=== PATIENT | male | born 1955 | race Caucasian/White ===

== ENCOUNTER 2017-05-21 14:18 | Inpatient (IN) | payer MEDICARE, MEDICAID ==
[2017-05-21 17:16] LABS: ADD MAN DIFF? NO
[2017-05-21 17:20] LABS: BASOPHILS % 0.2 % (0.0-2.0); HEMOGLOBIN 9.5 g/dl (14.0-18.0); MONOCYTES % 6.6 % (0.0-11.0); NEUTROPHILS % 80.8 % (39.0-77.0)
[2017-05-21 17:27] LABS: EOSINOPHILS # 0.3 10^3/ul (0.0-0.5); EOSINOPHILS % 3.8 % (0.0-7.0); LYMPHOCYTES # 0.7 10^3/ul (0.8-2.9); MEAN CORPUSCULAR HEMOGLOBIN 32.3 pg (29.0-33.0); MEAN CORPUSCULAR HGB CONC 32.8 g/dl (32.0-37.0); MEAN CORPUSCULAR VOLUME 98.6 fl (82.0-101.0); MEAN PLATELET VOLUME 10.3 fl (7.4-10.4); MONOCYTE # 0.6 10^3/ul (0.3-0.9); PLATELET COUNT 164 10^3/UL (140-415); RED BLOOD COUNT 2.94 10^6/ul (4.70-6.10); RED CELL DISTRIBUTION WIDTH 17.2 % (11.5-14.5)
[2017-05-21 17:27] LABS: WHITE BLOOD COUNT 8.6 10^3/ul (4.8-10.8)
[2017-05-21] MEDS: morphine 4 MG/ML VIAL IV (17:30)
[2017-05-21 17:33] LABS: INR 1.12; PROTIME 14.6 Sec (11.9-14.9); PT RATIO 1.1
[2017-05-21 17:34] LABS: PARTIAL THROMBOPLASTIN TIME 46.8 Sec (25.0-35.0)
[2017-05-21 17:48] LABS: ANION GAP 20 (8-16); BLOOD UREA NITROGEN 58 mg/dl (7-20); CALCIUM 10.2 mg/dl (8.4-10.2); CARBON DIOXIDE 26 mmol/L (21-31); CHLORIDE 95 mmol/L (97-110); CREATININE 9.06 mg/dl (0.61-1.24); GLUCOSE 84 mg/dl (70-220); POTASSIUM 5.4 mmol/L (3.5-5.1); SODIUM 136 mmol/L (135-144)
[2017-05-21] MEDS ORDERED: ONDANSETRON 4 MG INJ IV (20:30)
[2017-05-21] MEDS ORDERED: ACETAMINOPHEN 325 MG TAB PO ×2 (20:30→22:30)
[2017-05-21] MEDS: morphine 10 MG INJ IV (20:33)
[2017-05-21] MEDS: CLINDAMYCIN 900 MG/D5W (PMX) 50 ML IVPB (21:27)
[2017-05-21] MEDS: NA POLYST SULFON 15 GM/60 ML BTL PO (21:48)
[2017-05-21] MEDS ORDERED: NITROGLYCERIN (SL) 0.4 MG TAB SL (22:30)
[2017-05-21] MEDS ORDERED: ALBUTEROL/IPRATROPIUM (NEB) 3 ML AMP HHN (22:30)
[2017-05-21] MEDS ORDERED: VANCOMYCIN IV PER PHARMACY XX (22:30)
[2017-05-21] MEDS ORDERED: NA PHOSPHATE/BIPHOS 133 ML ENEMA PR (22:30)
[2017-05-21 23:09] LABS: INR 1.18; PROTIME 15.2 Sec (11.9-14.9); PT RATIO 1.2
[2017-05-21 23:10] LABS: PARTIAL THROMBOPLASTIN TIME 39.7 Sec (25.0-35.0)
[2017-05-21] MEDS: PIPER-TAZO 2.25 GM (PMX) 50 ML IVPB (23:30)
[2017-05-21 23:33] LABS: FREE T4 (FREE THYROXINE) 1.27 ng/dl (0.78-2.44)
[2017-05-22] MEDS: VANCOMYCIN 1.5 GM in DEXTROSE 5% 500 ML IVPB (00:15)
[2017-05-22] MEDS: morphine 2 MG INJ IV ×3 (01:36→10:39)
[2017-05-22] MEDS: HYDROCODONE/APAP (5/325) TAB PO ×2 (01:37→06:10)
[2017-05-22 05:45] LABS: ADD MAN DIFF? NO
[2017-05-22 05:51] LABS: WHITE BLOOD COUNT 8.4 10^3/ul (4.8-10.8)
[2017-05-22 05:51] LABS: ABNORMAL IP MESSAGE 1; BASOPHILS % 0.5 % (0.0-2.0); EOSINOPHILS # 0.4 10^3/ul (0.0-0.5); EOSINOPHILS % 5.2 % (0.0-7.0); HEMATOCRIT 29.4 % (42.0-52.0); HEMOGLOBIN 9.6 g/dl (14.0-18.0); LYMPHOCYTES # 0.6 10^3/ul (0.8-2.9); LYMPHOCYTES % 6.9 % (15.0-51.0); MEAN CORPUSCULAR HEMOGLOBIN 32.1 pg (29.0-33.0); MEAN CORPUSCULAR HGB CONC 32.7 g/dl (32.0-37.0); MEAN CORPUSCULAR VOLUME 98.3 fl (82.0-101.0); MEAN PLATELET VOLUME 11.2 fl (7.4-10.4); MONOCYTE # 0.5 10^3/ul (0.3-0.9); MONOCYTES % 5.8 % (0.0-11.0); NEUTROPHIL # 6.8 10^3/ul (1.6-7.5); NEUTROPHILS % 81.2 % (39.0-77.0); PLATELET COUNT 122 10^3/UL (140-415); POSITIVE DIFF @See below; RED BLOOD COUNT 2.99 10^6/ul (4.70-6.10); RED CELL DISTRIBUTION WIDTH 17.2 % (11.5-14.5)
[2017-05-22] MEDS ORDERED: GLUCAGON 1 MG INJ IM (06:00)
[2017-05-22] MEDS ORDERED: DEXTROSE 50% 50 ML SYRINGE IV (06:00)
[2017-05-22] MEDS ORDERED: GLUCOSE GEL 15 GRAM TUBE PO ×2 (06:00)
[2017-05-22 06:12] LABS: CHOLESTEROL 105 mg/dl (100-200)
[2017-05-22 06:12] LABS: CHOL/HDL RATIO 5.2 RATIO; HDL CHOLESTEROL 20 mg/dl (30-78); LDL CHOLESTEROL,CALCULATED 60 mg/dl; TRIGLYCERIDES 126 mg/dl (0-149)
[2017-05-22 06:14] LABS: ANION GAP 18 (8-16); BLOOD UREA NITROGEN 60 mg/dl (7-20); CALCIUM 10.6 mg/dl (8.4-10.2); CARBON DIOXIDE 24 mmol/L (21-31); CHLORIDE 95 mmol/L (97-110); CREATININE 10.17 mg/dl (0.61-1.24); GLUCOSE 70 mg/dl (70-220); MAGNESIUM 1.9 mg/dl (1.7-2.5); PHOSPHORUS 7.1 mg/dl (2.5-4.9); POTASSIUM 5.2 mmol/L (3.5-5.1); SODIUM 132 mmol/L (135-144)
[2017-05-22] MEDS: PIPER-TAZO 2.25 GM (PMX) 50 ML IVPB ×3 (06:30→22:00)
[2017-05-22] MEDS: PANTOPRAZOLE (EC) 40 MG TAB PO (06:54)
[2017-05-22 07:53] LABS: HEMOGLOBIN A1C 4.4 % (0-5.9)
[2017-05-22] MEDS ORDERED: VANCOMYCIN IV PER PHARMACY XX (08:30)
[2017-05-22] MEDS: ASPIRIN 81 MG TAB PO (09:00)
[2017-05-22] MEDS: ASCORBIC ACID 500 MG TAB PO ×3 (09:00→23:56)
[2017-05-22] MEDS: HEPARIN 5,000 UNIT/0.5 ML VIAL SC ×2 (09:00→21:00)
[2017-05-22] MEDS: BISACODYL 10 MG SUPP PR (09:00)
[2017-05-22] MEDS: LISINOPRIL 10 MG TAB PO (09:00)
[2017-05-22] MEDS: AMIODARONE 200 MG TAB PO (09:00)
[2017-05-22] MEDS ORDERED: PANTOPRAZOLE (EC) 40 MG TAB PO (09:00)
[2017-05-22] MEDS ORDERED: NON-FORMULARY/PATIENT OWN MED (Amino Acids/Protein Hydrolys (Pro-Stat Liquid) 30 ML) PO (09:00)
[2017-05-22] MEDS: FOLIC ACID 1 MG TAB PO (09:00)
[2017-05-22] MEDS: INSULIN ASPART [NOVOLOG] 3 ML PEN SC ×4 (09:00→21:00)
[2017-05-22] MEDS: MULTIVITAMINS/MINERALS TAB PO (09:00)
[2017-05-22] MEDS: THIAMINE 100 MG TAB PO (09:00)
[2017-05-22] MEDS: ZINC SULFATE 220 MG CAP PO (09:00)
[2017-05-22] MEDS: COLLAGENASE 30 GM TUBE TOP ×2 (09:00→21:00)
[2017-05-22] MEDS ORDERED: NON-FORMULARY/PATIENT OWN MED (Cranberry Extract (Cranberry) 425 MG) PO (09:00)
[2017-05-22] MEDS: CALCIUM ACETATE 667 MG CAP PO ×2 (11:45→17:35)
[2017-05-22] MEDS ORDERED: PIPER-TAZO 2.25 GM (PMX) 50 ML IVPB (14:00)
[2017-05-22 14:25] LABS: INR 1.15; PROTIME 14.9 Sec (11.9-14.9); PT RATIO 1.2
[2017-05-22 14:26] LABS: PARTIAL THROMBOPLASTIN TIME 46.2 Sec (25.0-35.0)
[2017-05-22 15:00] LABS: HEPATITIS B SURFACE ANTIGEN NEGATIVE (NEGATIVE)
[2017-05-22 15:18] LABS: HEPATITIS B SURFACE ANTIBODY POSITIVE (NEGATIVE)
[2017-05-22] MEDS: EPOETIN 10000 UNITS/1 ML INJ (ESRD) SC (18:22)
[2017-05-22] MEDS: ATORVASTATIN 10 MG TAB PO ×2 (21:00→23:55)
[2017-05-22] MEDS: DOCUSATE SODIUM 100 MG CAP PO (21:00)
[2017-05-22] MEDS: HEPARIN 1000 UNITS/ML 10 ML INJ CATHETER ×2 (23:46→23:47)
[2017-05-23] MEDS: INSULIN ASPART [NOVOLOG] 3 ML PEN SC ×6 (01:00→21:00)
[2017-05-23] MEDS ORDERED: ACCU-CHEK XX (02:00)
[2017-05-23] MEDS: COLLAGENASE 30 GM TUBE TOP ×3 (04:29→21:00)
[2017-05-23] MEDS: PANTOPRAZOLE (EC) 40 MG TAB PO (05:19)
[2017-05-23 06:09] LABS: ADD MAN DIFF? NO
[2017-05-23 06:22] LABS: ABNORMAL IP MESSAGE 1; BASOPHILS % 0.4 % (0.0-2.0); EOSINOPHILS # 0.3 10^3/ul (0.0-0.5); EOSINOPHILS % 4.1 % (0.0-7.0); HEMATOCRIT 31.5 % (42.0-52.0); HEMOGLOBIN 10.3 g/dl (14.0-18.0); LYMPHOCYTES # 0.6 10^3/ul (0.8-2.9); LYMPHOCYTES % 7.2 % (15.0-51.0); MEAN CORPUSCULAR HEMOGLOBIN 32.3 pg (29.0-33.0); MEAN CORPUSCULAR HGB CONC 32.7 g/dl (32.0-37.0); MEAN CORPUSCULAR VOLUME 98.7 fl (82.0-101.0); MEAN PLATELET VOLUME 10.8 fl (7.4-10.4); MONOCYTE # 0.4 10^3/ul (0.3-0.9); MONOCYTES % 5.8 % (0.0-11.0); NEUTROPHIL # 6.3 10^3/ul (1.6-7.5); NEUTROPHILS % 81.8 % (39.0-77.0); PLATELET COUNT 154 10^3/UL (140-415); POSITIVE DIFF @See below; RED BLOOD COUNT 3.19 10^6/ul (4.70-6.10); RED CELL DISTRIBUTION WIDTH 17.3 % (11.5-14.5)
[2017-05-23 06:22] LABS: WHITE BLOOD COUNT 7.6 10^3/ul (4.8-10.8)
[2017-05-23 06:40] LABS: ANION GAP 17 (8-16); BLOOD UREA NITROGEN 42 mg/dl (7-20); CALCIUM 10.4 mg/dl (8.4-10.2); CARBON DIOXIDE 26 mmol/L (21-31); CHLORIDE 98 mmol/L (97-110); CREATININE 7.52 mg/dl (0.61-1.24); GLUCOSE 64 mg/dl (70-220); POTASSIUM 4.9 mmol/L (3.5-5.1); SODIUM 136 mmol/L (135-144)
[2017-05-23 06:41] LABS: IRON 55 ug/dl (35-150)
[2017-05-23] MEDS: morphine 2 MG INJ IV ×4 (06:48→21:37)
[2017-05-23 06:50] LABS: % IRON SATURATION 39 % SAT (22-52); TOTAL IRON BINDING CAPACITY 140 ug/dl (241-421)
[2017-05-23] MEDS: PIPER-TAZO 2.25 GM (PMX) 50 ML IVPB ×3 (06:50→21:38)
[2017-05-23] MEDS: ASCORBIC ACID 500 MG TAB PO ×2 (08:46→21:37)
[2017-05-23] MEDS: MULTIVITAMINS/MINERALS TAB PO (08:46)
[2017-05-23] MEDS: FOLIC ACID 1 MG TAB PO (08:46)
[2017-05-23] MEDS: BISACODYL 10 MG SUPP PR (08:46)
[2017-05-23] MEDS: CALCIUM ACETATE 667 MG CAP PO ×3 (08:46→17:00)
[2017-05-23] MEDS: ZINC SULFATE 220 MG CAP PO (08:46)
[2017-05-23] MEDS: ASPIRIN 81 MG TAB PO (08:46)
[2017-05-23] MEDS: THIAMINE 100 MG TAB PO (08:46)
[2017-05-23] MEDS: AMIODARONE 200 MG TAB PO (08:47)
[2017-05-23] MEDS: LISINOPRIL 10 MG TAB PO (08:47)
[2017-05-23] MEDS: HEPARIN 5,000 UNIT/0.5 ML VIAL SC ×2 (08:48→21:46)
[2017-05-23] MEDS: INFLUENZA VIRUS VACCINE 0.5 ML SYG IM* (08:49)
[2017-05-23] MEDS: HYDROCODONE/APAP (5/325) TAB PO (15:56)
[2017-05-23] MEDS: DOCUSATE SODIUM 100 MG CAP PO (21:00)
[2017-05-23] MEDS: ATORVASTATIN 10 MG TAB PO (21:37)
[2017-05-24] MEDS: INSULIN ASPART [NOVOLOG] 3 ML PEN SC ×6 (01:00→21:00)
[2017-05-24] MEDS: morphine 2 MG INJ IV ×4 (02:01→19:31)
[2017-05-24] MEDS: HYDROCODONE/APAP (5/325) TAB PO (03:40)
[2017-05-24] MEDS: COLLAGENASE 30 GM TUBE TOP ×3 (04:19→21:12)
[2017-05-24] MEDS: PIPER-TAZO 2.25 GM (PMX) 50 ML IVPB ×3 (05:52→21:11)
[2017-05-24] MEDS: PANTOPRAZOLE (EC) 40 MG TAB PO (05:52)
[2017-05-24 06:19] LABS: ADD MAN DIFF? NO
[2017-05-24 06:49] LABS: ABNORMAL IP MESSAGE 1; BASOPHILS % 0.3 % (0.0-2.0); EOSINOPHILS # 0.3 10^3/ul (0.0-0.5); HEMATOCRIT 25.5 % (42.0-52.0); HEMOGLOBIN 8.2 g/dl (14.0-18.0); LYMPHOCYTES # 0.6 10^3/ul (0.8-2.9); LYMPHOCYTES % 7.4 % (15.0-51.0); MEAN CORPUSCULAR HGB CONC 32.2 g/dl (32.0-37.0); MEAN CORPUSCULAR VOLUME 99.6 fl (82.0-101.0); MONOCYTE # 0.5 10^3/ul (0.3-0.9); MONOCYTES % 6.4 % (0.0-11.0); NEUTROPHIL # 6.5 10^3/ul (1.6-7.5); NEUTROPHILS % 81.5 % (39.0-77.0); PLATELET COUNT 103 10^3/UL (140-415); POSITIVE DIFF @See below; RED BLOOD COUNT 2.56 10^6/ul (4.70-6.10); RED CELL DISTRIBUTION WIDTH 17.2 % (11.5-14.5)
[2017-05-24 06:49] LABS: WHITE BLOOD COUNT 7.9 10^3/ul (4.8-10.8)
[2017-05-24 06:54] LABS: ANION GAP 17 (8-16); BLOOD UREA NITROGEN 48 mg/dl (7-20); CALCIUM 10.2 mg/dl (8.4-10.2); CARBON DIOXIDE 26 mmol/L (21-31); CHLORIDE 97 mmol/L (97-110); GLUCOSE 67 mg/dl (70-220); POTASSIUM 5.2 mmol/L (3.5-5.1); SODIUM 135 mmol/L (135-144)
[2017-05-24 06:56] LABS: VANCOMYCIN,RANDOM 16.3 ug/ml
[2017-05-24] MEDS: ASPIRIN 81 MG TAB PO (07:50)
[2017-05-24] MEDS: ASCORBIC ACID 500 MG TAB PO ×2 (07:50→21:06)
[2017-05-24] MEDS: THIAMINE 100 MG TAB PO (07:50)
[2017-05-24] MEDS: FOLIC ACID 1 MG TAB PO (07:50)
[2017-05-24] MEDS: MULTIVITAMINS/MINERALS TAB PO (07:50)
[2017-05-24] MEDS: LISINOPRIL 10 MG TAB PO (07:51)
[2017-05-24] MEDS: BISACODYL 10 MG SUPP PR (07:51)
[2017-05-24] MEDS: CALCIUM ACETATE 667 MG CAP PO ×3 (07:51→16:54)
[2017-05-24] MEDS: AMIODARONE 200 MG TAB PO (07:51)
[2017-05-24] MEDS: HEPARIN 5,000 UNIT/0.5 ML VIAL SC ×2 (07:51→21:21)
[2017-05-24] MEDS: ZINC SULFATE 220 MG CAP PO (07:51)
[2017-05-24] MEDS ORDERED: MIDAZOLAM 1 MG/ML 2 ML INJ (10:37)
[2017-05-24] MEDS ORDERED: SOD CHLORIDE 0.9% 500 ML (10:37)
[2017-05-24] MEDS ORDERED: FENTAnyl 50 MCG/ML VIAL (10:37)
[2017-05-24] MEDS ORDERED: IODIXANOL LOCM 50 ML BTL (10:37)
[2017-05-24] MEDS ORDERED: LIDOCAINE 1% (MDV) 20 ML INJ (10:37)
[2017-05-24] MEDS ORDERED: CEFAZOLIN 1 GM/50 ML (PMX) 50 ML IVPB (11:32)
[2017-05-24] MEDS ORDERED: IODIXANOL LOCM 100 ML BTL (12:18)
[2017-05-24] MEDS ORDERED: HEPARIN 1000 UNITS/ML 10 ML INJ (12:19)
[2017-05-24] MEDS: VANCOMYCIN 1 GM 250 ML IVPB (12:34)
[2017-05-24] MEDS: DOCUSATE SODIUM 100 MG CAP PO (21:00)
[2017-05-24] MEDS: ATORVASTATIN 10 MG TAB PO (21:06)
[2017-05-25] MEDS: INSULIN ASPART [NOVOLOG] 3 ML PEN SC ×6 (01:00→20:39)
[2017-05-25] MEDS: morphine 2 MG INJ IV ×4 (05:19→20:34)
[2017-05-25] MEDS: PANTOPRAZOLE (EC) 40 MG TAB PO (05:40)
[2017-05-25] MEDS: PIPER-TAZO 2.25 GM (PMX) 50 ML IVPB ×3 (05:41→22:31)
[2017-05-25] MEDS: HYDROCODONE/APAP (5/325) TAB PO (08:50)
[2017-05-25] MEDS: COLLAGENASE 30 GM TUBE TOP ×2 (09:00→20:49)
[2017-05-25] MEDS: LISINOPRIL 10 MG TAB PO (09:00)
[2017-05-25] MEDS: BISACODYL 10 MG SUPP PR (09:00)
[2017-05-25] MEDS: AMIODARONE 200 MG TAB PO (09:00)
[2017-05-25] MEDS: MULTIVITAMINS/MINERALS TAB PO (10:01)
[2017-05-25] MEDS: ASPIRIN 81 MG TAB PO (10:01)
[2017-05-25] MEDS: ZINC SULFATE 220 MG CAP PO (10:02)
[2017-05-25] MEDS: CALCIUM ACETATE 667 MG CAP PO ×3 (10:02→18:35)
[2017-05-25] MEDS: ASCORBIC ACID 500 MG TAB PO ×2 (10:02→20:35)
[2017-05-25] MEDS: FOLIC ACID 1 MG TAB PO (10:02)
[2017-05-25] MEDS: THIAMINE 100 MG TAB PO (10:02)
[2017-05-25] MEDS: HEPARIN 5,000 UNIT/0.5 ML VIAL SC ×2 (10:09→20:47)
[2017-05-25 10:44] LABS: ADD MAN DIFF? NO
[2017-05-25 10:58] LABS: ABNORMAL IP MESSAGE 1; BASOPHILS % 0.4 % (0.0-2.0); EOSINOPHILS # 0.4 10^3/ul (0.0-0.5); EOSINOPHILS % 5.8 % (0.0-7.0); HEMATOCRIT 23.6 % (42.0-52.0); HEMOGLOBIN 7.6 g/dl (14.0-18.0); LYMPHOCYTES # 0.4 10^3/ul (0.8-2.9); MEAN CORPUSCULAR HEMOGLOBIN 32.2 pg (29.0-33.0); MEAN CORPUSCULAR HGB CONC 32.2 g/dl (32.0-37.0); MONOCYTE # 0.3 10^3/ul (0.3-0.9); MONOCYTES % 4.2 % (0.0-11.0); NEUTROPHIL # 6.4 10^3/ul (1.6-7.5); NEUTROPHILS % 84.3 % (39.0-77.0); PLATELET COUNT 113 10^3/UL (140-415); POSITIVE DIFF @See below; RED BLOOD COUNT 2.36 10^6/ul (4.70-6.10); RED CELL DISTRIBUTION WIDTH 17.2 % (11.5-14.5)
[2017-05-25 10:58] LABS: WHITE BLOOD COUNT 7.6 10^3/ul (4.8-10.8)
[2017-05-25 11:06] LABS: ANION GAP 20 (8-16); BLOOD UREA NITROGEN 56 mg/dl (7-20); CALCIUM 10.1 mg/dl (8.4-10.2); CARBON DIOXIDE 23 mmol/L (21-31); CHLORIDE 98 mmol/L (97-110); CREATININE 9.83 mg/dl (0.61-1.24); GLUCOSE 65 mg/dl (70-220); SODIUM 135 mmol/L (135-144)
[2017-05-25 11:07] LABS: MAGNESIUM 1.9 mg/dl (1.7-2.5)
[2017-05-25 11:07] LABS: PHOSPHORUS 6.3 mg/dl (2.5-4.9)
[2017-05-25 11:09] LABS: POTASSIUM 5.6 mmol/L (3.5-5.1)
[2017-05-25] MEDS: EPOETIN 10000 UNITS/1 ML INJ (ESRD) SC (18:34)
[2017-05-25] MEDS: ATORVASTATIN 10 MG TAB PO (20:35)
[2017-05-25] MEDS: DOCUSATE SODIUM 100 MG CAP PO (20:35)
[2017-05-26] MEDS: INSULIN ASPART [NOVOLOG] 3 ML PEN SC ×6 (01:45→21:00)
[2017-05-26] MEDS: morphine 2 MG INJ IV ×5 (03:40→22:37)
[2017-05-26] MEDS: HEPARIN 1000 UNITS/ML 10 ML INJ CATHETER (03:41)
[2017-05-26] MEDS: PANTOPRAZOLE (EC) 40 MG TAB PO (06:00)
[2017-05-26] MEDS: PIPER-TAZO 2.25 GM (PMX) 50 ML IVPB ×2 (06:01→13:19)
[2017-05-26 07:27] LABS: ADD MAN DIFF? NO
[2017-05-26 07:33] LABS: ABNORMAL IP MESSAGE 1; BASOPHILS % 0.6 % (0.0-2.0); EOSINOPHILS # 0.5 10^3/ul (0.0-0.5); EOSINOPHILS % 6.7 % (0.0-7.0); HEMATOCRIT 26.6 % (42.0-52.0); HEMOGLOBIN 8.7 g/dl (14.0-18.0); LYMPHOCYTES # 0.4 10^3/ul (0.8-2.9); LYMPHOCYTES % 5.5 % (15.0-51.0); MEAN CORPUSCULAR HEMOGLOBIN 32.3 pg (29.0-33.0); MEAN CORPUSCULAR HGB CONC 32.7 g/dl (32.0-37.0); MEAN CORPUSCULAR VOLUME 98.9 fl (82.0-101.0); MONOCYTE # 0.4 10^3/ul (0.3-0.9); MONOCYTES % 5.4 % (0.0-11.0); NEUTROPHIL # 5.8 10^3/ul (1.6-7.5); NEUTROPHILS % 81.7 % (39.0-77.0); PLATELET COUNT 105 10^3/UL (140-415); POSITIVE DIFF @See below; RED BLOOD COUNT 2.69 10^6/ul (4.70-6.10); RED CELL DISTRIBUTION WIDTH 17.2 % (11.5-14.5)
[2017-05-26 07:47] LABS: MAGNESIUM 1.8 mg/dl (1.7-2.5)
[2017-05-26 07:47] LABS: PHOSPHORUS 3.7 mg/dl (2.5-4.9)
[2017-05-26 07:52] LABS: ANION GAP 16 (8-16); BLOOD UREA NITROGEN 26 mg/dl (7-20); CALCIUM 9.8 mg/dl (8.4-10.2); CARBON DIOXIDE 26 mmol/L (21-31); CHLORIDE 100 mmol/L (97-110); CREATININE 5.54 mg/dl (0.61-1.24); GLUCOSE 60 mg/dl (70-220); POTASSIUM 4.1 mmol/L (3.5-5.1); SODIUM 138 mmol/L (135-144)
[2017-05-26 08:14] LABS: INR 1.23; PROTIME 15.7 Sec (11.9-14.9); PT RATIO 1.2
[2017-05-26] MEDS: FOLIC ACID 1 MG TAB PO (08:44)
[2017-05-26] MEDS: THIAMINE 100 MG TAB PO (08:44)
[2017-05-26] MEDS: CALCIUM ACETATE 667 MG CAP PO ×3 (08:44→17:19)
[2017-05-26] MEDS: ASCORBIC ACID 500 MG TAB PO ×2 (08:44→22:30)
[2017-05-26] MEDS: ZINC SULFATE 220 MG CAP PO (08:44)
[2017-05-26] MEDS: MULTIVITAMINS/MINERALS TAB PO (08:44)
[2017-05-26] MEDS: LISINOPRIL 10 MG TAB PO (08:45)
[2017-05-26] MEDS: AMIODARONE 200 MG TAB PO (08:45)
[2017-05-26] MEDS: ASPIRIN 81 MG TAB PO (08:46)
[2017-05-26] MEDS: HEPARIN 5,000 UNIT/0.5 ML VIAL SC (08:50)
[2017-05-26] MEDS: COLLAGENASE 30 GM TUBE TOP ×2 (08:52→21:00)
[2017-05-26] MEDS: BISACODYL 10 MG SUPP PR (09:00)
[2017-05-26] MEDS ORDERED: HEPARIN 25000 UNITS/250 ML 250 ML IV (13:30)
[2017-05-26] MEDS ORDERED: HEPARIN 1000 UNITS/ML 10 ML INJ IV ×4 (13:30)
[2017-05-26] MEDS: HEPARIN 1000 UNITS/ML 10 ML INJ IV (14:11)
[2017-05-26] MEDS: HEPARIN 25000 UNITS/250 ML 250 ML IV (14:19)
[2017-05-26] MEDS ORDERED: TOBRAMYCIN IV PER PHARMACY XX (15:00)
[2017-05-26 15:22] LABS: ADD MAN DIFF? NO
[2017-05-26 15:27] LABS: ABNORMAL IP MESSAGE 1; BASOPHILS % 0.4 % (0.0-2.0); EOSINOPHILS # 0.5 10^3/ul (0.0-0.5); HEMATOCRIT 26.1 % (42.0-52.0); HEMOGLOBIN 8.5 g/dl (14.0-18.0); LYMPHOCYTES # 0.5 10^3/ul (0.8-2.9); LYMPHOCYTES % 7.1 % (15.0-51.0); MEAN CORPUSCULAR HEMOGLOBIN 32.4 pg (29.0-33.0); MEAN CORPUSCULAR HGB CONC 32.6 g/dl (32.0-37.0); MEAN CORPUSCULAR VOLUME 99.6 fl (82.0-101.0); MEAN PLATELET VOLUME 10.9 fl (7.4-10.4); MONOCYTE # 0.5 10^3/ul (0.3-0.9); MONOCYTES % 6.3 % (0.0-11.0); NEUTROPHIL # 5.8 10^3/ul (1.6-7.5); NEUTROPHILS % 78.5 % (39.0-77.0); PLATELET COUNT 112 10^3/UL (140-415); POSITIVE DIFF @See below; RED BLOOD COUNT 2.62 10^6/ul (4.70-6.10); RED CELL DISTRIBUTION WIDTH 17.4 % (11.5-14.5)
[2017-05-26 15:27] LABS: WHITE BLOOD COUNT 7.3 10^3/ul (4.8-10.8)
[2017-05-26 15:45] LABS: INR 1.44; PROTIME 17.8 Sec (11.9-14.9); PT RATIO 1.4
[2017-05-26 16:04] LABS: PARTIAL THROMBOPLASTIN TIME > 180.0 Sec (25.0-35.0)
[2017-05-26] MEDS: CEFTAZIDIME 1GM/50 ML (PMX) 50 ML IVPB (16:29)
[2017-05-26] MEDS: TOBRAMYCIN 160 MG in DEXTROSE 5% 100 ML IVPB (17:14)
[2017-05-26] MEDS ORDERED: MINERAL OIL LIGHT 10 ML VIAL (18:36)
[2017-05-26] MEDS ORDERED: LIDOCAINE 1% (MPF) 30 ML INJ (18:36)
[2017-05-26] MEDS: DAPTOMYCIN 325 MG in SOD CHLORIDE 0.9% 100 ML IVPB (18:43)
[2017-05-26 19:19] LABS: TROPONIN-I 0.024 ng/ml (0.00-0.12)
[2017-05-26] MEDS: BUPIVACAINE 0.25% (MPF) 30 ML INJ ×3 (19:50→20:08)
[2017-05-26] MEDS ORDERED: MIDAZOLAM 1 MG/ML 2 ML INJ (19:50)
[2017-05-26] MEDS ORDERED: FENTAnyl 50 MCG/ML VIAL (19:50)
[2017-05-26] MEDS ORDERED: PROPOFOL 20 ML (20:12)
[2017-05-26] MEDS ORDERED: LIDOCAINE 2% (SDV) 5 ML INJ (20:12)
[2017-05-26] MEDS ORDERED: FENTAnyl 50 MCG/ML VIAL IV (20:30)
[2017-05-26] MEDS ORDERED: NEOMYC/POLYMYX/BACIT 30 GM OINT (20:45)
[2017-05-26] MEDS: DOCUSATE SODIUM 100 MG CAP PO (21:00)
[2017-05-26 22:06] LABS: HEPATITIS B SURFACE ANTIGEN NEGATIVE (NEGATIVE)
[2017-05-26] MEDS: ATORVASTATIN 10 MG TAB PO (22:30)
[2017-05-26 23:30] LABS: PARTIAL THROMBOPLASTIN TIME 45.4 Sec (25.0-35.0)
[2017-05-27] MEDS: INSULIN ASPART [NOVOLOG] 3 ML PEN SC ×6 (01:00→20:08)
[2017-05-27] MEDS: HEPARIN 1000 UNITS/ML 10 ML INJ IV (01:20)
[2017-05-27] MEDS: HEPARIN 25000 UNITS/250 ML 250 ML IV ×2 (01:23→23:16)
[2017-05-27 01:50] LABS: TROPONIN-I 0.032 ng/ml (0.00-0.12)
[2017-05-27] MEDS: PANTOPRAZOLE (EC) 40 MG TAB PO (05:29)
[2017-05-27] MEDS: morphine 2 MG INJ IV ×4 (05:47→23:17)
[2017-05-27] MEDS: HYDROCODONE/APAP (5/325) TAB PO ×3 (06:45→20:05)
[2017-05-27 08:22] LABS: ADD MAN DIFF? NO
[2017-05-27 08:32] LABS: WHITE BLOOD COUNT 7.3 10^3/ul (4.8-10.8)
[2017-05-27 08:32] LABS: ABNORMAL IP MESSAGE 1; BASOPHILS % 0.3 % (0.0-2.0); EOSINOPHILS # 0.4 10^3/ul (0.0-0.5); EOSINOPHILS % 5.8 % (0.0-7.0); HEMATOCRIT 25.3 % (42.0-52.0); HEMOGLOBIN 8.2 g/dl (14.0-18.0); LYMPHOCYTES # 0.6 10^3/ul (0.8-2.9); LYMPHOCYTES % 7.6 % (15.0-51.0); MEAN CORPUSCULAR HEMOGLOBIN 32.7 pg (29.0-33.0); MEAN CORPUSCULAR HGB CONC 32.4 g/dl (32.0-37.0); MEAN CORPUSCULAR VOLUME 100.8 fl (82.0-101.0); MEAN PLATELET VOLUME 11.1 fl (7.4-10.4); MONOCYTE # 0.4 10^3/ul (0.3-0.9); MONOCYTES % 5.5 % (0.0-11.0); NEUTROPHIL # 5.8 10^3/ul (1.6-7.5); NEUTROPHILS % 80.4 % (39.0-77.0); PLATELET COUNT 108 10^3/UL (140-415); POSITIVE DIFF @See below; RED BLOOD COUNT 2.51 10^6/ul (4.70-6.10); RED CELL DISTRIBUTION WIDTH 17.4 % (11.5-14.5)
[2017-05-27] MEDS: BISACODYL 10 MG SUPP PR (09:00)
[2017-05-27] MEDS: AMIODARONE 200 MG TAB PO ×2 (09:00→11:37)
[2017-05-27] MEDS: COLLAGENASE 30 GM TUBE TOP ×2 (09:00→20:05)
[2017-05-27] MEDS: LISINOPRIL 10 MG TAB PO ×2 (09:00→11:37)
[2017-05-27 09:08] LABS: INR 1.28; PROTIME 16.2 Sec (11.9-14.9); PT RATIO 1.3
[2017-05-27 09:15] LABS: TROPONIN-I 0.027 ng/ml (0.00-0.12)
[2017-05-27 09:21] LABS: PARTIAL THROMBOPLASTIN TIME 174.8 Sec (25.0-35.0)
[2017-05-27 09:32] LABS: IMMEDIATE SPIN CROSSMATCH 1 2
[2017-05-27] MEDS: ZINC SULFATE 220 MG CAP PO (10:06)
[2017-05-27] MEDS: MULTIVITAMINS/MINERALS TAB PO (10:06)
[2017-05-27] MEDS: ASCORBIC ACID 500 MG TAB PO ×2 (10:06→20:05)
[2017-05-27] MEDS: CALCIUM ACETATE 667 MG CAP PO ×3 (10:06→17:34)
[2017-05-27] MEDS: THIAMINE 100 MG TAB PO (10:07)
[2017-05-27] MEDS: FOLIC ACID 1 MG TAB PO (10:07)
[2017-05-27] MEDS: ASPIRIN 81 MG TAB PO (10:09)
[2017-05-27 10:29] LABS: ANION GAP 17 (8-16); BLOOD UREA NITROGEN 31 mg/dl (7-20); CALCIUM 10.4 mg/dl (8.4-10.2); CARBON DIOXIDE 25 mmol/L (21-31); CHLORIDE 101 mmol/L (97-110); CREATININE 6.63 mg/dl (0.61-1.24); GLUCOSE 73 mg/dl (70-220); POTASSIUM 4.7 mmol/L (3.5-5.1); SODIUM 138 mmol/L (135-144)
[2017-05-27 11:33] LABS: PHOSPHORUS 4.7 mg/dl (2.5-4.9)
[2017-05-27 11:39] LABS: CREATINE KINASE < 20 IU/L (23-200)
[2017-05-27 12:12] LABS: PARTIAL THROMBOPLASTIN TIME 144.3 Sec (25.0-35.0)
[2017-05-27] MEDS: TOBRAMYCIN 120 MG in DEXTROSE 5% 100 ML IVPB (13:09)
[2017-05-27] MEDS: FLUCONAZOLE 200 MG TAB PO (13:09)
[2017-05-27] MEDS: MAGNESIUM HYDROXIDE 30ML CUP PO (14:53)
[2017-05-27] MEDS: CEFTAZIDIME 1GM/50 ML (PMX) 50 ML IVPB (16:32)
[2017-05-27] MEDS: EPOETIN 10000 UNITS/1 ML INJ (ESRD) SC (16:34)
[2017-05-27] MEDS: WARFARIN 5 MG TAB PO (17:34)
[2017-05-27 19:18] LABS: PARTIAL THROMBOPLASTIN TIME 97.5 Sec (25.0-35.0)
[2017-05-27] MEDS: ATORVASTATIN 10 MG TAB PO (20:05)
[2017-05-27] MEDS: DIPHENHYDRAMINE 25 MG CAP PO (20:05)
[2017-05-27] MEDS: DOCUSATE SODIUM 100 MG CAP PO (20:08)
[2017-05-28] MEDS: INSULIN ASPART [NOVOLOG] 3 ML PEN SC ×6 (01:00→20:24)
[2017-05-28 01:30] LABS: PARTIAL THROMBOPLASTIN TIME 121.2 Sec (25.0-35.0)
[2017-05-28] MEDS: PANTOPRAZOLE (EC) 40 MG TAB PO (02:27)
[2017-05-28] MEDS: DEXTROSE 5%-0.45% NACL 1,000 ML IV (05:18)
[2017-05-28] MEDS: DEXTROSE 50% 50 ML SYRINGE IV (05:18)
[2017-05-28 05:58] LABS: ADD MAN DIFF? NO
[2017-05-28] MEDS: morphine 2 MG INJ IV ×2 (06:03→20:21)
[2017-05-28 06:08] LABS: WHITE BLOOD COUNT 7.4 10^3/ul (4.8-10.8)
[2017-05-28 06:08] LABS: BASOPHILS % 0.4 % (0.0-2.0); EOSINOPHILS # 0.2 10^3/ul (0.0-0.5); EOSINOPHILS % 3.2 % (0.0-7.0); HEMOGLOBIN 8.9 g/dl (14.0-18.0); LYMPHOCYTES # 0.7 10^3/ul (0.8-2.9); LYMPHOCYTES % 9.4 % (15.0-51.0); MEAN CORPUSCULAR HEMOGLOBIN 32.6 pg (29.0-33.0); MEAN CORPUSCULAR VOLUME 98.9 fl (82.0-101.0); MEAN PLATELET VOLUME 11.3 fl (7.4-10.4); MONOCYTE # 0.4 10^3/ul (0.3-0.9); MONOCYTES % 5.8 % (0.0-11.0); NEUTROPHILS % 80.9 % (39.0-77.0); PLATELET COUNT 118 10^3/UL (140-415); RED BLOOD COUNT 2.73 10^6/ul (4.70-6.10)
[2017-05-28 06:19] LABS: INR 1.47; PROTIME 18.1 Sec (11.9-14.9); PT RATIO 1.4
[2017-05-28 06:28] LABS: ANION GAP 13 (8-16); BLOOD UREA NITROGEN 20 mg/dl (7-20); CALCIUM 10.4 mg/dl (8.4-10.2); CARBON DIOXIDE 29 mmol/L (21-31); CHLORIDE 101 mmol/L (97-110); GLUCOSE 74 mg/dl (70-220); SODIUM 139 mmol/L (135-144)
[2017-05-28 06:32] LABS: PHOSPHORUS 3.5 mg/dl (2.5-4.9)
[2017-05-28 06:32] LABS: MAGNESIUM 1.9 mg/dl (1.7-2.5)
[2017-05-28] MEDS ORDERED: PROPOFOL 200 MG INJ (07:00)
[2017-05-28] MEDS: CALCIUM ACETATE 667 MG CAP PO ×3 (08:15→17:14)
[2017-05-28] MEDS: FLUCONAZOLE 200 MG TAB PO (08:54)
[2017-05-28] MEDS: ASPIRIN 81 MG TAB PO (08:54)
[2017-05-28] MEDS: THIAMINE 100 MG TAB PO (08:54)
[2017-05-28] MEDS: AMIODARONE 200 MG TAB PO (08:54)
[2017-05-28] MEDS: FOLIC ACID 1 MG TAB PO (08:54)
[2017-05-28] MEDS: MULTIVITAMINS/MINERALS TAB PO (08:54)
[2017-05-28] MEDS: ASCORBIC ACID 500 MG TAB PO ×2 (08:55→20:22)
[2017-05-28] MEDS: LISINOPRIL 10 MG TAB PO (08:55)
[2017-05-28] MEDS: ZINC SULFATE 220 MG CAP PO (08:56)
[2017-05-28] MEDS: BISACODYL 10 MG SUPP PR (08:56)
[2017-05-28] MEDS: COLLAGENASE 30 GM TUBE TOP ×2 (09:00→20:24)
[2017-05-28] MEDS ORDERED: FENTAnyl 50 MCG/ML VIAL (10:37)
[2017-05-28 10:40] LABS: PARTIAL THROMBOPLASTIN TIME 56.6 Sec (25.0-35.0)
[2017-05-28 10:55] LABS: INR 1.57; PROTIME 19.1 Sec (11.9-14.9); PT RATIO 1.5
[2017-05-28] MEDS ORDERED: LIDOCAINE 1% (MDV) 20 ML INJ (11:13)
[2017-05-28] MEDS ORDERED: ACETAMINOPHEN 1000MG/100ML IV 100 ML (11:28)
[2017-05-28] MEDS ORDERED: KETOROLAC 30 MG INJ (11:28)
[2017-05-28] MEDS ORDERED: CEFAZOLIN 1 GM INJ (11:43)
[2017-05-28] MEDS ORDERED: MIDAZOLAM 1 MG/ML 2 ML INJ (12:15)
[2017-05-28] MEDS ORDERED: PHENYLephrine (100 MCG/ML) 5ML SYG (12:53)
[2017-05-28] MEDS ORDERED: SUGAMMADEX SODIUM 200 MG/2 ML VIAL IV (12:59)
[2017-05-28] MEDS: THROMBIN 5000 UNIT VIAL (13:21)
[2017-05-28] MEDS: GELATIN SIZE 100 SPONGE (13:21)
[2017-05-28] MEDS: HEPARIN 1000 UNITS/ML 10 ML INJ (13:21)
[2017-05-28] MEDS: LIDOCAINE 1% (MPF) 30 ML INJ (13:21)
[2017-05-28] MEDS: CEFTAZIDIME 1GM/50 ML (PMX) 50 ML IVPB (15:40)
[2017-05-28] MEDS: DAPTOMYCIN 325 MG in SOD CHLORIDE 0.9% 100 ML IVPB (17:09)
[2017-05-28] MEDS: ATORVASTATIN 10 MG TAB PO (20:22)
[2017-05-28] MEDS: DOCUSATE SODIUM 100 MG CAP PO (20:23)
[2017-05-29] MEDS: HYDROCODONE/APAP (5/325) TAB PO ×3 (01:05→18:40)
[2017-05-29] MEDS: ACCUCHECK AT 2AM (Patients on SS coverage) XX (01:53)
[2017-05-29 05:47] LABS: ADD MAN DIFF? NO
[2017-05-29 05:49] LABS: ABNORMAL IP MESSAGE 1; BASOPHILS % 0.5 % (0.0-2.0); EOSINOPHILS # 0.3 10^3/ul (0.0-0.5); EOSINOPHILS % 4.3 % (0.0-7.0); HEMATOCRIT 28.1 % (42.0-52.0); LYMPHOCYTES # 0.6 10^3/ul (0.8-2.9); LYMPHOCYTES % 6.9 % (15.0-51.0); MEAN CORPUSCULAR HEMOGLOBIN 32.3 pg (29.0-33.0); MEAN CORPUSCULAR VOLUME 100.7 fl (82.0-101.0); MEAN PLATELET VOLUME 11.2 fl (7.4-10.4); MONOCYTE # 0.4 10^3/ul (0.3-0.9); MONOCYTES % 4.8 % (0.0-11.0); NEUTROPHIL # 6.6 10^3/ul (1.6-7.5); NEUTROPHILS % 82.9 % (39.0-77.0); PLATELET COUNT 114 10^3/UL (140-415); POSITIVE DIFF @See below; RED BLOOD COUNT 2.79 10^6/ul (4.70-6.10); RED CELL DISTRIBUTION WIDTH 17.3 % (11.5-14.5)
[2017-05-29 06:13] LABS: ANION GAP 12 (8-16); BLOOD UREA NITROGEN 28 mg/dl (7-20); CALCIUM 10.5 mg/dl (8.4-10.2); CARBON DIOXIDE 29 mmol/L (21-31); CHLORIDE 101 mmol/L (97-110); GLUCOSE 67 mg/dl (70-220); POTASSIUM 4.3 mmol/L (3.5-5.1); SODIUM 138 mmol/L (135-144)
[2017-05-29] MEDS: PANTOPRAZOLE (EC) 40 MG TAB PO (06:14)
[2017-05-29] MEDS: morphine 2 MG INJ IV ×4 (06:18→20:17)
[2017-05-29 06:20] LABS: INR 2.34; PROTIME 26.3 Sec (11.9-14.9); PT RATIO 2.1
[2017-05-29 06:21] LABS: PARTIAL THROMBOPLASTIN TIME 60.2 Sec (25.0-35.0)
[2017-05-29 06:23] LABS: MAGNESIUM 2.2 mg/dl (1.7-2.5)
[2017-05-29 06:23] LABS: PHOSPHORUS 4.9 mg/dl (2.5-4.9)
[2017-05-29] MEDS ORDERED: INSULIN ASPART [NOVOLOG] 3 ML PEN SC (08:00)
[2017-05-29] MEDS: Insulin NOVOLOG SS MILD Algorithm (SS with meals and bedtime) SC ×4 (08:00→20:19)
[2017-05-29] MEDS: HEPARIN 25000 UNITS/250 ML 250 ML IV (08:02)
[2017-05-29] MEDS: AMIODARONE 200 MG TAB PO (08:07)
[2017-05-29] MEDS: LISINOPRIL 10 MG TAB PO (08:08)
[2017-05-29] MEDS: BISACODYL 10 MG SUPP PR (08:08)
[2017-05-29] MEDS: COLLAGENASE 30 GM TUBE TOP ×2 (08:09→20:24)
[2017-05-29] MEDS: CALCIUM ACETATE 667 MG CAP PO ×3 (08:15→17:23)
[2017-05-29] MEDS: MULTIVITAMINS/MINERALS TAB PO (12:05)
[2017-05-29] MEDS: THIAMINE 100 MG TAB PO (12:05)
[2017-05-29] MEDS: FOLIC ACID 1 MG TAB PO (12:06)
[2017-05-29] MEDS: ZINC SULFATE 220 MG CAP PO (12:06)
[2017-05-29] MEDS: ASPIRIN 81 MG TAB PO (12:06)
[2017-05-29] MEDS: ASCORBIC ACID 500 MG TAB PO ×2 (12:06→20:14)
[2017-05-29] MEDS: FLUCONAZOLE 200 MG TAB PO (12:06)
[2017-05-29] MEDS: TOBRAMYCIN 120 MG in DEXTROSE 5% 100 ML IVPB (12:09)
[2017-05-29] MEDS ORDERED: DEXTROSE 5% IVPB (16:00)
[2017-05-29] MEDS ORDERED: CEFTAZIDIME IVPB (16:00)
[2017-05-29] MEDS: CEFTAZIDIME IVPB (17:21)
[2017-05-29] MEDS: DEXTROSE 5% IVPB (17:21)
[2017-05-29] MEDS: WARFARIN 5 MG TAB PO (17:22)
[2017-05-29] MEDS: EPOETIN 10000 UNITS/1 ML INJ (ESRD) SC (17:22)
[2017-05-29] MEDS: DOCUSATE SODIUM 100 MG CAP PO (20:13)
[2017-05-29] MEDS: ATORVASTATIN 10 MG TAB PO (20:14)
[2017-05-30] MEDS: HYDROCODONE/APAP (5/325) TAB PO ×2 (00:06→05:15)
[2017-05-30] MEDS: ACCUCHECK AT 2AM (Patients on SS coverage) XX (02:00)
[2017-05-30] MEDS: morphine 2 MG INJ IV ×4 (02:27→17:46)
[2017-05-30] MEDS: PANTOPRAZOLE (EC) 40 MG TAB PO (05:14)
[2017-05-30 06:17] LABS: HEMOGLOBIN 8.7 g/dl (14.0-18.0); MEAN CORPUSCULAR HEMOGLOBIN 32.8 pg (29.0-33.0); MEAN CORPUSCULAR HGB CONC 32.2 g/dl (32.0-37.0); MEAN CORPUSCULAR VOLUME 101.9 fl (82.0-101.0); MEAN PLATELET VOLUME 11.5 fl (7.4-10.4); PLATELET COUNT 107 10^3/UL (140-415); POSITIVE DIFF @See below; RED BLOOD COUNT 2.65 10^6/ul (4.70-6.10); RED CELL DISTRIBUTION WIDTH 17.7 % (11.5-14.5)
[2017-05-30 06:17] LABS: WHITE BLOOD COUNT 7.2 10^3/ul (4.8-10.8)
[2017-05-30 06:39] LABS: PHOSPHORUS 3.1 mg/dl (2.5-4.9)
[2017-05-30 06:40] LABS: ADD MAN DIFF? YES
[2017-05-30 06:45] LABS: INR 2.75; PROTIME 29.9 Sec (11.9-14.9); PT RATIO 2.3
[2017-05-30 06:50] LABS: ALANINE AMINOTRANSFERASE 27 IU/L (13-69); ALBUMIN 2.6 g/dl (3.3-4.9); ALKALINE PHOSPHATASE 69 IU/L (42-121); ANION GAP 14 (8-16); ASPARTATE AMINO TRANSFERASE 25 IU/L (15-46); BLOOD UREA NITROGEN 19 mg/dl (7-20); CALCIUM 10.2 mg/dl (8.4-10.2); CARBON DIOXIDE 28 mmol/L (21-31); CHLORIDE 100 mmol/L (97-110); GLUCOSE 67 mg/dl (70-220); POTASSIUM 3.9 mmol/L (3.5-5.1); SODIUM 138 mmol/L (135-144); TOTAL PROTEIN 6.3 g/dl (6.1-8.1)
[2017-05-30] MEDS: Insulin NOVOLOG SS MILD Algorithm (SS with meals and bedtime) SC ×4 (07:54→20:53)
[2017-05-30] MEDS: ZINC SULFATE 220 MG CAP PO (08:14)
[2017-05-30] MEDS: DOCUSATE SODIUM 100 MG CAP PO ×2 (08:14→20:56)
[2017-05-30] MEDS: LISINOPRIL 10 MG TAB PO (08:14)
[2017-05-30] MEDS: CALCIUM ACETATE 667 MG CAP PO ×3 (08:15→17:45)
[2017-05-30] MEDS: FOLIC ACID 1 MG TAB PO (08:15)
[2017-05-30] MEDS: ASCORBIC ACID 500 MG TAB PO ×2 (08:15→20:53)
[2017-05-30] MEDS: THIAMINE 100 MG TAB PO (08:15)
[2017-05-30] MEDS: ASPIRIN 81 MG TAB PO (08:16)
[2017-05-30] MEDS: MULTIVITAMINS/MINERALS TAB PO (08:16)
[2017-05-30] MEDS: FLUCONAZOLE 200 MG TAB PO (08:16)
[2017-05-30] MEDS: AMIODARONE 200 MG TAB PO (08:16)
[2017-05-30] MEDS: BISACODYL 10 MG SUPP PR (08:16)
[2017-05-30] MEDS: COLLAGENASE 30 GM TUBE TOP ×2 (08:17→20:57)
[2017-05-30 10:09] LABS: ANISOCYTOSIS 1+ (0-0); EOSINOPHILS % (M) 5 % (0-7); GIANT THROMBO% (M) 1 % (0-0); LYMPHOCYTES #M 0.5 10^3/ul (0.8-2.9); LYMPHOCYTES % (M) 7 % (15-51); MICROCYTOSIS 1+ (0-0); MONOCYTE #M 0.2 10^3/ul (0.3-0.9); MONOCYTES % (M) 4 % (0-11); OVALOCYTES 1+ (0-0); PLATELET ESTIMATE DECREASED; POIKILOCYTOSIS 1+ (0-0); POLYCHROMASIA 1+ (0-0); SEGMENTED NEUTROPHILS (M) % 85 % (39-77); SMUDGE%M 2 % (0-0)
[2017-05-30] MEDS: HYDROCODONE/APAP (10/325) TAB PO ×2 (12:24→19:36)
[2017-05-30] MEDS: DEXTROSE 5% IVPB (15:05)
[2017-05-30] MEDS: CEFTAZIDIME IVPB (15:05)
[2017-05-30] MEDS: DAPTOMYCIN 325 MG in SOD CHLORIDE 0.9% 100 ML IVPB (16:44)
[2017-05-30] MEDS: WARFARIN 2 MG TAB PO (17:45)
[2017-05-30] MEDS: ATORVASTATIN 10 MG TAB PO (20:53)
[2017-05-31] MEDS: ACCUCHECK AT 2AM (Patients on SS coverage) XX (01:41)
[2017-05-31] MEDS: morphine 2 MG INJ IV ×3 (02:06→12:29)
[2017-05-31] MEDS: HYDROCODONE/APAP (10/325) TAB PO ×4 (04:53→20:38)
[2017-05-31 05:53] LABS: ADD MAN DIFF? NO
[2017-05-31 06:07] LABS: BASOPHILS % 0.3 % (0.0-2.0); EOSINOPHILS # 0.4 10^3/ul (0.0-0.5); EOSINOPHILS % 4.8 % (0.0-7.0); HEMOGLOBIN 8.2 g/dl (14.0-18.0); LYMPHOCYTES # 0.7 10^3/ul (0.8-2.9); LYMPHOCYTES % 8.4 % (15.0-51.0); MEAN CORPUSCULAR HEMOGLOBIN 32.8 pg (29.0-33.0); MEAN CORPUSCULAR HGB CONC 31.5 g/dl (32.0-37.0); MEAN PLATELET VOLUME 11.7 fl (7.4-10.4); MONOCYTE # 0.4 10^3/ul (0.3-0.9); MONOCYTES % 5.3 % (0.0-11.0); NEUTROPHIL # 6.3 10^3/ul (1.6-7.5); NEUTROPHILS % 80.6 % (39.0-77.0); PLATELET COUNT 115 10^3/UL (140-415); RED CELL DISTRIBUTION WIDTH 17.6 % (11.5-14.5)
[2017-05-31 06:07] LABS: WHITE BLOOD COUNT 7.8 10^3/ul (4.8-10.8)
[2017-05-31 06:25] LABS: INR 4.55; PROTIME 44.7 Sec (11.9-14.9); PT RATIO 3.5
[2017-05-31 06:34] LABS: MAGNESIUM 2.1 mg/dl (1.7-2.5)
[2017-05-31 06:34] LABS: PHOSPHORUS 3.6 mg/dl (2.5-4.9)
[2017-05-31 06:36] LABS: ALANINE AMINOTRANSFERASE 24 IU/L (13-69); ALBUMIN 2.7 g/dl (3.3-4.9); ALBUMIN/GLOBULIN RATIO 0.72; ALKALINE PHOSPHATASE 66 IU/L (42-121); ANION GAP 12 (8-16); ASPARTATE AMINO TRANSFERASE 25 IU/L (15-46); BLOOD UREA NITROGEN 28 mg/dl (7-20); CALCIUM 10.7 mg/dl (8.4-10.2); CARBON DIOXIDE 29 mmol/L (21-31); CHLORIDE 100 mmol/L (97-110); CREATININE 5.58 mg/dl (0.61-1.24); GLUCOSE 68 mg/dl (70-220); POTASSIUM 4.6 mmol/L (3.5-5.1); SODIUM 136 mmol/L (135-144); TOTAL PROTEIN 6.4 g/dl (6.1-8.1)
[2017-05-31] MEDS: PANTOPRAZOLE (EC) 40 MG TAB PO (06:42)
[2017-05-31] MEDS: Insulin NOVOLOG SS MILD Algorithm (SS with meals and bedtime) SC ×4 (08:00→20:34)
[2017-05-31] MEDS: MULTIVITAMINS/MINERALS TAB PO (08:14)
[2017-05-31] MEDS: MAGNESIUM HYDROXIDE 30ML CUP PO (08:14)
[2017-05-31] MEDS: FOLIC ACID 1 MG TAB PO (08:14)
[2017-05-31] MEDS: ASPIRIN 81 MG TAB PO (08:14)
[2017-05-31] MEDS: ZINC SULFATE 220 MG CAP PO (08:14)
[2017-05-31] MEDS: ASCORBIC ACID 500 MG TAB PO ×2 (08:14→20:33)
[2017-05-31] MEDS: THIAMINE 100 MG TAB PO (08:14)
[2017-05-31] MEDS: CALCIUM ACETATE 667 MG CAP PO ×3 (08:14→18:03)
[2017-05-31] MEDS: FLUCONAZOLE 200 MG TAB PO (08:47)
[2017-05-31] MEDS: AMIODARONE 200 MG TAB PO (08:49)
[2017-05-31] MEDS: LISINOPRIL 10 MG TAB PO (08:51)
[2017-05-31] MEDS: BISACODYL 10 MG SUPP PR (08:51)
[2017-05-31] MEDS: COLLAGENASE 30 GM TUBE TOP ×2 (08:52→21:00)
[2017-05-31] MEDS: TOBRAMYCIN 120 MG in DEXTROSE 5% 100 ML IVPB (14:54)
[2017-05-31] MEDS: CEFTAZIDIME IVPB (16:44)
[2017-05-31] MEDS: DEXTROSE 5% IVPB (16:44)
[2017-05-31] MEDS: morphine LIQ (10 MG/5 ML) CUP PO ×2 (18:04→23:58)
[2017-05-31] MEDS: ATORVASTATIN 10 MG TAB PO (20:32)
[2017-05-31] MEDS: DOCUSATE SODIUM 100 MG CAP PO (20:33)
[2017-06-01] MEDS: ACCUCHECK AT 2AM (Patients on SS coverage) XX (02:00)
[2017-06-01] MEDS: PANTOPRAZOLE (EC) 40 MG TAB PO (05:10)
[2017-06-01] MEDS: HYDROCODONE/APAP (10/325) TAB PO ×3 (05:10→18:45)
[2017-06-01 06:39] LABS: INR 4.23; PROTIME 42.2 Sec (11.9-14.9); PT RATIO 3.3
[2017-06-01] MEDS: Insulin NOVOLOG SS MILD Algorithm (SS with meals and bedtime) SC ×4 (08:00→21:00)
[2017-06-01] MEDS: FOLIC ACID 1 MG TAB PO (08:45)
[2017-06-01] MEDS: MULTIVITAMINS/MINERALS TAB PO (08:45)
[2017-06-01] MEDS: ASCORBIC ACID 500 MG TAB PO ×2 (08:45→21:09)
[2017-06-01] MEDS: FLUCONAZOLE 200 MG TAB PO (08:45)
[2017-06-01] MEDS: CALCIUM ACETATE 667 MG CAP PO ×3 (08:45→17:53)
[2017-06-01] MEDS: ZINC SULFATE 220 MG CAP PO (08:45)
[2017-06-01] MEDS: ASPIRIN 81 MG TAB PO (08:46)
[2017-06-01] MEDS: THIAMINE 100 MG TAB PO (08:46)
[2017-06-01] MEDS: AMIODARONE 200 MG TAB PO (08:47)
[2017-06-01] MEDS: BISACODYL 10 MG SUPP PR (09:00)
[2017-06-01] MEDS: morphine LIQ (10 MG/5 ML) CUP PO ×2 (09:59→21:07)
[2017-06-01] MEDS: LIDOCAINE 1% (MPF) 5 ML VIAL SC (15:20)
[2017-06-01] MEDS: CEFTAZIDIME IVPB ×2 (16:00→17:47)
[2017-06-01] MEDS: DEXTROSE 5% IVPB ×2 (16:00→17:47)
[2017-06-01] MEDS: LISINOPRIL 10 MG TAB PO (17:50)
[2017-06-01] MEDS: EPOETIN 10000 UNITS/1 ML INJ (ESRD) SC (17:54)
[2017-06-01] MEDS: DAPTOMYCIN 325 MG in SOD CHLORIDE 0.9% 100 ML IVPB (18:44)
[2017-06-01] MEDS: ATORVASTATIN 10 MG TAB PO (21:08)
[2017-06-01] MEDS: DOCUSATE SODIUM 100 MG CAP PO (21:09)
[2017-06-02] MEDS: ACCUCHECK AT 2AM (Patients on SS coverage) XX (01:59)
[2017-06-02] MEDS: PANTOPRAZOLE (EC) 40 MG TAB PO (05:44)
[2017-06-02 06:15] LABS: ADD MAN DIFF? NO
[2017-06-02 06:30] LABS: ABNORMAL IP MESSAGE 1; EOSINOPHILS # 0.3 10^3/ul (0.0-0.5); HEMATOCRIT 23.5 % (42.0-52.0); LYMPHOCYTES # 0.6 10^3/ul (0.8-2.9); LYMPHOCYTES % 7.2 % (15.0-51.0); MEAN CORPUSCULAR VOLUME 104.9 fl (82.0-101.0); MONOCYTE # 0.5 10^3/ul (0.3-0.9); POSITIVE DIFF @See below; RED BLOOD COUNT 2.24 10^6/ul (4.70-6.10)
[2017-06-02 06:30] LABS: WHITE BLOOD COUNT 7.8 10^3/ul (4.8-10.8)
[2017-06-02 06:44] LABS: HEMOGLOBIN 7.3 g/dl (14.0-18.0)
[2017-06-02 06:45] LABS: BASOPHILS % 0.1 % (0.0-2.0); EOSINOPHILS % 3.6 % (0.0-7.0); MEAN CORPUSCULAR HEMOGLOBIN 32.6 pg (29.0-33.0); MEAN CORPUSCULAR HGB CONC 31.1 g/dl (32.0-37.0); MEAN PLATELET VOLUME 11.6 fl (7.4-10.4); MONOCYTES % 6.3 % (0.0-11.0); NEUTROPHIL # 6.4 10^3/ul (1.6-7.5); PLATELET COUNT 121 10^3/UL (140-415); RED CELL DISTRIBUTION WIDTH 18.3 % (11.5-14.5)
[2017-06-02 06:52] LABS: PROTIME 38.7 Sec (11.9-14.9)
[2017-06-02 07:12] LABS: ANION GAP 12 (8-16); BLOOD UREA NITROGEN 27 mg/dl (7-20); CALCIUM 10.7 mg/dl (8.4-10.2); CARBON DIOXIDE 32 mmol/L (21-31); CHLORIDE 98 mmol/L (97-110); CREATININE 5.33 mg/dl (0.61-1.24); GLUCOSE 78 mg/dl (70-220); POTASSIUM 4.6 mmol/L (3.5-5.1); SODIUM 137 mmol/L (135-144)
[2017-06-02] MEDS: Insulin NOVOLOG SS MILD Algorithm (SS with meals and bedtime) SC ×4 (08:00→21:00)
[2017-06-02] MEDS: FLUCONAZOLE 200 MG TAB PO (08:01)
[2017-06-02] MEDS: ASPIRIN 81 MG TAB PO (08:01)
[2017-06-02] MEDS: BISACODYL 10 MG SUPP PR (08:01)
[2017-06-02] MEDS: CALCIUM ACETATE 667 MG CAP PO ×3 (08:01→16:52)
[2017-06-02] MEDS: ZINC SULFATE 220 MG CAP PO (08:01)
[2017-06-02] MEDS: MULTIVITAMINS/MINERALS TAB PO (08:01)
[2017-06-02] MEDS: ASCORBIC ACID 500 MG TAB PO ×2 (08:01→22:11)
[2017-06-02] MEDS: FOLIC ACID 1 MG TAB PO (08:01)
[2017-06-02] MEDS: THIAMINE 100 MG TAB PO (08:01)
[2017-06-02] MEDS: morphine LIQ (10 MG/5 ML) CUP PO ×4 (08:02→23:52)
[2017-06-02] MEDS: AMIODARONE 200 MG TAB PO (08:04)
[2017-06-02] MEDS: LISINOPRIL 10 MG TAB PO (08:04)
[2017-06-02 08:28] LABS: ADD MAN DIFF? NO
[2017-06-02 08:31] LABS: ABNORMAL IP MESSAGE 1; BASOPHILS % 0.1 % (0.0-2.0); EOSINOPHILS # 0.3 10^3/ul (0.0-0.5); EOSINOPHILS % 3.5 % (0.0-7.0); HEMOGLOBIN 7.4 g/dl (14.0-18.0); LYMPHOCYTES # 0.6 10^3/ul (0.8-2.9); LYMPHOCYTES % 7.8 % (15.0-51.0); MEAN CORPUSCULAR HEMOGLOBIN 32.6 pg (29.0-33.0); MEAN CORPUSCULAR HGB CONC 30.8 g/dl (32.0-37.0); MEAN CORPUSCULAR VOLUME 105.7 fl (82.0-101.0); MEAN PLATELET VOLUME 10.9 fl (7.4-10.4); MONOCYTE # 0.4 10^3/ul (0.3-0.9); MONOCYTES % 5.5 % (0.0-11.0); NEUTROPHIL # 6.1 10^3/ul (1.6-7.5); PLATELET COUNT 116 10^3/UL (140-415); POSITIVE DIFF @See below; RED BLOOD COUNT 2.27 10^6/ul (4.70-6.10); RED CELL DISTRIBUTION WIDTH 18.4 % (11.5-14.5)
[2017-06-02 08:31] LABS: WHITE BLOOD COUNT 7.4 10^3/ul (4.8-10.8)
[2017-06-02] MEDS: HYDROCODONE/APAP (10/325) TAB PO ×2 (10:28→20:40)
[2017-06-02] MEDS: CEPASTAT LOZENGE MT ×3 (11:59→23:23)
[2017-06-02] MEDS ORDERED: LIDOCAINE 1% (MDV) 20 ML INJ (17:53)
[2017-06-02] MEDS: ATORVASTATIN 10 MG TAB PO (22:10)
[2017-06-02] MEDS: TOBRAMYCIN 120 MG in DEXTROSE 5% 100 ML IVPB (22:10)
[2017-06-02] MEDS: DOCUSATE SODIUM 100 MG CAP PO (22:11)
[2017-06-03] MEDS: ACCUCHECK AT 2AM (Patients on SS coverage) XX (01:33)
[2017-06-03 04:30] LABS: AHG CROSSMATCH 1 2
[2017-06-03] MEDS: PANTOPRAZOLE (EC) 40 MG TAB PO (05:07)
[2017-06-03] MEDS: HYDROCODONE/APAP (10/325) TAB PO (05:07)
[2017-06-03] MEDS: CEPASTAT LOZENGE MT (06:40)
[2017-06-03] MEDS: Insulin NOVOLOG SS MILD Algorithm (SS with meals and bedtime) SC ×4 (08:00→20:25)
[2017-06-03] MEDS: CALCIUM ACETATE 667 MG CAP PO ×3 (08:35→17:32)
[2017-06-03] MEDS: MULTIVITAMINS/MINERALS TAB PO (08:35)
[2017-06-03] MEDS: ZINC SULFATE 220 MG CAP PO (08:42)
[2017-06-03] MEDS: FLUCONAZOLE 200 MG TAB PO (08:42)
[2017-06-03] MEDS: LISINOPRIL 10 MG TAB PO (08:42)
[2017-06-03] MEDS: BISACODYL 10 MG SUPP PR (08:42)
[2017-06-03] MEDS: FOLIC ACID 1 MG TAB PO (08:43)
[2017-06-03] MEDS: THIAMINE 100 MG TAB PO (08:43)
[2017-06-03] MEDS: ASPIRIN 81 MG TAB PO (08:43)
[2017-06-03] MEDS: ASCORBIC ACID 500 MG TAB PO ×2 (08:43→20:04)
[2017-06-03] MEDS: AMIODARONE 200 MG TAB PO (08:44)
[2017-06-03 15:53] LABS: ADD MAN DIFF? NO
[2017-06-03 15:58] LABS: ABNORMAL IP MESSAGE 1; BASOPHILS % 0.4 % (0.0-2.0); EOSINOPHILS # 0.3 10^3/ul (0.0-0.5); EOSINOPHILS % 3.2 % (0.0-7.0); HEMATOCRIT 29.5 % (42.0-52.0); HEMOGLOBIN 9.4 g/dl (14.0-18.0); LYMPHOCYTES # 0.6 10^3/ul (0.8-2.9); MEAN CORPUSCULAR HEMOGLOBIN 32.4 pg (29.0-33.0); MEAN CORPUSCULAR HGB CONC 31.9 g/dl (32.0-37.0); MEAN CORPUSCULAR VOLUME 101.7 fl (82.0-101.0); MEAN PLATELET VOLUME 11.5 fl (7.4-10.4); MONOCYTE # 0.8 10^3/ul (0.3-0.9); MONOCYTES % 7.9 % (0.0-11.0); NEUTROPHIL # 7.8 10^3/ul (1.6-7.5); NEUTROPHILS % 81.6 % (39.0-77.0); PLATELET COUNT 121 10^3/UL (140-415); POSITIVE DIFF @See below; RED CELL DISTRIBUTION WIDTH 19.4 % (11.5-14.5)
[2017-06-03 15:58] LABS: WHITE BLOOD COUNT 9.5 10^3/ul (4.8-10.8)
[2017-06-03 16:16] LABS: CREATINE KINASE 47 IU/L (23-200)
[2017-06-03 16:16] LABS: ANION GAP 10 (8-16); BLOOD UREA NITROGEN 23 mg/dl (7-20); CALCIUM 10.2 mg/dl (8.4-10.2); CARBON DIOXIDE 31 mmol/L (21-31); CHLORIDE 98 mmol/L (97-110); CREATININE 4.21 mg/dl (0.61-1.24); GLUCOSE 71 mg/dl (70-220); POTASSIUM 4.4 mmol/L (3.5-5.1); SODIUM 135 mmol/L (135-144)
[2017-06-03 16:29] LABS: INR 3.24; PROTIME 34.1 Sec (11.9-14.9); PT RATIO 2.7
[2017-06-03] MEDS: DAPTOMYCIN 325 MG in SOD CHLORIDE 0.9% 100 ML IVPB (17:27)
[2017-06-03] MEDS: CEFTAZIDIME IVPB (17:27)
[2017-06-03] MEDS: DEXTROSE 5% IVPB (17:27)
[2017-06-03] MEDS: EPOETIN 10000 UNITS/1 ML INJ (ESRD) SC (17:32)
[2017-06-03] MEDS: DOCUSATE SODIUM 100 MG CAP PO (20:04)
[2017-06-03] MEDS: ATORVASTATIN 10 MG TAB PO (20:04)
[2017-06-03] MEDS: morphine LIQ (10 MG/5 ML) CUP PO (20:05)
[2017-06-04] MEDS: ACCUCHECK AT 2AM (Patients on SS coverage) XX (01:35)
[2017-06-04] MEDS: CEPASTAT LOZENGE MT ×2 (05:25→21:14)
[2017-06-04] MEDS: PANTOPRAZOLE (EC) 40 MG TAB PO (05:25)
[2017-06-04] MEDS: HYDROCODONE/APAP (10/325) TAB PO ×2 (05:32→14:10)
[2017-06-04 06:20] LABS: ADD MAN DIFF? NO
[2017-06-04 06:31] LABS: BASOPHILS % 0.3 % (0.0-2.0); EOSINOPHILS # 0.2 10^3/ul (0.0-0.5); HEMOGLOBIN 9.2 g/dl (14.0-18.0); LYMPHOCYTES # 0.9 10^3/ul (0.8-2.9); LYMPHOCYTES % 9.7 % (15.0-51.0); MEAN CORPUSCULAR HEMOGLOBIN 32.2 pg (29.0-33.0); MEAN CORPUSCULAR HGB CONC 31.7 g/dl (32.0-37.0); MEAN CORPUSCULAR VOLUME 101.4 fl (82.0-101.0); MEAN PLATELET VOLUME 11.8 fl (7.4-10.4); MONOCYTE # 0.6 10^3/ul (0.3-0.9); MONOCYTES % 6.1 % (0.0-11.0); NEUTROPHIL # 7.4 10^3/ul (1.6-7.5); PLATELET COUNT 117 10^3/UL (140-415); POSITIVE DIFF @See below; RED BLOOD COUNT 2.86 10^6/ul (4.70-6.10); RED CELL DISTRIBUTION WIDTH 19.8 % (11.5-14.5)
[2017-06-04 06:31] LABS: WHITE BLOOD COUNT 9.1 10^3/ul (4.8-10.8)
[2017-06-04 06:57] LABS: INR 3.13; PROTIME 33.1 Sec (11.9-14.9); PT RATIO 2.6
[2017-06-04 07:06] LABS: ANION GAP 11 (8-16); BLOOD UREA NITROGEN 30 mg/dl (7-20); CALCIUM 10.2 mg/dl (8.4-10.2); CARBON DIOXIDE 30 mmol/L (21-31); CHLORIDE 100 mmol/L (97-110); CREATININE 5.14 mg/dl (0.61-1.24); GLUCOSE 69 mg/dl (70-220); POTASSIUM 4.6 mmol/L (3.5-5.1); SODIUM 136 mmol/L (135-144)
[2017-06-04] MEDS: Insulin NOVOLOG SS MILD Algorithm (SS with meals and bedtime) SC ×4 (08:00→20:25)
[2017-06-04] MEDS: AMIODARONE 200 MG TAB PO (08:28)
[2017-06-04] MEDS: LISINOPRIL 10 MG TAB PO (08:34)
[2017-06-04] MEDS: THIAMINE 100 MG TAB PO (08:36)
[2017-06-04] MEDS: ZINC SULFATE 220 MG CAP PO (08:36)
[2017-06-04] MEDS: ASCORBIC ACID 500 MG TAB PO ×2 (08:36→20:26)
[2017-06-04] MEDS: ASPIRIN 81 MG TAB PO (08:37)
[2017-06-04] MEDS: FLUCONAZOLE 200 MG TAB PO (08:37)
[2017-06-04] MEDS: MULTIVITAMINS/MINERALS TAB PO (08:37)
[2017-06-04] MEDS: BISACODYL 10 MG SUPP PR (08:37)
[2017-06-04] MEDS: CALCIUM ACETATE 667 MG CAP PO ×3 (08:37→19:23)
[2017-06-04] MEDS: FOLIC ACID 1 MG TAB PO (08:37)
[2017-06-04] MEDS: morphine LIQ (10 MG/5 ML) CUP PO ×2 (08:47→19:26)
[2017-06-04] MEDS ORDERED: CEFTAZIDIME 1GM/50 ML (PMX) 50 ML IVPB (16:00)
[2017-06-04] MEDS: CEFTAZIDIME IVPB (19:28)
[2017-06-04] MEDS: TOBRAMYCIN 120 MG in DEXTROSE 5% 100 ML IVPB (19:28)
[2017-06-04] MEDS: DEXTROSE 5% IVPB (19:28)
[2017-06-04] MEDS: DOCUSATE SODIUM 100 MG CAP PO (20:26)
[2017-06-04] MEDS: ATORVASTATIN 10 MG TAB PO (20:26)
[2017-06-05] MEDS: ACCUCHECK AT 2AM (Patients on SS coverage) XX (02:00)
[2017-06-05] MEDS: PANTOPRAZOLE (EC) 40 MG TAB PO (05:34)
[2017-06-05] MEDS: morphine LIQ (10 MG/5 ML) CUP PO ×2 (05:35→18:07)
[2017-06-05 06:39] LABS: ADD MAN DIFF? NO
[2017-06-05 06:56] LABS: BASOPHILS % 0.3 % (0.0-2.0); EOSINOPHILS # 0.2 10^3/ul (0.0-0.5); EOSINOPHILS % 2.5 % (0.0-7.0); HEMATOCRIT 29.4 % (42.0-52.0); HEMOGLOBIN 9.3 g/dl (14.0-18.0); LYMPHOCYTES # 0.7 10^3/ul (0.8-2.9); LYMPHOCYTES % 9.8 % (15.0-51.0); MEAN CORPUSCULAR HEMOGLOBIN 32.3 pg (29.0-33.0); MEAN CORPUSCULAR HGB CONC 31.6 g/dl (32.0-37.0); MEAN CORPUSCULAR VOLUME 102.1 fl (82.0-101.0); MEAN PLATELET VOLUME 11.7 fl (7.4-10.4); MONOCYTE # 0.4 10^3/ul (0.3-0.9); MONOCYTES % 5.2 % (0.0-11.0); NEUTROPHIL # 6.1 10^3/ul (1.6-7.5); NEUTROPHILS % 81.7 % (39.0-77.0); PLATELET COUNT 113 10^3/UL (140-415); POSITIVE DIFF @See below; RED BLOOD COUNT 2.88 10^6/ul (4.70-6.10); RED CELL DISTRIBUTION WIDTH 19.6 % (11.5-14.5)
[2017-06-05 06:56] LABS: WHITE BLOOD COUNT 7.5 10^3/ul (4.8-10.8)
[2017-06-05 07:10] LABS: ANION GAP 12 (8-16); BLOOD UREA NITROGEN 19 mg/dl (7-20); CALCIUM 10.5 mg/dl (8.4-10.2); CARBON DIOXIDE 31 mmol/L (21-31); CHLORIDE 99 mmol/L (97-110); CREATININE 3.71 mg/dl (0.61-1.24); GLUCOSE 70 mg/dl (70-220); POTASSIUM 4.5 mmol/L (3.5-5.1); SODIUM 137 mmol/L (135-144)
[2017-06-05] MEDS: Insulin NOVOLOG SS MILD Algorithm (SS with meals and bedtime) SC ×4 (08:00→21:00)
[2017-06-05] MEDS: THIAMINE 100 MG TAB PO (08:35)
[2017-06-05] MEDS: ASCORBIC ACID 500 MG TAB PO ×2 (08:35→20:59)
[2017-06-05] MEDS: MULTIVITAMINS/MINERALS TAB PO (08:35)
[2017-06-05] MEDS: CALCIUM ACETATE 667 MG CAP PO ×3 (08:35→17:59)
[2017-06-05] MEDS: ZINC SULFATE 220 MG CAP PO (08:35)
[2017-06-05] MEDS: ASPIRIN 81 MG TAB PO (08:35)
[2017-06-05] MEDS: LISINOPRIL 10 MG TAB PO (08:36)
[2017-06-05] MEDS: FOLIC ACID 1 MG TAB PO (08:36)
[2017-06-05] MEDS: FLUCONAZOLE 200 MG TAB PO (08:36)
[2017-06-05] MEDS: AMIODARONE 200 MG TAB PO (08:36)
[2017-06-05] MEDS: BISACODYL 10 MG SUPP PR (08:37)
[2017-06-05] MEDS: DOCUSATE SODIUM 100 MG CAP PO (08:44)
[2017-06-05] MEDS: HYDROCODONE/APAP (10/325) TAB PO (08:45)
[2017-06-05] MEDS: WARFARIN 2 MG TAB PO (17:59)
[2017-06-05] MEDS: CEFTAZIDIME 1GM/50 ML (PMX) 50 ML IVPB (17:59)
[2017-06-05] MEDS: CEPASTAT LOZENGE MT (18:07)
[2017-06-05] MEDS: DAPTOMYCIN 325 MG in SOD CHLORIDE 0.9% 100 ML IVPB (18:56)
[2017-06-05] MEDS: EPOETIN 10000 UNITS/1 ML INJ (ESRD) SC (18:57)
[2017-06-05] MEDS: ATORVASTATIN 10 MG TAB PO (20:58)
[2017-06-06] MEDS: ACCUCHECK AT 2AM (Patients on SS coverage) XX (01:50)
[2017-06-06] MEDS: morphine LIQ (10 MG/5 ML) CUP PO ×3 (01:56→17:25)
[2017-06-06] MEDS: PANTOPRAZOLE (EC) 40 MG TAB PO (06:17)
[2017-06-06] MEDS: Insulin NOVOLOG SS MILD Algorithm (SS with meals and bedtime) SC ×4 (08:00→21:00)
[2017-06-06] MEDS: ZINC SULFATE 220 MG CAP PO (08:42)
[2017-06-06] MEDS: CALCIUM ACETATE 667 MG CAP PO ×3 (08:42→17:24)
[2017-06-06] MEDS: MULTIVITAMINS/MINERALS TAB PO (08:42)
[2017-06-06] MEDS: AMIODARONE 200 MG TAB PO (08:42)
[2017-06-06] MEDS: ASPIRIN 81 MG TAB PO (08:42)
[2017-06-06] MEDS: ASCORBIC ACID 500 MG TAB PO ×2 (08:42→21:08)
[2017-06-06] MEDS: THIAMINE 100 MG TAB PO (08:42)
[2017-06-06] MEDS: LISINOPRIL 10 MG TAB PO (08:42)
[2017-06-06] MEDS: FOLIC ACID 1 MG TAB PO (08:42)
[2017-06-06] MEDS: BISACODYL 10 MG SUPP PR (08:43)
[2017-06-06] MEDS: FLUCONAZOLE 200 MG TAB PO (08:43)
[2017-06-06] MEDS: HYDROCODONE/APAP (10/325) TAB PO (10:21)
[2017-06-06] MEDS ORDERED: SODIUM CHLORIDE 0.9% 1L BAG IV (10:30)
[2017-06-06 14:07] LABS: ADD MAN DIFF? NO
[2017-06-06 14:08] LABS: BASOPHILS % 0.3 % (0.0-2.0); EOSINOPHILS # 0.2 10^3/ul (0.0-0.5); EOSINOPHILS % 2.3 % (0.0-7.0); HEMATOCRIT 25.7 % (42.0-52.0); LYMPHOCYTES # 0.6 10^3/ul (0.8-2.9); LYMPHOCYTES % 7.9 % (15.0-51.0); MEAN CORPUSCULAR HEMOGLOBIN 32.3 pg (29.0-33.0); MEAN CORPUSCULAR HGB CONC 31.1 g/dl (32.0-37.0); MEAN CORPUSCULAR VOLUME 103.6 fl (82.0-101.0); MEAN PLATELET VOLUME 11.5 fl (7.4-10.4); MONOCYTE # 0.5 10^3/ul (0.3-0.9); MONOCYTES % 5.8 % (0.0-11.0); NEUTROPHIL # 6.5 10^3/ul (1.6-7.5); NEUTROPHILS % 83.3 % (39.0-77.0); PLATELET COUNT 113 10^3/UL (140-415); POSITIVE DIFF @See below; RED BLOOD COUNT 2.48 10^6/ul (4.70-6.10); RED CELL DISTRIBUTION WIDTH 19.2 % (11.5-14.5)
[2017-06-06 14:08] LABS: WHITE BLOOD COUNT 7.8 10^3/ul (4.8-10.8)
[2017-06-06 14:25] LABS: ANION GAP 10 (8-16); BLOOD UREA NITROGEN 29 mg/dl (7-20); CALCIUM 10.7 mg/dl (8.4-10.2); CARBON DIOXIDE 32 mmol/L (21-31); CHLORIDE 99 mmol/L (97-110); CREATININE 5.33 mg/dl (0.61-1.24); GLUCOSE 68 mg/dl (70-220); POTASSIUM 4.7 mmol/L (3.5-5.1); SODIUM 136 mmol/L (135-144)
[2017-06-06] MEDS: CEFTAZIDIME 1GM/50 ML (PMX) 50 ML IVPB (17:23)
[2017-06-06] MEDS: WARFARIN 2 MG TAB PO (17:24)
[2017-06-06] MEDS: DOCUSATE SODIUM 100 MG CAP PO (21:08)
[2017-06-06] MEDS: ATORVASTATIN 10 MG TAB PO (21:08)
[2017-06-07] MEDS: morphine LIQ (10 MG/5 ML) CUP PO ×3 (01:51→18:14)
[2017-06-07] MEDS: ACCUCHECK AT 2AM (Patients on SS coverage) XX (02:00)
[2017-06-07] MEDS: PANTOPRAZOLE (EC) 40 MG TAB PO (05:27)
[2017-06-07] MEDS: HYDROCODONE/APAP (10/325) TAB PO ×2 (06:28→15:10)
[2017-06-07 06:48] LABS: INR 2.64; PROTIME 28.9 Sec (11.9-14.9); PT RATIO 2.3
[2017-06-07] MEDS: Insulin NOVOLOG SS MILD Algorithm (SS with meals and bedtime) SC ×4 (08:00→20:29)
[2017-06-07] MEDS: FOLIC ACID 1 MG TAB PO (08:43)
[2017-06-07] MEDS: ASPIRIN 81 MG TAB PO (08:46)
[2017-06-07] MEDS: CALCIUM ACETATE 667 MG CAP PO ×3 (08:46→18:00)
[2017-06-07] MEDS: LISINOPRIL 10 MG TAB PO (08:46)
[2017-06-07] MEDS: THIAMINE 100 MG TAB PO (08:47)
[2017-06-07] MEDS: AMIODARONE 200 MG TAB PO (08:47)
[2017-06-07] MEDS: MULTIVITAMINS/MINERALS TAB PO (08:47)
[2017-06-07] MEDS: ASCORBIC ACID 500 MG TAB PO ×2 (08:48→20:27)
[2017-06-07] MEDS: FLUCONAZOLE 200 MG TAB PO (08:48)
[2017-06-07] MEDS: ZINC SULFATE 220 MG CAP PO (08:48)
[2017-06-07] MEDS: BISACODYL 10 MG SUPP PR (09:00)
[2017-06-07] MEDS: CEFTAZIDIME 1GM/50 ML (PMX) 50 ML IVPB (16:36)
[2017-06-07] MEDS: WARFARIN 2 MG TAB PO (17:56)
[2017-06-07] MEDS: TOBRAMYCIN 120 MG in DEXTROSE 5% 100 ML IVPB (20:23)
[2017-06-07] MEDS: ATORVASTATIN 10 MG TAB PO (20:26)
[2017-06-07] MEDS: DOCUSATE SODIUM 100 MG CAP PO (20:27)
[2017-06-07] MEDS: BALSAM PERU/CASTOR OIL 60 GM TUBE TOP (20:29)
[2017-06-07] MEDS: DAPTOMYCIN 325 MG in SOD CHLORIDE 0.9% 100 ML IVPB (22:08)
[2017-06-08] MEDS: morphine LIQ (10 MG/5 ML) CUP PO ×2 (01:31→10:20)
[2017-06-08] MEDS: ACCUCHECK AT 2AM (Patients on SS coverage) XX (02:00)
[2017-06-08] MEDS: PANTOPRAZOLE (EC) 40 MG TAB PO (05:32)
[2017-06-08 06:44] LABS: INR 3.04; PROTIME 32.4 Sec (11.9-14.9); PT RATIO 2.5
[2017-06-08] MEDS: Insulin NOVOLOG SS MILD Algorithm (SS with meals and bedtime) SC ×4 (08:00→20:33)
[2017-06-08] MEDS: THIAMINE 100 MG TAB PO (08:40)
[2017-06-08] MEDS: ASCORBIC ACID 500 MG TAB PO ×2 (08:40→20:33)
[2017-06-08] MEDS: ZINC SULFATE 220 MG CAP PO (08:40)
[2017-06-08] MEDS: ASPIRIN 81 MG TAB PO (08:40)
[2017-06-08] MEDS: FLUCONAZOLE 200 MG TAB PO (08:41)
[2017-06-08] MEDS: FOLIC ACID 1 MG TAB PO (08:41)
[2017-06-08] MEDS: MULTIVITAMINS/MINERALS TAB PO (08:41)
[2017-06-08] MEDS: CALCIUM ACETATE 667 MG CAP PO ×3 (08:41→17:23)
[2017-06-08] MEDS: AMIODARONE 200 MG TAB PO (08:44)
[2017-06-08] MEDS: LISINOPRIL 10 MG TAB PO (08:44)
[2017-06-08] MEDS: BISACODYL 10 MG SUPP PR (08:46)
[2017-06-08] MEDS: BALSAM PERU/CASTOR OIL 60 GM TUBE TOP ×2 (08:50→20:36)
[2017-06-08] MEDS: HYDROCODONE/APAP (10/325) TAB PO ×2 (11:55→20:34)
[2017-06-08] MEDS: CEFTAZIDIME 1GM/50 ML (PMX) 50 ML IVPB (16:20)
[2017-06-08] MEDS: EPOETIN 10000 UNITS/1 ML INJ (ESRD) SC (17:06)
[2017-06-08] MEDS ORDERED: ALTEPLASE (CATHFLO) 2 MG INJ CATHETER (18:00)
[2017-06-08] MEDS: ATORVASTATIN 10 MG TAB PO (20:33)
[2017-06-08] MEDS: DOCUSATE SODIUM 100 MG CAP PO (20:35)
[2017-06-09] MEDS: ACCUCHECK AT 2AM (Patients on SS coverage) XX (02:00)
[2017-06-09] MEDS: PANTOPRAZOLE (EC) 40 MG TAB PO (05:36)
[2017-06-09 06:56] LABS: INR 3.08; PROTIME 32.7 Sec (11.9-14.9); PT RATIO 2.6
[2017-06-09] MEDS: Insulin NOVOLOG SS MILD Algorithm (SS with meals and bedtime) SC ×4 (08:00→20:45)
[2017-06-09] MEDS: BISACODYL 10 MG SUPP PR (09:00)
[2017-06-09] MEDS: FLUCONAZOLE 200 MG TAB PO (09:42)
[2017-06-09] MEDS: FOLIC ACID 1 MG TAB PO (09:42)
[2017-06-09] MEDS: ZINC SULFATE 220 MG CAP PO (09:42)
[2017-06-09] MEDS: THIAMINE 100 MG TAB PO (09:42)
[2017-06-09] MEDS: ASPIRIN 81 MG TAB PO (09:42)
[2017-06-09] MEDS: MULTIVITAMINS/MINERALS TAB PO (09:42)
[2017-06-09] MEDS: ASCORBIC ACID 500 MG TAB PO ×2 (09:43→20:45)
[2017-06-09] MEDS: CALCIUM ACETATE 667 MG CAP PO ×3 (09:43→20:40)
[2017-06-09] MEDS: LISINOPRIL 10 MG TAB PO (09:47)
[2017-06-09] MEDS: AMIODARONE 200 MG TAB PO (09:48)
[2017-06-09] MEDS: BALSAM PERU/CASTOR OIL 60 GM TUBE TOP ×2 (11:33→20:49)
[2017-06-09] MEDS: HYDROCODONE/APAP (10/325) TAB PO (13:56)
[2017-06-09] MEDS: CEFTAZIDIME 1GM/50 ML (PMX) 50 ML IVPB ×2 (16:00→19:04)
[2017-06-09] MEDS: DAPTOMYCIN 325 MG in SOD CHLORIDE 0.9% 100 ML IVPB (19:00)
[2017-06-09] MEDS: ATORVASTATIN 10 MG TAB PO (20:45)
[2017-06-09] MEDS: DOCUSATE SODIUM 100 MG CAP PO (20:45)
[2017-06-09] MEDS: TOBRAMYCIN 120 MG in DEXTROSE 5% 100 ML IVPB (21:18)
[2017-06-09] MEDS: morphine LIQ (10 MG/5 ML) CUP PO (21:21)
[2017-06-10] MEDS: ACCUCHECK AT 2AM (Patients on SS coverage) XX (02:00)
[2017-06-10] MEDS: PANTOPRAZOLE (EC) 40 MG TAB PO (05:37)
[2017-06-10 06:30] LABS: HEMOGLOBIN 7.8 g/dl (14.0-18.0)
[2017-06-10 07:03] LABS: CREATINE KINASE < 20 IU/L (23-200)
[2017-06-10 07:12] LABS: INR 2.83; PROTIME 30.6 Sec (11.9-14.9); PT RATIO 2.4
[2017-06-10] MEDS: Insulin NOVOLOG SS MILD Algorithm (SS with meals and bedtime) SC ×4 (08:00→20:55)
[2017-06-10] MEDS: HYDROCODONE/APAP (10/325) TAB PO (08:18)
[2017-06-10] MEDS: CALCIUM ACETATE 667 MG CAP PO ×3 (08:20→18:35)
[2017-06-10] MEDS: MULTIVITAMINS/MINERALS TAB PO (08:20)
[2017-06-10] MEDS: THIAMINE 100 MG TAB PO (08:21)
[2017-06-10] MEDS: ZINC SULFATE 220 MG CAP PO (08:21)
[2017-06-10] MEDS: ASCORBIC ACID 500 MG TAB PO ×2 (08:21→20:45)
[2017-06-10] MEDS: FOLIC ACID 1 MG TAB PO (08:21)
[2017-06-10] MEDS: FLUCONAZOLE 200 MG TAB PO (08:21)
[2017-06-10] MEDS: AMIODARONE 200 MG TAB PO (08:22)
[2017-06-10] MEDS: LISINOPRIL 10 MG TAB PO (08:25)
[2017-06-10] MEDS: BALSAM PERU/CASTOR OIL 60 GM TUBE TOP ×2 (08:30→20:46)
[2017-06-10] MEDS: BISACODYL 10 MG SUPP PR (09:00)
[2017-06-10] MEDS: ASPIRIN 81 MG TAB PO (09:16)
[2017-06-10] MEDS: morphine LIQ (10 MG/5 ML) CUP PO (14:30)
[2017-06-10] MEDS: METOCLOPRAMIDE 10 MG INJ IV (15:15)
[2017-06-10] MEDS: FAMOTIDINE 20 MG TAB PO (15:15)
[2017-06-10] MEDS: WARFARIN 2 MG TAB PO (17:56)
[2017-06-10] MEDS: EPOETIN 10000 UNITS/1 ML INJ (ESRD) SC (17:57)
[2017-06-10] MEDS: ATORVASTATIN 10 MG TAB PO (20:45)
[2017-06-10] MEDS: DOCUSATE SODIUM 100 MG CAP PO (20:45)
[2017-06-11] MEDS: morphine LIQ (10 MG/5 ML) CUP PO ×2 (01:31→06:07)
[2017-06-11] MEDS: ACCUCHECK AT 2AM (Patients on SS coverage) XX (02:00)
[2017-06-11] MEDS: PANTOPRAZOLE (EC) 40 MG TAB PO (06:02)
[2017-06-11 06:16] LABS: INR 2.66; PROTIME 29.1 Sec (11.9-14.9); PT RATIO 2.3
[2017-06-11] MEDS: Insulin NOVOLOG SS MILD Algorithm (SS with meals and bedtime) SC ×4 (08:00→21:00)
[2017-06-11] MEDS: BISACODYL 10 MG SUPP PR (09:00)
[2017-06-11] MEDS: LISINOPRIL 10 MG TAB PO (09:00)
[2017-06-11] MEDS: AMIODARONE 200 MG TAB PO (09:00)
[2017-06-11] MEDS: HYDROCODONE/APAP (10/325) TAB PO (09:13)
[2017-06-11] MEDS: CALCIUM ACETATE 667 MG CAP PO ×3 (12:15→17:30)
[2017-06-11] MEDS: THIAMINE 100 MG TAB PO (13:30)
[2017-06-11] MEDS: FOLIC ACID 1 MG TAB PO (13:31)
[2017-06-11] MEDS: ASCORBIC ACID 500 MG TAB PO ×2 (13:31→20:57)
[2017-06-11] MEDS: ASPIRIN 81 MG TAB PO (13:31)
[2017-06-11] MEDS: ZINC SULFATE 220 MG CAP PO (13:31)
[2017-06-11] MEDS: FLUCONAZOLE 200 MG TAB PO (13:31)
[2017-06-11] MEDS: POLYETHYLENE GLYCOL 17 GM PACKET PO (13:32)
[2017-06-11] MEDS: BALSAM PERU/CASTOR OIL 60 GM TUBE TOP ×2 (13:34→21:00)
[2017-06-11] MEDS: MULTIVITAMINS/MINERALS TAB PO (15:00)
[2017-06-11] MEDS: FAMOTIDINE 20 MG TAB PO (15:00)
[2017-06-11] MEDS: TOBRAMYCIN 120 MG in DEXTROSE 5% 100 ML IVPB (15:27)
[2017-06-11] MEDS: DAPTOMYCIN 325 MG in SOD CHLORIDE 0.9% 100 ML IVPB (17:29)
[2017-06-11] MEDS: WARFARIN 2 MG TAB PO (17:30)
[2017-06-11] MEDS: DOCUSATE SODIUM 100 MG CAP PO (20:57)
[2017-06-11] MEDS: ATORVASTATIN 10 MG TAB PO (20:58)
[2017-06-12] MEDS: HYDROCODONE/APAP (10/325) TAB PO ×4 (01:55→21:35)
[2017-06-12] MEDS: ACCUCHECK AT 2AM (Patients on SS coverage) XX (02:00)
[2017-06-12] MEDS: morphine LIQ (10 MG/5 ML) CUP PO (03:43)
[2017-06-12] MEDS: PANTOPRAZOLE (EC) 40 MG TAB PO (05:49)
[2017-06-12 06:45] LABS: INR 2.89; PROTIME 31.1 Sec (11.9-14.9); PT RATIO 2.4
[2017-06-12] MEDS: Insulin NOVOLOG SS MILD Algorithm (SS with meals and bedtime) SC ×4 (08:00→21:00)
[2017-06-12] MEDS: CALCIUM ACETATE 667 MG CAP PO ×3 (08:51→17:55)
[2017-06-12] MEDS: ASPIRIN 81 MG TAB PO (08:55)
[2017-06-12] MEDS: FOLIC ACID 1 MG TAB PO (08:55)
[2017-06-12] MEDS: MULTIVITAMINS/MINERALS TAB PO (08:55)
[2017-06-12] MEDS: ZINC SULFATE 220 MG CAP PO (08:56)
[2017-06-12] MEDS: THIAMINE 100 MG TAB PO (08:57)
[2017-06-12] MEDS: ASCORBIC ACID 500 MG TAB PO ×2 (08:57→21:33)
[2017-06-12] MEDS: AMIODARONE 200 MG TAB PO (08:59)
[2017-06-12] MEDS: BISACODYL 10 MG SUPP PR (09:00)
[2017-06-12] MEDS: FLUCONAZOLE 200 MG TAB PO (09:57)
[2017-06-12] MEDS: BALSAM PERU/CASTOR OIL 60 GM TUBE TOP ×2 (09:58→21:34)
[2017-06-12] MEDS: POLYETHYLENE GLYCOL 17 GM PACKET PO (09:58)
[2017-06-12] MEDS: LISINOPRIL 10 MG TAB PO ×2 (09:58→21:33)
[2017-06-12] MEDS: FAMOTIDINE 20 MG TAB PO (13:01)
[2017-06-12] MEDS: WARFARIN 2 MG TAB PO (17:55)
[2017-06-12] MEDS: EPOETIN 10000 UNITS/1 ML INJ (ESRD) SC (17:57)
[2017-06-12] MEDS: ATORVASTATIN 10 MG TAB PO (21:33)
[2017-06-12] MEDS: DOCUSATE SODIUM 100 MG CAP PO (21:33)
[2017-06-13] MEDS: ACCUCHECK AT 2AM (Patients on SS coverage) XX (02:00)
[2017-06-13] MEDS: HYDROCODONE/APAP (10/325) TAB PO ×5 (03:07→23:33)
[2017-06-13] MEDS: PANTOPRAZOLE (EC) 40 MG TAB PO (05:18)
[2017-06-13 06:18] LABS: INR 2.56; PROTIME 28.2 Sec (11.9-14.9); PT RATIO 2.2
[2017-06-13] MEDS: Insulin NOVOLOG SS MILD Algorithm (SS with meals and bedtime) SC ×4 (08:00→20:43)
[2017-06-13] MEDS: CALCIUM ACETATE 667 MG CAP PO ×4 (08:36→18:00)
[2017-06-13] MEDS: ASPIRIN 81 MG TAB PO (08:36)
[2017-06-13] MEDS: AMIODARONE 200 MG TAB PO (08:42)
[2017-06-13] MEDS: MULTIVITAMINS/MINERALS TAB PO (08:42)
[2017-06-13] MEDS: FOLIC ACID 1 MG TAB PO (08:42)
[2017-06-13] MEDS: THIAMINE 100 MG TAB PO (08:42)
[2017-06-13] MEDS: FLUCONAZOLE 200 MG TAB PO (08:42)
[2017-06-13] MEDS: POLYETHYLENE GLYCOL 17 GM PACKET PO (08:42)
[2017-06-13] MEDS: ZINC SULFATE 220 MG CAP PO (08:43)
[2017-06-13] MEDS: ASCORBIC ACID 500 MG TAB PO ×2 (08:43→20:36)
[2017-06-13] MEDS: BISACODYL 10 MG SUPP PR ×2 (08:43→09:00)
[2017-06-13] MEDS: BALSAM PERU/CASTOR OIL 60 GM TUBE TOP ×2 (08:44→20:44)
[2017-06-13] MEDS: LISINOPRIL 10 MG TAB PO ×2 (08:44→20:36)
[2017-06-13] MEDS: morphine 2 MG INJ IV (14:51)
[2017-06-13] MEDS: GENTAMICIN 0.1% 15 GM OINT TOP ×2 (15:00→15:51)
[2017-06-13] MEDS: FAMOTIDINE 20 MG TAB PO (15:48)
[2017-06-13] MEDS: WARFARIN 2 MG TAB PO (17:30)
[2017-06-13] MEDS: DAPTOMYCIN 325 MG in SOD CHLORIDE 0.9% 100 ML IVPB (17:30)
[2017-06-13] MEDS: ATORVASTATIN 10 MG TAB PO (20:35)
[2017-06-13] MEDS: DOCUSATE SODIUM 100 MG CAP PO (20:36)
[2017-06-13] MEDS: GLUCOSE GEL 15 GRAM TUBE BUCCAL (21:00)
[2017-06-13] MEDS: DEXTROSE 50% 50 ML SYRINGE IV (22:33)
[2017-06-13] MEDS: DEXTROSE 5%-0.45% NACL 1,000 ML IV (23:33)
[2017-06-14] MEDS: ACCUCHECK AT 2AM (Patients on SS coverage) XX (01:47)
[2017-06-14] MEDS: HYDROCODONE/APAP (10/325) TAB PO ×3 (04:47→19:57)
[2017-06-14] MEDS: PANTOPRAZOLE (EC) 40 MG TAB PO (05:12)
[2017-06-14] MEDS: Insulin NOVOLOG SS MILD Algorithm (SS with meals and bedtime) SC (08:00)
[2017-06-14] MEDS: FLUCONAZOLE 200 MG TAB PO (08:16)
[2017-06-14] MEDS: MULTIVITAMINS/MINERALS TAB PO (08:17)
[2017-06-14] MEDS: AMIODARONE 200 MG TAB PO (08:17)
[2017-06-14] MEDS: ASPIRIN 81 MG TAB PO ×2 (08:17→09:00)
[2017-06-14] MEDS: ASCORBIC ACID 500 MG TAB PO ×2 (08:17→21:01)
[2017-06-14] MEDS: CALCIUM ACETATE 667 MG CAP PO ×3 (08:17→17:25)
[2017-06-14] MEDS: FOLIC ACID 1 MG TAB PO (08:17)
[2017-06-14] MEDS: BALSAM PERU/CASTOR OIL 60 GM TUBE TOP ×2 (08:18→21:02)
[2017-06-14] MEDS: LISINOPRIL 10 MG TAB PO ×2 (09:00→21:01)
[2017-06-14] MEDS: POLYETHYLENE GLYCOL 17 GM PACKET PO (09:00)
[2017-06-14] MEDS: BISACODYL 10 MG SUPP PR (09:00)
[2017-06-14] MEDS: THIAMINE 100 MG TAB PO (10:29)
[2017-06-14] MEDS: ZINC SULFATE 220 MG CAP PO (10:29)
[2017-06-14 11:07] LABS: ADD MAN DIFF? NO
[2017-06-14 11:13] LABS: ABNORMAL IP MESSAGE 1; BASOPHILS % 0.4 % (0.0-2.0); EOSINOPHILS # 0.1 10^3/ul (0.0-0.5); EOSINOPHILS % 1.3 % (0.0-7.0); HEMATOCRIT 25.5 % (42.0-52.0); HEMOGLOBIN 8.4 g/dl (14.0-18.0); LYMPHOCYTES # 0.4 10^3/ul (0.8-2.9); LYMPHOCYTES % 5.2 % (15.0-51.0); MEAN CORPUSCULAR HEMOGLOBIN 33.7 pg (29.0-33.0); MEAN CORPUSCULAR HGB CONC 32.9 g/dl (32.0-37.0); MEAN CORPUSCULAR VOLUME 102.4 fl (82.0-101.0); MEAN PLATELET VOLUME 11.3 fl (7.4-10.4); MONOCYTE # 0.4 10^3/ul (0.3-0.9); MONOCYTES % 4.5 % (0.0-11.0); NEUTROPHIL # 6.9 10^3/ul (1.6-7.5); NEUTROPHILS % 88.1 % (39.0-77.0); PLATELET COUNT 144 10^3/UL (140-415); POSITIVE DIFF @See below; RED BLOOD COUNT 2.49 10^6/ul (4.70-6.10); RED CELL DISTRIBUTION WIDTH 18.5 % (11.5-14.5)
[2017-06-14 11:13] LABS: WHITE BLOOD COUNT 7.8 10^3/ul (4.8-10.8)
[2017-06-14] MEDS: morphine LIQ (10 MG/5 ML) CUP PO ×3 (11:36→23:16)
[2017-06-14 11:40] LABS: ANION GAP 9 (8-16); BLOOD UREA NITROGEN 15 mg/dl (7-20); CALCIUM 9.3 mg/dl (8.4-10.2); CARBON DIOXIDE 32 mmol/L (21-31); CHLORIDE 97 mmol/L (97-110); CREATININE 3.07 mg/dl (0.61-1.24); GLUCOSE 85 mg/dl (70-220); POTASSIUM 3.7 mmol/L (3.5-5.1); SODIUM 134 mmol/L (135-144)
[2017-06-14 11:49] LABS: FREE T4 (FREE THYROXINE) 0.87 ng/dl (0.78-2.44)
[2017-06-14 13:26] LABS: FOLATE > 20.0 ng/ml (2.8-20.0)
[2017-06-14] MEDS: TOBRAMYCIN 120 MG in DEXTROSE 5% 100 ML IVPB (14:55)
[2017-06-14] MEDS: WARFARIN 2 MG TAB PO (17:25)
[2017-06-14] MEDS: FAMOTIDINE 20 MG TAB PO (17:25)
[2017-06-14] MEDS: INSULIN ASPART [NOVOLOG] 3 ML PEN SC ×2 (17:29→21:00)
[2017-06-14] MEDS ORDERED: GLUCAGON 1 MG INJ IM (17:30)
[2017-06-14] MEDS ORDERED: GLUCOSE GEL 15 GRAM TUBE PO ×2 (17:30)
[2017-06-14] MEDS ORDERED: DEXTROSE 50% 50 ML SYRINGE IV ×2 (17:30)
[2017-06-14] MEDS ORDERED: GLUCOSE GEL 15 GRAM TUBE BUCCAL (17:30)
[2017-06-14] MEDS: DOCUSATE SODIUM 100 MG CAP PO (21:01)
[2017-06-14] MEDS: ATORVASTATIN 10 MG TAB PO (21:02)
[2017-06-14] MEDS: DEXTROSE 5%-0.45% NACL 1,000 ML IV (22:54)
[2017-06-15] MEDS: ACCU-CHEK XX (00:59)
[2017-06-15] MEDS: morphine LIQ (10 MG/5 ML) CUP PO ×3 (05:39→22:08)
[2017-06-15] MEDS: PANTOPRAZOLE (EC) 40 MG TAB PO (05:39)
[2017-06-15 06:36] LABS: PROTIME 40.3 Sec (11.9-14.9); PT RATIO 3.1
[2017-06-15] MEDS: INSULIN ASPART [NOVOLOG] 3 ML PEN SC (08:15)
[2017-06-15] MEDS: MULTIVITAMINS/MINERALS TAB PO (08:28)
[2017-06-15] MEDS: FOLIC ACID 1 MG TAB PO (08:28)
[2017-06-15] MEDS: AMIODARONE 200 MG TAB PO (08:28)
[2017-06-15] MEDS: THIAMINE 100 MG TAB PO (08:28)
[2017-06-15] MEDS: ZINC SULFATE 220 MG CAP PO (08:28)
[2017-06-15] MEDS: ASCORBIC ACID 500 MG TAB PO ×2 (08:28→20:26)
[2017-06-15] MEDS: FLUCONAZOLE 200 MG TAB PO (08:28)
[2017-06-15] MEDS: LISINOPRIL 10 MG TAB PO ×2 (08:28→20:27)
[2017-06-15] MEDS: ASPIRIN 81 MG TAB PO (08:29)
[2017-06-15] MEDS: BISACODYL 10 MG SUPP PR (08:29)
[2017-06-15] MEDS: CALCIUM ACETATE 667 MG CAP PO ×3 (08:29→17:34)
[2017-06-15] MEDS: POLYETHYLENE GLYCOL 17 GM PACKET PO (08:30)
[2017-06-15] MEDS: BALSAM PERU/CASTOR OIL 60 GM TUBE TOP ×2 (08:30→20:27)
[2017-06-15] MEDS: DAPTOMYCIN 325 MG in SOD CHLORIDE 0.9% 100 ML IVPB (17:34)
[2017-06-15] MEDS: FAMOTIDINE 20 MG TAB PO (17:34)
[2017-06-15] MEDS: EPOETIN 10000 UNITS/1 ML INJ (ESRD) SC (17:54)
[2017-06-15] MEDS: DOCUSATE SODIUM 100 MG CAP PO (20:26)
[2017-06-15] MEDS: ATORVASTATIN 10 MG TAB PO (20:26)
[2017-06-15] MEDS: DEXTROSE 5%-0.45% NACL 1,000 ML IV (22:46)
[2017-06-16] MEDS: morphine LIQ (10 MG/5 ML) CUP PO ×4 (04:28→21:04)
[2017-06-16] MEDS: PANTOPRAZOLE (EC) 40 MG TAB PO (05:12)
[2017-06-16] MEDS: LEVOTHYROXINE 25 MCG TAB PO (05:12)
[2017-06-16 06:44] LABS: INR 4.54; PROTIME 44.6 Sec (11.9-14.9); PT RATIO 3.5
[2017-06-16 07:03] LABS: ANION GAP 8 (8-16); BLOOD UREA NITROGEN 24 mg/dl (7-20); CALCIUM 10.4 mg/dl (8.4-10.2); CARBON DIOXIDE 33 mmol/L (21-31); CHLORIDE 96 mmol/L (97-110); CREATININE 5.28 mg/dl (0.61-1.24); GLUCOSE 71 mg/dl (70-220); POTASSIUM 4.6 mmol/L (3.5-5.1); SODIUM 132 mmol/L (135-144)
[2017-06-16] MEDS: HYDROCODONE/APAP (10/325) TAB PO ×2 (07:51→17:15)
[2017-06-16] MEDS: ASPIRIN 81 MG TAB PO (08:39)
[2017-06-16] MEDS: BISACODYL 10 MG SUPP PR (08:39)
[2017-06-16] MEDS: FLUCONAZOLE 200 MG TAB PO (08:39)
[2017-06-16] MEDS: CALCIUM ACETATE 667 MG CAP PO ×3 (08:39→17:14)
[2017-06-16] MEDS: POLYETHYLENE GLYCOL 17 GM PACKET PO (08:39)
[2017-06-16] MEDS: ASCORBIC ACID 500 MG TAB PO ×2 (08:39→21:03)
[2017-06-16] MEDS: THIAMINE 100 MG TAB PO (08:39)
[2017-06-16] MEDS: FOLIC ACID 1 MG TAB PO (08:39)
[2017-06-16] MEDS: ZINC SULFATE 220 MG CAP PO (08:39)
[2017-06-16] MEDS: BALSAM PERU/CASTOR OIL 60 GM TUBE TOP ×2 (08:40→21:04)
[2017-06-16] MEDS: MULTIVITAMINS/MINERALS TAB PO (08:40)
[2017-06-16] MEDS: AMIODARONE 200 MG TAB PO (08:40)
[2017-06-16] MEDS: LISINOPRIL 10 MG TAB PO ×2 (08:40→21:04)
[2017-06-16] MEDS: FAMOTIDINE 20 MG TAB PO (14:18)
[2017-06-16] MEDS: DEXTROSE 5%-0.45% NACL 1,000 ML IV ×2 (14:25→23:29)
[2017-06-16] MEDS: DOCUSATE SODIUM 100 MG CAP PO (21:03)
[2017-06-16] MEDS: ATORVASTATIN 10 MG TAB PO (21:03)
[2017-06-16] MEDS ORDERED: VITAMIN A & D 5 GM OINT PACKET TOP (21:47)
[2017-06-17] MEDS: LEVOTHYROXINE 25 MCG TAB PO (05:32)
[2017-06-17] MEDS: PANTOPRAZOLE (EC) 40 MG TAB PO (05:32)
[2017-06-17] MEDS: morphine LIQ (10 MG/5 ML) CUP PO ×3 (05:32→20:24)
[2017-06-17 06:31] LABS: ADD MAN DIFF? NO
[2017-06-17 06:38] LABS: WHITE BLOOD COUNT 5.7 10^3/ul (4.8-10.8)
[2017-06-17 06:38] LABS: ABNORMAL IP MESSAGE 1; BASOPHILS % 0.5 % (0.0-2.0); EOSINOPHILS # 0.1 10^3/ul (0.0-0.5); EOSINOPHILS % 2.1 % (0.0-7.0); HEMATOCRIT 24.2 % (42.0-52.0); HEMOGLOBIN 7.7 g/dl (14.0-18.0); LYMPHOCYTES # 0.5 10^3/ul (0.8-2.9); LYMPHOCYTES % 7.9 % (15.0-51.0); MEAN CORPUSCULAR HEMOGLOBIN 33.2 pg (29.0-33.0); MEAN CORPUSCULAR HGB CONC 31.8 g/dl (32.0-37.0); MEAN CORPUSCULAR VOLUME 104.3 fl (82.0-101.0); MEAN PLATELET VOLUME 10.8 fl (7.4-10.4); MONOCYTE # 0.3 10^3/ul (0.3-0.9); MONOCYTES % 5.9 % (0.0-11.0); NEUTROPHIL # 4.8 10^3/ul (1.6-7.5); NEUTROPHILS % 83.1 % (39.0-77.0); PLATELET COUNT 159 10^3/UL (140-415); POSITIVE DIFF @See below; RED BLOOD COUNT 2.32 10^6/ul (4.70-6.10); RED CELL DISTRIBUTION WIDTH 18.4 % (11.5-14.5)
[2017-06-17 06:57] LABS: INR 3.86; PROTIME 39.2 Sec (11.9-14.9); PT RATIO 3.1
[2017-06-17 07:02] LABS: ANION GAP 6 (8-16); BLOOD UREA NITROGEN 16 mg/dl (7-20); CALCIUM 10.3 mg/dl (8.4-10.2); CARBON DIOXIDE 32 mmol/L (21-31); CHLORIDE 101 mmol/L (97-110); CREATININE 3.97 mg/dl (0.61-1.24); GLUCOSE 74 mg/dl (70-220); POTASSIUM 4.2 mmol/L (3.5-5.1); SODIUM 135 mmol/L (135-144)
[2017-06-17] MEDS: TOBRAMYCIN 120 MG in DEXTROSE 5% 100 ML IVPB (07:22)
[2017-06-17] MEDS: BISACODYL 10 MG SUPP PR (08:13)
[2017-06-17] MEDS: POLYETHYLENE GLYCOL 17 GM PACKET PO (08:13)
[2017-06-17] MEDS: CALCIUM ACETATE 667 MG CAP PO ×3 (08:13→16:57)
[2017-06-17] MEDS: FLUCONAZOLE 200 MG TAB PO (08:14)
[2017-06-17] MEDS: LISINOPRIL 10 MG TAB PO (08:14)
[2017-06-17] MEDS: ASCORBIC ACID 500 MG TAB PO ×2 (08:14→20:23)
[2017-06-17] MEDS: AMIODARONE 200 MG TAB PO (08:14)
[2017-06-17] MEDS: FOLIC ACID 1 MG TAB PO (08:14)
[2017-06-17] MEDS: THIAMINE 100 MG TAB PO (08:15)
[2017-06-17] MEDS: BALSAM PERU/CASTOR OIL 60 GM TUBE TOP ×2 (08:15→20:26)
[2017-06-17] MEDS: HYDROCODONE/APAP (10/325) TAB PO ×2 (08:15→16:57)
[2017-06-17] MEDS: MULTIVITAMINS/MINERALS TAB PO (08:15)
[2017-06-17] MEDS: ASPIRIN 81 MG TAB PO (08:15)
[2017-06-17] MEDS: ZINC SULFATE 220 MG CAP PO (08:15)
[2017-06-17] MEDS: LIDOCAINE 1% (MPF) 5 ML VIAL SC (09:30)
[2017-06-17] MEDS: FAMOTIDINE 20 MG TAB PO (15:30)
[2017-06-17] MEDS: DAPTOMYCIN 325 MG in SOD CHLORIDE 0.9% 100 ML IVPB (16:57)
[2017-06-17] MEDS: EPOETIN 10000 UNITS/1 ML INJ (ESRD) SC (16:58)
[2017-06-17] MEDS: ATORVASTATIN 10 MG TAB PO (20:23)
[2017-06-17] MEDS: DOCUSATE SODIUM 100 MG CAP PO (20:24)
[2017-06-17] MEDS: LISINOPRIL 20 MG TAB PO (20:25)
[2017-06-18] MEDS: DEXTROSE 5%-0.45% NACL 1,000 ML IV (00:07)
[2017-06-18] MEDS: LEVOTHYROXINE 25 MCG TAB PO (05:42)
[2017-06-18] MEDS: PANTOPRAZOLE (EC) 40 MG TAB PO (05:42)
[2017-06-18] MEDS: hydrALAzine 20 MG INJ IV (05:43)
[2017-06-18 06:42] LABS: ANION GAP 10 (8-16); BLOOD UREA NITROGEN 22 mg/dl (7-20); CALCIUM 10.9 mg/dl (8.4-10.2); CARBON DIOXIDE 31 mmol/L (21-31); CHLORIDE 100 mmol/L (97-110); CREATININE 4.97 mg/dl (0.61-1.24); GLUCOSE 77 mg/dl (70-220); POTASSIUM 4.9 mmol/L (3.5-5.1); SODIUM 136 mmol/L (135-144)
[2017-06-18 06:44] LABS: CREATINE KINASE < 20 IU/L (23-200)
[2017-06-18] MEDS: POLYETHYLENE GLYCOL 17 GM PACKET PO ×2 (08:33→13:02)
[2017-06-18] MEDS: ASPIRIN 81 MG TAB PO (08:33)
[2017-06-18] MEDS: ZINC SULFATE 220 MG CAP PO (08:33)
[2017-06-18] MEDS: MULTIVITAMINS/MINERALS TAB PO (08:33)
[2017-06-18] MEDS: FLUCONAZOLE 200 MG TAB PO (08:33)
[2017-06-18] MEDS: ASCORBIC ACID 500 MG TAB PO ×2 (08:33→20:57)
[2017-06-18] MEDS: FOLIC ACID 1 MG TAB PO (08:33)
[2017-06-18] MEDS: THIAMINE 100 MG TAB PO (08:33)
[2017-06-18] MEDS: BISACODYL 10 MG SUPP PR (08:34)
[2017-06-18] MEDS: CALCIUM ACETATE 667 MG CAP PO ×3 (08:34→18:00)
[2017-06-18] MEDS: AMIODARONE 200 MG TAB PO (08:41)
[2017-06-18] MEDS: LISINOPRIL 20 MG TAB PO ×2 (08:42→20:59)
[2017-06-18] MEDS: BALSAM PERU/CASTOR OIL 60 GM TUBE TOP ×2 (08:43→21:00)
[2017-06-18] MEDS: morphine LIQ (10 MG/5 ML) CUP PO ×2 (09:30→17:13)
[2017-06-18 10:54] LABS: INR 3.94; PROTIME 39.8 Sec (11.9-14.9); PT RATIO 3.1
[2017-06-18] MEDS: HYDROCODONE/APAP (10/325) TAB PO (11:35)
[2017-06-18] MEDS: TOBRAMYCIN 120 MG in DEXTROSE 5% 100 ML IVPB (13:56)
[2017-06-18] MEDS: FAMOTIDINE 20 MG TAB PO (15:54)
[2017-06-18] MEDS: MAGNESIUM HYDROXIDE 30ML CUP PO (17:17)
[2017-06-18] MEDS: ATORVASTATIN 10 MG TAB PO (20:58)
[2017-06-18] MEDS: DOCUSATE SODIUM 100 MG CAP PO (20:58)
[2017-06-19] MEDS: DEXTROSE 5%-0.45% NACL 1,000 ML IV (01:57)
[2017-06-19] MEDS: morphine LIQ (10 MG/5 ML) CUP PO ×3 (02:06→17:47)
[2017-06-19] MEDS: LEVOTHYROXINE 25 MCG TAB PO (05:09)
[2017-06-19] MEDS: PANTOPRAZOLE (EC) 40 MG TAB PO (05:09)
[2017-06-19] MEDS: HYDROCODONE/APAP (10/325) TAB PO (05:09)
[2017-06-19 05:46] LABS: ADD MAN DIFF? NO
[2017-06-19 05:57] LABS: WHITE BLOOD COUNT 5.6 10^3/ul (4.8-10.8)
[2017-06-19 05:57] LABS: ABNORMAL IP MESSAGE 1; BASOPHILS % 0.4 % (0.0-2.0); EOSINOPHILS # 0.1 10^3/ul (0.0-0.5); EOSINOPHILS % 1.8 % (0.0-7.0); HEMATOCRIT 22.1 % (42.0-52.0); LYMPHOCYTES # 0.5 10^3/ul (0.8-2.9); LYMPHOCYTES % 9.5 % (15.0-51.0); MEAN CORPUSCULAR HEMOGLOBIN 32.9 pg (29.0-33.0); MEAN CORPUSCULAR HGB CONC 31.2 g/dl (32.0-37.0); MEAN CORPUSCULAR VOLUME 105.2 fl (82.0-101.0); MEAN PLATELET VOLUME 10.7 fl (7.4-10.4); MONOCYTE # 0.4 10^3/ul (0.3-0.9); MONOCYTES % 6.4 % (0.0-11.0); NEUTROPHIL # 4.6 10^3/ul (1.6-7.5); NEUTROPHILS % 81.5 % (39.0-77.0); PLATELET COUNT 148 10^3/UL (140-415); POSITIVE DIFF @See below; RED CELL DISTRIBUTION WIDTH 18.4 % (11.5-14.5)
[2017-06-19 06:05] LABS: HEMOGLOBIN 6.9 g/dl (14.0-18.0)
[2017-06-19 06:11] LABS: IRON 28 ug/dl (35-150)
[2017-06-19 06:17] LABS: PHOSPHORUS 2.4 mg/dl (2.5-4.9)
[2017-06-19 06:20] LABS: % IRON SATURATION 22 % SAT (22-52); TOTAL IRON BINDING CAPACITY 129 ug/dl (241-421)
[2017-06-19 06:23] LABS: ANION GAP 9 (8-16); BLOOD UREA NITROGEN 15 mg/dl (7-20); CALCIUM 9.7 mg/dl (8.4-10.2); CARBON DIOXIDE 32 mmol/L (21-31); CHLORIDE 102 mmol/L (97-110); CREATININE 3.53 mg/dl (0.61-1.24); GLUCOSE 72 mg/dl (70-220); POTASSIUM 4.8 mmol/L (3.5-5.1); SODIUM 138 mmol/L (135-144)
[2017-06-19 06:30] LABS: INR 2.54; PT RATIO 2.2
[2017-06-19 07:11] LABS: PATH REVIEW? YES
[2017-06-19] MEDS: FLUCONAZOLE 200 MG TAB PO (08:22)
[2017-06-19] MEDS: MULTIVITAMINS/MINERALS TAB PO (08:22)
[2017-06-19] MEDS: ZINC SULFATE 220 MG CAP PO (08:22)
[2017-06-19] MEDS: CALCIUM ACETATE 667 MG CAP PO ×3 (08:23→17:48)
[2017-06-19] MEDS: ASPIRIN 81 MG TAB PO (08:23)
[2017-06-19] MEDS: THIAMINE 100 MG TAB PO (08:23)
[2017-06-19] MEDS: ASCORBIC ACID 500 MG TAB PO ×2 (08:23→21:19)
[2017-06-19] MEDS: FOLIC ACID 1 MG TAB PO (08:23)
[2017-06-19] MEDS: AMIODARONE 200 MG TAB PO (08:24)
[2017-06-19] MEDS: LISINOPRIL 20 MG TAB PO ×2 (08:24→21:20)
[2017-06-19] MEDS: BALSAM PERU/CASTOR OIL 60 GM TUBE TOP ×2 (08:25→21:21)
[2017-06-19] MEDS: POLYETHYLENE GLYCOL 17 GM PACKET PO (08:26)
[2017-06-19] MEDS: BISACODYL 10 MG SUPP PR (08:26)
[2017-06-19] MEDS: FAMOTIDINE 20 MG TAB PO ×2 (15:00→17:53)
[2017-06-19] MEDS: DAPTOMYCIN 325 MG in SOD CHLORIDE 0.9% 100 ML IVPB (17:46)
[2017-06-19] MEDS: WARFARIN 2 MG TAB PO (17:46)
[2017-06-19] MEDS: EPOETIN 10000 UNITS/1 ML INJ (ESRD) SC (17:47)
[2017-06-19] MEDS: DOCUSATE SODIUM 100 MG CAP PO (21:19)
[2017-06-19] MEDS: ATORVASTATIN 10 MG TAB PO (21:19)
[2017-06-20] MEDS: DEXTROSE 5%-0.45% NACL 1,000 ML IV ×2 (03:41→23:30)
[2017-06-20] MEDS: PANTOPRAZOLE (EC) 40 MG TAB PO (05:28)
[2017-06-20] MEDS: LEVOTHYROXINE 25 MCG TAB PO (05:28)
[2017-06-20 06:02] LABS: AHG CROSSMATCH 1 2
[2017-06-20 06:14] LABS: ABNORMAL IP MESSAGE 1; ADD MAN DIFF? NO; BASOPHILS % 0.2 % (0.0-2.0); EOSINOPHILS # 0.1 10^3/ul (0.0-0.5); EOSINOPHILS % 2.2 % (0.0-7.0); LYMPHOCYTES # 0.5 10^3/ul (0.8-2.9); MEAN CORPUSCULAR HEMOGLOBIN 33.2 pg (29.0-33.0); MEAN CORPUSCULAR HGB CONC 31.4 g/dl (32.0-37.0); MEAN CORPUSCULAR VOLUME 105.8 fl (82.0-101.0); MEAN PLATELET VOLUME 10.4 fl (7.4-10.4); MONOCYTE # 0.4 10^3/ul (0.3-0.9); MONOCYTES % 6.6 % (0.0-11.0); NEUTROPHIL # 4.8 10^3/ul (1.6-7.5); NEUTROPHILS % 82.3 % (39.0-77.0); PLATELET COUNT 148 10^3/UL (140-415); POSITIVE DIFF @See below; RED BLOOD COUNT 2.08 10^6/ul (4.70-6.10); RED CELL DISTRIBUTION WIDTH 17.9 % (11.5-14.5)
[2017-06-20 06:14] LABS: WHITE BLOOD COUNT 5.9 10^3/ul (4.8-10.8)
[2017-06-20 06:48] LABS: ALANINE AMINOTRANSFERASE 31 IU/L (13-69); ALBUMIN 2.5 g/dl (3.3-4.9); ALBUMIN/GLOBULIN RATIO 0.73; ALKALINE PHOSPHATASE 80 IU/L (42-121); ANION GAP 8 (8-16); ASPARTATE AMINO TRANSFERASE 27 IU/L (15-46); BLOOD UREA NITROGEN 21 mg/dl (7-20); CARBON DIOXIDE 30 mmol/L (21-31); CHLORIDE 102 mmol/L (97-110); CREATININE 4.51 mg/dl (0.61-1.24); GLUCOSE 74 mg/dl (70-220); POTASSIUM 4.3 mmol/L (3.5-5.1); SODIUM 136 mmol/L (135-144); TOTAL PROTEIN 5.9 g/dl (6.1-8.1)
[2017-06-20 06:49] LABS: ANION GAP 7 (8-16); BLOOD UREA NITROGEN 21 mg/dl (7-20); CALCIUM 10.1 mg/dl (8.4-10.2); CARBON DIOXIDE 32 mmol/L (21-31); CHLORIDE 101 mmol/L (97-110); CREATININE 4.54 mg/dl (0.61-1.24); GLUCOSE 74 mg/dl (70-220); POTASSIUM 4.3 mmol/L (3.5-5.1); SODIUM 136 mmol/L (135-144)
[2017-06-20 06:54] LABS: HEMOGLOBIN 6.9 g/dl (14.0-18.0)
[2017-06-20] MEDS: CALCIUM ACETATE 667 MG CAP PO ×3 (08:24→17:39)
[2017-06-20] MEDS: THIAMINE 100 MG TAB PO (08:25)
[2017-06-20] MEDS: ASCORBIC ACID 500 MG TAB PO ×2 (08:25→21:28)
[2017-06-20] MEDS: ASPIRIN 81 MG TAB PO (08:25)
[2017-06-20] MEDS: MULTIVITAMINS/MINERALS TAB PO (08:25)
[2017-06-20] MEDS: FOLIC ACID 1 MG TAB PO (08:25)
[2017-06-20] MEDS: ZINC SULFATE 220 MG CAP PO (08:25)
[2017-06-20] MEDS: FLUCONAZOLE 200 MG TAB PO (08:26)
[2017-06-20] MEDS: AMIODARONE 200 MG TAB PO (08:27)
[2017-06-20] MEDS: POLYETHYLENE GLYCOL 17 GM PACKET PO (08:27)
[2017-06-20] MEDS: LISINOPRIL 20 MG TAB PO ×2 (08:27→21:28)
[2017-06-20] MEDS: BISACODYL 10 MG SUPP PR (08:28)
[2017-06-20] MEDS: BALSAM PERU/CASTOR OIL 60 GM TUBE TOP ×2 (08:28→21:31)
[2017-06-20 12:02] LABS: OCCULT BLOOD STOOL NEGATIVE (NEGATIVE)
[2017-06-20] MEDS: morphine LIQ (10 MG/5 ML) CUP PO (15:18)
[2017-06-20] MEDS: FAMOTIDINE 20 MG TAB PO (15:18)
[2017-06-20] MEDS: WARFARIN 2 MG TAB PO (17:38)
[2017-06-20] MEDS: ATORVASTATIN 10 MG TAB PO (21:27)
[2017-06-20] MEDS: DOCUSATE SODIUM 100 MG CAP PO (21:28)
[2017-06-21] MEDS: HYDROCODONE/APAP (10/325) TAB PO (03:42)
[2017-06-21] MEDS: PANTOPRAZOLE (EC) 40 MG TAB PO (05:31)
[2017-06-21] MEDS: LEVOTHYROXINE 25 MCG TAB PO (05:31)
[2017-06-21] MEDS: morphine LIQ (10 MG/5 ML) CUP PO ×3 (05:32→21:12)
[2017-06-21 05:53] LABS: ADD MAN DIFF? NO
[2017-06-21 06:00] LABS: WHITE BLOOD COUNT 7.3 10^3/ul (4.8-10.8)
[2017-06-21 06:00] LABS: ABNORMAL IP MESSAGE 1; BASOPHILS % 0.4 % (0.0-2.0); EOSINOPHILS # 0.1 10^3/ul (0.0-0.5); EOSINOPHILS % 1.9 % (0.0-7.0); HEMOGLOBIN 8.4 g/dl (14.0-18.0); LYMPHOCYTES # 0.5 10^3/ul (0.8-2.9); MEAN CORPUSCULAR HEMOGLOBIN 31.9 pg (29.0-33.0); MEAN CORPUSCULAR HGB CONC 32.3 g/dl (32.0-37.0); MEAN CORPUSCULAR VOLUME 98.9 fl (82.0-101.0); MEAN PLATELET VOLUME 10.4 fl (7.4-10.4); MONOCYTE # 0.4 10^3/ul (0.3-0.9); MONOCYTES % 5.6 % (0.0-11.0); NEUTROPHIL # 6.2 10^3/ul (1.6-7.5); NEUTROPHILS % 84.7 % (39.0-77.0); PLATELET COUNT 139 10^3/UL (140-415); POSITIVE DIFF @See below; RED BLOOD COUNT 2.63 10^6/ul (4.70-6.10); RED CELL DISTRIBUTION WIDTH 20.1 % (11.5-14.5)
[2017-06-21 06:10] LABS: INR 2.76; PT RATIO 2.3
[2017-06-21 06:18] LABS: ANION GAP 9 (8-16); BLOOD UREA NITROGEN 28 mg/dl (7-20); CALCIUM 10.4 mg/dl (8.4-10.2); CARBON DIOXIDE 30 mmol/L (21-31); CHLORIDE 101 mmol/L (97-110); CREATININE 5.51 mg/dl (0.61-1.24); GLUCOSE 69 mg/dl (70-220); POTASSIUM 4.8 mmol/L (3.5-5.1); SODIUM 135 mmol/L (135-144)
[2017-06-21] MEDS: LISINOPRIL 20 MG TAB PO ×2 (07:35→21:12)
[2017-06-21] MEDS: AMIODARONE 200 MG TAB PO (07:35)
[2017-06-21] MEDS: CALCIUM ACETATE 667 MG CAP PO ×3 (08:15→18:00)
[2017-06-21] MEDS: BALSAM PERU/CASTOR OIL 60 GM TUBE TOP ×2 (09:00→21:12)
[2017-06-21] MEDS: BISACODYL 10 MG SUPP PR (09:00)
[2017-06-21] MEDS: POLYETHYLENE GLYCOL 17 GM PACKET PO (09:00)
[2017-06-21] MEDS: ASPIRIN 81 MG TAB PO (12:31)
[2017-06-21] MEDS: MULTIVITAMINS/MINERALS TAB PO (12:31)
[2017-06-21] MEDS: FOLIC ACID 1 MG TAB PO (12:31)
[2017-06-21] MEDS: ZINC SULFATE 220 MG CAP PO (12:37)
[2017-06-21] MEDS: FLUCONAZOLE 200 MG TAB PO (12:38)
[2017-06-21] MEDS: ASCORBIC ACID 500 MG TAB PO ×2 (12:39→21:11)
[2017-06-21] MEDS: THIAMINE 100 MG TAB PO (12:39)
[2017-06-21] MEDS: FAMOTIDINE 20 MG TAB PO (15:58)
[2017-06-21] MEDS: TOBRAMYCIN 120 MG in DEXTROSE 5% 100 ML IVPB (17:38)
[2017-06-21] MEDS: WARFARIN 2 MG TAB PO (17:52)
[2017-06-21] MEDS: DAPTOMYCIN 325 MG in SOD CHLORIDE 0.9% 100 ML IVPB (18:30)
[2017-06-21] MEDS: DOCUSATE SODIUM 100 MG CAP PO (21:00)
[2017-06-21] MEDS: ATORVASTATIN 10 MG TAB PO (21:11)
[2017-06-21] MEDS: DEXTROSE 5%-0.45% NACL 1,000 ML IV (23:30)
[2017-06-22] MEDS: DEXTROSE 5%-0.45% NACL 1,000 ML IV ×2 (02:31→23:30)
[2017-06-22] MEDS: morphine LIQ (10 MG/5 ML) CUP PO ×4 (02:55→20:31)
[2017-06-22] MEDS: PANTOPRAZOLE (EC) 40 MG TAB PO (05:30)
[2017-06-22] MEDS: LEVOTHYROXINE 25 MCG TAB PO (05:30)
[2017-06-22 06:28] LABS: INR 3.04; PROTIME 32.4 Sec (11.9-14.9); PT RATIO 2.5
[2017-06-22] MEDS: ASPIRIN 81 MG TAB PO (08:55)
[2017-06-22] MEDS: ZINC SULFATE 220 MG CAP PO (08:55)
[2017-06-22] MEDS: POLYETHYLENE GLYCOL 17 GM PACKET PO (09:00)
[2017-06-22] MEDS: BALSAM PERU/CASTOR OIL 60 GM TUBE TOP ×2 (09:00→20:26)
[2017-06-22] MEDS: BISACODYL 10 MG SUPP PR (09:00)
[2017-06-22] MEDS: CALCIUM ACETATE 667 MG CAP PO ×3 (09:00→18:00)
[2017-06-22] MEDS: FLUCONAZOLE 200 MG TAB PO (09:01)
[2017-06-22] MEDS: THIAMINE 100 MG TAB PO (09:01)
[2017-06-22] MEDS: MULTIVITAMINS/MINERALS TAB PO (09:01)
[2017-06-22] MEDS: FOLIC ACID 1 MG TAB PO (09:07)
[2017-06-22] MEDS: AMIODARONE 200 MG TAB PO (09:08)
[2017-06-22] MEDS: LISINOPRIL 20 MG TAB PO ×2 (09:08→20:26)
[2017-06-22] MEDS: ASCORBIC ACID 500 MG TAB PO ×2 (09:09→20:25)
[2017-06-22 12:41] LABS: PATH REVIEW CH
[2017-06-22] MEDS: FAMOTIDINE 20 MG TAB PO (15:03)
[2017-06-22] MEDS: HYDROCODONE/APAP (10/325) TAB PO (16:12)
[2017-06-22] MEDS: EPOETIN 10000 UNITS/1 ML INJ (ESRD) SC (17:57)
[2017-06-22] MEDS: DOCUSATE SODIUM 100 MG CAP PO (20:24)
[2017-06-22] MEDS: ATORVASTATIN 10 MG TAB PO (20:24)
[2017-06-23] MEDS: morphine LIQ (10 MG/5 ML) CUP PO ×3 (03:27→23:52)
[2017-06-23] MEDS: DEXTROSE 5%-0.45% NACL 1,000 ML IV (03:28)
[2017-06-23] MEDS: LEVOTHYROXINE 25 MCG TAB PO (05:56)
[2017-06-23] MEDS: PANTOPRAZOLE (EC) 40 MG TAB PO (05:56)
[2017-06-23] MEDS: HYDROCODONE/APAP (10/325) TAB PO ×2 (05:59→20:50)
[2017-06-23 06:02] LABS: ADD MAN DIFF? NO
[2017-06-23 06:11] LABS: ABNORMAL IP MESSAGE 1; BASOPHILS % 0.5 % (0.0-2.0); EOSINOPHILS # 0.2 10^3/ul (0.0-0.5); EOSINOPHILS % 2.9 % (0.0-7.0); HEMATOCRIT 28.7 % (42.0-52.0); HEMOGLOBIN 9.3 g/dl (14.0-18.0); LYMPHOCYTES # 0.6 10^3/ul (0.8-2.9); LYMPHOCYTES % 8.3 % (15.0-51.0); MEAN CORPUSCULAR HEMOGLOBIN 32.1 pg (29.0-33.0); MEAN CORPUSCULAR HGB CONC 32.4 g/dl (32.0-37.0); MEAN PLATELET VOLUME 10.4 fl (7.4-10.4); MONOCYTE # 0.4 10^3/ul (0.3-0.9); NEUTROPHIL # 5.5 10^3/ul (1.6-7.5); PLATELET COUNT 142 10^3/UL (140-415); POSITIVE DIFF @See below
[2017-06-23 06:11] LABS: WHITE BLOOD COUNT 6.7 10^3/ul (4.8-10.8)
[2017-06-23 06:36] LABS: INR 3.19; PROTIME 33.6 Sec (11.9-14.9); PT RATIO 2.6
[2017-06-23 06:56] LABS: ANION GAP 10 (8-16); BLOOD UREA NITROGEN 28 mg/dl (7-20); CALCIUM 10.5 mg/dl (8.4-10.2); CARBON DIOXIDE 31 mmol/L (21-31); CHLORIDE 100 mmol/L (97-110); CREATININE 4.81 mg/dl (0.61-1.24); GLUCOSE 73 mg/dl (70-220); POTASSIUM 4.1 mmol/L (3.5-5.1); SODIUM 137 mmol/L (135-144)
[2017-06-23] MEDS: AMIODARONE 200 MG TAB PO (09:00)
[2017-06-23] MEDS: LISINOPRIL 20 MG TAB PO ×2 (09:00→20:47)
[2017-06-23] MEDS: POLYETHYLENE GLYCOL 17 GM PACKET PO (09:00)
[2017-06-23] MEDS: BISACODYL 10 MG SUPP PR (09:00)
[2017-06-23] MEDS: ASCORBIC ACID 500 MG TAB PO ×2 (09:18→20:49)
[2017-06-23] MEDS: FLUCONAZOLE 200 MG TAB PO (09:18)
[2017-06-23] MEDS: THIAMINE 100 MG TAB PO (09:18)
[2017-06-23] MEDS: MULTIVITAMINS/MINERALS TAB PO (09:18)
[2017-06-23] MEDS: FOLIC ACID 1 MG TAB PO (09:18)
[2017-06-23] MEDS: ZINC SULFATE 220 MG CAP PO (09:18)
[2017-06-23] MEDS: ASPIRIN 81 MG TAB PO (09:18)
[2017-06-23] MEDS: BALSAM PERU/CASTOR OIL 60 GM TUBE TOP ×2 (09:21→20:47)
[2017-06-23] MEDS: CALCIUM ACETATE 667 MG CAP PO ×2 (12:15→18:06)
[2017-06-23] MEDS: FAMOTIDINE 20 MG TAB PO (15:36)
[2017-06-23] MEDS: DAPTOMYCIN 325 MG in SOD CHLORIDE 0.9% 100 ML IVPB (17:05)
[2017-06-23] MEDS: TOBRAMYCIN 120 MG in DEXTROSE 5% 100 ML IVPB (18:07)
[2017-06-23] MEDS: DOCUSATE SODIUM 100 MG CAP PO (20:46)
[2017-06-23] MEDS: ATORVASTATIN 10 MG TAB PO (20:47)
[2017-06-24 05:38] LABS: HEMOGLOBIN 7.9 g/dl (14.0-18.0)
[2017-06-24] MEDS: morphine LIQ (10 MG/5 ML) CUP PO ×2 (05:42→20:32)
[2017-06-24] MEDS: LEVOTHYROXINE 25 MCG TAB PO (05:42)
[2017-06-24] MEDS: PANTOPRAZOLE (EC) 40 MG TAB PO (05:42)
[2017-06-24 05:56] LABS: PROTIME 30.3 Sec (11.9-14.9); PT RATIO 2.4
[2017-06-24] MEDS: DEXTROSE 5%-0.45% NACL 1,000 ML IV ×2 (06:09→23:03)
[2017-06-24] MEDS: CALCIUM ACETATE 667 MG CAP PO ×3 (08:34→17:06)
[2017-06-24] MEDS: AMIODARONE 200 MG TAB PO (09:21)
[2017-06-24] MEDS: ZINC SULFATE 220 MG CAP PO (09:22)
[2017-06-24] MEDS: BISACODYL 10 MG SUPP PR (09:22)
[2017-06-24] MEDS: MULTIVITAMINS/MINERALS TAB PO (09:22)
[2017-06-24] MEDS: FOLIC ACID 1 MG TAB PO (09:22)
[2017-06-24] MEDS: ASPIRIN 81 MG TAB PO (09:22)
[2017-06-24] MEDS: ASCORBIC ACID 500 MG TAB PO ×2 (09:22→20:31)
[2017-06-24] MEDS: FLUCONAZOLE 200 MG TAB PO (09:22)
[2017-06-24] MEDS: LISINOPRIL 20 MG TAB PO ×2 (09:22→20:31)
[2017-06-24] MEDS: THIAMINE 100 MG TAB PO (09:22)
[2017-06-24] MEDS: BALSAM PERU/CASTOR OIL 60 GM TUBE TOP ×2 (09:23→20:32)
[2017-06-24] MEDS: POLYETHYLENE GLYCOL 17 GM PACKET PO (09:23)
[2017-06-24] MEDS: HYDROCODONE/APAP (10/325) TAB PO ×2 (12:21→17:07)
[2017-06-24] MEDS: FAMOTIDINE 20 MG TAB PO (14:57)
[2017-06-24] MEDS: WARFARIN 2 MG TAB PO (17:05)
[2017-06-24] MEDS: EPOETIN 10000 UNITS/1 ML INJ (ESRD) SC (17:06)
[2017-06-24] MEDS: ATORVASTATIN 10 MG TAB PO (20:31)
[2017-06-24] MEDS: DOCUSATE SODIUM 100 MG CAP PO (20:31)
[2017-06-25] MEDS: morphine LIQ (10 MG/5 ML) CUP PO ×3 (04:32→17:45)
[2017-06-25] MEDS: PANTOPRAZOLE (EC) 40 MG TAB PO (05:14)
[2017-06-25] MEDS: LEVOTHYROXINE 25 MCG TAB PO (05:15)
[2017-06-25] MEDS: CEPASTAT LOZENGE MT ×2 (05:55→11:58)
[2017-06-25 06:13] LABS: ADD MAN DIFF? NO
[2017-06-25 06:35] LABS: ABNORMAL IP MESSAGE 1; BASOPHILS % 0.5 % (0.0-2.0); EOSINOPHILS # 0.2 10^3/ul (0.0-0.5); EOSINOPHILS % 3.4 % (0.0-7.0); HEMOGLOBIN 8.3 g/dl (14.0-18.0); LYMPHOCYTES # 0.5 10^3/ul (0.8-2.9); LYMPHOCYTES % 9.5 % (15.0-51.0); MEAN CORPUSCULAR HEMOGLOBIN 32.4 pg (29.0-33.0); MEAN CORPUSCULAR HGB CONC 31.9 g/dl (32.0-37.0); MEAN CORPUSCULAR VOLUME 101.6 fl (82.0-101.0); MONOCYTE # 0.3 10^3/ul (0.3-0.9); MONOCYTES % 5.5 % (0.0-11.0); NEUTROPHIL # 4.6 10^3/ul (1.6-7.5); NEUTROPHILS % 80.7 % (39.0-77.0); PLATELET COUNT 135 10^3/UL (140-415); POSITIVE DIFF @See below; RED BLOOD COUNT 2.56 10^6/ul (4.70-6.10); RED CELL DISTRIBUTION WIDTH 17.5 % (11.5-14.5)
[2017-06-25 06:35] LABS: WHITE BLOOD COUNT 5.7 10^3/ul (4.8-10.8)
[2017-06-25 06:37] LABS: INR 2.54; PT RATIO 2.2
[2017-06-25 07:07] LABS: ANION GAP 10 (8-16); BLOOD UREA NITROGEN 30 mg/dl (7-20); CALCIUM 10.6 mg/dl (8.4-10.2); CARBON DIOXIDE 29 mmol/L (21-31); CHLORIDE 102 mmol/L (97-110); CREATININE 4.69 mg/dl (0.61-1.24); GLUCOSE 69 mg/dl (70-220); SODIUM 137 mmol/L (135-144)
[2017-06-25 07:12] LABS: CREATINE KINASE < 20 IU/L (23-200)
[2017-06-25] MEDS: BISACODYL 10 MG SUPP PR (09:00)
[2017-06-25] MEDS: ZINC SULFATE 220 MG CAP PO (09:31)
[2017-06-25] MEDS: THIAMINE 100 MG TAB PO (09:31)
[2017-06-25] MEDS: FOLIC ACID 1 MG TAB PO (09:31)
[2017-06-25] MEDS: CALCIUM ACETATE 667 MG CAP PO ×3 (09:31→17:44)
[2017-06-25] MEDS: FLUCONAZOLE 200 MG TAB PO (09:31)
[2017-06-25] MEDS: ASPIRIN 81 MG TAB PO (09:32)
[2017-06-25] MEDS: MULTIVITAMINS/MINERALS TAB PO (09:32)
[2017-06-25] MEDS: HYDROCODONE/APAP (10/325) TAB PO ×2 (09:32→21:21)
[2017-06-25] MEDS: POLYETHYLENE GLYCOL 17 GM PACKET PO (09:32)
[2017-06-25] MEDS: ASCORBIC ACID 500 MG TAB PO ×2 (09:32→20:33)
[2017-06-25] MEDS: TOBRAMYCIN 120 MG in DEXTROSE 5% 100 ML IVPB (09:33)
[2017-06-25] MEDS: BALSAM PERU/CASTOR OIL 60 GM TUBE TOP ×2 (09:33→20:34)
[2017-06-25] MEDS: DEXTROSE 5%-0.45% NACL 1,000 ML IV ×2 (10:35→22:19)
[2017-06-25 11:40] LABS: ADD MAN DIFF? NO
[2017-06-25 11:42] LABS: WHITE BLOOD COUNT 5.6 10^3/ul (4.8-10.8)
[2017-06-25 11:42] LABS: ABNORMAL IP MESSAGE 1; BASOPHILS % 0.4 % (0.0-2.0); EOSINOPHILS # 0.2 10^3/ul (0.0-0.5); EOSINOPHILS % 2.7 % (0.0-7.0); HEMATOCRIT 24.7 % (42.0-52.0); LYMPHOCYTES # 0.3 10^3/ul (0.8-2.9); LYMPHOCYTES % 5.9 % (15.0-51.0); MEAN CORPUSCULAR HEMOGLOBIN 32.8 pg (29.0-33.0); MEAN CORPUSCULAR HGB CONC 32.4 g/dl (32.0-37.0); MEAN CORPUSCULAR VOLUME 101.2 fl (82.0-101.0); MEAN PLATELET VOLUME 10.6 fl (7.4-10.4); MONOCYTE # 0.3 10^3/ul (0.3-0.9); MONOCYTES % 5.6 % (0.0-11.0); NEUTROPHIL # 4.7 10^3/ul (1.6-7.5); NEUTROPHILS % 84.9 % (39.0-77.0); PLATELET COUNT 149 10^3/UL (140-415); POSITIVE DIFF @See below; RED BLOOD COUNT 2.44 10^6/ul (4.70-6.10); RED CELL DISTRIBUTION WIDTH 17.5 % (11.5-14.5)
[2017-06-25] MEDS: AMIODARONE 200 MG TAB PO (11:57)
[2017-06-25] MEDS: LISINOPRIL 20 MG TAB PO ×2 (11:57→20:33)
[2017-06-25 12:02] LABS: ANION GAP 8 (8-16); BLOOD UREA NITROGEN 14 mg/dl (7-20); CALCIUM 8.9 mg/dl (8.4-10.2); CARBON DIOXIDE 33 mmol/L (21-31); CHLORIDE 103 mmol/L (97-110); CREATININE 2.72 mg/dl (0.61-1.24); GLUCOSE 85 mg/dl (70-220); POTASSIUM 3.4 mmol/L (3.5-5.1); SODIUM 141 mmol/L (135-144)
[2017-06-25] MEDS: FAMOTIDINE 20 MG TAB PO (14:11)
[2017-06-25] MEDS: DAPTOMYCIN 325 MG in SOD CHLORIDE 0.9% 100 ML IVPB (17:44)
[2017-06-25] MEDS: WARFARIN 2 MG TAB PO (17:44)
[2017-06-25] MEDS: ATORVASTATIN 10 MG TAB PO (20:32)
[2017-06-25] MEDS: DOCUSATE SODIUM 100 MG CAP PO (20:32)
[2017-06-26] MEDS: morphine LIQ (10 MG/5 ML) CUP PO ×3 (01:24→14:55)
[2017-06-26] MEDS: LEVOTHYROXINE 25 MCG TAB PO (05:33)
[2017-06-26] MEDS: PANTOPRAZOLE (EC) 40 MG TAB PO (05:33)
[2017-06-26] MEDS: HYDROCODONE/APAP (10/325) TAB PO (06:26)
[2017-06-26 06:44] LABS: INR 2.97; PROTIME 31.8 Sec (11.9-14.9); PT RATIO 2.5
[2017-06-26] MEDS: CALCIUM ACETATE 667 MG CAP PO ×3 (08:53→17:36)
[2017-06-26] MEDS: ASPIRIN 81 MG TAB PO (08:53)
[2017-06-26] MEDS: FLUCONAZOLE 200 MG TAB PO (08:54)
[2017-06-26] MEDS: THIAMINE 100 MG TAB PO (08:54)
[2017-06-26] MEDS: ZINC SULFATE 220 MG CAP PO (08:54)
[2017-06-26] MEDS: FOLIC ACID 1 MG TAB PO (08:54)
[2017-06-26] MEDS: ASCORBIC ACID 500 MG TAB PO ×2 (08:54→20:21)
[2017-06-26] MEDS: MULTIVITAMINS/MINERALS TAB PO (08:54)
[2017-06-26] MEDS: POLYETHYLENE GLYCOL 17 GM PACKET PO (08:55)
[2017-06-26] MEDS: LISINOPRIL 20 MG TAB PO ×2 (08:55→20:22)
[2017-06-26] MEDS: BALSAM PERU/CASTOR OIL 60 GM TUBE TOP ×2 (08:56→20:22)
[2017-06-26] MEDS: AMIODARONE 200 MG TAB PO (08:56)
[2017-06-26] MEDS: BISACODYL 10 MG SUPP PR (08:58)
[2017-06-26] MEDS: CHOLECALCIFEROL 2,000 UNIT CAP PO (11:59)
[2017-06-26] MEDS: FAMOTIDINE 20 MG TAB PO (14:54)
[2017-06-26] MEDS: DEXTROSE 5%-0.45% NACL 1,000 ML IV (14:55)
[2017-06-26] MEDS: WARFARIN 2 MG TAB PO (17:36)
[2017-06-26] MEDS: EPOETIN 10000 UNITS/1 ML INJ (ESRD) SC (17:37)
[2017-06-26] MEDS: DOCUSATE SODIUM 100 MG CAP PO (20:21)
[2017-06-26] MEDS: ATORVASTATIN 10 MG TAB PO (20:21)
[2017-06-27] MEDS: PANTOPRAZOLE (EC) 40 MG TAB PO (05:51)
[2017-06-27] MEDS: LEVOTHYROXINE 25 MCG TAB PO (05:51)
[2017-06-27 06:09] LABS: ADD MAN DIFF? NO
[2017-06-27 06:13] LABS: ABNORMAL IP MESSAGE 1; BASOPHILS % 0.3 % (0.0-2.0); EOSINOPHILS # 0.2 10^3/ul (0.0-0.5); EOSINOPHILS % 2.8 % (0.0-7.0); HEMATOCRIT 25.2 % (42.0-52.0); HEMOGLOBIN 7.8 g/dl (14.0-18.0); LYMPHOCYTES # 0.5 10^3/ul (0.8-2.9); LYMPHOCYTES % 8.4 % (15.0-51.0); MEAN CORPUSCULAR HEMOGLOBIN 31.7 pg (29.0-33.0); MEAN CORPUSCULAR VOLUME 102.4 fl (82.0-101.0); MEAN PLATELET VOLUME 10.6 fl (7.4-10.4); MONOCYTE # 0.3 10^3/ul (0.3-0.9); MONOCYTES % 5.8 % (0.0-11.0); NEUTROPHIL # 4.7 10^3/ul (1.6-7.5); NEUTROPHILS % 82.4 % (39.0-77.0); PLATELET COUNT 141 10^3/UL (140-415); POSITIVE DIFF @See below; RED BLOOD COUNT 2.46 10^6/ul (4.70-6.10); RED CELL DISTRIBUTION WIDTH 17.7 % (11.5-14.5)
[2017-06-27 06:13] LABS: WHITE BLOOD COUNT 5.7 10^3/ul (4.8-10.8)
[2017-06-27 06:47] LABS: INR 3.58; PROTIME 36.9 Sec (11.9-14.9); PT RATIO 2.9
[2017-06-27 06:49] LABS: ANION GAP 10 (8-16); BLOOD UREA NITROGEN 27 mg/dl (7-20); CALCIUM 10.4 mg/dl (8.4-10.2); CARBON DIOXIDE 32 mmol/L (21-31); CHLORIDE 103 mmol/L (97-110); CREATININE 4.41 mg/dl (0.61-1.24); GLUCOSE 74 mg/dl (70-220); PHOSPHORUS 3.3 mg/dl (2.5-4.9); POTASSIUM 4.3 mmol/L (3.5-5.1); SODIUM 141 mmol/L (135-144)
[2017-06-27] MEDS: morphine LIQ (10 MG/5 ML) CUP PO ×2 (06:52→14:28)
[2017-06-27] MEDS: CALCIUM ACETATE 667 MG CAP PO ×3 (08:15→18:00)
[2017-06-27] MEDS: BISACODYL 10 MG SUPP PR (09:00)
[2017-06-27] MEDS: AMIODARONE 200 MG TAB PO (09:00)
[2017-06-27] MEDS: ASPIRIN 81 MG TAB PO (09:00)
[2017-06-27] MEDS: MULTIVITAMINS/MINERALS TAB PO (09:00)
[2017-06-27] MEDS: FOLIC ACID 1 MG TAB PO (09:00)
[2017-06-27] MEDS: BALSAM PERU/CASTOR OIL 60 GM TUBE TOP ×2 (09:00→21:00)
[2017-06-27] MEDS: ASCORBIC ACID 500 MG TAB PO ×2 (09:00→21:00)
[2017-06-27] MEDS: LISINOPRIL 20 MG TAB PO ×2 (09:00→21:00)
[2017-06-27] MEDS: CHOLECALCIFEROL 2,000 UNIT CAP PO (09:00)
[2017-06-27] MEDS: ZINC SULFATE 220 MG CAP PO (09:00)
[2017-06-27] MEDS: FLUCONAZOLE 200 MG TAB PO (09:00)
[2017-06-27] MEDS: THIAMINE 100 MG TAB PO (09:00)
[2017-06-27 11:04] LABS: ALANINE AMINOTRANSFERASE 42 IU/L (13-69); ALBUMIN 2.6 g/dl (3.3-4.9); ALKALINE PHOSPHATASE 93 IU/L (42-121); AMYLASE 41 U/L (11-123); ASPARTATE AMINO TRANSFERASE 38 IU/L (15-46); LIPASE 27 U/L (23-300); TOTAL PROTEIN 6.4 g/dl (6.1-8.1)
[2017-06-27] MEDS: CEPASTAT LOZENGE MT (16:00)
[2017-06-27] MEDS: POLYETHYLENE GLYCOL 17 GM PACKET PO (16:01)
[2017-06-27] MEDS: WARFARIN 2 MG TAB PO (17:00)
[2017-06-27] MEDS: DAPTOMYCIN 325 MG in SOD CHLORIDE 0.9% 100 ML IVPB (17:46)
[2017-06-27] MEDS: PANTOPRAZOLE 40 MG INJ IV (17:47)
[2017-06-27] MEDS: ONDANSETRON 4 MG INJ IV (17:47)
[2017-06-27] MEDS: DEXTROSE 5%-0.45% NACL 1,000 ML IV ×2 (18:18→23:21)
[2017-06-27] MEDS: ATORVASTATIN 10 MG TAB PO (21:00)
[2017-06-27] MEDS: DOCUSATE SODIUM 100 MG CAP PO (21:00)
[2017-06-27] MEDS: MAGNESIUM HYDROXIDE 30ML CUP PO (21:47)
[2017-06-28] MEDS: morphine LIQ (10 MG/5 ML) CUP PO ×3 (02:21→23:08)
[2017-06-28] MEDS: PANTOPRAZOLE 40 MG INJ IV ×2 (05:18→18:44)
[2017-06-28 05:39] LABS: ADD MAN DIFF? NO
[2017-06-28 05:41] LABS: ABNORMAL IP MESSAGE 1; BASOPHILS % 0.4 % (0.0-2.0); EOSINOPHILS # 0.2 10^3/ul (0.0-0.5); EOSINOPHILS % 2.7 % (0.0-7.0); HEMATOCRIT 23.9 % (42.0-52.0); HEMOGLOBIN 7.4 g/dl (14.0-18.0); LYMPHOCYTES # 0.5 10^3/ul (0.8-2.9); LYMPHOCYTES % 8.2 % (15.0-51.0); MEAN CORPUSCULAR HEMOGLOBIN 31.6 pg (29.0-33.0); MEAN CORPUSCULAR VOLUME 102.1 fl (82.0-101.0); MEAN PLATELET VOLUME 10.5 fl (7.4-10.4); MONOCYTE # 0.3 10^3/ul (0.3-0.9); MONOCYTES % 5.7 % (0.0-11.0); NEUTROPHIL # 4.6 10^3/ul (1.6-7.5); NEUTROPHILS % 82.5 % (39.0-77.0); PLATELET COUNT 148 10^3/UL (140-415); POSITIVE DIFF @See below; RED BLOOD COUNT 2.34 10^6/ul (4.70-6.10); RED CELL DISTRIBUTION WIDTH 17.9 % (11.5-14.5)
[2017-06-28 05:41] LABS: WHITE BLOOD COUNT 5.6 10^3/ul (4.8-10.8)
[2017-06-28] MEDS: LEVOTHYROXINE 50 MCG TAB PO (06:00)
[2017-06-28 06:03] LABS: INR 3.85; PROTIME 39.1 Sec (11.9-14.9); PT RATIO 3.1
[2017-06-28 06:37] LABS: ANION GAP 11 (8-16); BLOOD UREA NITROGEN 35 mg/dl (7-20); CALCIUM 10.4 mg/dl (8.4-10.2); CARBON DIOXIDE 30 mmol/L (21-31); CHLORIDE 103 mmol/L (97-110); CREATININE 4.95 mg/dl (0.61-1.24); GLUCOSE 69 mg/dl (70-220); POTASSIUM 4.7 mmol/L (3.5-5.1); SODIUM 139 mmol/L (135-144)
[2017-06-28] MEDS ORDERED: SORBITOL 70% 30ML CUP PO (07:30)
[2017-06-28 07:48] LABS: IONIZED CALCIUM 1.5 mmol/L (1.1-1.4)
[2017-06-28] MEDS: CALCIUM ACETATE 667 MG CAP PO ×3 (08:15→18:44)
[2017-06-28] MEDS: HYDROCODONE/APAP (10/325) TAB PO ×2 (08:16→20:18)
[2017-06-28] MEDS: POLYETHYLENE GLYCOL 17 GM PACKET PO ×2 (08:17→09:00)
[2017-06-28] MEDS: MAGNESIUM HYDROXIDE 30ML CUP PO (08:43)
[2017-06-28] MEDS: DOCUSATE SODIUM 100 MG CAP PO ×2 (08:43→20:20)
[2017-06-28] MEDS: BISACODYL 10 MG SUPP PR (09:00)
[2017-06-28] MEDS: ASCORBIC ACID 500 MG TAB PO ×3 (09:00→20:19)
[2017-06-28] MEDS: AMIODARONE 200 MG TAB PO ×2 (09:00→12:36)
[2017-06-28] MEDS: THIAMINE 100 MG TAB PO ×2 (09:00→12:33)
[2017-06-28] MEDS: FOLIC ACID 1 MG TAB PO ×2 (09:00→12:34)
[2017-06-28] MEDS: FLUCONAZOLE 200 MG TAB PO ×2 (09:00→12:33)
[2017-06-28] MEDS: ZINC SULFATE 220 MG CAP PO ×2 (09:00→12:33)
[2017-06-28] MEDS: ASPIRIN 81 MG TAB PO ×2 (09:00→12:32)
[2017-06-28] MEDS: CHOLECALCIFEROL 2,000 UNIT CAP PO ×2 (09:00→12:34)
[2017-06-28] MEDS: LISINOPRIL 20 MG TAB PO ×2 (09:00→20:18)
[2017-06-28] MEDS: MULTIVITAMINS/MINERALS TAB PO ×2 (09:00→12:33)
[2017-06-28] MEDS: METOCLOPRAMIDE 10 MG TAB PO ×2 (12:31→18:44)
[2017-06-28] MEDS: BALSAM PERU/CASTOR OIL 60 GM TUBE TOP ×2 (12:31→21:00)
[2017-06-28] MEDS: TOBRAMYCIN 120 MG in DEXTROSE 5% 100 ML IVPB (14:09)
[2017-06-28] MEDS: DEXTROSE 5%-0.45% NACL 1,000 ML IV (18:45)
[2017-06-28] MEDS: ATORVASTATIN 10 MG TAB PO (20:18)
[2017-06-29] MEDS: morphine LIQ (10 MG/5 ML) CUP PO ×3 (03:38→20:49)
[2017-06-29] MEDS: LEVOTHYROXINE 50 MCG TAB PO (05:59)
[2017-06-29] MEDS: PANTOPRAZOLE 40 MG INJ IV (05:59)
[2017-06-29 07:21] LABS: HEMATOCRIT 25.8 % (42.0-52.0)
[2017-06-29 07:21] LABS: HEMOGLOBIN 7.7 g/dl (14.0-18.0)
[2017-06-29 07:39] LABS: INR 3.79; PROTIME 38.6 Sec (11.9-14.9)
[2017-06-29] MEDS: BISACODYL 10 MG SUPP PR (09:00)
[2017-06-29] MEDS: POLYETHYLENE GLYCOL 17 GM PACKET PO ×2 (09:00→09:25)
[2017-06-29] MEDS: CALCIUM ACETATE 667 MG CAP PO ×3 (09:23→18:19)
[2017-06-29] MEDS: LISINOPRIL 20 MG TAB PO ×2 (09:23→20:37)
[2017-06-29] MEDS: METOCLOPRAMIDE 10 MG TAB PO (09:23)
[2017-06-29] MEDS: ASCORBIC ACID 500 MG TAB PO ×2 (09:23→20:38)
[2017-06-29] MEDS: FLUCONAZOLE 200 MG TAB PO (09:24)
[2017-06-29] MEDS: FOLIC ACID 1 MG TAB PO (09:24)
[2017-06-29] MEDS: AMIODARONE 200 MG TAB PO (09:24)
[2017-06-29] MEDS: ASPIRIN 81 MG TAB PO (09:24)
[2017-06-29] MEDS: MULTIVITAMINS/MINERALS TAB PO (09:24)
[2017-06-29] MEDS: BALSAM PERU/CASTOR OIL 60 GM TUBE TOP ×2 (09:26→20:39)
[2017-06-29] MEDS: ZINC SULFATE 220 MG CAP PO (09:30)
[2017-06-29] MEDS: THIAMINE 100 MG TAB PO (09:30)
[2017-06-29] MEDS: DAPTOMYCIN 325 MG in SOD CHLORIDE 0.9% 100 ML IVPB (16:09)
[2017-06-29 17:26] LABS: PTH CALCIUM 10.1 mg/dL (8.6-10.3)
[2017-06-29] MEDS: EPOETIN 10000 UNITS/1 ML INJ (ESRD) SC (18:20)
[2017-06-29] MEDS: ATORVASTATIN 10 MG TAB PO (20:36)
[2017-06-29] MEDS: DOCUSATE SODIUM 100 MG CAP PO (20:38)
[2017-06-29] MEDS: DEXTROSE 5%-0.45% NACL 1,000 ML IV (23:05)
[2017-06-30] MEDS: morphine LIQ (10 MG/5 ML) CUP PO ×3 (05:49→17:52)
[2017-06-30] MEDS: PANTOPRAZOLE (EC) 40 MG TAB PO (05:49)
[2017-06-30] MEDS: LEVOTHYROXINE 50 MCG TAB PO (05:49)
[2017-06-30 06:03] LABS: ADD MAN DIFF? NO
[2017-06-30 06:06] LABS: WHITE BLOOD COUNT 4.9 10^3/ul (4.8-10.8)
[2017-06-30 06:06] LABS: ABNORMAL IP MESSAGE 1; BASOPHILS % 0.4 % (0.0-2.0); EOSINOPHILS # 0.2 10^3/ul (0.0-0.5); HEMATOCRIT 23.8 % (42.0-52.0); HEMOGLOBIN 7.5 g/dl (14.0-18.0); LYMPHOCYTES # 0.4 10^3/ul (0.8-2.9); LYMPHOCYTES % 8.9 % (15.0-51.0); MEAN CORPUSCULAR HGB CONC 31.5 g/dl (32.0-37.0); MEAN CORPUSCULAR VOLUME 104.8 fl (82.0-101.0); MEAN PLATELET VOLUME 10.8 fl (7.4-10.4); MONOCYTE # 0.3 10^3/ul (0.3-0.9); MONOCYTES % 5.9 % (0.0-11.0); NEUTROPHILS % 81.4 % (39.0-77.0); PLATELET COUNT 134 10^3/UL (140-415); POSITIVE DIFF @See below; RED BLOOD COUNT 2.27 10^6/ul (4.70-6.10); RED CELL DISTRIBUTION WIDTH 17.5 % (11.5-14.5)
[2017-06-30 06:26] LABS: INR 3.59; PT RATIO 2.9
[2017-06-30 06:34] LABS: ANION GAP 9 (8-16); BLOOD UREA NITROGEN 24 mg/dl (7-20); CALCIUM 9.9 mg/dl (8.4-10.2); CARBON DIOXIDE 32 mmol/L (21-31); CHLORIDE 103 mmol/L (97-110); CREATININE 4.41 mg/dl (0.61-1.24); GLUCOSE 106 mg/dl (70-220); POTASSIUM 4.2 mmol/L (3.5-5.1); SODIUM 140 mmol/L (135-144)
[2017-06-30 08:31] LABS: PTH INTACT 131 pg/mL (14-64)
[2017-06-30] MEDS: ZINC SULFATE 220 MG CAP PO (08:57)
[2017-06-30] MEDS: AMIODARONE 200 MG TAB PO (08:58)
[2017-06-30] MEDS: ASPIRIN 81 MG TAB PO (08:58)
[2017-06-30] MEDS: CALCIUM ACETATE 667 MG CAP PO ×3 (08:58→17:56)
[2017-06-30] MEDS: THIAMINE 100 MG TAB PO (08:58)
[2017-06-30] MEDS: MULTIVITAMINS/MINERALS TAB PO (08:58)
[2017-06-30] MEDS: ASCORBIC ACID 500 MG TAB PO ×2 (08:58→20:34)
[2017-06-30] MEDS: FLUCONAZOLE 200 MG TAB PO (08:58)
[2017-06-30] MEDS: FOLIC ACID 1 MG TAB PO (08:58)
[2017-06-30] MEDS: POLYETHYLENE GLYCOL 17 GM PACKET PO ×2 (08:59)
[2017-06-30] MEDS: LISINOPRIL 20 MG TAB PO ×2 (09:00→20:40)
[2017-06-30] MEDS: BALSAM PERU/CASTOR OIL 60 GM TUBE TOP ×2 (09:00→20:41)
[2017-06-30] MEDS: BISACODYL 10 MG SUPP PR (09:00)
[2017-06-30] MEDS: NIFEdipine (XL) 30 MG TAB PO ×2 (09:00→20:40)
[2017-06-30] MEDS: ATORVASTATIN 10 MG TAB PO (20:34)
[2017-06-30] MEDS: DOCUSATE SODIUM 100 MG CAP PO (20:34)
[2017-06-30] MEDS: TOBRAMYCIN 120 MG in DEXTROSE 5% 100 ML IVPB (20:35)
[2017-06-30 20:42] LABS: HEPATITIS B SURFACE ANTIGEN NEGATIVE (NEGATIVE)
[2017-07-01 00:16] LABS: HEPATITIS B SURFACE ANTIBODY POSITIVE (NEGATIVE)
[2017-07-01] MEDS: morphine LIQ (10 MG/5 ML) CUP PO ×4 (04:34→23:08)
[2017-07-01 06:14] LABS: HEMOGLOBIN 7.2 g/dl (14.0-18.0)
[2017-07-01 06:14] LABS: HEMATOCRIT 22.9 % (42.0-52.0)
[2017-07-01 06:32] LABS: PROTIME 31.2 Sec (11.9-14.9); PT RATIO 2.4
[2017-07-01 07:11] LABS: LACTATE DEHYDROGENASE 435 IU/L (313-618)
[2017-07-01] MEDS: POLYETHYLENE GLYCOL 17 GM PACKET PO ×2 (08:12→08:16)
[2017-07-01] MEDS: CALCIUM ACETATE 667 MG CAP PO ×3 (08:12→17:56)
[2017-07-01] MEDS: MULTIVITAMINS/MINERALS TAB PO (08:12)
[2017-07-01] MEDS: FOLIC ACID 1 MG TAB PO (08:13)
[2017-07-01] MEDS: PANTOPRAZOLE (EC) 40 MG TAB PO (08:13)
[2017-07-01] MEDS: THIAMINE 100 MG TAB PO (08:13)
[2017-07-01] MEDS: BISACODYL 10 MG SUPP PR (08:13)
[2017-07-01] MEDS: FLUCONAZOLE 200 MG TAB PO (08:14)
[2017-07-01] MEDS: ASPIRIN 81 MG TAB PO (08:14)
[2017-07-01] MEDS: ASCORBIC ACID 500 MG TAB PO ×2 (08:14→20:57)
[2017-07-01] MEDS: LEVOTHYROXINE 50 MCG TAB PO (08:14)
[2017-07-01] MEDS: ZINC SULFATE 220 MG CAP PO (08:14)
[2017-07-01] MEDS: NIFEdipine (XL) 30 MG TAB PO ×2 (08:15→20:57)
[2017-07-01] MEDS: AMIODARONE 200 MG TAB PO (08:15)
[2017-07-01] MEDS: LISINOPRIL 20 MG TAB PO ×2 (08:15→20:56)
[2017-07-01] MEDS: BALSAM PERU/CASTOR OIL 60 GM TUBE TOP ×2 (08:16→20:58)
[2017-07-01 09:58] LABS: RETICULOCYTE RBC 2.28
[2017-07-01 10:00] LABS: RETICULOCYTE COUNT # 0.063 X10^6 (0.020-0.110); RETICULOCYTE COUNT % 2.8 % (0.5-1.5)
[2017-07-01 13:46] LABS: FOLATE > 20.0 ng/ml (2.8-20.0)
[2017-07-01] MEDS: DAPTOMYCIN 325 MG in SOD CHLORIDE 0.9% 100 ML IVPB (16:59)
[2017-07-01] MEDS: EPOETIN 10000 UNITS/1 ML INJ (ESRD) SC (17:04)
[2017-07-01] MEDS: HYDROCODONE/APAP (10/325) TAB PO (19:26)
[2017-07-01] MEDS: MAGNESIUM HYDROXIDE 30ML CUP PO (20:56)
[2017-07-01] MEDS: ATORVASTATIN 10 MG TAB PO (20:57)
[2017-07-01] MEDS: DOCUSATE SODIUM 100 MG CAP PO (20:57)
[2017-07-02] MEDS: LEVOTHYROXINE 50 MCG TAB PO (06:03)
[2017-07-02] MEDS: PANTOPRAZOLE (EC) 40 MG TAB PO (06:03)
[2017-07-02] MEDS: morphine LIQ (10 MG/5 ML) CUP PO ×3 (06:03→23:32)
[2017-07-02 07:45] LABS: ADD MAN DIFF? NO
[2017-07-02 07:49] LABS: WHITE BLOOD COUNT 4.6 10^3/ul (4.8-10.8)
[2017-07-02 07:49] LABS: ABNORMAL IP MESSAGE 1; BASOPHILS % 0.2 % (0.0-2.0); EOSINOPHILS # 0.2 10^3/ul (0.0-0.5); EOSINOPHILS % 3.7 % (0.0-7.0); HEMATOCRIT 23.7 % (42.0-52.0); HEMOGLOBIN 7.1 g/dl (14.0-18.0); LYMPHOCYTES # 0.4 10^3/ul (0.8-2.9); LYMPHOCYTES % 9.7 % (15.0-51.0); MEAN CORPUSCULAR HEMOGLOBIN 31.4 pg (29.0-33.0); MEAN CORPUSCULAR VOLUME 104.9 fl (82.0-101.0); MEAN PLATELET VOLUME 11.1 fl (7.4-10.4); MONOCYTE # 0.3 10^3/ul (0.3-0.9); MONOCYTES % 6.6 % (0.0-11.0); NEUTROPHIL # 3.6 10^3/ul (1.6-7.5); NEUTROPHILS % 79.1 % (39.0-77.0); PLATELET COUNT 145 10^3/UL (140-415); POSITIVE DIFF @See below; RED BLOOD COUNT 2.26 10^6/ul (4.70-6.10); RED CELL DISTRIBUTION WIDTH 17.3 % (11.5-14.5)
[2017-07-02] MEDS: HYDROCODONE/APAP (10/325) TAB PO ×2 (07:52→18:53)
[2017-07-02 08:14] LABS: INR 2.25; PROTIME 25.4 Sec (11.9-14.9)
[2017-07-02 08:19] LABS: CREATINE KINASE < 20 IU/L (23-200)
[2017-07-02 08:53] LABS: ANION GAP 9 (8-16); BLOOD UREA NITROGEN 22 mg/dl (7-20); CALCIUM 10.2 mg/dl (8.4-10.2); CARBON DIOXIDE 33 mmol/L (21-31); CHLORIDE 103 mmol/L (97-110); CREATININE 4.02 mg/dl (0.61-1.24); GLUCOSE 76 mg/dl (70-220); POTASSIUM 4.1 mmol/L (3.5-5.1); SODIUM 141 mmol/L (135-144)
[2017-07-02] MEDS: LISINOPRIL 20 MG TAB PO (09:00)
[2017-07-02] MEDS: NIFEdipine (XL) 30 MG TAB PO (09:00)
[2017-07-02] MEDS: POLYETHYLENE GLYCOL 17 GM PACKET PO ×2 (09:00→09:14)
[2017-07-02] MEDS: AMIODARONE 200 MG TAB PO ×2 (09:00→14:12)
[2017-07-02] MEDS: ZINC SULFATE 220 MG CAP PO (09:15)
[2017-07-02] MEDS: FOLIC ACID 1 MG TAB PO (09:15)
[2017-07-02] MEDS: ASCORBIC ACID 500 MG TAB PO ×2 (09:15→20:56)
[2017-07-02] MEDS: ASPIRIN 81 MG TAB PO (09:15)
[2017-07-02] MEDS: THIAMINE 100 MG TAB PO (09:15)
[2017-07-02] MEDS: BISACODYL 10 MG SUPP PR (09:15)
[2017-07-02] MEDS: CALCIUM ACETATE 667 MG CAP PO ×3 (09:15→18:01)
[2017-07-02] MEDS: MULTIVITAMINS/MINERALS TAB PO (09:15)
[2017-07-02] MEDS: FLUCONAZOLE 200 MG TAB PO (09:15)
[2017-07-02] MEDS: BALSAM PERU/CASTOR OIL 60 GM TUBE TOP ×2 (09:16→20:56)
[2017-07-02 10:12] LABS: OCCULT BLOOD STOOL NEGATIVE (NEGATIVE)
[2017-07-02 10:47] LABS: AHG CROSSMATCH 1 2
[2017-07-02] MEDS: TOBRAMYCIN 120 MG in DEXTROSE 5% 100 ML IVPB (15:46)
[2017-07-02] MEDS: WARFARIN 2 MG TAB PO (18:02)
[2017-07-02] MEDS: DOCUSATE SODIUM 100 MG CAP PO (20:53)
[2017-07-02] MEDS: ATORVASTATIN 10 MG TAB PO (20:53)
[2017-07-03 06:17] LABS: ADD MAN DIFF? NO
[2017-07-03] MEDS: LEVOTHYROXINE 50 MCG TAB PO (06:21)
[2017-07-03] MEDS: PANTOPRAZOLE (EC) 40 MG TAB PO (06:21)
[2017-07-03 06:24] LABS: ABNORMAL IP MESSAGE 1; BASOPHILS % 0.4 % (0.0-2.0); EOSINOPHILS # 0.2 10^3/ul (0.0-0.5); EOSINOPHILS % 3.7 % (0.0-7.0); HEMATOCRIT 28.7 % (42.0-52.0); HEMOGLOBIN 8.9 g/dl (14.0-18.0); LYMPHOCYTES # 0.5 10^3/ul (0.8-2.9); LYMPHOCYTES % 8.7 % (15.0-51.0); MEAN PLATELET VOLUME 10.7 fl (7.4-10.4); MONOCYTE # 0.4 10^3/ul (0.3-0.9); NEUTROPHIL # 4.3 10^3/ul (1.6-7.5); NEUTROPHILS % 79.8 % (39.0-77.0); PLATELET COUNT 155 10^3/UL (140-415); POSITIVE DIFF @See below; RED BLOOD COUNT 2.87 10^6/ul (4.70-6.10); RED CELL DISTRIBUTION WIDTH 19.5 % (11.5-14.5)
[2017-07-03 06:24] LABS: WHITE BLOOD COUNT 5.4 10^3/ul (4.8-10.8)
[2017-07-03 06:50] LABS: INR 1.96; PROTIME 22.8 Sec (11.9-14.9); PT RATIO 1.8
[2017-07-03 06:59] LABS: ALANINE AMINOTRANSFERASE 27 IU/L (13-69); ALBUMIN 2.3 g/dl (3.3-4.9); ALBUMIN/GLOBULIN RATIO 0.58; ALKALINE PHOSPHATASE 94 IU/L (42-121); ANION GAP 6 (8-16); ASPARTATE AMINO TRANSFERASE 25 IU/L (15-46); BLOOD UREA NITROGEN 18 mg/dl (7-20); CALCIUM 9.8 mg/dl (8.4-10.2); CARBON DIOXIDE 36 mmol/L (21-31); CHLORIDE 103 mmol/L (97-110); CREATININE 3.28 mg/dl (0.61-1.24); GLUCOSE 66 mg/dl (70-220); POTASSIUM 3.3 mmol/L (3.5-5.1); SODIUM 142 mmol/L (135-144); TOTAL PROTEIN 6.2 g/dl (6.1-8.1)
[2017-07-03] MEDS: CALCIUM ACETATE 667 MG CAP PO ×3 (08:15→17:28)
[2017-07-03] MEDS: BISACODYL 10 MG SUPP PR (09:00)
[2017-07-03] MEDS: BALSAM PERU/CASTOR OIL 60 GM TUBE TOP ×2 (09:00→20:35)
[2017-07-03] MEDS: ASCORBIC ACID 500 MG TAB PO ×2 (10:54→20:34)
[2017-07-03] MEDS: FOLIC ACID 1 MG TAB PO (10:54)
[2017-07-03] MEDS: MULTIVITAMINS/MINERALS TAB PO (10:55)
[2017-07-03] MEDS: ASPIRIN 81 MG TAB PO (10:55)
[2017-07-03] MEDS: ZINC SULFATE 220 MG CAP PO (10:55)
[2017-07-03] MEDS: AMIODARONE 200 MG TAB PO (10:55)
[2017-07-03] MEDS: FLUCONAZOLE 200 MG TAB PO (10:55)
[2017-07-03] MEDS: THIAMINE 100 MG TAB PO (10:56)
[2017-07-03] MEDS: POLYETHYLENE GLYCOL 17 GM PACKET PO (10:57)
[2017-07-03] MEDS: morphine LIQ (10 MG/5 ML) CUP PO ×2 (15:47→21:10)
[2017-07-03] MEDS: DAPTOMYCIN 325 MG in SOD CHLORIDE 0.9% 100 ML IVPB (17:21)
[2017-07-03] MEDS: EPOETIN 10000 UNITS/1 ML INJ (ESRD) SC (17:29)
[2017-07-03] MEDS: WARFARIN 2 MG TAB PO (17:29)
[2017-07-03] MEDS: ATORVASTATIN 10 MG TAB PO (20:34)
[2017-07-03] MEDS: DOCUSATE SODIUM 100 MG CAP PO (20:34)
[2017-07-04] MEDS: LEVOTHYROXINE 50 MCG TAB PO (05:42)
[2017-07-04] MEDS: PANTOPRAZOLE (EC) 40 MG TAB PO (05:42)
[2017-07-04] MEDS: morphine LIQ (10 MG/5 ML) CUP PO ×3 (05:54→19:07)
[2017-07-04] MEDS: CEPASTAT LOZENGE MT (05:55)
[2017-07-04 06:26] LABS: ADD MAN DIFF? NO
[2017-07-04 06:36] LABS: ABNORMAL IP MESSAGE 1; BASOPHILS % 0.4 % (0.0-2.0); EOSINOPHILS # 0.2 10^3/ul (0.0-0.5); EOSINOPHILS % 4.5 % (0.0-7.0); HEMATOCRIT 29.7 % (42.0-52.0); HEMOGLOBIN 9.3 g/dl (14.0-18.0); LYMPHOCYTES # 0.5 10^3/ul (0.8-2.9); MEAN CORPUSCULAR HEMOGLOBIN 31.4 pg (29.0-33.0); MEAN CORPUSCULAR HGB CONC 31.3 g/dl (32.0-37.0); MEAN CORPUSCULAR VOLUME 100.3 fl (82.0-101.0); MEAN PLATELET VOLUME 10.9 fl (7.4-10.4); MONOCYTE # 0.3 10^3/ul (0.3-0.9); MONOCYTES % 6.6 % (0.0-11.0); NEUTROPHIL # 3.8 10^3/ul (1.6-7.5); NEUTROPHILS % 78.1 % (39.0-77.0); PLATELET COUNT 148 10^3/UL (140-415); POSITIVE DIFF @See below; RED BLOOD COUNT 2.96 10^6/ul (4.70-6.10); RED CELL DISTRIBUTION WIDTH 19.4 % (11.5-14.5)
[2017-07-04 06:36] LABS: WHITE BLOOD COUNT 4.9 10^3/ul (4.8-10.8)
[2017-07-04 07:05] LABS: INR 2.26; PROTIME 25.5 Sec (11.9-14.9)
[2017-07-04 07:12] LABS: ALANINE AMINOTRANSFERASE 35 IU/L (13-69); ALBUMIN 2.5 g/dl (3.3-4.9); ALBUMIN/GLOBULIN RATIO 0.65; ALKALINE PHOSPHATASE 94 IU/L (42-121); ANION GAP 12 (8-16); ASPARTATE AMINO TRANSFERASE 29 IU/L (15-46); BLOOD UREA NITROGEN 26 mg/dl (7-20); CALCIUM 10.6 mg/dl (8.4-10.2); CARBON DIOXIDE 31 mmol/L (21-31); CHLORIDE 103 mmol/L (97-110); CREATININE 4.14 mg/dl (0.61-1.24); GLUCOSE 74 mg/dl (70-220); POTASSIUM 3.7 mmol/L (3.5-5.1); SODIUM 142 mmol/L (135-144); TOTAL PROTEIN 6.3 g/dl (6.1-8.1)
[2017-07-04] MEDS: POLYETHYLENE GLYCOL 17 GM PACKET PO (08:44)
[2017-07-04] MEDS: FOLIC ACID 1 MG TAB PO (08:45)
[2017-07-04] MEDS: THIAMINE 100 MG TAB PO (08:45)
[2017-07-04] MEDS: ASCORBIC ACID 500 MG TAB PO ×2 (08:45→20:49)
[2017-07-04] MEDS: CALCIUM ACETATE 667 MG CAP PO ×3 (08:45→18:16)
[2017-07-04] MEDS: ASPIRIN 81 MG TAB PO (08:45)
[2017-07-04] MEDS: FLUCONAZOLE 200 MG TAB PO (08:45)
[2017-07-04] MEDS: ZINC SULFATE 220 MG CAP PO (08:45)
[2017-07-04] MEDS: AMIODARONE 200 MG TAB PO (08:46)
[2017-07-04] MEDS: BISACODYL 10 MG SUPP PR (08:49)
[2017-07-04] MEDS: MULTIVITAMINS/MINERALS TAB PO (08:49)
[2017-07-04] MEDS: BALSAM PERU/CASTOR OIL 60 GM TUBE TOP ×2 (14:15→20:49)
[2017-07-04] MEDS: WARFARIN 2 MG TAB PO (17:00)
[2017-07-04] MEDS: DOCUSATE SODIUM 100 MG CAP PO (20:49)
[2017-07-04] MEDS: ATORVASTATIN 10 MG TAB PO (20:49)
[2017-07-05 00:43] LABS: ADD MAN DIFF? NO
[2017-07-05 00:44] LABS: ABNORMAL IP MESSAGE 1; BASOPHILS % 0.5 % (0.0-2.0); EOSINOPHILS # 0.2 10^3/ul (0.0-0.5); EOSINOPHILS % 3.9 % (0.0-7.0); HEMATOCRIT 30.9 % (42.0-52.0); HEMOGLOBIN 9.6 g/dl (14.0-18.0); LYMPHOCYTES # 0.4 10^3/ul (0.8-2.9); LYMPHOCYTES % 6.8 % (15.0-51.0); MEAN CORPUSCULAR HEMOGLOBIN 31.3 pg (29.0-33.0); MEAN CORPUSCULAR HGB CONC 31.1 g/dl (32.0-37.0); MEAN CORPUSCULAR VOLUME 100.7 fl (82.0-101.0); MEAN PLATELET VOLUME 10.5 fl (7.4-10.4); MONOCYTE # 0.3 10^3/ul (0.3-0.9); MONOCYTES % 5.7 % (0.0-11.0); NEUTROPHIL # 4.7 10^3/ul (1.6-7.5); NEUTROPHILS % 82.7 % (39.0-77.0); PLATELET COUNT 153 10^3/UL (140-415); POSITIVE DIFF @See below; RED BLOOD COUNT 3.07 10^6/ul (4.70-6.10); RED CELL DISTRIBUTION WIDTH 18.8 % (11.5-14.5)
[2017-07-05 00:44] LABS: WHITE BLOOD COUNT 5.6 10^3/ul (4.8-10.8)
[2017-07-05] MEDS: morphine LIQ (10 MG/5 ML) CUP PO ×3 (05:20→23:35)
[2017-07-05] MEDS: PANTOPRAZOLE (EC) 40 MG TAB PO (05:20)
[2017-07-05] MEDS: LEVOTHYROXINE 50 MCG TAB PO (05:20)
[2017-07-05 05:45] LABS: ADD MAN DIFF? NO
[2017-07-05 05:49] LABS: ABNORMAL IP MESSAGE 1; BASOPHILS % 0.6 % (0.0-2.0); EOSINOPHILS # 0.2 10^3/ul (0.0-0.5); EOSINOPHILS % 4.1 % (0.0-7.0); HEMATOCRIT 30.5 % (42.0-52.0); HEMOGLOBIN 9.4 g/dl (14.0-18.0); LYMPHOCYTES # 0.5 10^3/ul (0.8-2.9); LYMPHOCYTES % 10.3 % (15.0-51.0); MEAN CORPUSCULAR HEMOGLOBIN 31.1 pg (29.0-33.0); MEAN CORPUSCULAR HGB CONC 30.8 g/dl (32.0-37.0); MEAN PLATELET VOLUME 10.5 fl (7.4-10.4); MONOCYTE # 0.3 10^3/ul (0.3-0.9); MONOCYTES % 6.8 % (0.0-11.0); NEUTROPHIL # 3.8 10^3/ul (1.6-7.5); NEUTROPHILS % 77.6 % (39.0-77.0); PLATELET COUNT 144 10^3/UL (140-415); POSITIVE DIFF @See below; RED BLOOD COUNT 3.02 10^6/ul (4.70-6.10); RED CELL DISTRIBUTION WIDTH 18.8 % (11.5-14.5)
[2017-07-05 05:49] LABS: WHITE BLOOD COUNT 4.8 10^3/ul (4.8-10.8)
[2017-07-05 06:31] LABS: ALANINE AMINOTRANSFERASE 30 IU/L (13-69); ALBUMIN 2.5 g/dl (3.3-4.9); ALBUMIN/GLOBULIN RATIO 0.65; ALKALINE PHOSPHATASE 101 IU/L (42-121); ANION GAP 8 (8-16); ASPARTATE AMINO TRANSFERASE 27 IU/L (15-46); BLOOD UREA NITROGEN 33 mg/dl (7-20); CALCIUM 10.8 mg/dl (8.4-10.2); CARBON DIOXIDE 33 mmol/L (21-31); CHLORIDE 104 mmol/L (97-110); CREATININE 4.89 mg/dl (0.61-1.24); GLUCOSE 137 mg/dl (70-220); SODIUM 141 mmol/L (135-144); TOTAL PROTEIN 6.3 g/dl (6.1-8.1)
[2017-07-05 06:46] LABS: INR 2.42; PT RATIO 2.1
[2017-07-05] MEDS: CALCIUM ACETATE 667 MG CAP PO ×3 (08:15→18:00)
[2017-07-05] MEDS: POLYETHYLENE GLYCOL 17 GM PACKET PO (09:00)
[2017-07-05] MEDS: BALSAM PERU/CASTOR OIL 60 GM TUBE TOP ×2 (09:00→22:57)
[2017-07-05] MEDS: THIAMINE 100 MG TAB PO (09:00)
[2017-07-05] MEDS: MULTIVITAMINS/MINERALS TAB PO (09:00)
[2017-07-05] MEDS: FOLIC ACID 1 MG TAB PO (09:00)
[2017-07-05] MEDS: BISACODYL 10 MG SUPP PR (09:00)
[2017-07-05] MEDS: FLUCONAZOLE 200 MG TAB PO ×2 (09:00→13:35)
[2017-07-05] MEDS: ZINC SULFATE 220 MG CAP PO (09:00)
[2017-07-05] MEDS: ASPIRIN 81 MG TAB PO ×2 (09:00→13:36)
[2017-07-05] MEDS: ASCORBIC ACID 500 MG TAB PO ×2 (09:00→22:57)
[2017-07-05] MEDS: AMIODARONE 200 MG TAB PO ×2 (09:00→13:35)
[2017-07-05] MEDS: MAGNESIUM HYDROXIDE 30ML CUP PO (09:02)
[2017-07-05] MEDS: CEPASTAT LOZENGE MT (16:50)
[2017-07-05] MEDS: WARFARIN 3 MG TAB PO (17:14)
[2017-07-05] MEDS: METOCLOPRAMIDE 10 MG TAB PO (17:45)
[2017-07-05] MEDS: NACL 0.9% 3 ML SYG IV (21:50)
[2017-07-05] MEDS: ONDANSETRON 4 MG INJ IV (21:51)
[2017-07-05] MEDS: DAPTOMYCIN 325 MG in SOD CHLORIDE 0.9% 100 ML IVPB (21:52)
[2017-07-05] MEDS: TOBRAMYCIN 120 MG in DEXTROSE 5% 100 ML IVPB (22:54)
[2017-07-05] MEDS: DOCUSATE SODIUM 100 MG CAP PO (22:57)
[2017-07-05] MEDS: ATORVASTATIN 10 MG TAB PO (22:57)
[2017-07-06] MEDS: PANTOPRAZOLE (EC) 40 MG TAB PO (05:45)
[2017-07-06] MEDS: LEVOTHYROXINE 50 MCG TAB PO (05:45)
[2017-07-06 06:44] LABS: INR 3.07; PROTIME 32.6 Sec (11.9-14.9); PT RATIO 2.5
[2017-07-06] MEDS: BISACODYL 10 MG SUPP PR (09:00)
[2017-07-06] MEDS: POLYETHYLENE GLYCOL 17 GM PACKET PO (09:00)
[2017-07-06] MEDS: ASPIRIN 81 MG TAB PO (09:32)
[2017-07-06] MEDS: ASCORBIC ACID 500 MG TAB PO ×2 (09:33→20:46)
[2017-07-06] MEDS: LISINOPRIL 10 MG TAB PO (09:33)
[2017-07-06] MEDS: AMIODARONE 200 MG TAB PO (09:33)
[2017-07-06] MEDS: ZINC SULFATE 220 MG CAP PO (09:33)
[2017-07-06] MEDS: METOCLOPRAMIDE 10 MG TAB PO ×2 (09:33→17:16)
[2017-07-06] MEDS: THIAMINE 100 MG TAB PO (09:33)
[2017-07-06] MEDS: FLUCONAZOLE 200 MG TAB PO (09:34)
[2017-07-06] MEDS: CALCIUM ACETATE 667 MG CAP PO ×3 (09:34→17:16)
[2017-07-06] MEDS: MULTIVITAMINS/MINERALS TAB PO (09:34)
[2017-07-06] MEDS: FOLIC ACID 1 MG TAB PO (09:34)
[2017-07-06] MEDS: BALSAM PERU/CASTOR OIL 60 GM TUBE TOP ×2 (09:36→20:57)
[2017-07-06] MEDS: MAGNESIUM HYDROXIDE 30ML CUP PO (09:47)
[2017-07-06] MEDS: morphine LIQ (10 MG/5 ML) CUP PO ×3 (09:47→20:54)
[2017-07-06] MEDS: LIDOCAINE 1% (MDV) 20 ML INJ SC (16:24)
[2017-07-06] MEDS: CEPASTAT LOZENGE MT (17:16)
[2017-07-06] MEDS: HYDROCODONE/APAP (10/325) TAB PO (17:20)
[2017-07-06] MEDS: EPOETIN 10000 UNITS/1 ML INJ (ESRD) SC (18:45)
[2017-07-06] MEDS: DOCUSATE SODIUM 100 MG CAP PO ×2 (20:46)
[2017-07-06] MEDS: ATORVASTATIN 10 MG TAB PO (21:39)
[2017-07-07] MEDS: morphine LIQ (10 MG/5 ML) CUP PO ×4 (02:28→21:50)
[2017-07-07] MEDS: HYDROCODONE/APAP (10/325) TAB PO ×4 (04:03→20:20)
[2017-07-07 05:47] LABS: ADD MAN DIFF? NO
[2017-07-07 05:51] LABS: WHITE BLOOD COUNT 5.9 10^3/ul (4.8-10.8)
[2017-07-07 05:51] LABS: ABNORMAL IP MESSAGE 1; BASOPHILS % 0.3 % (0.0-2.0); EOSINOPHILS # 0.2 10^3/ul (0.0-0.5); EOSINOPHILS % 2.7 % (0.0-7.0); HEMATOCRIT 30.2 % (42.0-52.0); HEMOGLOBIN 9.3 g/dl (14.0-18.0); LYMPHOCYTES # 0.5 10^3/ul (0.8-2.9); LYMPHOCYTES % 7.6 % (15.0-51.0); MEAN CORPUSCULAR HEMOGLOBIN 31.2 pg (29.0-33.0); MEAN CORPUSCULAR HGB CONC 30.8 g/dl (32.0-37.0); MEAN CORPUSCULAR VOLUME 101.3 fl (82.0-101.0); MEAN PLATELET VOLUME 10.6 fl (7.4-10.4); MONOCYTE # 0.4 10^3/ul (0.3-0.9); MONOCYTES % 6.6 % (0.0-11.0); NEUTROPHIL # 4.9 10^3/ul (1.6-7.5); NEUTROPHILS % 82.3 % (39.0-77.0); PLATELET COUNT 148 10^3/UL (140-415); POSITIVE DIFF @See below; RED BLOOD COUNT 2.98 10^6/ul (4.70-6.10); RED CELL DISTRIBUTION WIDTH 18.4 % (11.5-14.5)
[2017-07-07 06:10] LABS: INR 3.04; PROTIME 32.4 Sec (11.9-14.9); PT RATIO 2.5
[2017-07-07] MEDS: LEVOTHYROXINE 50 MCG TAB PO (06:26)
[2017-07-07] MEDS: PANTOPRAZOLE (EC) 40 MG TAB PO (06:27)
[2017-07-07 06:40] LABS: ANION GAP 11 (8-16); BLOOD UREA NITROGEN 21 mg/dl (7-20); CALCIUM 10.1 mg/dl (8.4-10.2); CARBON DIOXIDE 32 mmol/L (21-31); CHLORIDE 103 mmol/L (97-110); CREATININE 3.23 mg/dl (0.61-1.24); GLUCOSE 80 mg/dl (70-220); POTASSIUM 3.9 mmol/L (3.5-5.1); SODIUM 142 mmol/L (135-144)
[2017-07-07] MEDS: ZINC SULFATE 220 MG CAP PO (09:51)
[2017-07-07] MEDS: FLUCONAZOLE 200 MG TAB PO (09:51)
[2017-07-07] MEDS: THIAMINE 100 MG TAB PO (09:51)
[2017-07-07] MEDS: MULTIVITAMINS/MINERALS TAB PO (09:51)
[2017-07-07] MEDS: POLYETHYLENE GLYCOL 17 GM PACKET PO (09:51)
[2017-07-07] MEDS: CALCIUM ACETATE 667 MG CAP PO ×3 (09:51→17:39)
[2017-07-07] MEDS: FOLIC ACID 1 MG TAB PO (09:51)
[2017-07-07] MEDS: ASPIRIN 81 MG TAB PO (09:51)
[2017-07-07] MEDS: ASCORBIC ACID 500 MG TAB PO ×2 (09:51→20:12)
[2017-07-07] MEDS: METOCLOPRAMIDE 10 MG TAB PO ×2 (09:51→17:39)
[2017-07-07] MEDS: BISACODYL 10 MG SUPP PR (09:51)
[2017-07-07] MEDS: AMIODARONE 200 MG TAB PO (09:54)
[2017-07-07] MEDS: LISINOPRIL 10 MG TAB PO (09:54)
[2017-07-07] MEDS: BALSAM PERU/CASTOR OIL 60 GM TUBE TOP ×2 (09:55→20:21)
[2017-07-07] MEDS: TOBRAMYCIN 120 MG in DEXTROSE 5% 100 ML IVPB (15:38)
[2017-07-07] MEDS: DAPTOMYCIN 325 MG in SOD CHLORIDE 0.9% 100 ML IVPB (16:28)
[2017-07-07] MEDS: ATORVASTATIN 10 MG TAB PO (20:12)
[2017-07-07] MEDS: DOCUSATE SODIUM 100 MG CAP PO (20:20)
[2017-07-08] MEDS: HYDROCODONE/APAP (10/325) TAB PO ×3 (01:11→17:47)
[2017-07-08] MEDS: morphine LIQ (10 MG/5 ML) CUP PO ×4 (02:08→20:42)
[2017-07-08 06:05] LABS: HEMATOCRIT 32.3 % (42.0-52.0)
[2017-07-08 06:05] LABS: HEMOGLOBIN 9.7 g/dl (14.0-18.0)
[2017-07-08] MEDS: LEVOTHYROXINE 50 MCG TAB PO (06:29)
[2017-07-08] MEDS: PANTOPRAZOLE (EC) 40 MG TAB PO (06:29)
[2017-07-08 07:01] LABS: INR 2.86; PROTIME 30.8 Sec (11.9-14.9); PT RATIO 2.4
[2017-07-08] MEDS: POLYETHYLENE GLYCOL 17 GM PACKET PO (08:55)
[2017-07-08] MEDS: ASCORBIC ACID 500 MG TAB PO ×2 (08:55→20:42)
[2017-07-08] MEDS: LISINOPRIL 10 MG TAB PO (08:56)
[2017-07-08] MEDS: ZINC SULFATE 220 MG CAP PO (08:56)
[2017-07-08] MEDS: MULTIVITAMINS/MINERALS TAB PO (08:56)
[2017-07-08] MEDS: FLUCONAZOLE 200 MG TAB PO (08:56)
[2017-07-08] MEDS: AMIODARONE 200 MG TAB PO (08:56)
[2017-07-08] MEDS: CALCIUM ACETATE 667 MG CAP PO ×3 (08:56→17:47)
[2017-07-08] MEDS: ASPIRIN 81 MG TAB PO (08:56)
[2017-07-08] MEDS: FOLIC ACID 1 MG TAB PO (08:56)
[2017-07-08] MEDS: THIAMINE 100 MG TAB PO (08:56)
[2017-07-08] MEDS: METOCLOPRAMIDE 10 MG TAB PO ×2 (08:56→17:47)
[2017-07-08] MEDS: BALSAM PERU/CASTOR OIL 60 GM TUBE TOP ×2 (08:57→20:55)
[2017-07-08] MEDS: BISACODYL 10 MG SUPP PR (08:57)
[2017-07-08] MEDS: WARFARIN 3 MG TAB PO (17:48)
[2017-07-08] MEDS: EPOETIN 10000 UNITS/1 ML INJ (ESRD) SC (17:48)
[2017-07-08] MEDS: ATORVASTATIN 10 MG TAB PO (20:42)
[2017-07-08] MEDS: DIPHENHYDRAMINE 25 MG CAP PO (20:42)
[2017-07-08] MEDS: LORAZEPAM 2 MG INJ IV (20:43)
[2017-07-08] MEDS: MAGNESIUM HYDROXIDE 30ML CUP PO (20:55)
[2017-07-08] MEDS: DOCUSATE SODIUM 100 MG CAP PO (20:55)
[2017-07-09] MEDS: HEPARIN 1000 UNITS/ML 10 ML INJ HE (03:18)
[2017-07-09] MEDS: PANTOPRAZOLE (EC) 40 MG TAB PO (06:05)
[2017-07-09] MEDS: LEVOTHYROXINE 50 MCG TAB PO (06:05)
[2017-07-09] MEDS: morphine LIQ (10 MG/5 ML) CUP PO ×3 (06:06→22:00)
[2017-07-09 06:42] LABS: CREATINE KINASE 21 IU/L (23-200)
[2017-07-09 06:43] LABS: INR 2.75; PROTIME 29.9 Sec (11.9-14.9); PT RATIO 2.3
[2017-07-09 07:05] LABS: ANION GAP 8 (8-16); BLOOD UREA NITROGEN 12 mg/dl (7-20); CALCIUM 9.4 mg/dl (8.4-10.2); CARBON DIOXIDE 34 mmol/L (21-31); CHLORIDE 101 mmol/L (97-110); CREATININE 1.93 mg/dl (0.61-1.24); GLUCOSE 76 mg/dl (70-220); POTASSIUM 3.6 mmol/L (3.5-5.1); SODIUM 139 mmol/L (135-144)
[2017-07-09] MEDS: BISACODYL 10 MG SUPP PR (09:00)
[2017-07-09] MEDS: TOBRAMYCIN 120 MG in DEXTROSE 5% 100 ML IVPB (09:04)
[2017-07-09] MEDS: POLYETHYLENE GLYCOL 17 GM PACKET PO (09:04)
[2017-07-09] MEDS: MULTIVITAMINS/MINERALS TAB PO (09:04)
[2017-07-09] MEDS: ZINC SULFATE 220 MG CAP PO (09:05)
[2017-07-09] MEDS: THIAMINE 100 MG TAB PO (09:05)
[2017-07-09] MEDS: FLUCONAZOLE 200 MG TAB PO (09:05)
[2017-07-09] MEDS: METOCLOPRAMIDE 10 MG TAB PO ×2 (09:05→17:18)
[2017-07-09] MEDS: ASPIRIN 81 MG TAB PO (09:05)
[2017-07-09] MEDS: LISINOPRIL 10 MG TAB PO (09:06)
[2017-07-09] MEDS: CALCIUM ACETATE 667 MG CAP PO ×3 (09:06→17:19)
[2017-07-09] MEDS: AMIODARONE 200 MG TAB PO (09:06)
[2017-07-09] MEDS: FOLIC ACID 1 MG TAB PO (09:07)
[2017-07-09] MEDS: ASCORBIC ACID 500 MG TAB PO ×2 (09:07→20:19)
[2017-07-09] MEDS: BALSAM PERU/CASTOR OIL 60 GM TUBE TOP ×2 (09:09→20:21)
[2017-07-09] MEDS: MAGNESIUM HYDROXIDE 30ML CUP PO (11:42)
[2017-07-09] MEDS: HYDROCODONE/APAP (10/325) TAB PO (13:45)
[2017-07-09] MEDS: DAPTOMYCIN 325 MG in SOD CHLORIDE 0.9% 100 ML IVPB (17:18)
[2017-07-09] MEDS: WARFARIN 3 MG TAB PO (17:19)
[2017-07-09] MEDS: ATORVASTATIN 10 MG TAB PO (20:19)
[2017-07-09] MEDS: DOCUSATE SODIUM 100 MG CAP PO (20:20)
[2017-07-09] MEDS: DIPHENHYDRAMINE 25 MG CAP PO (20:39)
[2017-07-10] MEDS: LEVOTHYROXINE 50 MCG TAB PO (05:33)
[2017-07-10] MEDS: PANTOPRAZOLE (EC) 40 MG TAB PO (05:33)
[2017-07-10 05:53] LABS: HEMOGLOBIN 9.4 g/dl (14.0-18.0)
[2017-07-10 05:53] LABS: HEMATOCRIT 30.8 % (42.0-52.0)
[2017-07-10 06:12] LABS: INR 2.87; PROTIME 30.9 Sec (11.9-14.9); PT RATIO 2.4
[2017-07-10] MEDS: METOCLOPRAMIDE 10 MG TAB PO ×2 (08:40→17:33)
[2017-07-10] MEDS: CALCIUM ACETATE 667 MG CAP PO ×3 (08:41→17:33)
[2017-07-10] MEDS: FOLIC ACID 1 MG TAB PO (08:41)
[2017-07-10] MEDS: MULTIVITAMINS/MINERALS TAB PO (08:41)
[2017-07-10] MEDS: ASPIRIN 81 MG TAB PO (08:41)
[2017-07-10] MEDS: ZINC SULFATE 220 MG CAP PO (08:42)
[2017-07-10] MEDS: THIAMINE 100 MG TAB PO (08:42)
[2017-07-10] MEDS: FLUCONAZOLE 200 MG TAB PO (08:43)
[2017-07-10] MEDS: LISINOPRIL 10 MG TAB PO ×2 (08:43→20:50)
[2017-07-10] MEDS: ASCORBIC ACID 500 MG TAB PO ×2 (08:44→20:49)
[2017-07-10] MEDS: BISACODYL 10 MG SUPP PR (08:44)
[2017-07-10] MEDS: AMIODARONE 200 MG TAB PO (08:44)
[2017-07-10] MEDS: POLYETHYLENE GLYCOL 17 GM PACKET PO (08:44)
[2017-07-10] MEDS: HYDROCODONE/APAP (10/325) TAB PO (08:45)
[2017-07-10] MEDS: BALSAM PERU/CASTOR OIL 60 GM TUBE TOP ×2 (08:48→20:51)
[2017-07-10] MEDS: morphine LIQ (10 MG/5 ML) CUP PO ×2 (13:20→22:58)
[2017-07-10] MEDS: WARFARIN 3 MG TAB PO (16:17)
[2017-07-10] MEDS: EPOETIN 10000 UNITS/1 ML INJ (ESRD) SC (17:34)
[2017-07-10] MEDS: DIPHENHYDRAMINE 25 MG CAP PO (20:49)
[2017-07-10] MEDS: ATORVASTATIN 10 MG TAB PO (20:50)
[2017-07-10] MEDS: DOCUSATE SODIUM 100 MG CAP PO (20:52)
[2017-07-11] MEDS: LEVOTHYROXINE 50 MCG TAB PO (05:33)
[2017-07-11] MEDS: PANTOPRAZOLE (EC) 40 MG TAB PO (05:34)
[2017-07-11] MEDS: morphine LIQ (10 MG/5 ML) CUP PO ×2 (06:18→12:22)
[2017-07-11 07:02] LABS: ALANINE AMINOTRANSFERASE 34 IU/L (13-69); ALBUMIN 2.3 g/dl (3.3-4.9); ALBUMIN/GLOBULIN RATIO 0.67; ALKALINE PHOSPHATASE 89 IU/L (42-121); ANION GAP 11 (8-16); ASPARTATE AMINO TRANSFERASE 27 IU/L (15-46); BLOOD UREA NITROGEN 33 mg/dl (7-20); CALCIUM 10.9 mg/dl (8.4-10.2); CARBON DIOXIDE 29 mmol/L (21-31); CHLORIDE 103 mmol/L (97-110); CREATININE 4.25 mg/dl (0.61-1.24); GLUCOSE 57 mg/dl (70-220); POTASSIUM 4.5 mmol/L (3.5-5.1); SODIUM 138 mmol/L (135-144); TOTAL PROTEIN 5.7 g/dl (6.1-8.1)
[2017-07-11 07:06] LABS: INR 2.25; PROTIME 25.4 Sec (11.9-14.9)
[2017-07-11 07:41] LABS: IONIZED CALCIUM 1.4 mmol/L (1.1-1.4)
[2017-07-11] MEDS: ASCORBIC ACID 500 MG TAB PO ×2 (08:17→21:45)
[2017-07-11] MEDS: MULTIVITAMINS/MINERALS TAB PO (08:17)
[2017-07-11] MEDS: THIAMINE 100 MG TAB PO (08:17)
[2017-07-11] MEDS: CALCIUM ACETATE 667 MG CAP PO ×3 (08:17→17:08)
[2017-07-11] MEDS: ZINC SULFATE 220 MG CAP PO (08:18)
[2017-07-11] MEDS: ASPIRIN 81 MG TAB PO (08:21)
[2017-07-11] MEDS: LISINOPRIL 10 MG TAB PO ×2 (08:21→21:45)
[2017-07-11] MEDS: METOCLOPRAMIDE 10 MG TAB PO ×2 (08:21→17:08)
[2017-07-11] MEDS: FLUCONAZOLE 200 MG TAB PO (08:21)
[2017-07-11] MEDS: POLYETHYLENE GLYCOL 17 GM PACKET PO (08:22)
[2017-07-11] MEDS: AMIODARONE 200 MG TAB PO (08:22)
[2017-07-11] MEDS: FOLIC ACID 1 MG TAB PO (08:22)
[2017-07-11] MEDS: BISACODYL 10 MG SUPP PR (08:22)
[2017-07-11] MEDS: BALSAM PERU/CASTOR OIL 60 GM TUBE TOP ×2 (08:23→21:46)
[2017-07-11] MEDS: HYDROCODONE/APAP (10/325) TAB PO ×2 (10:28→17:11)
[2017-07-11] MEDS: DAPTOMYCIN 325 MG in SOD CHLORIDE 0.9% 100 ML IVPB (17:08)
[2017-07-11] MEDS: WARFARIN 3 MG TAB PO (17:09)
[2017-07-11] MEDS: DOCUSATE SODIUM 100 MG CAP PO (21:00)
[2017-07-11] MEDS: DIPHENHYDRAMINE 25 MG CAP PO (21:45)
[2017-07-11] MEDS: ATORVASTATIN 10 MG TAB PO (21:45)
[2017-07-12] MEDS: LEVOTHYROXINE 88 MCG TAB PO (05:34)
[2017-07-12] MEDS: PANTOPRAZOLE (EC) 40 MG TAB PO (05:35)
[2017-07-12] MEDS: morphine LIQ (10 MG/5 ML) CUP PO ×3 (05:37→16:55)
[2017-07-12 06:00] LABS: ADD MAN DIFF? NO
[2017-07-12 06:07] LABS: ABNORMAL IP MESSAGE 1; BASOPHILS % 0.4 % (0.0-2.0); EOSINOPHILS # 0.2 10^3/ul (0.0-0.5); EOSINOPHILS % 3.9 % (0.0-7.0); HEMOGLOBIN 9.3 g/dl (14.0-18.0); LYMPHOCYTES # 0.6 10^3/ul (0.8-2.9); LYMPHOCYTES % 11.9 % (15.0-51.0); MEAN CORPUSCULAR HEMOGLOBIN 31.6 pg (29.0-33.0); MEAN PLATELET VOLUME 10.8 fl (7.4-10.4); MONOCYTE # 0.3 10^3/ul (0.3-0.9); MONOCYTES % 7.3 % (0.0-11.0); NEUTROPHIL # 3.5 10^3/ul (1.6-7.5); NEUTROPHILS % 76.1 % (39.0-77.0); PLATELET COUNT 132 10^3/UL (140-415); POSITIVE DIFF @See below; RED BLOOD COUNT 2.94 10^6/ul (4.70-6.10); RED CELL DISTRIBUTION WIDTH 17.7 % (11.5-14.5)
[2017-07-12 06:07] LABS: WHITE BLOOD COUNT 4.6 10^3/ul (4.8-10.8)
[2017-07-12 06:30] LABS: ANION GAP 12 (8-16); BLOOD UREA NITROGEN 42 mg/dl (7-20); CALCIUM 11.7 mg/dl (8.4-10.2); CARBON DIOXIDE 31 mmol/L (21-31); CHLORIDE 100 mmol/L (97-110); CREATININE 5.17 mg/dl (0.61-1.24); GLUCOSE 65 mg/dl (70-220); POTASSIUM 4.7 mmol/L (3.5-5.1); SODIUM 138 mmol/L (135-144)
[2017-07-12 06:32] LABS: INR 2.83; PROTIME 30.6 Sec (11.9-14.9); PT RATIO 2.4
[2017-07-12] MEDS: METOCLOPRAMIDE 10 MG TAB PO ×3 (08:00→17:45)
[2017-07-12] MEDS: AMIODARONE 200 MG TAB PO (08:52)
[2017-07-12] MEDS: LISINOPRIL 10 MG TAB PO ×2 (08:55→20:20)
[2017-07-12] MEDS: BISACODYL 10 MG SUPP PR (08:56)
[2017-07-12] MEDS: ZINC SULFATE 220 MG CAP PO (10:31)
[2017-07-12] MEDS: FOLIC ACID 1 MG TAB PO (10:32)
[2017-07-12] MEDS: ASPIRIN 81 MG TAB PO (10:32)
[2017-07-12] MEDS: MULTIVITAMINS/MINERALS TAB PO (10:32)
[2017-07-12] MEDS: FLUCONAZOLE 200 MG TAB PO (10:32)
[2017-07-12] MEDS: ASCORBIC ACID 500 MG TAB PO ×2 (10:32→20:20)
[2017-07-12] MEDS: BALSAM PERU/CASTOR OIL 60 GM TUBE TOP ×2 (10:36→20:47)
[2017-07-12] MEDS: POLYETHYLENE GLYCOL 17 GM PACKET PO (10:45)
[2017-07-12] MEDS: TOBRAMYCIN 120 MG in DEXTROSE 5% 100 ML IVPB (14:46)
[2017-07-12] MEDS: WARFARIN 3 MG TAB PO (16:45)
[2017-07-12] MEDS: ATORVASTATIN 10 MG TAB PO (20:20)
[2017-07-12] MEDS: DOCUSATE SODIUM 100 MG CAP PO (20:20)
[2017-07-12] MEDS: HYDROCODONE/APAP (10/325) TAB PO (20:24)
[2017-07-13 17:21] LABS: PTH CALCIUM 9.7 mg/dL (8.6-10.3)
[2017-07-14 08:47] LABS: PTH INTACT 207 pg/mL (14-64)
== END 2017-07-12 21:05 | DRG 463 ==
LOC: MS3 20:05 → E/R 14:18 → MS2 05-22 19:41
PROC: 0HRMXK3 Replacement of Right Foot Skin with Nonautologous Tissue Substitute, Full Thickness, External Approach (ICD-10-PCS; principal; 2017-05-24 10:57)
PROC: 0QBL0ZZ Excision of Right Tarsal, Open Approach (ICD-10-PCS; 2017-05-24 10:57)
PROC: 0JBR0ZZ Excision of Left Foot Subcutaneous Tissue and Fascia, Open Approach (ICD-10-PCS; 2017-05-24 10:57)
PROC: 0KBW0ZZ Excision of Left Foot Muscle, Open Approach (ICD-10-PCS; 2017-05-24 10:57)
PROC: 0QBN0ZZ Excision of Right Metatarsal, Open Approach (ICD-10-PCS; 2017-05-24 10:57)
PROC: 03180KD Bypass Left Brachial Artery to Upper Arm Vein with Nonautologous Tissue Substitute, Open Approach (ICD-10-PCS; 2017-05-24 10:57)
PROC: 0KBV0ZZ Excision of Right Foot Muscle, Open Approach (ICD-10-PCS; 2017-05-24 10:57)
PROC: 0MBS0ZZ Excision of Right Foot Bursa and Ligament, Open Approach (ICD-10-PCS; 2017-05-24 10:57)
PROC: 0JH63XZ Insertion of Tunneled Vascular Access Device into Chest Subcutaneous Tissue and Fascia, Percutaneous Approach (ICD-10-PCS; 2017-05-24 10:57)
PROC: 02H633Z Insertion of Infusion Device into Right Atrium, Percutaneous Approach (ICD-10-PCS; 2017-05-24 10:57)
PROC: 05HY33Z Insertion of Infusion Device into Upper Vein, Percutaneous Approach (ICD-10-PCS; 2017-05-24 10:57)
PROC: 5A1D70Z Performance of Urinary Filtration, Intermittent, Less than 6 Hours Per Day (ICD-10-PCS; 2017-05-24 10:57)
PROC: 30233N1 Transfusion of Nonautologous Red Blood Cells into Peripheral Vein, Percutaneous Approach (ICD-10-PCS; 2017-05-24 10:57)
DX: T87.43 Infection of amputation stump, right lower extremity (principal); N18.6 End stage renal disease; I13.2 Hypertensive heart and chronic kidney disease with heart failure and with stage 5 chronic kidney disease, or end stage renal disease; I96 Gangrene, not elsewhere classified; I42.9 Cardiomyopathy, unspecified; E11.52 Type 2 diabetes mellitus with diabetic peripheral angiopathy with gangrene; T82.868A Thrombosis due to vascular prosthetic devices, implants and grafts, initial encounter; L03.115 Cellulitis of right lower limb; M86.9 Osteomyelitis, unspecified; L97.429 Non-pressure chronic ulcer of left heel and midfoot with unspecified severity; L03.116 Cellulitis of left lower limb; L97.416 Non-pressure chronic ulcer of right heel and midfoot with bone involvement without evidence of necrosis; I50.22 Chronic systolic (congestive) heart failure; E11.22 Type 2 diabetes mellitus with diabetic chronic kidney disease; E11.42 Type 2 diabetes mellitus with diabetic polyneuropathy; E11.621 Type 2 diabetes mellitus with foot ulcer; I25.10 Atherosclerotic heart disease of native coronary artery without angina pectoris; E03.9 Hypothyroidism, unspecified; E11.69 Type 2 diabetes mellitus with other specified complication; E87.5 Hyperkalemia; D63.1 Anemia in chronic kidney disease; E78.5 Hyperlipidemia, unspecified; E83.52 Hypercalcemia; E66.9 Obesity, unspecified; K59.00 Constipation, unspecified; B95.2 Enterococcus as the cause of diseases classified elsewhere; Z16.21 Resistance to vancomycin; B96.5 Pseudomonas (aeruginosa) (mallei) (pseudomallei) as the cause of diseases classified elsewhere; E55.9 Vitamin D deficiency, unspecified; Z95.1 Presence of aortocoronary bypass graft; Z99.2 Dependence on renal dialysis; Z68.31 Body mass index [BMI] 31.0-31.9, adult; Z79.01 Long term (current) use of anticoagulants; Z95.2 Presence of prosthetic heart valve
CPT/HCPCS: 36430; 36569; 71045; 74018; 75822; 76937; 80048; 80053; 80061; 80076; 80202; 82150; 82270; 82306; 82330; 82550; 82607; 82728; 82746; 82962; 83036; 83540; 83615; 83690; 83735; 83970; 84100; 84439; 84443; 84484; 85014; 85018; 85025; 85045; 85610; 85730; 86320; 86644; 86706; 86850; 86860; 86870; 86880; 86900; 86901; 86902; 86920; 86970; 86971; 87070; 87081; 87340; 88304; 90686; 90935; 93005; 93306; 93931; 96374; 96375; 96376; 97110; 97163; 97530; 97542; 99285-25

== ENCOUNTER 2017-09-28 16:04 | Inpatient (IN) | payer MEDICARE, OTHER, MEDICAID ==
[2017-09-28 16:47] LABS: ADD MAN DIFF? NO
[2017-09-28] MEDS: PIPER-TAZO 3.375 GM IV (PMX) 100 ML IVPB (16:50)
[2017-09-28 16:52] LABS: WHITE BLOOD COUNT 9.7 10^3/ul (4.8-10.8)
[2017-09-28 16:52] LABS: ABNORMAL IP MESSAGE 1; BASOPHILS % 0.1 % (0.0-2.0); EOSINOPHILS # 0.1 10^3/ul (0.0-0.5); HEMATOCRIT 23.9 % (42.0-52.0); HEMOGLOBIN 7.1 g/dl (14.0-18.0); LYMPHOCYTES # 0.5 10^3/ul (0.8-2.9); LYMPHOCYTES % 5.2 % (15.0-51.0); MEAN CORPUSCULAR HEMOGLOBIN 32.6 pg (29.0-33.0); MEAN CORPUSCULAR HGB CONC 29.7 g/dl (32.0-37.0); MEAN CORPUSCULAR VOLUME 109.6 fl (82.0-101.0); MEAN PLATELET VOLUME 10.8 fl (7.4-10.4); MONOCYTE # 0.4 10^3/ul (0.3-0.9); MONOCYTES % 4.2 % (0.0-11.0); NEUTROPHIL # 8.7 10^3/ul (1.6-7.5); NEUTROPHILS % 89.1 % (39.0-77.0); PLATELET COUNT 176 10^3/UL (140-415); POSITIVE DIFF @See below; RED BLOOD COUNT 2.18 10^6/ul (4.70-6.10); RED CELL DISTRIBUTION WIDTH 15.1 % (11.5-14.5)
[2017-09-28] MEDS: ONDANSETRON 4 MG INJ IV (17:01)
[2017-09-28] MEDS: morphine 4 MG/ML VIAL IV (17:02)
[2017-09-28 17:11] LABS: INR 1.67; PT RATIO 1.6
[2017-09-28 17:12] LABS: ALANINE AMINOTRANSFERASE 20 IU/L (13-69); ALBUMIN/GLOBULIN RATIO 0.73; ALKALINE PHOSPHATASE 132 IU/L (42-121); ANION GAP 15 (8-16); ASPARTATE AMINO TRANSFERASE 21 IU/L (15-46); BLOOD UREA NITROGEN 34 mg/dl (7-20); CALCIUM 8.9 mg/dl (8.4-10.2); CARBON DIOXIDE 30 mmol/L (21-31); CHLORIDE 98 mmol/L (97-110); GLUCOSE 96 mg/dl (70-220); POTASSIUM 4.2 mmol/L (3.5-5.1); SODIUM 139 mmol/L (135-144); TOTAL PROTEIN 7.1 g/dl (6.1-8.1)
[2017-09-28 17:13] LABS: LACTIC ACID 1.8 mmol/L (0.5-2.0)
[2017-09-28 17:20] LABS: PARTIAL THROMBOPLASTIN TIME 33.3 Sec (25.0-35.0)
[2017-09-28 17:24] LABS: TROPONIN-I < 0.012 ng/ml (0.000-0.120)
[2017-09-28] MEDS ORDERED: ONDANSETRON 4 MG INJ IV (17:30)
[2017-09-28] MEDS ORDERED: ACETAMINOPHEN 325 MG TAB PO (17:30)
[2017-09-28] MEDS: VANCOMYCIN 1 GM (PMX) 250 ML IVPB (17:45)
[2017-09-28] MEDS ORDERED: HYDROCODONE/APAP (5/325) TAB PO (19:30)
[2017-09-28] MEDS ORDERED: VANCOMYCIN IV PER PHARMACY XX (19:30)
[2017-09-28] MEDS: PIPER-TAZO 2.25 GM (PMX) 50 ML IVPB (19:30)
[2017-09-28] MEDS ORDERED: NACL 0.9% 3 ML SYG IV (19:30)
[2017-09-28 20:13] LABS: LACTIC ACID 1.3 mmol/L (0.5-2.0)
[2017-09-28] MEDS: morphine 2 MG INJ IV (20:40)
[2017-09-28] MEDS: LISINOPRIL 10 MG TAB PO (22:18)
[2017-09-28] MEDS: CINACALCET 30 MG TAB PO (22:18)
[2017-09-28] MEDS: ATORVASTATIN 10 MG TAB PO (22:18)
[2017-09-28] MEDS: HYDROCODONE/APAP (10/325) TAB PO (22:54)
[2017-09-28 23:04] LABS: LACTIC ACID 1.4 mmol/L (0.5-2.0)
[2017-09-29 06:21] LABS: ADD MAN DIFF? NO
[2017-09-29] MEDS: LEVOTHYROXINE 112 MCG TAB PO (06:28)
[2017-09-29] MEDS: ACETAMINOPHEN 325 MG TAB PO ×2 (06:29→14:03)
[2017-09-29 06:46] LABS: ABNORMAL IP MESSAGE 1; BASOPHILS % 0.2 % (0.0-2.0); EOSINOPHILS # 0.1 10^3/ul (0.0-0.5); HEMATOCRIT 21.1 % (42.0-52.0); LYMPHOCYTES # 0.5 10^3/ul (0.8-2.9); LYMPHOCYTES % 5.5 % (15.0-51.0); MEAN CORPUSCULAR HEMOGLOBIN 32.5 pg (29.0-33.0); MEAN CORPUSCULAR HGB CONC 30.3 g/dl (32.0-37.0); MEAN CORPUSCULAR VOLUME 107.1 fl (82.0-101.0); MEAN PLATELET VOLUME 9.8 fl (7.4-10.4); MONOCYTE # 0.5 10^3/ul (0.3-0.9); NEUTROPHIL # 7.7 10^3/ul (1.6-7.5); NEUTROPHILS % 86.7 % (39.0-77.0); PLATELET COUNT 217 10^3/UL (140-415); RED BLOOD COUNT 1.97 10^6/ul (4.70-6.10); RED CELL DISTRIBUTION WIDTH 14.9 % (11.5-14.5)
[2017-09-29 06:46] LABS: WHITE BLOOD COUNT 8.9 10^3/ul (4.8-10.8)
[2017-09-29 06:50] LABS: HEMOGLOBIN 6.4 g/dl (14.0-18.0)
[2017-09-29 07:47] LABS: ALANINE AMINOTRANSFERASE 12 IU/L (13-69); ALBUMIN 2.8 g/dl (3.3-4.9); ALBUMIN/GLOBULIN RATIO 0.73; ALKALINE PHOSPHATASE 111 IU/L (42-121); ANION GAP 17 (8-16); ASPARTATE AMINO TRANSFERASE 22 IU/L (15-46); BLOOD UREA NITROGEN 38 mg/dl (7-20); CALCIUM 9.1 mg/dl (8.4-10.2); CARBON DIOXIDE 26 mmol/L (21-31); CHLORIDE 100 mmol/L (97-110); CREATININE 4.55 mg/dl (0.61-1.24); GLUCOSE 70 mg/dl (70-220); POTASSIUM 4.5 mmol/L (3.5-5.1); SODIUM 138 mmol/L (135-144); TOTAL PROTEIN 6.6 g/dl (6.1-8.1)
[2017-09-29] MEDS: PIPER-TAZO 2.25 GM (PMX) 50 ML IVPB ×2 (08:18→18:51)
[2017-09-29] MEDS: SEVELAMER 800 MG TAB PO ×3 (08:19→17:39)
[2017-09-29] MEDS: LISINOPRIL 10 MG TAB PO ×2 (08:19→20:52)
[2017-09-29] MEDS: MULTIVIT/CA CARB/B CMPLX/FA TAB PO (08:19)
[2017-09-29] MEDS: AMIODARONE 200 MG TAB PO (08:20)
[2017-09-29] MEDS: HYDROCODONE/APAP (10/325) TAB PO ×3 (08:54→23:34)
[2017-09-29] MEDS: SOD CHLORIDE 0.9% 250 ML IV* (09:37)
[2017-09-29] MEDS: SODIUM HYPOCHLORITE (1/40) 1 APPLIC BTL IRR ×2 (12:04→20:56)
[2017-09-29 17:17] LABS: HEPATITIS B SURFACE ANTIGEN NEGATIVE (NEGATIVE)
[2017-09-29] MEDS: NYSTATIN 30 GM POWDER BTL TOP ×2 (17:39→20:53)
[2017-09-29] MEDS: ATORVASTATIN 10 MG TAB PO (20:52)
[2017-09-29] MEDS: CINACALCET 30 MG TAB PO (20:52)
[2017-09-29 21:51] LABS: AHG CROSSMATCH 1 2
[2017-09-30] MEDS: AL HYDROX/MG HYDROX/SIMETH 30 ML CUP PO (01:21)
[2017-09-30] MEDS: PANTOPRAZOLE (EC) 40 MG TAB PO (05:09)
[2017-09-30] MEDS: LEVOTHYROXINE 112 MCG TAB PO (06:04)
[2017-09-30] MEDS ORDERED: CEFAZOLIN 1 GM INJ (07:00)
[2017-09-30] MEDS: PIPER-TAZO 2.25 GM (PMX) 50 ML IVPB ×2 (08:00→22:39)
[2017-09-30] MEDS: SEVELAMER 800 MG TAB PO ×3 (08:00→17:56)
[2017-09-30] MEDS: LISINOPRIL 10 MG TAB PO ×2 (08:01→22:38)
[2017-09-30] MEDS: MULTIVIT/CA CARB/B CMPLX/FA TAB PO (08:01)
[2017-09-30] MEDS: SODIUM HYPOCHLORITE (1/40) 1 APPLIC BTL IRR ×2 (08:01→21:00)
[2017-09-30] MEDS: AMIODARONE 200 MG TAB PO (08:01)
[2017-09-30] MEDS: NYSTATIN 30 GM POWDER BTL TOP ×2 (08:01→22:39)
[2017-09-30 08:41] LABS: ADD MAN DIFF? NO
[2017-09-30 08:45] LABS: ABNORMAL IP MESSAGE 1; BASOPHILS % 0.3 % (0.0-2.0); EOSINOPHILS # 0.1 10^3/ul (0.0-0.5); EOSINOPHILS % 0.8 % (0.0-7.0); HEMATOCRIT 28.4 % (42.0-52.0); HEMOGLOBIN 8.8 g/dl (14.0-18.0); LYMPHOCYTES # 0.4 10^3/ul (0.8-2.9); LYMPHOCYTES % 3.8 % (15.0-51.0); MEAN CORPUSCULAR HEMOGLOBIN 31.4 pg (29.0-33.0); MEAN CORPUSCULAR VOLUME 101.4 fl (82.0-101.0); MEAN PLATELET VOLUME 10.1 fl (7.4-10.4); MONOCYTE # 0.4 10^3/ul (0.3-0.9); MONOCYTES % 4.1 % (0.0-11.0); NEUTROPHIL # 9.1 10^3/ul (1.6-7.5); NEUTROPHILS % 90.5 % (39.0-77.0); PLATELET COUNT 171 10^3/UL (140-415); POSITIVE DIFF @See below; RED CELL DISTRIBUTION WIDTH 19.3 % (11.5-14.5)
[2017-09-30 08:45] LABS: WHITE BLOOD COUNT 10.1 10^3/ul (4.8-10.8)
[2017-09-30 09:03] LABS: ALANINE AMINOTRANSFERASE 18 IU/L (13-69); ALBUMIN 2.8 g/dl (3.3-4.9); ALBUMIN/GLOBULIN RATIO 0.73; ALKALINE PHOSPHATASE 101 IU/L (42-121); ANION GAP 14 (8-16); ASPARTATE AMINO TRANSFERASE 17 IU/L (15-46); BILIRUBIN,INDIRECT 0.2 mg/dl (0-1.1); BILIRUBIN,TOTAL 0.2 mg/dl (0.2-1.3); BLOOD UREA NITROGEN 22 mg/dl (7-20); CALCIUM 8.8 mg/dl (8.4-10.2); CARBON DIOXIDE 30 mmol/L (21-31); CHLORIDE 97 mmol/L (97-110); CREATININE 3.36 mg/dl (0.61-1.24); GLUCOSE 68 mg/dl (70-220); POTASSIUM 4.5 mmol/L (3.5-5.1); SODIUM 136 mmol/L (135-144); TOTAL PROTEIN 6.6 g/dl (6.1-8.1)
[2017-09-30 09:07] LABS: VANCOMYCIN,RANDOM 20.7 ug/ml
[2017-09-30] MEDS: HYDROCODONE/APAP (10/325) TAB PO ×2 (09:09→22:56)
[2017-09-30] MEDS: WARFARIN 2.5 MG TAB PO (17:00)
[2017-09-30] MEDS ORDERED: MIDAZOLAM 1 MG/ML 2 ML INJ (20:11)
[2017-09-30] MEDS ORDERED: FENTAnyl 50 MCG/ML VIAL (20:11)
[2017-09-30] MEDS ORDERED: PROPOFOL 20 ML ×2 (20:11→21:05)
[2017-09-30] MEDS ORDERED: EPHEDrine SULFATE 50 MG/5 ML SYG (20:25)
[2017-09-30] MEDS ORDERED: HYDROmorphONE (0.2 MG/ML) 10ML SYG IV (21:00)
[2017-09-30] MEDS ORDERED: ONDANSETRON 4 MG INJ IV (21:00)
[2017-09-30] MEDS: LIDOCAINE 1% (MPF) 30 ML INJ ×2 (21:06→21:26)
[2017-09-30] MEDS: HYDROmorphONE (0.2 MG/ML) 10ML SYG IV ×2 (21:36→21:51)
[2017-09-30] MEDS ORDERED: DIPHENHYDRAMINE 50 MG INJ IV (22:00)
[2017-09-30] MEDS: CINACALCET 30 MG TAB PO (22:38)
[2017-09-30] MEDS: ATORVASTATIN 10 MG TAB PO (22:38)
[2017-10-01] MEDS: KETOROLAC 15 MG INJ IV ×2 (02:39→17:33)
[2017-10-01] MEDS: PANTOPRAZOLE (EC) 40 MG TAB PO (05:38)
[2017-10-01] MEDS: HYDROCODONE/APAP (10/325) TAB PO ×3 (05:38→20:19)
[2017-10-01] MEDS: LEVOTHYROXINE 112 MCG TAB PO (05:38)
[2017-10-01 06:07] LABS: ADD MAN DIFF? NO
[2017-10-01 06:10] LABS: ABNORMAL IP MESSAGE 1; BASOPHILS % 0.4 % (0.0-2.0); EOSINOPHILS # 0.1 10^3/ul (0.0-0.5); HEMOGLOBIN 7.7 g/dl (14.0-18.0); LYMPHOCYTES # 0.4 10^3/ul (0.8-2.9); LYMPHOCYTES % 4.2 % (15.0-51.0); MEAN CORPUSCULAR HEMOGLOBIN 31.3 pg (29.0-33.0); MEAN CORPUSCULAR HGB CONC 30.8 g/dl (32.0-37.0); MEAN CORPUSCULAR VOLUME 101.6 fl (82.0-101.0); MEAN PLATELET VOLUME 10.4 fl (7.4-10.4); MONOCYTE # 0.5 10^3/ul (0.3-0.9); MONOCYTES % 5.8 % (0.0-11.0); NEUTROPHIL # 7.9 10^3/ul (1.6-7.5); PLATELET COUNT 152 10^3/UL (140-415); POSITIVE DIFF @See below; RED BLOOD COUNT 2.46 10^6/ul (4.70-6.10); RED CELL DISTRIBUTION WIDTH 18.9 % (11.5-14.5)
[2017-10-01 06:41] LABS: INR 1.43; PROTIME 17.7 Sec (11.9-14.9); PT RATIO 1.4
[2017-10-01] MEDS: SEVELAMER 800 MG TAB PO ×3 (08:15→17:32)
[2017-10-01] MEDS ORDERED: FAMOTIDINE 20 MG INJ IV (09:00)
[2017-10-01] MEDS: SODIUM HYPOCHLORITE (1/40) 1 APPLIC BTL IRR ×2 (09:00→20:24)
[2017-10-01] MEDS: AMIODARONE 200 MG TAB PO (09:00)
[2017-10-01] MEDS: LISINOPRIL 10 MG TAB PO ×2 (09:00→20:20)
[2017-10-01] MEDS: ALBUMIN HUMAN 25% 100 ML IV (10:02)
[2017-10-01] MEDS: MULTIVIT/CA CARB/B CMPLX/FA TAB PO (12:46)
[2017-10-01] MEDS: PIPER-TAZO 2.25 GM (PMX) 50 ML IVPB ×2 (12:46→19:55)
[2017-10-01] MEDS: NYSTATIN 30 GM POWDER BTL TOP ×2 (12:48→20:21)
[2017-10-01] MEDS: VANCOMYCIN 1 GM 250 ML IVPB (16:01)
[2017-10-01] MEDS: WARFARIN 2.5 MG TAB PO (17:32)
[2017-10-01] MEDS: EPOETIN 10000 UNITS/1 ML INJ (ESRD) SC (17:34)
[2017-10-01] MEDS: CINACALCET 30 MG TAB PO (20:19)
[2017-10-01] MEDS: ATORVASTATIN 10 MG TAB PO (20:23)
[2017-10-01] MEDS: morphine 2 MG INJ IV (22:03)
[2017-10-02] MEDS: ACETAMINOPHEN 325 MG TAB PO ×2 (02:24→22:08)
[2017-10-02] MEDS: morphine 2 MG INJ IV ×4 (06:00→21:41)
[2017-10-02] MEDS: PANTOPRAZOLE (EC) 40 MG TAB PO (06:01)
[2017-10-02] MEDS: LEVOTHYROXINE 112 MCG TAB PO (06:01)
[2017-10-02 06:09] LABS: ADD MAN DIFF? NO
[2017-10-02 06:14] LABS: WHITE BLOOD COUNT 6.2 10^3/ul (4.8-10.8)
[2017-10-02 06:14] LABS: ABNORMAL IP MESSAGE 1; BASOPHILS % 0.5 % (0.0-2.0); EOSINOPHILS # 0.2 10^3/ul (0.0-0.5); EOSINOPHILS % 2.4 % (0.0-7.0); HEMATOCRIT 26.2 % (42.0-52.0); LYMPHOCYTES # 0.3 10^3/ul (0.8-2.9); LYMPHOCYTES % 5.5 % (15.0-51.0); MEAN CORPUSCULAR HEMOGLOBIN 31.5 pg (29.0-33.0); MEAN CORPUSCULAR HGB CONC 30.5 g/dl (32.0-37.0); MEAN CORPUSCULAR VOLUME 103.1 fl (82.0-101.0); MEAN PLATELET VOLUME 10.5 fl (7.4-10.4); MONOCYTE # 0.4 10^3/ul (0.3-0.9); MONOCYTES % 5.6 % (0.0-11.0); NEUTROPHIL # 5.3 10^3/ul (1.6-7.5); NEUTROPHILS % 85.7 % (39.0-77.0); PLATELET COUNT 153 10^3/UL (140-415); POSITIVE DIFF @See below; RED BLOOD COUNT 2.54 10^6/ul (4.70-6.10); RED CELL DISTRIBUTION WIDTH 18.6 % (11.5-14.5)
[2017-10-02 06:37] LABS: ALANINE AMINOTRANSFERASE 13 IU/L (13-69); ALBUMIN 2.7 g/dl (3.3-4.9); ALBUMIN/GLOBULIN RATIO 0.75; ALKALINE PHOSPHATASE 92 IU/L (42-121); ANION GAP 12 (8-16); ASPARTATE AMINO TRANSFERASE 15 IU/L (15-46); BLOOD UREA NITROGEN 20 mg/dl (7-20); CALCIUM 9.1 mg/dl (8.4-10.2); CARBON DIOXIDE 31 mmol/L (21-31); CHLORIDE 102 mmol/L (97-110); CREATININE 3.18 mg/dl (0.61-1.24); GLUCOSE 69 mg/dl (70-220); POTASSIUM 4.5 mmol/L (3.5-5.1); SODIUM 140 mmol/L (135-144); TOTAL PROTEIN 6.3 g/dl (6.1-8.1)
[2017-10-02] MEDS: PIPER-TAZO 2.25 GM (PMX) 50 ML IVPB (06:47)
[2017-10-02 07:04] LABS: INR 1.41; PROTIME 17.5 Sec (11.9-14.9); PT RATIO 1.4
[2017-10-02] MEDS: SEVELAMER 800 MG TAB PO ×3 (08:50→17:36)
[2017-10-02] MEDS: NYSTATIN 30 GM POWDER BTL TOP ×2 (08:51→20:46)
[2017-10-02] MEDS: LISINOPRIL 10 MG TAB PO ×2 (08:51→20:47)
[2017-10-02] MEDS: MULTIVIT/CA CARB/B CMPLX/FA TAB PO (08:51)
[2017-10-02] MEDS: AMIODARONE 200 MG TAB PO (08:51)
[2017-10-02] MEDS: SODIUM HYPOCHLORITE (1/40) 1 APPLIC BTL IRR ×2 (08:52→21:00)
[2017-10-02] MEDS: ERTAPENEM SODIUM 0.5 GM in SOD CHLORIDE 0.9% 100 ML IVPB (12:49)
[2017-10-02] MEDS: POLYETHYLENE GLYCOL 17 GM PACKET PO (14:00)
[2017-10-02] MEDS: WARFARIN 2.5 MG TAB PO (17:36)
[2017-10-02] MEDS: CINACALCET 30 MG TAB PO (20:46)
[2017-10-02] MEDS: ATORVASTATIN 10 MG TAB PO (20:47)
[2017-10-03] MEDS: morphine 2 MG INJ IV ×3 (04:16→20:47)
[2017-10-03] MEDS: LEVOTHYROXINE 112 MCG TAB PO (06:16)
[2017-10-03] MEDS: PANTOPRAZOLE (EC) 40 MG TAB PO (06:16)
[2017-10-03 06:35] LABS: INR 1.48; PROTIME 18.2 Sec (11.9-14.9); PT RATIO 1.4
[2017-10-03] MEDS: MULTIVIT/CA CARB/B CMPLX/FA TAB PO (09:10)
[2017-10-03] MEDS: NYSTATIN 30 GM POWDER BTL TOP ×2 (09:11→20:28)
[2017-10-03] MEDS: SEVELAMER 800 MG TAB PO ×3 (09:11→18:00)
[2017-10-03] MEDS: AMIODARONE 200 MG TAB PO (09:11)
[2017-10-03] MEDS: POLYETHYLENE GLYCOL 17 GM PACKET PO (09:11)
[2017-10-03] MEDS: SODIUM HYPOCHLORITE (1/40) 1 APPLIC BTL IRR ×2 (09:12→20:28)
[2017-10-03] MEDS: LISINOPRIL 10 MG TAB PO ×2 (09:12→20:26)
[2017-10-03] MEDS: ERTAPENEM SODIUM 0.5 GM in SOD CHLORIDE 0.9% 100 ML IVPB (12:33)
[2017-10-03] MEDS: WARFARIN 2.5 MG TAB PO (17:48)
[2017-10-03] MEDS: ATORVASTATIN 10 MG TAB PO (20:27)
[2017-10-03] MEDS: CINACALCET 30 MG TAB PO (20:27)
[2017-10-03] MEDS: ACETAMINOPHEN 325 MG TAB PO (21:53)
[2017-10-04] MEDS: morphine 2 MG INJ IV ×3 (03:22→23:44)
[2017-10-04] MEDS: LEVOTHYROXINE 112 MCG TAB PO (05:56)
[2017-10-04] MEDS: PANTOPRAZOLE (EC) 40 MG TAB PO (05:56)
[2017-10-04 06:22] LABS: INR 1.76; PROTIME 20.9 Sec (11.9-14.9); PT RATIO 1.6
[2017-10-04] MEDS: POLYETHYLENE GLYCOL 17 GM PACKET PO (09:09)
[2017-10-04] MEDS: SODIUM HYPOCHLORITE (1/40) 1 APPLIC BTL IRR ×2 (09:13→21:09)
[2017-10-04] MEDS: MULTIVIT/CA CARB/B CMPLX/FA TAB PO (09:13)
[2017-10-04] MEDS: AMIODARONE 200 MG TAB PO (09:14)
[2017-10-04] MEDS: LISINOPRIL 10 MG TAB PO ×2 (09:15→21:07)
[2017-10-04] MEDS: NYSTATIN 30 GM POWDER BTL TOP ×2 (09:16→21:10)
[2017-10-04] MEDS: SEVELAMER CARBONATE 2.4 GM PKT PO ×3 (09:34→18:21)
[2017-10-04] MEDS: HYDROCODONE/APAP (10/325) TAB PO ×2 (09:34→21:35)
[2017-10-04] MEDS: ONDANSETRON 4 MG INJ IV (12:10)
[2017-10-04] MEDS: ERTAPENEM SODIUM 0.5 GM in SOD CHLORIDE 0.9% 100 ML IVPB (13:11)
[2017-10-04] MEDS: ACETAMINOPHEN 325 MG TAB PO (14:38)
[2017-10-04] MEDS: ALBUMIN HUMAN 25% 100 ML IV (15:46)
[2017-10-04] MEDS: WARFARIN 2.5 MG TAB PO (18:21)
[2017-10-04] MEDS: EPOETIN 10000 UNITS/1 ML INJ (ESRD) SC (18:23)
[2017-10-04] MEDS: ATORVASTATIN 10 MG TAB PO (21:07)
[2017-10-04] MEDS: CINACALCET 30 MG TAB PO (21:07)
[2017-10-05] MEDS: HYDROCODONE/APAP (10/325) TAB PO ×3 (03:05→21:01)
[2017-10-05] MEDS: morphine 2 MG INJ IV (05:22)
[2017-10-05] MEDS: PANTOPRAZOLE (EC) 40 MG TAB PO (05:27)
[2017-10-05] MEDS: LEVOTHYROXINE 112 MCG TAB PO (05:27)
[2017-10-05 07:52] LABS: ADD MAN DIFF? NO
[2017-10-05 07:58] LABS: ABNORMAL IP MESSAGE 1; BASOPHILS % 0.6 % (0.0-2.0); EOSINOPHILS # 0.1 10^3/ul (0.0-0.5); EOSINOPHILS % 2.4 % (0.0-7.0); HEMOGLOBIN 7.2 g/dl (14.0-18.0); LYMPHOCYTES # 0.4 10^3/ul (0.8-2.9); LYMPHOCYTES % 8.4 % (15.0-51.0); MEAN CORPUSCULAR HEMOGLOBIN 31.7 pg (29.0-33.0); MEAN CORPUSCULAR HGB CONC 31.3 g/dl (32.0-37.0); MEAN CORPUSCULAR VOLUME 101.3 fl (82.0-101.0); MEAN PLATELET VOLUME 10.4 fl (7.4-10.4); MONOCYTE # 0.3 10^3/ul (0.3-0.9); NEUTROPHIL # 4.1 10^3/ul (1.6-7.5); NEUTROPHILS % 82.4 % (39.0-77.0); PLATELET COUNT 151 10^3/UL (140-415); POSITIVE DIFF @See below; RED BLOOD COUNT 2.27 10^6/ul (4.70-6.10); RED CELL DISTRIBUTION WIDTH 17.1 % (11.5-14.5)
[2017-10-05 08:12] LABS: INR 2.23; PROTIME 25.3 Sec (11.9-14.9)
[2017-10-05 08:24] LABS: ANION GAP 11 (8-16); BLOOD UREA NITROGEN 21 mg/dl (7-20); CARBON DIOXIDE 32 mmol/L (21-31); CHLORIDE 99 mmol/L (97-110); CREATININE 3.59 mg/dl (0.61-1.24); POTASSIUM 4.5 mmol/L (3.5-5.1); SODIUM 137 mmol/L (135-144)
[2017-10-05 08:25] LABS: PHOSPHORUS 4.3 mg/dl (2.5-4.9)
[2017-10-05 08:39] LABS: GLUCOSE 42 mg/dl (70-220)
[2017-10-05] MEDS: POLYETHYLENE GLYCOL 17 GM PACKET PO (09:00)
[2017-10-05] MEDS: SEVELAMER CARBONATE 2.4 GM PKT PO ×3 (09:14→18:00)
[2017-10-05] MEDS: LISINOPRIL 10 MG TAB PO ×2 (09:15→20:56)
[2017-10-05] MEDS: MULTIVIT/CA CARB/B CMPLX/FA TAB PO (09:15)
[2017-10-05] MEDS: AMIODARONE 200 MG TAB PO (09:16)
[2017-10-05] MEDS: NYSTATIN 30 GM POWDER BTL TOP ×2 (09:17→20:57)
[2017-10-05] MEDS: SODIUM HYPOCHLORITE (1/40) 1 APPLIC BTL IRR ×2 (09:18→20:57)
[2017-10-05] MEDS: DEXTROSE 5%-0.45% NACL 1,000 ML IV (10:20)
[2017-10-05] MEDS: ONDANSETRON 4 MG INJ IV (12:33)
[2017-10-05] MEDS: ERTAPENEM SODIUM 0.5 GM in SOD CHLORIDE 0.9% 100 ML IVPB (13:34)
[2017-10-05] MEDS: WARFARIN 2.5 MG TAB PO (17:51)
[2017-10-05] MEDS: ATORVASTATIN 10 MG TAB PO (20:55)
[2017-10-05] MEDS: CINACALCET 30 MG TAB PO (20:56)
[2017-10-06] MEDS: morphine 2 MG INJ IV ×2 (00:01→20:27)
[2017-10-06] MEDS: DEXTROSE 5%-0.45% NACL 1,000 ML IV ×2 (00:27→14:08)
[2017-10-06] MEDS: PANTOPRAZOLE (EC) 40 MG TAB PO (05:56)
[2017-10-06 06:30] LABS: INR 3.17; PROTIME 33.5 Sec (11.9-14.9); PT RATIO 2.6
[2017-10-06] MEDS: LEVOTHYROXINE 112 MCG TAB PO (07:18)
[2017-10-06] MEDS: POLYETHYLENE GLYCOL 17 GM PACKET PO (08:13)
[2017-10-06] MEDS: MULTIVIT/CA CARB/B CMPLX/FA TAB PO (08:13)
[2017-10-06] MEDS: SEVELAMER CARBONATE 2.4 GM PKT PO ×3 (08:13→16:54)
[2017-10-06] MEDS: NYSTATIN 30 GM POWDER BTL TOP ×2 (08:15→20:23)
[2017-10-06] MEDS: SODIUM HYPOCHLORITE (1/40) 1 APPLIC BTL IRR ×2 (08:16→20:24)
[2017-10-06] MEDS: LISINOPRIL 10 MG TAB PO ×2 (08:16→20:22)
[2017-10-06] MEDS: AMIODARONE 200 MG TAB PO (08:16)
[2017-10-06] MEDS: HYDROCODONE/APAP (10/325) TAB PO ×2 (09:26→18:36)
[2017-10-06] MEDS: ERTAPENEM SODIUM 0.5 GM in SOD CHLORIDE 0.9% 100 ML IVPB (12:09)
[2017-10-06 15:12] LABS: AHG CROSSMATCH 1 1
[2017-10-06] MEDS: WARFARIN 2 MG TAB PO (16:54)
[2017-10-06] MEDS: EPOETIN 10000 UNITS/1 ML INJ (ESRD) SC (16:54)
[2017-10-06] MEDS ORDERED: WARFARIN 2.5 MG TAB GTB (17:00)
[2017-10-06] MEDS: CEPASTAT LOZENGE MT ×3 (18:02→23:34)
[2017-10-06] MEDS: ATORVASTATIN 10 MG TAB PO (20:22)
[2017-10-06] MEDS: CINACALCET 30 MG TAB PO (20:22)
[2017-10-07] MEDS: CALCIUM CARBONATE 500 MG CHEW TAB PO ×6 (01:41→20:42)
[2017-10-07] MEDS: CEPASTAT LOZENGE MT ×3 (02:13→19:40)
[2017-10-07] MEDS: morphine 2 MG INJ IV ×2 (02:13→16:28)
[2017-10-07] MEDS: PANTOPRAZOLE (EC) 40 MG TAB PO (05:32)
[2017-10-07 05:47] LABS: ADD MAN DIFF? NO
[2017-10-07 05:50] LABS: WHITE BLOOD COUNT 5.6 10^3/ul (4.8-10.8)
[2017-10-07 05:50] LABS: ABNORMAL IP MESSAGE 1; BASOPHILS % 0.5 % (0.0-2.0); EOSINOPHILS # 0.1 10^3/ul (0.0-0.5); HEMATOCRIT 25.2 % (42.0-52.0); HEMOGLOBIN 7.9 g/dl (14.0-18.0); LYMPHOCYTES # 0.5 10^3/ul (0.8-2.9); LYMPHOCYTES % 9.7 % (15.0-51.0); MEAN CORPUSCULAR HEMOGLOBIN 30.9 pg (29.0-33.0); MEAN CORPUSCULAR HGB CONC 31.3 g/dl (32.0-37.0); MEAN CORPUSCULAR VOLUME 98.4 fl (82.0-101.0); MEAN PLATELET VOLUME 11.1 fl (7.4-10.4); MONOCYTE # 0.4 10^3/ul (0.3-0.9); MONOCYTES % 6.8 % (0.0-11.0); NEUTROPHIL # 4.5 10^3/ul (1.6-7.5); NEUTROPHILS % 80.5 % (39.0-77.0); PLATELET COUNT 152 10^3/UL (140-415); POSITIVE DIFF @See below; RED BLOOD COUNT 2.56 10^6/ul (4.70-6.10)
[2017-10-07 06:01] LABS: INR 3.17; PROTIME 33.5 Sec (11.9-14.9); PT RATIO 2.6
[2017-10-07 06:28] LABS: ANION GAP 8 (8-16); BLOOD UREA NITROGEN 17 mg/dl (7-20); CALCIUM 8.5 mg/dl (8.4-10.2); CARBON DIOXIDE 33 mmol/L (21-31); CHLORIDE 100 mmol/L (97-110); CREATININE 3.04 mg/dl (0.61-1.24); GLUCOSE 75 mg/dl (70-220); POTASSIUM 4.9 mmol/L (3.5-5.1); SODIUM 136 mmol/L (135-144)
[2017-10-07] MEDS: LEVOTHYROXINE 112 MCG TAB PO (06:29)
[2017-10-07] MEDS: POLYETHYLENE GLYCOL 17 GM PACKET PO (08:34)
[2017-10-07] MEDS: AMIODARONE 200 MG TAB PO (08:34)
[2017-10-07] MEDS: SEVELAMER CARBONATE 2.4 GM PKT PO ×3 (08:34→17:42)
[2017-10-07] MEDS: LISINOPRIL 10 MG TAB PO ×2 (08:34→20:43)
[2017-10-07] MEDS: MULTIVIT/CA CARB/B CMPLX/FA TAB PO (08:34)
[2017-10-07] MEDS: SODIUM HYPOCHLORITE (1/40) 1 APPLIC BTL IRR ×2 (08:35→23:10)
[2017-10-07] MEDS: NYSTATIN 30 GM POWDER BTL TOP ×2 (08:36→20:44)
[2017-10-07] MEDS: MINERAL OIL 133 ML ENEMA PR (08:36)
[2017-10-07] MEDS ORDERED: NON-FORMULARY/PATIENT OWN MED (Cranberry Extract (Cranberry) 425 MG) PO (09:00)
[2017-10-07] MEDS: HYDROCODONE/APAP (10/325) TAB PO ×2 (12:13→20:50)
[2017-10-07] MEDS: ERTAPENEM SODIUM 0.5 GM in SOD CHLORIDE 0.9% 100 ML IVPB (12:14)
[2017-10-07] MEDS: WARFARIN 2 MG TAB PO (17:41)
[2017-10-07] MEDS: CINACALCET 30 MG TAB PO (20:42)
[2017-10-07] MEDS: ATORVASTATIN 10 MG TAB PO (20:42)
[2017-10-08] MEDS: CALCIUM CARBONATE 500 MG CHEW TAB PO ×6 (00:55→21:09)
[2017-10-08] MEDS: PANTOPRAZOLE (EC) 40 MG TAB PO (05:47)
[2017-10-08] MEDS: morphine 2 MG INJ IV ×3 (06:03→16:48)
[2017-10-08] MEDS: LEVOTHYROXINE 112 MCG TAB PO (06:03)
[2017-10-08 06:05] LABS: ADD MAN DIFF? NO
[2017-10-08 06:07] LABS: WHITE BLOOD COUNT 4.5 10^3/ul (4.8-10.8)
[2017-10-08 06:07] LABS: ABNORMAL IP MESSAGE 1; BASOPHILS % 0.4 % (0.0-2.0); EOSINOPHILS # 0.1 10^3/ul (0.0-0.5); HEMATOCRIT 26.1 % (42.0-52.0); LYMPHOCYTES # 0.5 10^3/ul (0.8-2.9); LYMPHOCYTES % 11.3 % (15.0-51.0); MEAN CORPUSCULAR HEMOGLOBIN 30.7 pg (29.0-33.0); MEAN CORPUSCULAR HGB CONC 30.7 g/dl (32.0-37.0); MEAN PLATELET VOLUME 10.2 fl (7.4-10.4); MONOCYTE # 0.3 10^3/ul (0.3-0.9); MONOCYTES % 6.9 % (0.0-11.0); NEUTROPHIL # 3.5 10^3/ul (1.6-7.5); NEUTROPHILS % 78.7 % (39.0-77.0); PLATELET COUNT 139 10^3/UL (140-415); POSITIVE DIFF @See below; RED BLOOD COUNT 2.61 10^6/ul (4.70-6.10); RED CELL DISTRIBUTION WIDTH 17.7 % (11.5-14.5)
[2017-10-08 06:29] LABS: INR 3.27; PROTIME 34.3 Sec (11.9-14.9); PT RATIO 2.7
[2017-10-08 06:41] LABS: ANION GAP 10 (8-16); BLOOD UREA NITROGEN 24 mg/dl (7-20); CARBON DIOXIDE 32 mmol/L (21-31); CHLORIDE 99 mmol/L (97-110); CREATININE 4.09 mg/dl (0.61-1.24); GLUCOSE 58 mg/dl (70-220); POTASSIUM 4.7 mmol/L (3.5-5.1); SODIUM 136 mmol/L (135-144)
[2017-10-08] MEDS: SEVELAMER CARBONATE 2.4 GM PKT PO ×3 (08:12→17:46)
[2017-10-08] MEDS: AMIODARONE 200 MG TAB PO (08:41)
[2017-10-08] MEDS: LISINOPRIL 10 MG TAB PO ×2 (08:44→21:00)
[2017-10-08] MEDS ORDERED: AMIKACIN IV PER PHARMACY XX (12:00)
[2017-10-08] MEDS: POLYETHYLENE GLYCOL 17 GM PACKET PO (12:47)
[2017-10-08] MEDS: MULTIVIT/CA CARB/B CMPLX/FA TAB PO (12:47)
[2017-10-08] MEDS: NYSTATIN 30 GM POWDER BTL TOP ×2 (12:47→21:00)
[2017-10-08] MEDS: AMIKACIN 500 MG in SOD CHLORIDE 0.9% 100 ML IVPB (14:10)
[2017-10-08] MEDS: WARFARIN 2 MG TAB PO (17:46)
[2017-10-08] MEDS: EPOETIN 10000 UNITS/1 ML INJ (ESRD) SC (17:48)
[2017-10-08] MEDS: SODIUM HYPOCHLORITE (1/40) 1 APPLIC BTL IRR ×2 (17:49→21:00)
[2017-10-08] MEDS: ATORVASTATIN 10 MG TAB PO (21:09)
[2017-10-08] MEDS: CINACALCET 30 MG TAB PO (21:09)
[2017-10-08] MEDS: HYDROCODONE/APAP (10/325) TAB PO (21:12)
[2017-10-09] MEDS: morphine 2 MG INJ IV ×2 (00:07→11:35)
[2017-10-09] MEDS: CEPASTAT LOZENGE MT ×3 (00:20→20:28)
[2017-10-09] MEDS: CALCIUM CARBONATE 500 MG CHEW TAB PO ×6 (01:00→20:31)
[2017-10-09] MEDS: PANTOPRAZOLE (EC) 40 MG TAB PO (05:34)
[2017-10-09] MEDS: LEVOTHYROXINE 112 MCG TAB PO (05:34)
[2017-10-09 06:12] LABS: ADD MAN DIFF? NO
[2017-10-09 06:13] LABS: ABNORMAL IP MESSAGE 1; BASOPHILS % 0.3 % (0.0-2.0); EOSINOPHILS # 0.1 10^3/ul (0.0-0.5); EOSINOPHILS % 1.6 % (0.0-7.0); HEMOGLOBIN 7.7 g/dl (14.0-18.0); LYMPHOCYTES # 0.5 10^3/ul (0.8-2.9); MEAN CORPUSCULAR HEMOGLOBIN 30.8 pg (29.0-33.0); MEAN CORPUSCULAR HGB CONC 30.8 g/dl (32.0-37.0); MEAN PLATELET VOLUME 10.3 fl (7.4-10.4); MONOCYTE # 0.3 10^3/ul (0.3-0.9); MONOCYTES % 5.5 % (0.0-11.0); NEUTROPHIL # 4.8 10^3/ul (1.6-7.5); NEUTROPHILS % 83.3 % (39.0-77.0); PLATELET COUNT 143 10^3/UL (140-415); POSITIVE DIFF @See below; RED CELL DISTRIBUTION WIDTH 17.4 % (11.5-14.5)
[2017-10-09 06:13] LABS: WHITE BLOOD COUNT 5.8 10^3/ul (4.8-10.8)
[2017-10-09 06:43] LABS: ANION GAP 5 (8-16); BLOOD UREA NITROGEN 19 mg/dl (7-20); CALCIUM 8.9 mg/dl (8.4-10.2); CARBON DIOXIDE 33 mmol/L (21-31); CHLORIDE 101 mmol/L (97-110); GLUCOSE 72 mg/dl (70-220); POTASSIUM 4.4 mmol/L (3.5-5.1); SODIUM 135 mmol/L (135-144)
[2017-10-09 06:49] LABS: PROTIME 35.4 Sec (11.9-14.9); PT RATIO 2.8
[2017-10-09] MEDS: POLYETHYLENE GLYCOL 17 GM PACKET PO (08:53)
[2017-10-09] MEDS: SEVELAMER CARBONATE 2.4 GM PKT PO ×3 (08:53→18:00)
[2017-10-09] MEDS: MULTIVIT/CA CARB/B CMPLX/FA TAB PO (08:53)
[2017-10-09] MEDS: MINERAL OIL 133 ML ENEMA PR (08:55)
[2017-10-09] MEDS: LISINOPRIL 10 MG TAB PO ×2 (08:57→20:29)
[2017-10-09] MEDS: NYSTATIN 30 GM POWDER BTL TOP ×2 (08:57→20:31)
[2017-10-09] MEDS: AMIODARONE 200 MG TAB PO (08:57)
[2017-10-09] MEDS: WARFARIN 1 MG TAB PO (16:19)
[2017-10-09] MEDS: SODIUM HYPOCHLORITE (1/40) 1 APPLIC BTL IRR ×2 (16:19→20:31)
[2017-10-09] MEDS: HYDROCODONE/APAP (10/325) TAB PO (20:29)
[2017-10-09] MEDS: ATORVASTATIN 10 MG TAB PO (20:29)
[2017-10-09] MEDS: CINACALCET 30 MG TAB PO (20:29)
[2017-10-10] MEDS: CALCIUM CARBONATE 500 MG CHEW TAB PO ×6 (00:21→20:57)
[2017-10-10 05:58] LABS: ADD MAN DIFF? NO
[2017-10-10 06:00] LABS: WHITE BLOOD COUNT 5.7 10^3/ul (4.8-10.8)
[2017-10-10 06:00] LABS: BASOPHILS % 0.4 % (0.0-2.0); EOSINOPHILS # 0.1 10^3/ul (0.0-0.5); EOSINOPHILS % 2.1 % (0.0-7.0); HEMATOCRIT 25.5 % (42.0-52.0); HEMOGLOBIN 7.9 g/dl (14.0-18.0); LYMPHOCYTES # 0.7 10^3/ul (0.8-2.9); LYMPHOCYTES % 12.2 % (15.0-51.0); MEAN CORPUSCULAR HEMOGLOBIN 31.3 pg (29.0-33.0); MEAN CORPUSCULAR VOLUME 101.2 fl (82.0-101.0); MEAN PLATELET VOLUME 9.8 fl (7.4-10.4); MONOCYTE # 0.3 10^3/ul (0.3-0.9); MONOCYTES % 5.3 % (0.0-11.0); NEUTROPHIL # 4.5 10^3/ul (1.6-7.5); NEUTROPHILS % 79.3 % (39.0-77.0); PLATELET COUNT 135 10^3/UL (140-415); RED BLOOD COUNT 2.52 10^6/ul (4.70-6.10); RED CELL DISTRIBUTION WIDTH 17.4 % (11.5-14.5)
[2017-10-10 06:22] LABS: INR 3.79; PROTIME 38.6 Sec (11.9-14.9)
[2017-10-10 06:25] LABS: ANION GAP 10 (8-16); BLOOD UREA NITROGEN 26 mg/dl (7-20); CALCIUM 9.5 mg/dl (8.4-10.2); CARBON DIOXIDE 32 mmol/L (21-31); CHLORIDE 99 mmol/L (97-110); CREATININE 4.63 mg/dl (0.61-1.24); GLUCOSE 66 mg/dl (70-220); POTASSIUM 4.9 mmol/L (3.5-5.1); SODIUM 136 mmol/L (135-144)
[2017-10-10] MEDS: MULTIVIT/CA CARB/B CMPLX/FA TAB PO (09:00)
[2017-10-10] MEDS: PANTOPRAZOLE (EC) 40 MG TAB PO (09:00)
[2017-10-10] MEDS: SEVELAMER CARBONATE 2.4 GM PKT PO ×3 (09:00→16:58)
[2017-10-10] MEDS: LEVOTHYROXINE 112 MCG TAB PO (09:00)
[2017-10-10] MEDS: LISINOPRIL 10 MG TAB PO ×2 (09:01→20:56)
[2017-10-10] MEDS: SODIUM HYPOCHLORITE (1/40) 1 APPLIC BTL IRR ×2 (09:02→20:55)
[2017-10-10] MEDS: NYSTATIN 30 GM POWDER BTL TOP ×2 (09:02→20:57)
[2017-10-10] MEDS: AMIODARONE 200 MG TAB PO (09:02)
[2017-10-10] MEDS: POLYETHYLENE GLYCOL 17 GM PACKET PO (09:04)
[2017-10-10] MEDS: morphine LIQ (10 MG/5 ML) CUP PO (10:35)
[2017-10-10] MEDS: CEPASTAT LOZENGE MT (13:16)
[2017-10-10] MEDS ORDERED: hydrALAzine 20 MG INJ IV (14:00)
[2017-10-10] MEDS: ATORVASTATIN 10 MG TAB PO (20:56)
[2017-10-10] MEDS: CINACALCET 30 MG TAB PO (20:56)
[2017-10-11] MEDS: morphine LIQ (10 MG/5 ML) CUP PO ×3 (00:40→18:26)
[2017-10-11] MEDS: CALCIUM CARBONATE 500 MG CHEW TAB PO ×6 (01:00→20:54)
[2017-10-11] MEDS: CEPASTAT LOZENGE MT ×3 (01:05→16:14)
[2017-10-11] MEDS: ONDANSETRON 4 MG INJ IV ×2 (01:44→22:53)
[2017-10-11 06:24] LABS: ADD MAN DIFF? NO
[2017-10-11 06:30] LABS: BASOPHILS % 0.3 % (0.0-2.0); EOSINOPHILS # 0.1 10^3/ul (0.0-0.5); EOSINOPHILS % 2.4 % (0.0-7.0); HEMATOCRIT 25.1 % (42.0-52.0); LYMPHOCYTES # 0.6 10^3/ul (0.8-2.9); LYMPHOCYTES % 10.4 % (15.0-51.0); MEAN CORPUSCULAR HEMOGLOBIN 32.3 pg (29.0-33.0); MEAN CORPUSCULAR HGB CONC 31.9 g/dl (32.0-37.0); MEAN CORPUSCULAR VOLUME 101.2 fl (82.0-101.0); MONOCYTE # 0.3 10^3/ul (0.3-0.9); MONOCYTES % 5.6 % (0.0-11.0); NEUTROPHIL # 4.7 10^3/ul (1.6-7.5); NEUTROPHILS % 80.8 % (39.0-77.0); PLATELET COUNT 139 10^3/UL (140-415); RED BLOOD COUNT 2.48 10^6/ul (4.70-6.10); RED CELL DISTRIBUTION WIDTH 17.5 % (11.5-14.5)
[2017-10-11 06:30] LABS: WHITE BLOOD COUNT 5.9 10^3/ul (4.8-10.8)
[2017-10-11] MEDS: LEVOTHYROXINE 112 MCG TAB PO (06:49)
[2017-10-11] MEDS: PANTOPRAZOLE (EC) 40 MG TAB PO (06:49)
[2017-10-11 06:52] LABS: INR 3.47; PT RATIO 2.8
[2017-10-11] MEDS: SEVELAMER CARBONATE 2.4 GM PKT PO ×3 (08:15→16:16)
[2017-10-11] MEDS: AMIODARONE 200 MG TAB PO (09:00)
[2017-10-11] MEDS: MINERAL OIL 133 ML ENEMA PR (09:00)
[2017-10-11] MEDS: LISINOPRIL 10 MG TAB PO ×2 (09:00→20:55)
[2017-10-11 09:29] LABS: BLOOD UREA NITROGEN 34 mg/dl (7-20); CALCIUM 9.5 mg/dl (8.4-10.2); CARBON DIOXIDE 26 mmol/L (21-31); CHLORIDE 100 mmol/L (97-110); CREATININE 5.37 mg/dl (0.61-1.24); SODIUM 133 mmol/L (135-144)
[2017-10-11 09:41] LABS: ANION GAP 13 (8-16); POTASSIUM 5.9 mmol/L (3.5-5.1)
[2017-10-11 10:13] LABS: GLUCOSE 42 mg/dl (70-220)
[2017-10-11] MEDS: SODIUM HYPOCHLORITE (1/40) 1 APPLIC BTL IRR ×2 (12:29→20:56)
[2017-10-11] MEDS: POLYETHYLENE GLYCOL 17 GM PACKET PO (12:30)
[2017-10-11] MEDS: MULTIVIT/CA CARB/B CMPLX/FA TAB PO (12:30)
[2017-10-11] MEDS: NYSTATIN 30 GM POWDER BTL TOP ×2 (12:31→20:55)
[2017-10-11] MEDS: AMIKACIN IVPB (13:39)
[2017-10-11] MEDS: SOD CHLORIDE 0.9% IVPB (13:39)
[2017-10-11] MEDS: EPOETIN 10000 UNITS/1 ML INJ (ESRD) SC (16:15)
[2017-10-11] MEDS: CINACALCET 30 MG TAB PO (20:54)
[2017-10-11] MEDS: ATORVASTATIN 10 MG TAB PO (20:54)
[2017-10-11] MEDS: HYDROCODONE/APAP (10/325) TAB PO (22:49)
[2017-10-12] MEDS: CALCIUM CARBONATE 500 MG CHEW TAB PO ×6 (01:00→21:00)
[2017-10-12] MEDS: morphine LIQ (10 MG/5 ML) CUP PO (05:07)
[2017-10-12] MEDS: LEVOTHYROXINE 112 MCG TAB PO (06:14)
[2017-10-12] MEDS: PANTOPRAZOLE (EC) 40 MG TAB PO (06:14)
[2017-10-12 07:08] LABS: INR 2.58; PROTIME 28.4 Sec (11.9-14.9); PT RATIO 2.2
[2017-10-12] MEDS: NYSTATIN 30 GM POWDER BTL TOP ×2 (08:48→21:54)
[2017-10-12] MEDS: SEVELAMER CARBONATE 2.4 GM PKT PO ×3 (08:49→17:34)
[2017-10-12] MEDS: POLYETHYLENE GLYCOL 17 GM PACKET PO (08:50)
[2017-10-12] MEDS: AMIODARONE 200 MG TAB PO (08:51)
[2017-10-12] MEDS: MULTIVIT/CA CARB/B CMPLX/FA TAB PO (08:51)
[2017-10-12] MEDS: LISINOPRIL 10 MG TAB PO ×2 (08:51→21:00)
[2017-10-12] MEDS: SODIUM HYPOCHLORITE (1/40) 1 APPLIC BTL IRR ×2 (08:54→21:53)
[2017-10-12] MEDS: SOD CHLORIDE 0.9% 250 ML IV* (08:54)
[2017-10-12] MEDS: HYDROCODONE/APAP (10/325) TAB PO (15:57)
[2017-10-12] MEDS: ACETAMINOPHEN 325 MG TAB PO (17:34)
[2017-10-12] MEDS: WARFARIN 1 MG TAB PO (17:35)
[2017-10-12] MEDS: ONDANSETRON 4 MG INJ IV (20:36)
[2017-10-12] MEDS: ATORVASTATIN 10 MG TAB PO (21:00)
[2017-10-12] MEDS: CINACALCET 30 MG TAB PO (21:00)
[2017-10-13] MEDS: morphine LIQ (10 MG/5 ML) CUP PO ×3 (01:43→13:49)
[2017-10-13] MEDS: PHENOL 1.4% SOLN 180 ML BTL MT ×2 (01:43→20:35)
[2017-10-13] MEDS: CALCIUM CARBONATE 500 MG CHEW TAB PO ×6 (01:43→20:26)
[2017-10-13] MEDS: LEVOTHYROXINE 112 MCG TAB PO (05:51)
[2017-10-13] MEDS: PANTOPRAZOLE (EC) 40 MG TAB PO (05:51)
[2017-10-13 06:28] LABS: INR 2.19; PROTIME 24.9 Sec (11.9-14.9); PT RATIO 1.9
[2017-10-13] MEDS: SEVELAMER CARBONATE 2.4 GM PKT PO ×3 (08:26→17:10)
[2017-10-13] MEDS: POLYETHYLENE GLYCOL 17 GM PACKET PO (08:26)
[2017-10-13] MEDS: MULTIVIT/CA CARB/B CMPLX/FA TAB PO (08:26)
[2017-10-13] MEDS: SODIUM HYPOCHLORITE (1/40) 1 APPLIC BTL IRR ×2 (08:27→20:29)
[2017-10-13] MEDS: AMIODARONE 200 MG TAB PO (08:30)
[2017-10-13] MEDS: MINERAL OIL 133 ML ENEMA PR (08:31)
[2017-10-13] MEDS: LISINOPRIL 10 MG TAB PO ×2 (08:31→20:26)
[2017-10-13] MEDS: NYSTATIN 30 GM POWDER BTL TOP ×2 (08:32→20:29)
[2017-10-13] MEDS: AMIKACIN IVPB (14:51)
[2017-10-13] MEDS: SOD CHLORIDE 0.9% IVPB (14:51)
[2017-10-13] MEDS: WARFARIN 1 MG TAB PO (17:10)
[2017-10-13] MEDS: EPOETIN 10000 UNITS/1 ML INJ (ESRD) SC (17:10)
[2017-10-13] MEDS: CINACALCET 30 MG TAB PO (20:27)
[2017-10-13] MEDS: ATORVASTATIN 10 MG TAB PO (20:27)
[2017-10-13] MEDS: HYDROCODONE/APAP (10/325) TAB PO (22:00)
[2017-10-14] MEDS: CALCIUM CARBONATE 500 MG CHEW TAB PO ×6 (01:00→21:04)
[2017-10-14] MEDS: PANTOPRAZOLE (EC) 40 MG TAB PO (05:47)
[2017-10-14 05:57] LABS: ADD MAN DIFF? NO
[2017-10-14 06:06] LABS: BASOPHILS % 0.4 % (0.0-2.0); EOSINOPHILS # 0.1 10^3/ul (0.0-0.5); HEMATOCRIT 24.6 % (42.0-52.0); HEMOGLOBIN 7.7 g/dl (14.0-18.0); LYMPHOCYTES # 0.6 10^3/ul (0.8-2.9); LYMPHOCYTES % 13.2 % (15.0-51.0); MEAN CORPUSCULAR HEMOGLOBIN 32.5 pg (29.0-33.0); MEAN CORPUSCULAR HGB CONC 31.3 g/dl (32.0-37.0); MEAN CORPUSCULAR VOLUME 103.8 fl (82.0-101.0); MEAN PLATELET VOLUME 10.2 fl (7.4-10.4); MONOCYTE # 0.3 10^3/ul (0.3-0.9); MONOCYTES % 7.1 % (0.0-11.0); NEUTROPHIL # 3.5 10^3/ul (1.6-7.5); NEUTROPHILS % 75.9 % (39.0-77.0); PLATELET COUNT 124 10^3/UL (140-415); RED BLOOD COUNT 2.37 10^6/ul (4.70-6.10); RED CELL DISTRIBUTION WIDTH 17.2 % (11.5-14.5)
[2017-10-14 06:06] LABS: WHITE BLOOD COUNT 4.6 10^3/ul (4.8-10.8)
[2017-10-14 06:26] LABS: INR 2.17; PROTIME 24.7 Sec (11.9-14.9); PT RATIO 1.9
[2017-10-14 06:36] LABS: ANION GAP 9 (8-16); BLOOD UREA NITROGEN 19 mg/dl (7-20); CALCIUM 9.2 mg/dl (8.4-10.2); CARBON DIOXIDE 35 mmol/L (21-31); CHLORIDE 98 mmol/L (97-110); CREATININE 4.01 mg/dl (0.61-1.24); PHOSPHORUS 3.7 mg/dl (2.5-4.9); POTASSIUM 4.7 mmol/L (3.5-5.1); SODIUM 137 mmol/L (135-144)
[2017-10-14 06:46] LABS: GLUCOSE 50 mg/dl (70-220)
[2017-10-14] MEDS: LEVOTHYROXINE 112 MCG TAB PO (07:00)
[2017-10-14] MEDS: POLYETHYLENE GLYCOL 17 GM PACKET PO (09:00)
[2017-10-14] MEDS: SEVELAMER CARBONATE 2.4 GM PKT PO ×4 (09:04→18:16)
[2017-10-14] MEDS: MULTIVIT/CA CARB/B CMPLX/FA TAB PO (09:05)
[2017-10-14] MEDS: LISINOPRIL 10 MG TAB PO ×2 (09:05→21:04)
[2017-10-14] MEDS: AMIODARONE 200 MG TAB PO (09:05)
[2017-10-14] MEDS: NYSTATIN 30 GM POWDER BTL TOP ×2 (09:06→21:06)
[2017-10-14] MEDS: morphine LIQ (10 MG/5 ML) CUP PO ×3 (09:13→19:56)
[2017-10-14] MEDS: SODIUM HYPOCHLORITE (1/40) 1 APPLIC BTL IRR ×2 (09:24→21:06)
[2017-10-14] MEDS: WARFARIN 2 MG TAB PO (16:43)
[2017-10-14] MEDS: ATORVASTATIN 10 MG TAB PO (21:04)
[2017-10-14] MEDS: CINACALCET 30 MG TAB PO (21:04)
[2017-10-15] MEDS: CALCIUM CARBONATE 500 MG CHEW TAB PO ×5 (00:42→17:15)
[2017-10-15] MEDS: HYDROCODONE/APAP (10/325) TAB PO (01:49)
[2017-10-15] MEDS: LEVOTHYROXINE 112 MCG TAB PO (05:32)
[2017-10-15] MEDS: PANTOPRAZOLE (EC) 40 MG TAB PO (05:32)
[2017-10-15 05:50] LABS: WHITE BLOOD COUNT 5.7 10^3/ul (4.8-10.8)
[2017-10-15 05:50] LABS: ABNORMAL IP MESSAGE 1; ADD MAN DIFF? NO; BASOPHILS % 0.5 % (0.0-2.0); EOSINOPHILS # 0.1 10^3/ul (0.0-0.5); EOSINOPHILS % 1.9 % (0.0-7.0); HEMOGLOBIN 7.6 g/dl (14.0-18.0); LYMPHOCYTES # 0.6 10^3/ul (0.8-2.9); LYMPHOCYTES % 9.6 % (15.0-51.0); MEAN CORPUSCULAR HEMOGLOBIN 31.1 pg (29.0-33.0); MEAN CORPUSCULAR HGB CONC 30.4 g/dl (32.0-37.0); MEAN CORPUSCULAR VOLUME 102.5 fl (82.0-101.0); MEAN PLATELET VOLUME 10.3 fl (7.4-10.4); MONOCYTE # 0.4 10^3/ul (0.3-0.9); MONOCYTES % 6.1 % (0.0-11.0); NEUTROPHIL # 4.7 10^3/ul (1.6-7.5); NEUTROPHILS % 81.6 % (39.0-77.0); PLATELET COUNT 116 10^3/UL (140-415); POSITIVE DIFF @See below; RED BLOOD COUNT 2.44 10^6/ul (4.70-6.10); RED CELL DISTRIBUTION WIDTH 16.9 % (11.5-14.5)
[2017-10-15 06:14] LABS: INR 2.31
[2017-10-15 06:18] LABS: ANION GAP 8 (8-16); BLOOD UREA NITROGEN 28 mg/dl (7-20); CALCIUM 9.7 mg/dl (8.4-10.2); CARBON DIOXIDE 32 mmol/L (21-31); CHLORIDE 100 mmol/L (97-110); GLUCOSE 56 mg/dl (70-220); POTASSIUM 5.4 mmol/L (3.5-5.1); SODIUM 135 mmol/L (135-144)
[2017-10-15 08:03] LABS: HEMOGLOBIN A1C 4.6 % (0-5.9)
[2017-10-15] MEDS: SEVELAMER CARBONATE 2.4 GM PKT PO ×3 (08:09→18:00)
[2017-10-15] MEDS: MULTIVIT/CA CARB/B CMPLX/FA TAB PO (08:09)
[2017-10-15] MEDS: POLYETHYLENE GLYCOL 17 GM PACKET PO (08:10)
[2017-10-15] MEDS: morphine LIQ (10 MG/5 ML) CUP PO ×2 (08:10→15:57)
[2017-10-15] MEDS: MINERAL OIL 133 ML ENEMA PR (08:11)
[2017-10-15] MEDS: LISINOPRIL 10 MG TAB PO ×3 (08:11→21:00)
[2017-10-15] MEDS: AMIODARONE 200 MG TAB PO (08:12)
[2017-10-15] MEDS: SODIUM HYPOCHLORITE (1/40) 1 APPLIC BTL IRR ×2 (08:13→21:00)
[2017-10-15] MEDS: NYSTATIN 30 GM POWDER BTL TOP ×2 (08:15→21:00)
[2017-10-15] MEDS: ONDANSETRON 4 MG INJ IV ×2 (13:17→19:19)
[2017-10-15 16:01] LABS: FREE T4 (FREE THYROXINE) 1.47 ng/dl (0.78-2.44)
[2017-10-15] MEDS: COSYNTROPIN 0.25 MG INJ IV (17:09)
[2017-10-15] MEDS: WARFARIN 2 MG TAB PO (17:15)
[2017-10-15] MEDS: ERGOCALCIFEROL (8000 UNITS/ML PO SYG) PO (17:47)
[2017-10-15] MEDS: ATORVASTATIN 10 MG TAB PO (21:00)
[2017-10-16] MEDS: morphine LIQ (10 MG/5 ML) CUP PO ×2 (00:18→06:03)
[2017-10-16] MEDS: SOD CHLORIDE 0.9% IVPB (00:19)
[2017-10-16] MEDS: AMIKACIN IVPB (00:19)
[2017-10-16] MEDS: EPOETIN 10000 UNITS/1 ML INJ (ESRD) SC (00:23)
[2017-10-16] MEDS: CINACALCET 30 MG TAB PO ×2 (00:24→21:19)
[2017-10-16] MEDS: CALCIUM CARBONATE 500 MG CHEW TAB PO ×7 (00:26→21:19)
[2017-10-16] MEDS: LEVOTHYROXINE 112 MCG TAB PO (05:30)
[2017-10-16] MEDS: PANTOPRAZOLE (EC) 40 MG TAB PO (05:30)
[2017-10-16 06:38] LABS: INR 2.41; PROTIME 26.9 Sec (11.9-14.9); PT RATIO 2.1
[2017-10-16] MEDS: ACCU-CHEK XX ×4 (08:11→21:00)
[2017-10-16] MEDS: SEVELAMER CARBONATE 2.4 GM PKT PO ×3 (08:29→17:42)
[2017-10-16] MEDS: MULTIVIT/CA CARB/B CMPLX/FA TAB PO (08:29)
[2017-10-16] MEDS: LISINOPRIL 10 MG TAB PO ×2 (08:31→21:22)
[2017-10-16] MEDS: AMIODARONE 200 MG TAB PO (08:32)
[2017-10-16] MEDS: POLYETHYLENE GLYCOL 17 GM PACKET PO ×2 (08:32→18:11)
[2017-10-16] MEDS: NYSTATIN 30 GM POWDER BTL TOP ×2 (08:32→21:21)
[2017-10-16] MEDS: SODIUM HYPOCHLORITE (1/40) 1 APPLIC BTL IRR ×3 (09:00→21:33)
[2017-10-16] MEDS: HYDROCODONE/APAP (10/325) TAB PO (14:15)
[2017-10-16 15:57] LABS: C-PEPTIDE 4.37 ng/mL (0.80-3.85)
[2017-10-16] MEDS ORDERED: WARFARIN 2 MG TAB PO (17:00)
[2017-10-16] MEDS: WARFARIN 2 MG TAB PO (17:42)
[2017-10-16] MEDS: ATORVASTATIN 10 MG TAB PO (21:25)
[2017-10-17] MEDS: CALCIUM CARBONATE 500 MG CHEW TAB PO ×6 (01:00→20:41)
[2017-10-17] MEDS: morphine LIQ (10 MG/5 ML) CUP PO ×2 (04:35→22:26)
[2017-10-17] MEDS: PANTOPRAZOLE (EC) 40 MG TAB PO (05:24)
[2017-10-17 06:09] LABS: ADD MAN DIFF? NO
[2017-10-17] MEDS: LEVOTHYROXINE 112 MCG TAB PO (06:10)
[2017-10-17 06:37] LABS: INR 1.96; PROTIME 22.8 Sec (11.9-14.9); PT RATIO 1.8
[2017-10-17 06:55] LABS: IRON 26 ug/dl (35-150)
[2017-10-17 06:59] LABS: ABNORMAL IP MESSAGE 1; BASOPHILS % 0.6 % (0.0-2.0); EOSINOPHILS # 0.1 10^3/ul (0.0-0.5); EOSINOPHILS % 2.5 % (0.0-7.0); HEMATOCRIT 23.8 % (42.0-52.0); HEMOGLOBIN 7.2 g/dl (14.0-18.0); LYMPHOCYTES # 0.6 10^3/ul (0.8-2.9); LYMPHOCYTES % 11.1 % (15.0-51.0); MEAN CORPUSCULAR HEMOGLOBIN 31.7 pg (29.0-33.0); MEAN CORPUSCULAR HGB CONC 30.3 g/dl (32.0-37.0); MEAN CORPUSCULAR VOLUME 104.8 fl (82.0-101.0); MEAN PLATELET VOLUME 10.8 fl (7.4-10.4); MONOCYTE # 0.4 10^3/ul (0.3-0.9); MONOCYTES % 6.7 % (0.0-11.0); NEUTROPHIL # 4.1 10^3/ul (1.6-7.5); NEUTROPHILS % 78.9 % (39.0-77.0); PLATELET COUNT 132 10^3/UL (140-415); POSITIVE DIFF @See below; RED BLOOD COUNT 2.27 10^6/ul (4.70-6.10); RED CELL DISTRIBUTION WIDTH 17.2 % (11.5-14.5)
[2017-10-17 06:59] LABS: WHITE BLOOD COUNT 5.2 10^3/ul (4.8-10.8)
[2017-10-17 07:05] LABS: % IRON SATURATION 14 % SAT (22-52); ALANINE AMINOTRANSFERASE 18 IU/L (13-69); ALBUMIN 2.5 g/dl (3.3-4.9); ALBUMIN/GLOBULIN RATIO 0.75; ALKALINE PHOSPHATASE 82 IU/L (42-121); ANION GAP 8 (8-16); ASPARTATE AMINO TRANSFERASE 26 IU/L (15-46); BLOOD UREA NITROGEN 29 mg/dl (7-20); CALCIUM 9.5 mg/dl (8.4-10.2); CARBON DIOXIDE 32 mmol/L (21-31); CHLORIDE 102 mmol/L (97-110); CREATININE 4.31 mg/dl (0.61-1.24); POTASSIUM 5.5 mmol/L (3.5-5.1); SODIUM 136 mmol/L (135-144); TOTAL IRON BINDING CAPACITY 187 ug/dl (241-421); TOTAL PROTEIN 5.8 g/dl (6.1-8.1)
[2017-10-17 07:15] LABS: GLUCOSE 38 mg/dl (70-220)
[2017-10-17] MEDS ORDERED: GLUCOSE GEL 15 GRAM TUBE PO (07:30)
[2017-10-17] MEDS ORDERED: DEXTROSE 50% 50 ML SYRINGE IV (07:30)
[2017-10-17] MEDS ORDERED: GLUCAGON 1 MG INJ IM (07:30)
[2017-10-17] MEDS: DEXTROSE 50% 50 ML SYRINGE IV ×2 (07:36→08:22)
[2017-10-17] MEDS: ACCU-CHEK XX ×4 (08:23→21:00)
[2017-10-17] MEDS: SEVELAMER CARBONATE 2.4 GM PKT PO ×3 (08:26→17:32)
[2017-10-17] MEDS: MULTIVIT/CA CARB/B CMPLX/FA TAB PO (08:26)
[2017-10-17] MEDS: NYSTATIN 30 GM POWDER BTL TOP ×2 (08:29→20:39)
[2017-10-17] MEDS: MINERAL OIL 133 ML ENEMA PR (08:29)
[2017-10-17] MEDS: AMIODARONE 200 MG TAB PO (09:00)
[2017-10-17] MEDS: LISINOPRIL 10 MG TAB PO ×2 (09:00→20:38)
[2017-10-17] MEDS: POLYETHYLENE GLYCOL 17 GM PACKET PO (09:00)
[2017-10-17] MEDS: GLUCOSE GEL 15 GRAM TUBE PO (09:52)
[2017-10-17] MEDS: HYDROCODONE/APAP (10/325) TAB PO (12:24)
[2017-10-17 14:46] LABS: ANION GAP 9 (8-16); BLOOD UREA NITROGEN 34 mg/dl (7-20); CALCIUM 9.6 mg/dl (8.4-10.2); CARBON DIOXIDE 33 mmol/L (21-31); CHLORIDE 99 mmol/L (97-110); CREATININE 4.63 mg/dl (0.61-1.24); GLUCOSE 99 mg/dl (70-220); POTASSIUM 5.6 mmol/L (3.5-5.1); SODIUM 135 mmol/L (135-144)
[2017-10-17] MEDS: WARFARIN 2.5 MG TAB PO (17:32)
[2017-10-17 18:58] LABS: ANION GAP 13 (8-16); BLOOD UREA NITROGEN 34 mg/dl (7-20); CALCIUM 9.7 mg/dl (8.4-10.2); CARBON DIOXIDE 31 mmol/L (21-31); CHLORIDE 96 mmol/L (97-110); CREATININE 4.83 mg/dl (0.61-1.24); GLUCOSE 71 mg/dl (70-220); SODIUM 134 mmol/L (135-144)
[2017-10-17 19:14] LABS: POTASSIUM 5.8 mmol/L (3.5-5.1)
[2017-10-17] MEDS: ATORVASTATIN 10 MG TAB PO (20:37)
[2017-10-17] MEDS: CINACALCET 30 MG TAB PO (20:37)
[2017-10-17] MEDS: FERROUS SULFATE (EC) 325 MG TAB PO (20:37)
[2017-10-17] MEDS: SODIUM HYPOCHLORITE (1/40) 1 APPLIC BTL IRR (20:45)
[2017-10-17] MEDS: GLUCOSE GEL 15 GRAM TUBE BUCCAL (22:26)
[2017-10-17 22:29] LABS: ANION GAP 12 (8-16); BLOOD UREA NITROGEN 34 mg/dl (7-20); CALCIUM 9.8 mg/dl (8.4-10.2); CARBON DIOXIDE 31 mmol/L (21-31); CHLORIDE 97 mmol/L (97-110); CREATININE 4.95 mg/dl (0.61-1.24); GLUCOSE 62 mg/dl (70-220); POTASSIUM 5.8 mmol/L (3.5-5.1); SODIUM 134 mmol/L (135-144)
[2017-10-18] MEDS: CALCIUM CARBONATE 500 MG CHEW TAB PO ×6 (01:00→21:00)
[2017-10-18] MEDS: ACCU-CHEK XX ×6 (01:00→21:20)
[2017-10-18 01:32] LABS: ANION GAP 9 (8-16); BLOOD UREA NITROGEN 37 mg/dl (7-20); CALCIUM 9.8 mg/dl (8.4-10.2); CARBON DIOXIDE 31 mmol/L (21-31); CHLORIDE 99 mmol/L (97-110); CREATININE 4.76 mg/dl (0.61-1.24); GLUCOSE 60 mg/dl (70-220); POTASSIUM 5.9 mmol/L (3.5-5.1); SODIUM 133 mmol/L (135-144)
[2017-10-18] MEDS: DEXTROSE 50% 50 ML SYRINGE IV ×2 (04:40→08:56)
[2017-10-18 05:15] LABS: ADD MAN DIFF? NO
[2017-10-18 05:18] LABS: BASOPHILS % 0.5 % (0.0-2.0); EOSINOPHILS # 0.1 10^3/ul (0.0-0.5); EOSINOPHILS % 3.2 % (0.0-7.0); HEMATOCRIT 23.4 % (42.0-52.0); HEMOGLOBIN 7.2 g/dl (14.0-18.0); LYMPHOCYTES # 0.6 10^3/ul (0.8-2.9); LYMPHOCYTES % 14.1 % (15.0-51.0); MEAN CORPUSCULAR HEMOGLOBIN 31.7 pg (29.0-33.0); MEAN CORPUSCULAR HGB CONC 30.8 g/dl (32.0-37.0); MEAN CORPUSCULAR VOLUME 103.1 fl (82.0-101.0); MEAN PLATELET VOLUME 10.6 fl (7.4-10.4); MONOCYTE # 0.3 10^3/ul (0.3-0.9); NEUTROPHIL # 3.3 10^3/ul (1.6-7.5); PLATELET COUNT 129 10^3/UL (140-415); RED BLOOD COUNT 2.27 10^6/ul (4.70-6.10); RED CELL DISTRIBUTION WIDTH 16.8 % (11.5-14.5)
[2017-10-18 05:18] LABS: WHITE BLOOD COUNT 4.3 10^3/ul (4.8-10.8)
[2017-10-18] MEDS: DEXTROSE 5% 1,000 ML IV (05:36)
[2017-10-18 05:40] LABS: INR 2.37; PROTIME 26.5 Sec (11.9-14.9); PT RATIO 2.1
[2017-10-18 05:43] LABS: ALANINE AMINOTRANSFERASE 13 IU/L (13-69); ALBUMIN 2.5 g/dl (3.3-4.9); ALBUMIN/GLOBULIN RATIO 0.71; ALKALINE PHOSPHATASE 87 IU/L (42-121); ANION GAP 11 (8-16); ASPARTATE AMINO TRANSFERASE 18 IU/L (15-46); BILIRUBIN,INDIRECT 0.1 mg/dl (0-1.1); BILIRUBIN,TOTAL 0.1 mg/dl (0.2-1.3); BLOOD UREA NITROGEN 36 mg/dl (7-20); CALCIUM 9.8 mg/dl (8.4-10.2); CARBON DIOXIDE 32 mmol/L (21-31); CHLORIDE 98 mmol/L (97-110); CREATININE 4.99 mg/dl (0.61-1.24); POTASSIUM 5.9 mmol/L (3.5-5.1); SODIUM 135 mmol/L (135-144)
[2017-10-18 05:52] LABS: GLUCOSE 45 mg/dl (70-220)
[2017-10-18] MEDS: LEVOTHYROXINE 112 MCG TAB PO (06:23)
[2017-10-18] MEDS: PANTOPRAZOLE (EC) 40 MG TAB PO (06:23)
[2017-10-18] MEDS: SEVELAMER CARBONATE 2.4 GM PKT PO ×3 (08:31→18:24)
[2017-10-18] MEDS: SODIUM HYPOCHLORITE (1/40) 1 APPLIC BTL IRR ×3 (08:32→21:19)
[2017-10-18] MEDS: FERROUS SULFATE (EC) 325 MG TAB PO ×2 (08:33→20:24)
[2017-10-18] MEDS: MULTIVIT/CA CARB/B CMPLX/FA TAB PO (08:34)
[2017-10-18] MEDS: POLYETHYLENE GLYCOL 17 GM PACKET PO (08:35)
[2017-10-18] MEDS: LISINOPRIL 10 MG TAB PO ×2 (08:35→21:00)
[2017-10-18] MEDS: NYSTATIN 30 GM POWDER BTL TOP ×2 (08:35→20:24)
[2017-10-18] MEDS: AMIODARONE 200 MG TAB PO (08:35)
[2017-10-18 12:40] LABS: ANION GAP 8 (8-16); BLOOD UREA NITROGEN 35 mg/dl (7-20); CALCIUM 9.3 mg/dl (8.4-10.2); CARBON DIOXIDE 31 mmol/L (21-31); CHLORIDE 100 mmol/L (97-110); CREATININE 4.51 mg/dl (0.61-1.24); GLUCOSE 65 mg/dl (70-220); SODIUM 134 mmol/L (135-144)
[2017-10-18 12:42] LABS: POTASSIUM 5.4 mmol/L (3.5-5.1)
[2017-10-18] MEDS: LORAZEPAM 2 MG INJ IV (16:20)
[2017-10-18] MEDS: SOD CHLORIDE 0.9% IVPB (17:56)
[2017-10-18] MEDS: AMIKACIN IVPB (17:56)
[2017-10-18] MEDS: WARFARIN 2.5 MG TAB PO (17:56)
[2017-10-18] MEDS: EPOETIN 10000 UNITS/1 ML INJ (ESRD) SC (17:58)
[2017-10-18] MEDS: ACARBOSE 50 MG TAB PO (18:25)
[2017-10-18] MEDS: morphine LIQ (10 MG/5 ML) CUP PO (18:47)
[2017-10-18] MEDS: ACETAMINOPHEN 325 MG TAB PO (20:23)
[2017-10-18] MEDS: CINACALCET 30 MG TAB PO (20:23)
[2017-10-18] MEDS: ATORVASTATIN 10 MG TAB PO (20:23)
[2017-10-18] MEDS: ALBUMIN HUMAN 25% 100 ML IV (21:19)
[2017-10-18 22:27] LABS: INSULIN 3.1 uIU/mL (2.0-19.6)
[2017-10-19] MEDS: CALCIUM CARBONATE 500 MG CHEW TAB PO ×6 (01:00→22:25)
[2017-10-19] MEDS: morphine LIQ (10 MG/5 ML) CUP PO ×2 (01:56→06:36)
[2017-10-19] MEDS: ACCU-CHEK XX ×4 (03:00→21:00)
[2017-10-19] MEDS: DEXTROSE 5% 1,000 ML IV ×2 (05:30→17:20)
[2017-10-19] MEDS: PANTOPRAZOLE (EC) 40 MG TAB PO (05:56)
[2017-10-19] MEDS: LEVOTHYROXINE 112 MCG TAB PO (05:56)
[2017-10-19 07:08] LABS: INR 2.94; PROTIME 31.5 Sec (11.9-14.9); PT RATIO 2.5
[2017-10-19] MEDS: SEVELAMER CARBONATE 2.4 GM PKT PO ×3 (08:22→17:00)
[2017-10-19] MEDS: POLYETHYLENE GLYCOL 17 GM PACKET PO (08:22)
[2017-10-19] MEDS: FERROUS SULFATE (EC) 325 MG TAB PO ×2 (08:22→22:18)
[2017-10-19] MEDS: MULTIVIT/CA CARB/B CMPLX/FA TAB PO (08:23)
[2017-10-19] MEDS: AMIODARONE 200 MG TAB PO (08:26)
[2017-10-19] MEDS: ACARBOSE 50 MG TAB PO ×3 (08:26→17:01)
[2017-10-19] MEDS: LISINOPRIL 10 MG TAB PO ×2 (08:26→22:25)
[2017-10-19] MEDS: MINERAL OIL 133 ML ENEMA PR (09:00)
[2017-10-19] MEDS: SODIUM HYPOCHLORITE (1/40) 1 APPLIC BTL IRR ×2 (13:21→22:26)
[2017-10-19] MEDS: NYSTATIN 30 GM POWDER BTL TOP ×2 (13:23→22:25)
[2017-10-19 16:27] LABS: C-PEPTIDE 5.33 ng/mL (0.80-3.85); C-PEPTIDE 5.36 ng/mL (0.80-3.85); C-PEPTIDE 6.55 ng/mL (0.80-3.85); C-PEPTIDE 7.13 ng/mL (0.80-3.85); C-PEPTIDE 7.67 ng/mL (0.80-3.85); C-PEPTIDE 7.97 ng/mL (0.80-3.85)
[2017-10-19] MEDS: WARFARIN 3 MG TAB PO (17:00)
[2017-10-19] MEDS: HYDROCODONE/APAP (10/325) TAB PO (17:49)
[2017-10-19 20:12] LABS: INSULIN 1.3 uIU/mL (2.0-19.6); INSULIN 1.8 uIU/mL (2.0-19.6); INSULIN 2.4 uIU/mL (2.0-19.6); INSULIN 2.6 uIU/mL (2.0-19.6); INSULIN 2.9 uIU/mL (2.0-19.6); INSULIN 5.6 uIU/mL (2.0-19.6)
[2017-10-19] MEDS: CINACALCET 30 MG TAB PO (22:19)
[2017-10-19] MEDS: ONDANSETRON 4 MG INJ IV (22:19)
[2017-10-19] MEDS: ATORVASTATIN 10 MG TAB PO (22:26)
[2017-10-20] MEDS: CALCIUM CARBONATE 500 MG CHEW TAB PO ×6 (02:27→20:38)
[2017-10-20] MEDS: ACCU-CHEK XX ×4 (03:00→20:40)
[2017-10-20] MEDS: PANTOPRAZOLE (EC) 40 MG TAB PO (05:24)
[2017-10-20] MEDS: morphine LIQ (10 MG/5 ML) CUP PO (05:25)
[2017-10-20] MEDS: DEXTROSE 5% 1,000 ML IV ×2 (05:30→20:29)
[2017-10-20 06:18] LABS: ADD MAN DIFF? NO
[2017-10-20 06:27] LABS: ABNORMAL IP MESSAGE 1; BASOPHILS % 0.3 % (0.0-2.0); EOSINOPHILS # 0.1 10^3/ul (0.0-0.5); EOSINOPHILS % 3.4 % (0.0-7.0); HEMATOCRIT 22.8 % (42.0-52.0); LYMPHOCYTES # 0.5 10^3/ul (0.8-2.9); LYMPHOCYTES % 13.1 % (15.0-51.0); MEAN CORPUSCULAR HEMOGLOBIN 32.1 pg (29.0-33.0); MEAN CORPUSCULAR HGB CONC 30.7 g/dl (32.0-37.0); MEAN CORPUSCULAR VOLUME 104.6 fl (82.0-101.0); MEAN PLATELET VOLUME 10.2 fl (7.4-10.4); MONOCYTE # 0.4 10^3/ul (0.3-0.9); MONOCYTES % 9.4 % (0.0-11.0); NEUTROPHIL # 2.8 10^3/ul (1.6-7.5); NEUTROPHILS % 73.3 % (39.0-77.0); PLATELET COUNT 128 10^3/UL (140-415); POSITIVE DIFF @See below; RED BLOOD COUNT 2.18 10^6/ul (4.70-6.10); RED CELL DISTRIBUTION WIDTH 16.2 % (11.5-14.5)
[2017-10-20 06:27] LABS: WHITE BLOOD COUNT 3.8 10^3/ul (4.8-10.8)
[2017-10-20] MEDS: LEVOTHYROXINE 112 MCG TAB PO (06:31)
[2017-10-20 06:35] LABS: INR 2.88; PT RATIO 2.4
[2017-10-20 07:03] LABS: ANION GAP 11 (8-16); BLOOD UREA NITROGEN 29 mg/dl (7-20); CALCIUM 9.5 mg/dl (8.4-10.2); CARBON DIOXIDE 28 mmol/L (21-31); CHLORIDE 98 mmol/L (97-110); CREATININE 4.46 mg/dl (0.61-1.24); GLUCOSE 60 mg/dl (70-220); POTASSIUM 5.4 mmol/L (3.5-5.1); SODIUM 132 mmol/L (135-144)
[2017-10-20] MEDS: LISINOPRIL 10 MG TAB PO ×2 (08:07→20:39)
[2017-10-20] MEDS: AMIODARONE 200 MG TAB PO (08:07)
[2017-10-20] MEDS: ACARBOSE 50 MG TAB PO ×3 (08:28→20:37)
[2017-10-20] MEDS: POLYETHYLENE GLYCOL 17 GM PACKET PO (08:29)
[2017-10-20] MEDS: NYSTATIN 30 GM POWDER BTL TOP ×2 (08:29→20:42)
[2017-10-20] MEDS: SEVELAMER CARBONATE 2.4 GM PKT PO ×3 (08:29→20:34)
[2017-10-20] MEDS: FERROUS SULFATE (EC) 325 MG TAB PO ×2 (08:29→20:37)
[2017-10-20] MEDS: SODIUM HYPOCHLORITE (1/40) 1 APPLIC BTL IRR ×2 (08:29→20:42)
[2017-10-20] MEDS: MULTIVIT/CA CARB/B CMPLX/FA TAB PO (08:29)
[2017-10-20] MEDS: NA POLYST SULFON 15 GM/60 ML BTL PO (11:37)
[2017-10-20] MEDS: IOHEXOL 14.3 MG(I)/ML (ADULT) BTL PO (11:40)
[2017-10-20] MEDS: SOD CHLORIDE 0.9% 100 ML (14:43)
[2017-10-20] MEDS: IODIXANOL LOCM 100 ML BTL (14:43)
[2017-10-20] MEDS: AMIKACIN IVPB (20:30)
[2017-10-20] MEDS: SOD CHLORIDE 0.9% IVPB (20:30)
[2017-10-20] MEDS: CINACALCET 30 MG TAB PO (20:32)
[2017-10-20] MEDS: ATORVASTATIN 10 MG TAB PO (20:33)
[2017-10-20] MEDS: WARFARIN 3 MG TAB PO (20:37)
[2017-10-20] MEDS: EPOETIN 10000 UNITS/1 ML INJ (ESRD) SC (20:45)
[2017-10-20] MEDS: HYDROCODONE/APAP (10/325) TAB PO (22:06)
[2017-10-21] MEDS: CALCIUM CARBONATE 500 MG CHEW TAB PO ×6 (00:06→20:11)
[2017-10-21] MEDS: ACCU-CHEK XX ×4 (00:10→21:00)
[2017-10-21 05:41] LABS: ADD MAN DIFF? NO
[2017-10-21 05:52] LABS: WHITE BLOOD COUNT 4.2 10^3/ul (4.8-10.8)
[2017-10-21 05:52] LABS: ABNORMAL IP MESSAGE 1; BASOPHILS % 0.7 % (0.0-2.0); EOSINOPHILS # 0.1 10^3/ul (0.0-0.5); EOSINOPHILS % 3.1 % (0.0-7.0); HEMATOCRIT 22.3 % (42.0-52.0); LYMPHOCYTES # 0.3 10^3/ul (0.8-2.9); MEAN CORPUSCULAR HEMOGLOBIN 31.7 pg (29.0-33.0); MEAN CORPUSCULAR HGB CONC 30.9 g/dl (32.0-37.0); MEAN CORPUSCULAR VOLUME 102.3 fl (82.0-101.0); MEAN PLATELET VOLUME 10.3 fl (7.4-10.4); MONOCYTE # 0.3 10^3/ul (0.3-0.9); MONOCYTES % 6.4 % (0.0-11.0); NEUTROPHIL # 3.5 10^3/ul (1.6-7.5); NEUTROPHILS % 83.1 % (39.0-77.0); PLATELET COUNT 130 10^3/UL (140-415); POSITIVE DIFF @See below; RED BLOOD COUNT 2.18 10^6/ul (4.70-6.10)
[2017-10-21] MEDS: morphine LIQ (10 MG/5 ML) CUP PO ×2 (06:02→15:40)
[2017-10-21] MEDS: PANTOPRAZOLE (EC) 40 MG TAB PO (06:03)
[2017-10-21] MEDS: LEVOTHYROXINE 112 MCG TAB PO (06:03)
[2017-10-21 06:10] LABS: INR 2.95; PROTIME 31.6 Sec (11.9-14.9); PT RATIO 2.5
[2017-10-21 06:26] LABS: ANION GAP 9 (8-16); BLOOD UREA NITROGEN 15 mg/dl (7-20); CALCIUM 9.1 mg/dl (8.4-10.2); CARBON DIOXIDE 30 mmol/L (21-31); CHLORIDE 101 mmol/L (97-110); CREATININE 3.02 mg/dl (0.61-1.24); GLUCOSE 70 mg/dl (70-220); POTASSIUM 4.3 mmol/L (3.5-5.1); SODIUM 136 mmol/L (135-144)
[2017-10-21 06:39] LABS: HEMOGLOBIN 6.9 g/dl (14.0-18.0)
[2017-10-21] MEDS: LISINOPRIL 10 MG TAB PO ×2 (08:43→20:20)
[2017-10-21] MEDS: MULTIVIT/CA CARB/B CMPLX/FA TAB PO (08:44)
[2017-10-21] MEDS: FERROUS SULFATE (EC) 325 MG TAB PO ×2 (08:44→20:11)
[2017-10-21] MEDS: POLYETHYLENE GLYCOL 17 GM PACKET PO (08:45)
[2017-10-21] MEDS: AMIODARONE 200 MG TAB PO (08:45)
[2017-10-21] MEDS: MINERAL OIL 133 ML ENEMA PR (08:45)
[2017-10-21] MEDS: ACARBOSE 50 MG TAB PO ×3 (08:45→17:49)
[2017-10-21] MEDS: SEVELAMER CARBONATE 2.4 GM PKT PO ×3 (08:45→17:47)
[2017-10-21 09:13] LABS: ANISOCYTOSIS 1+ (0-0); BASOPHILS % (M) 1 % (0-2); EOSINOPHILS % (M) 3 % (0-7); LYMPHOCYTES #M 0.1 10^3/ul (0.8-2.9); LYMPHOCYTES % (M) 4 % (15-51); PLATELET ESTIMATE DECREASED; POIKILOCYTOSIS 1+ (0-0); SEGMENTED NEUTROPHILS (M) % 92 % (39-77); TEAR DROP CELLS 1+ (0-0)
[2017-10-21] MEDS: SODIUM HYPOCHLORITE (1/40) 1 APPLIC BTL IRR ×2 (12:53→20:16)
[2017-10-21] MEDS: NYSTATIN 30 GM POWDER BTL TOP ×2 (12:53→20:16)
[2017-10-21] MEDS: HYDROmorphONE 1 MG/ML SYG IV ×3 (17:27→23:24)
[2017-10-21] MEDS: WARFARIN 3 MG TAB PO (17:48)
[2017-10-21] MEDS: HYDROCODONE/APAP (10/325) TAB PO (17:54)
[2017-10-21] MEDS: ATORVASTATIN 10 MG TAB PO (20:11)
[2017-10-21] MEDS: CINACALCET 30 MG TAB PO (20:11)
[2017-10-21] MEDS: ONDANSETRON 4 MG INJ IV (20:26)
[2017-10-22] MEDS: morphine LIQ (10 MG/5 ML) CUP PO ×3 (00:35→21:46)
[2017-10-22] MEDS: CALCIUM CARBONATE 500 MG CHEW TAB PO ×6 (01:00→20:41)
[2017-10-22] MEDS: HYDROmorphONE 1 MG/ML SYG IV ×5 (02:37→13:14)
[2017-10-22] MEDS: ACCU-CHEK XX ×4 (03:00→21:00)
[2017-10-22] MEDS: PANTOPRAZOLE (EC) 40 MG TAB PO (06:12)
[2017-10-22] MEDS: LEVOTHYROXINE 112 MCG TAB PO (06:12)
[2017-10-22] MEDS: FERROUS SULFATE (EC) 325 MG TAB PO ×2 (08:11→20:41)
[2017-10-22] MEDS: MULTIVIT/CA CARB/B CMPLX/FA TAB PO (08:11)
[2017-10-22] MEDS: POLYETHYLENE GLYCOL 17 GM PACKET PO (08:12)
[2017-10-22] MEDS: SEVELAMER CARBONATE 2.4 GM PKT PO ×3 (08:12→17:56)
[2017-10-22] MEDS: SODIUM HYPOCHLORITE (1/40) 1 APPLIC BTL IRR ×2 (08:13→20:55)
[2017-10-22] MEDS: NYSTATIN 30 GM POWDER BTL TOP ×2 (08:13→20:50)
[2017-10-22] MEDS: ACARBOSE 50 MG TAB PO ×3 (08:15→17:57)
[2017-10-22 08:23] LABS: ADD MAN DIFF? NO
[2017-10-22 08:34] LABS: WHITE BLOOD COUNT 4.9 10^3/ul (4.8-10.8)
[2017-10-22 08:34] LABS: ABNORMAL IP MESSAGE 1; BASOPHILS % 0.2 % (0.0-2.0); EOSINOPHILS # 0.1 10^3/ul (0.0-0.5); EOSINOPHILS % 1.6 % (0.0-7.0); HEMATOCRIT 21.8 % (42.0-52.0); LYMPHOCYTES # 0.5 10^3/ul (0.8-2.9); LYMPHOCYTES % 9.8 % (15.0-51.0); MEAN CORPUSCULAR HGB CONC 29.8 g/dl (32.0-37.0); MEAN CORPUSCULAR VOLUME 103.8 fl (82.0-101.0); MEAN PLATELET VOLUME 10.4 fl (7.4-10.4); MONOCYTE # 0.3 10^3/ul (0.3-0.9); MONOCYTES % 6.5 % (0.0-11.0); NEUTROPHILS % 81.5 % (39.0-77.0); PLATELET COUNT 126 10^3/UL (140-415); POSITIVE DIFF @See below
[2017-10-22 08:46] LABS: HEMOGLOBIN 6.5 g/dl (14.0-18.0)
[2017-10-22 08:53] LABS: ANION GAP 14 (8-16); BLOOD UREA NITROGEN 23 mg/dl (7-20); CALCIUM 9.7 mg/dl (8.4-10.2); CARBON DIOXIDE 29 mmol/L (21-31); CHLORIDE 96 mmol/L (97-110); CREATININE 4.21 mg/dl (0.61-1.24); GLUCOSE 61 mg/dl (70-220); POTASSIUM 4.9 mmol/L (3.5-5.1); SODIUM 134 mmol/L (135-144)
[2017-10-22 08:56] LABS: INR 2.57; PROTIME 28.3 Sec (11.9-14.9); PT RATIO 2.2
[2017-10-22] MEDS: LISINOPRIL 10 MG TAB PO ×2 (09:00→20:50)
[2017-10-22] MEDS: AMIODARONE 200 MG TAB PO (09:00)
[2017-10-22] MEDS: ACETAMINOPHEN 325 MG TAB PO ×2 (11:50→18:54)
[2017-10-22 12:30] LABS: AHG CROSSMATCH 1 3
[2017-10-22] MEDS: AMIKACIN IVPB (15:15)
[2017-10-22] MEDS: SOD CHLORIDE 0.9% IVPB (15:15)
[2017-10-22] MEDS: HYDROmorphONE 2 MG TAB PO ×2 (16:59→20:46)
[2017-10-22] MEDS: WARFARIN 3 MG TAB PO (17:00)
[2017-10-22] MEDS: EPOETIN 10000 UNITS/1 ML INJ (ESRD) SC (17:58)
[2017-10-22] MEDS: CINACALCET 30 MG TAB PO (20:41)
[2017-10-22] MEDS: ATORVASTATIN 10 MG TAB PO (20:46)
[2017-10-23] MEDS: CALCIUM CARBONATE 500 MG CHEW TAB PO ×6 (00:46→20:38)
[2017-10-23] MEDS: morphine LIQ (10 MG/5 ML) CUP PO ×3 (01:41→20:38)
[2017-10-23] MEDS: ACCU-CHEK XX ×4 (03:00→21:00)
[2017-10-23] MEDS: HYDROmorphONE 2 MG TAB PO ×3 (04:04→14:40)
[2017-10-23 05:10] LABS: ADD MAN DIFF? NO
[2017-10-23 05:23] LABS: WHITE BLOOD COUNT 5.7 10^3/ul (4.8-10.8)
[2017-10-23 05:23] LABS: ABNORMAL IP MESSAGE 1; BASOPHILS % 0.3 % (0.0-2.0); EOSINOPHILS # 0.1 10^3/ul (0.0-0.5); EOSINOPHILS % 2.1 % (0.0-7.0); HEMATOCRIT 29.5 % (42.0-52.0); HEMOGLOBIN 9.1 g/dl (14.0-18.0); LYMPHOCYTES # 0.3 10^3/ul (0.8-2.9); LYMPHOCYTES % 4.5 % (15.0-51.0); MEAN CORPUSCULAR HEMOGLOBIN 30.8 pg (29.0-33.0); MEAN CORPUSCULAR HGB CONC 30.8 g/dl (32.0-37.0); MONOCYTE # 0.4 10^3/ul (0.3-0.9); MONOCYTES % 7.1 % (0.0-11.0); NEUTROPHIL # 4.9 10^3/ul (1.6-7.5); NEUTROPHILS % 85.7 % (39.0-77.0); PLATELET COUNT 122 10^3/UL (140-415); POSITIVE DIFF @See below; RED BLOOD COUNT 2.95 10^6/ul (4.70-6.10); RED CELL DISTRIBUTION WIDTH 18.2 % (11.5-14.5)
[2017-10-23 05:38] LABS: INR 2.63; PROTIME 28.8 Sec (11.9-14.9); PT RATIO 2.3
[2017-10-23 05:49] LABS: ANION GAP 12 (8-16); BLOOD UREA NITROGEN 18 mg/dl (7-20); CALCIUM 9.6 mg/dl (8.4-10.2); CARBON DIOXIDE 31 mmol/L (21-31); CHLORIDE 98 mmol/L (97-110); CREATININE 3.02 mg/dl (0.61-1.24); GLUCOSE 78 mg/dl (70-220); POTASSIUM 4.4 mmol/L (3.5-5.1); SODIUM 137 mmol/L (135-144)
[2017-10-23] MEDS: LEVOTHYROXINE 112 MCG TAB PO (06:12)
[2017-10-23] MEDS: PANTOPRAZOLE (EC) 40 MG TAB PO (06:12)
[2017-10-23] MEDS: SEVELAMER CARBONATE 2.4 GM PKT PO ×3 (08:22→17:23)
[2017-10-23] MEDS: FERROUS SULFATE (EC) 325 MG TAB PO ×2 (08:22→20:43)
[2017-10-23] MEDS: MULTIVIT/CA CARB/B CMPLX/FA TAB PO (08:22)
[2017-10-23] MEDS: POLYETHYLENE GLYCOL 17 GM PACKET PO (08:22)
[2017-10-23] MEDS: LISINOPRIL 10 MG TAB PO ×2 (08:28→20:43)
[2017-10-23] MEDS: AMIODARONE 200 MG TAB PO (08:28)
[2017-10-23] MEDS: ACARBOSE 50 MG TAB PO ×3 (08:28→17:23)
[2017-10-23] MEDS: NYSTATIN 30 GM POWDER BTL TOP ×2 (08:29→20:46)
[2017-10-23] MEDS: MINERAL OIL 133 ML ENEMA PR (08:29)
[2017-10-23] MEDS: SODIUM HYPOCHLORITE (1/40) 1 APPLIC BTL IRR ×2 (08:29→20:46)
[2017-10-23] MEDS: ONDANSETRON 4 MG INJ IV (12:07)
[2017-10-23] MEDS: METOCLOPRAMIDE 5 MG TAB PO ×2 (17:23→21:59)
[2017-10-23] MEDS: WARFARIN 3 MG TAB PO (17:23)
[2017-10-23] MEDS: CINACALCET 30 MG TAB PO (20:39)
[2017-10-23] MEDS: ATORVASTATIN 10 MG TAB PO (20:40)
[2017-10-23] MEDS: HYDROCODONE/APAP (10/325) TAB PO (22:07)
[2017-10-24] MEDS: CALCIUM CARBONATE 500 MG CHEW TAB PO ×6 (00:54→21:16)
[2017-10-24] MEDS: morphine LIQ (10 MG/5 ML) CUP PO ×3 (02:39→21:16)
[2017-10-24] MEDS: ACCU-CHEK XX ×4 (02:39→21:00)
[2017-10-24 06:00] LABS: ADD MAN DIFF? NO
[2017-10-24 06:11] LABS: WHITE BLOOD COUNT 4.7 10^3/ul (4.8-10.8)
[2017-10-24 06:11] LABS: ABNORMAL IP MESSAGE 1; BASOPHILS % 0.4 % (0.0-2.0); EOSINOPHILS # 0.1 10^3/ul (0.0-0.5); EOSINOPHILS % 2.5 % (0.0-7.0); HEMATOCRIT 28.9 % (42.0-52.0); LYMPHOCYTES # 0.5 10^3/ul (0.8-2.9); LYMPHOCYTES % 9.9 % (15.0-51.0); MEAN CORPUSCULAR HEMOGLOBIN 31.1 pg (29.0-33.0); MEAN CORPUSCULAR HGB CONC 31.1 g/dl (32.0-37.0); MEAN PLATELET VOLUME 10.5 fl (7.4-10.4); MONOCYTE # 0.4 10^3/ul (0.3-0.9); MONOCYTES % 7.8 % (0.0-11.0); NEUTROPHIL # 3.7 10^3/ul (1.6-7.5); PLATELET COUNT 129 10^3/UL (140-415); POSITIVE DIFF @See below; RED BLOOD COUNT 2.89 10^6/ul (4.70-6.10); RED CELL DISTRIBUTION WIDTH 17.7 % (11.5-14.5)
[2017-10-24] MEDS: PANTOPRAZOLE (EC) 40 MG TAB PO (06:12)
[2017-10-24] MEDS: METOCLOPRAMIDE 5 MG TAB PO ×3 (06:12→21:17)
[2017-10-24] MEDS: LEVOTHYROXINE 112 MCG TAB PO (06:12)
[2017-10-24 06:25] LABS: INR 2.93; PROTIME 31.4 Sec (11.9-14.9); PT RATIO 2.5
[2017-10-24 06:26] LABS: ALANINE AMINOTRANSFERASE 27 IU/L (13-69); ALBUMIN 2.5 g/dl (3.3-4.9); ALBUMIN/GLOBULIN RATIO 0.75; ALKALINE PHOSPHATASE 111 IU/L (42-121); ANION GAP 13 (8-16); ASPARTATE AMINO TRANSFERASE 25 IU/L (15-46); BILIRUBIN,INDIRECT 0.1 mg/dl (0-1.1); BILIRUBIN,TOTAL 0.1 mg/dl (0.2-1.3); BLOOD UREA NITROGEN 28 mg/dl (7-20); CARBON DIOXIDE 30 mmol/L (21-31); CHLORIDE 98 mmol/L (97-110); CREATININE 4.14 mg/dl (0.61-1.24); SODIUM 136 mmol/L (135-144); TOTAL PROTEIN 5.8 g/dl (6.1-8.1)
[2017-10-24 06:47] LABS: GLUCOSE 45 mg/dl (70-220)
[2017-10-24] MEDS: DEXTROSE 5%-0.9% NACL 1,000 ML IV (07:06)
[2017-10-24] MEDS: ACARBOSE 50 MG TAB PO ×4 (08:15→18:22)
[2017-10-24] MEDS: AMIODARONE 200 MG TAB PO (08:20)
[2017-10-24] MEDS: LISINOPRIL 10 MG TAB PO ×2 (08:21→21:18)
[2017-10-24] MEDS: MULTIVIT/CA CARB/B CMPLX/FA TAB PO (08:22)
[2017-10-24] MEDS: SEVELAMER CARBONATE 2.4 GM PKT PO ×3 (08:22→18:19)
[2017-10-24] MEDS: FERROUS SULFATE (EC) 325 MG TAB PO ×2 (08:22→21:17)
[2017-10-24] MEDS: SODIUM HYPOCHLORITE (1/40) 1 APPLIC BTL IRR ×3 (08:27→21:18)
[2017-10-24] MEDS: POLYETHYLENE GLYCOL 17 GM PACKET PO ×2 (08:27→15:19)
[2017-10-24] MEDS: NYSTATIN 30 GM POWDER BTL TOP ×3 (08:27→21:18)
[2017-10-24] MEDS: HYDROCODONE/APAP (10/325) TAB PO (09:27)
[2017-10-24] MEDS: GLUCOSE GEL 15 GRAM TUBE PO (10:19)
[2017-10-24] MEDS: WARFARIN 3 MG TAB PO (18:19)
[2017-10-24] MEDS: DEXTROSE 10%/0.2% NACL 1,000 ML IV (19:48)
[2017-10-24] MEDS: LACTOBACILLUS RHAMNOSUS CAP PO (21:16)
[2017-10-24] MEDS: ATORVASTATIN 10 MG TAB PO (21:17)
[2017-10-24] MEDS: CINACALCET 30 MG TAB PO (21:18)
[2017-10-25] MEDS: CALCIUM CARBONATE 500 MG CHEW TAB PO ×6 (01:00→20:11)
[2017-10-25] MEDS: ACCU-CHEK XX ×4 (02:25→21:00)
[2017-10-25] MEDS: METOCLOPRAMIDE 5 MG TAB PO ×3 (05:37→21:42)
[2017-10-25 06:19] LABS: ADD MAN DIFF? NO
[2017-10-25 06:31] LABS: ABNORMAL IP MESSAGE 1; BASOPHILS % 0.4 % (0.0-2.0); EOSINOPHILS # 0.1 10^3/ul (0.0-0.5); HEMATOCRIT 28.6 % (42.0-52.0); HEMOGLOBIN 8.8 g/dl (14.0-18.0); LYMPHOCYTES # 0.5 10^3/ul (0.8-2.9); MEAN CORPUSCULAR HEMOGLOBIN 30.8 pg (29.0-33.0); MEAN CORPUSCULAR HGB CONC 30.8 g/dl (32.0-37.0); MEAN PLATELET VOLUME 10.1 fl (7.4-10.4); MONOCYTE # 0.3 10^3/ul (0.3-0.9); MONOCYTES % 7.2 % (0.0-11.0); NEUTROPHIL # 3.7 10^3/ul (1.6-7.5); NEUTROPHILS % 78.2 % (39.0-77.0); PLATELET COUNT 132 10^3/UL (140-415); POSITIVE DIFF @See below; RED BLOOD COUNT 2.86 10^6/ul (4.70-6.10); RED CELL DISTRIBUTION WIDTH 17.2 % (11.5-14.5)
[2017-10-25 06:31] LABS: WHITE BLOOD COUNT 4.7 10^3/ul (4.8-10.8)
[2017-10-25] MEDS: LEVOTHYROXINE 112 MCG TAB PO (06:35)
[2017-10-25 06:43] LABS: INR 2.76; PT RATIO 2.3
[2017-10-25 06:55] LABS: ALANINE AMINOTRANSFERASE 22 IU/L (13-69); ALBUMIN 2.6 g/dl (3.3-4.9); ALBUMIN/GLOBULIN RATIO 0.78; ALKALINE PHOSPHATASE 118 IU/L (42-121); ANION GAP 14 (8-16); ASPARTATE AMINO TRANSFERASE 23 IU/L (15-46); BLOOD UREA NITROGEN 37 mg/dl (7-20); CALCIUM 10.2 mg/dl (8.4-10.2); CARBON DIOXIDE 30 mmol/L (21-31); CHLORIDE 97 mmol/L (97-110); CREATININE 5.11 mg/dl (0.61-1.24); GLUCOSE 66 mg/dl (70-220); SODIUM 135 mmol/L (135-144); TOTAL PROTEIN 5.9 g/dl (6.1-8.1)
[2017-10-25 07:10] LABS: POTASSIUM 5.6 mmol/L (3.5-5.1)
[2017-10-25] MEDS: SEVELAMER CARBONATE 2.4 GM PKT PO ×3 (08:10→17:33)
[2017-10-25] MEDS: ACARBOSE 50 MG TAB PO ×4 (08:12→17:34)
[2017-10-25] MEDS: LACTOBACILLUS RHAMNOSUS CAP PO ×2 (09:00→20:13)
[2017-10-25] MEDS: MINERAL OIL 133 ML ENEMA PR (09:00)
[2017-10-25] MEDS: AMIODARONE 200 MG TAB PO (09:00)
[2017-10-25] MEDS: POLYETHYLENE GLYCOL 17 GM PACKET PO (09:00)
[2017-10-25] MEDS: LISINOPRIL 10 MG TAB PO ×2 (09:00→20:13)
[2017-10-25] MEDS: FERROUS SULFATE (EC) 325 MG TAB PO ×2 (09:00→20:11)
[2017-10-25] MEDS: morphine LIQ (10 MG/5 ML) CUP PO ×2 (09:41→15:31)
[2017-10-25] MEDS: FAMOTIDINE 20 MG TAB PO (12:54)
[2017-10-25] MEDS: MULTIVIT/CA CARB/B CMPLX/FA TAB PO (12:54)
[2017-10-25] MEDS: AMIKACIN IVPB (15:45)
[2017-10-25] MEDS: SOD CHLORIDE 0.9% IVPB (15:45)
[2017-10-25] MEDS: WARFARIN 3 MG TAB PO (17:35)
[2017-10-25] MEDS: EPOETIN 10000 UNITS/1 ML INJ (ESRD) SC (17:37)
[2017-10-25] MEDS: HYDROmorphONE 2 MG TAB PO (20:01)
[2017-10-25] MEDS: CINACALCET 30 MG TAB PO (20:12)
[2017-10-25] MEDS: ATORVASTATIN 10 MG TAB PO (20:12)
[2017-10-25] MEDS: NYSTATIN 30 GM POWDER BTL TOP (20:14)
[2017-10-25] MEDS: SODIUM HYPOCHLORITE (1/40) 1 APPLIC BTL IRR (21:17)
[2017-10-25] MEDS: DEXTROSE 10%/0.2% NACL 1,000 ML IV (21:18)
[2017-10-26] MEDS: CALCIUM CARBONATE 500 MG CHEW TAB PO ×10 (01:33→22:39)
[2017-10-26] MEDS: morphine LIQ (10 MG/5 ML) CUP PO (01:42)
[2017-10-26] MEDS: ACCU-CHEK XX ×4 (03:00→21:00)
[2017-10-26] MEDS ORDERED: LEVOTHYROXINE 125 MCG TAB PO (06:00)
[2017-10-26] MEDS: LEVOTHYROXINE 112 MCG TAB PO (06:28)
[2017-10-26] MEDS: METOCLOPRAMIDE 5 MG TAB PO ×3 (06:29→22:34)
[2017-10-26] MEDS: ACARBOSE 50 MG TAB PO ×2 (08:26→12:15)
[2017-10-26] MEDS: SEVELAMER CARBONATE 2.4 GM PKT PO ×3 (08:26→17:27)
[2017-10-26] MEDS: SODIUM HYPOCHLORITE (1/40) 1 APPLIC BTL IRR ×2 (09:00→21:00)
[2017-10-26] MEDS: NYSTATIN 30 GM POWDER BTL TOP ×2 (09:00→21:00)
[2017-10-26 09:47] LABS: ANION GAP 12 (8-16); BLOOD UREA NITROGEN 25 mg/dl (7-20); CALCIUM 9.9 mg/dl (8.4-10.2); CARBON DIOXIDE 32 mmol/L (21-31); CHLORIDE 98 mmol/L (97-110); CREATININE 3.81 mg/dl (0.61-1.24); GLUCOSE 77 mg/dl (70-220); POTASSIUM 4.9 mmol/L (3.5-5.1); SODIUM 137 mmol/L (135-144)
[2017-10-26 09:54] LABS: INR 2.59; PROTIME 28.5 Sec (11.9-14.9); PT RATIO 2.2
[2017-10-26] MEDS: FERROUS SULFATE (EC) 325 MG TAB PO ×2 (10:17→22:32)
[2017-10-26] MEDS: POLYETHYLENE GLYCOL 17 GM PACKET PO (10:17)
[2017-10-26] MEDS: LACTOBACILLUS RHAMNOSUS CAP PO ×2 (10:17→21:00)
[2017-10-26] MEDS: LISINOPRIL 10 MG TAB PO ×2 (10:20→22:31)
[2017-10-26] MEDS: MULTIVIT/CA CARB/B CMPLX/FA TAB PO (10:21)
[2017-10-26] MEDS: AMIODARONE 200 MG TAB PO (10:21)
[2017-10-26] MEDS: FAMOTIDINE 20 MG TAB PO (10:22)
[2017-10-26] MEDS: HYDROmorphONE 2 MG TAB PO (13:06)
[2017-10-26] MEDS: WARFARIN 3 MG TAB PO (17:27)
[2017-10-26] MEDS: ATORVASTATIN 10 MG TAB PO (22:30)
[2017-10-26] MEDS: CINACALCET 30 MG TAB PO (22:34)
[2017-10-26] MEDS: OCTREOTIDE 50 MCG INJ SC (22:36)
[2017-10-27] MEDS: CALCIUM CARBONATE 500 MG CHEW TAB PO ×10 (01:00→23:23)
[2017-10-27] MEDS: ACCU-CHEK XX ×4 (03:00→21:00)
[2017-10-27] MEDS: METOCLOPRAMIDE 5 MG TAB PO ×3 (05:20→22:46)
[2017-10-27 06:28] LABS: INR 2.76; PT RATIO 2.3
[2017-10-27] MEDS: LEVOTHYROXINE 112 MCG TAB PO (06:57)
[2017-10-27] MEDS: SEVELAMER CARBONATE 2.4 GM PKT PO ×3 (08:17→18:24)
[2017-10-27] MEDS: AMIODARONE 200 MG TAB PO (08:20)
[2017-10-27] MEDS: FERROUS SULFATE (EC) 325 MG TAB PO ×2 (08:20→21:00)
[2017-10-27] MEDS: FAMOTIDINE 20 MG TAB PO (08:21)
[2017-10-27] MEDS: LISINOPRIL 10 MG TAB PO ×2 (08:21→21:00)
[2017-10-27] MEDS: MULTIVIT/CA CARB/B CMPLX/FA TAB PO (08:22)
[2017-10-27] MEDS: POLYETHYLENE GLYCOL 17 GM PACKET PO (08:22)
[2017-10-27] MEDS: NYSTATIN 30 GM POWDER BTL TOP ×2 (08:28→21:00)
[2017-10-27] MEDS: SODIUM HYPOCHLORITE (1/40) 1 APPLIC BTL IRR ×2 (08:29→21:00)
[2017-10-27] MEDS: OCTREOTIDE 50 MCG INJ SC ×4 (08:39→22:54)
[2017-10-27] MEDS: MINERAL OIL 133 ML ENEMA PR (08:40)
[2017-10-27] MEDS: LACTOBACILLUS RHAMNOSUS CAP PO ×2 (10:07→21:00)
[2017-10-27] MEDS: morphine LIQ (10 MG/5 ML) CUP PO ×2 (10:35→18:47)
[2017-10-27] MEDS: EPOETIN 10000 UNITS/1 ML INJ (ESRD) SC (18:23)
[2017-10-27] MEDS: WARFARIN 3 MG TAB PO (18:25)
[2017-10-27] MEDS: ONDANSETRON 4 MG INJ IV (20:07)
[2017-10-27] MEDS: ATORVASTATIN 10 MG TAB PO (21:00)
[2017-10-27] MEDS: CINACALCET 30 MG TAB PO (21:00)
[2017-10-28] MEDS: CALCIUM CARBONATE 500 MG CHEW TAB PO ×9 (01:00→22:04)
[2017-10-28] MEDS: ACCU-CHEK XX ×4 (03:00→21:00)
[2017-10-28] MEDS: METOCLOPRAMIDE 5 MG TAB PO ×3 (06:10→22:03)
[2017-10-28] MEDS: LEVOTHYROXINE 112 MCG TAB PO (06:10)
[2017-10-28 06:15] LABS: ADD MAN DIFF? NO
[2017-10-28 06:23] LABS: WHITE BLOOD COUNT 4.8 10^3/ul (4.8-10.8)
[2017-10-28 06:23] LABS: ABNORMAL IP MESSAGE 1; BASOPHILS % 0.8 % (0.0-2.0); EOSINOPHILS # 0.2 10^3/ul (0.0-0.5); EOSINOPHILS % 3.3 % (0.0-7.0); HEMATOCRIT 30.7 % (42.0-52.0); HEMOGLOBIN 9.4 g/dl (14.0-18.0); LYMPHOCYTES # 0.5 10^3/ul (0.8-2.9); LYMPHOCYTES % 9.4 % (15.0-51.0); MEAN CORPUSCULAR HEMOGLOBIN 30.8 pg (29.0-33.0); MEAN CORPUSCULAR HGB CONC 30.6 g/dl (32.0-37.0); MEAN CORPUSCULAR VOLUME 100.7 fl (82.0-101.0); MEAN PLATELET VOLUME 10.7 fl (7.4-10.4); MONOCYTE # 0.3 10^3/ul (0.3-0.9); MONOCYTES % 6.9 % (0.0-11.0); NEUTROPHIL # 3.8 10^3/ul (1.6-7.5); NEUTROPHILS % 79.4 % (39.0-77.0); PLATELET COUNT 139 10^3/UL (140-415); POSITIVE DIFF @See below; RED BLOOD COUNT 3.05 10^6/ul (4.70-6.10); RED CELL DISTRIBUTION WIDTH 16.9 % (11.5-14.5)
[2017-10-28 06:42] LABS: INR 2.93; PROTIME 31.4 Sec (11.9-14.9); PT RATIO 2.5
[2017-10-28 06:48] LABS: ANION GAP 12 (8-16); BLOOD UREA NITROGEN 22 mg/dl (7-20); CALCIUM 9.9 mg/dl (8.4-10.2); CARBON DIOXIDE 31 mmol/L (21-31); CHLORIDE 99 mmol/L (97-110); GLUCOSE 86 mg/dl (70-220); PHOSPHORUS 2.9 mg/dl (2.5-4.9); SODIUM 137 mmol/L (135-144)
[2017-10-28] MEDS: ONDANSETRON 4 MG INJ IV ×2 (08:11→18:35)
[2017-10-28] MEDS: SEVELAMER CARBONATE 2.4 GM PKT PO ×3 (08:58→16:18)
[2017-10-28] MEDS: SODIUM HYPOCHLORITE (1/40) 1 APPLIC BTL IRR ×2 (09:00→20:33)
[2017-10-28] MEDS: HYDROCODONE/APAP (10/325) TAB PO ×2 (09:03→16:25)
[2017-10-28] MEDS: NYSTATIN 30 GM POWDER BTL TOP ×2 (09:04→22:05)
[2017-10-28] MEDS: FERROUS SULFATE (EC) 325 MG TAB PO ×2 (10:15→21:00)
[2017-10-28] MEDS: LACTOBACILLUS RHAMNOSUS CAP PO ×2 (10:15→21:00)
[2017-10-28] MEDS: LISINOPRIL 10 MG TAB PO ×2 (10:15→22:03)
[2017-10-28] MEDS: MULTIVIT/CA CARB/B CMPLX/FA TAB PO (10:15)
[2017-10-28] MEDS: AMIODARONE 200 MG TAB PO (10:16)
[2017-10-28] MEDS: FAMOTIDINE 20 MG TAB PO (10:16)
[2017-10-28] MEDS: POLYETHYLENE GLYCOL 17 GM PACKET PO (10:16)
[2017-10-28] MEDS: OCTREOTIDE 50 MCG INJ SC ×3 (10:18→22:05)
[2017-10-28] MEDS: AMIKACIN IVPB (12:46)
[2017-10-28] MEDS: SOD CHLORIDE 0.9% IVPB (12:46)
[2017-10-28] MEDS: WARFARIN 3 MG TAB PO (16:17)
[2017-10-28] MEDS: morphine LIQ (10 MG/5 ML) CUP PO (17:41)
[2017-10-28] MEDS: ATORVASTATIN 10 MG TAB PO (22:02)
[2017-10-28] MEDS: CINACALCET 30 MG TAB PO (22:03)
[2017-10-29] MEDS: morphine LIQ (10 MG/5 ML) CUP PO ×3 (00:01→12:36)
[2017-10-29] MEDS: CALCIUM CARBONATE 500 MG CHEW TAB PO ×9 (01:00→21:00)
[2017-10-29] MEDS: ACCU-CHEK XX ×4 (03:00→21:00)
[2017-10-29] MEDS: ONDANSETRON 4 MG INJ IV (04:51)
[2017-10-29 06:17] LABS: INR 3.11; PT RATIO 2.6
[2017-10-29] MEDS: METOCLOPRAMIDE 5 MG TAB PO ×3 (06:40→22:01)
[2017-10-29] MEDS: LEVOTHYROXINE 112 MCG TAB PO (06:40)
[2017-10-29] MEDS: MINERAL OIL 133 ML ENEMA PR (08:35)
[2017-10-29] MEDS: LISINOPRIL 10 MG TAB PO ×2 (09:00→22:03)
[2017-10-29] MEDS: LACTOBACILLUS RHAMNOSUS CAP PO ×2 (09:00→22:03)
[2017-10-29] MEDS: SEVELAMER CARBONATE 2.4 GM PKT PO ×3 (09:03→17:51)
[2017-10-29] MEDS: AMIODARONE 200 MG TAB PO (09:04)
[2017-10-29] MEDS: FERROUS SULFATE (EC) 325 MG TAB PO ×2 (09:05→22:04)
[2017-10-29] MEDS: POLYETHYLENE GLYCOL 17 GM PACKET PO (09:05)
[2017-10-29] MEDS: FAMOTIDINE 20 MG TAB PO (09:06)
[2017-10-29] MEDS: MULTIVIT/CA CARB/B CMPLX/FA TAB PO (09:06)
[2017-10-29] MEDS: NYSTATIN 30 GM POWDER BTL TOP ×2 (09:07→21:00)
[2017-10-29] MEDS: SODIUM HYPOCHLORITE (1/40) 1 APPLIC BTL IRR ×2 (09:07→21:00)
[2017-10-29] MEDS: OCTREOTIDE 50 MCG INJ SC ×3 (09:07→21:53)
[2017-10-29] MEDS: WARFARIN 3 MG TAB PO (17:52)
[2017-10-29] MEDS: EPOETIN 10000 UNITS/1 ML INJ (ESRD) SC (17:53)
[2017-10-29] MEDS: AMIKACIN IVPB (20:51)
[2017-10-29] MEDS: SOD CHLORIDE 0.9% IVPB (20:51)
[2017-10-29] MEDS: CINACALCET 30 MG TAB PO (22:03)
[2017-10-29] MEDS: ATORVASTATIN 10 MG TAB PO (22:04)
[2017-10-29] MEDS: HYDROCODONE/APAP (10/325) TAB PO (23:05)
[2017-10-30] MEDS: CALCIUM CARBONATE 500 MG CHEW TAB PO ×9 (01:00→21:00)
[2017-10-30] MEDS: ACCU-CHEK XX ×4 (03:00→21:00)
[2017-10-30] MEDS: METOCLOPRAMIDE 5 MG TAB PO ×3 (05:25→21:45)
[2017-10-30] MEDS: LEVOTHYROXINE 112 MCG TAB PO (06:29)
[2017-10-30 06:34] LABS: INR 3.27; PROTIME 34.3 Sec (11.9-14.9); PT RATIO 2.7
[2017-10-30] MEDS: SEVELAMER CARBONATE 2.4 GM PKT PO ×4 (08:34→18:00)
[2017-10-30] MEDS: MULTIVIT/CA CARB/B CMPLX/FA TAB PO (08:35)
[2017-10-30] MEDS: LISINOPRIL 10 MG TAB PO ×2 (08:36→21:46)
[2017-10-30] MEDS: AMIODARONE 200 MG TAB PO (08:36)
[2017-10-30] MEDS: LACTOBACILLUS RHAMNOSUS CAP PO ×2 (08:37→21:44)
[2017-10-30] MEDS: FAMOTIDINE 20 MG TAB PO (08:37)
[2017-10-30] MEDS: FERROUS SULFATE (EC) 325 MG TAB PO ×2 (08:37→21:00)
[2017-10-30] MEDS: POLYETHYLENE GLYCOL 17 GM PACKET PO (08:37)
[2017-10-30] MEDS: morphine LIQ (10 MG/5 ML) CUP PO ×2 (09:58→19:47)
[2017-10-30] MEDS: OCTREOTIDE 50 MCG INJ SC ×3 (09:58→21:00)
[2017-10-30] MEDS: SODIUM HYPOCHLORITE (1/40) 1 APPLIC BTL IRR ×2 (10:03→21:00)
[2017-10-30] MEDS: NYSTATIN 30 GM POWDER BTL TOP ×2 (10:03→21:00)
[2017-10-30] MEDS ORDERED: WARFARIN 1 MG TAB PO (17:00)
[2017-10-30 17:18] LABS: HEPATITIS B SURFACE ANTIGEN NEGATIVE (NEGATIVE)
[2017-10-30] MEDS: WARFARIN 1 MG TAB PO (18:00)
[2017-10-30] MEDS: ONDANSETRON 4 MG INJ IV (18:15)
[2017-10-30] MEDS: ATORVASTATIN 10 MG TAB PO (21:44)
[2017-10-30] MEDS: CINACALCET 30 MG TAB PO (21:51)
[2017-10-31] MEDS: CALCIUM CARBONATE 500 MG CHEW TAB PO ×9 (01:00→21:00)
[2017-10-31] MEDS: ACCU-CHEK XX ×4 (03:00→21:00)
[2017-10-31] MEDS: METOCLOPRAMIDE 5 MG TAB PO ×3 (05:13→21:56)
[2017-10-31] MEDS: LEVOTHYROXINE 112 MCG TAB PO (06:15)
[2017-10-31 06:16] LABS: INR 3.29; PROTIME 34.5 Sec (11.9-14.9); PT RATIO 2.7
[2017-10-31] MEDS: SEVELAMER CARBONATE 2.4 GM PKT PO ×3 (08:35→18:00)
[2017-10-31] MEDS: MULTIVIT/CA CARB/B CMPLX/FA TAB PO (08:37)
[2017-10-31] MEDS: FERROUS SULFATE (EC) 325 MG TAB PO ×2 (08:37→21:00)
[2017-10-31] MEDS: LACTOBACILLUS RHAMNOSUS CAP PO ×2 (08:37→21:56)
[2017-10-31] MEDS: POLYETHYLENE GLYCOL 17 GM PACKET PO (08:38)
[2017-10-31] MEDS: FAMOTIDINE 20 MG TAB PO (08:38)
[2017-10-31] MEDS: AMIODARONE 200 MG TAB PO (08:40)
[2017-10-31] MEDS: LISINOPRIL 10 MG TAB PO ×2 (08:40→22:03)
[2017-10-31] MEDS: MINERAL OIL 133 ML ENEMA PR (08:41)
[2017-10-31] MEDS: SODIUM HYPOCHLORITE (1/40) 1 APPLIC BTL IRR ×2 (08:42→21:00)
[2017-10-31] MEDS: OCTREOTIDE 50 MCG INJ SC ×3 (08:42→21:00)
[2017-10-31] MEDS: NYSTATIN 30 GM POWDER BTL TOP ×2 (08:43→21:00)
[2017-10-31] MEDS: morphine LIQ (10 MG/5 ML) CUP PO ×3 (08:49→22:06)
[2017-10-31] MEDS: [UNRECOGNIZED DRUG - REMARK] XX (18:00)
[2017-10-31] MEDS: WARFARIN 1 MG TAB PO (18:03)
[2017-10-31] MEDS ORDERED: PRAMOXINE 1% 15 GM RECT FOAM PR (21:30)
[2017-10-31] MEDS ORDERED: PRAMOXINE/HC 10 GM RECT FOAM PR (21:47)
[2017-10-31] MEDS: DOCUSATE SODIUM 100 MG CAP PO (21:56)
[2017-10-31] MEDS: ATORVASTATIN 10 MG TAB PO (21:56)
[2017-10-31] MEDS: CINACALCET 30 MG TAB PO (21:56)
[2017-10-31] MEDS ORDERED: BISACODYL 10 MG SUPP PR (22:00)
[2017-10-31] MEDS: PRAMOXINE/HC 10 GM RECT FOAM PR (23:22)
[2017-11-01] MEDS: CALCIUM CARBONATE 500 MG CHEW TAB PO ×10 (00:22→20:59)
[2017-11-01] MEDS: [UNRECOGNIZED DRUG - REMARK] XX ×3 (00:22→17:52)
[2017-11-01] MEDS: ACCU-CHEK XX ×4 (03:04→21:08)
[2017-11-01] MEDS: LEVOTHYROXINE 112 MCG TAB PO (05:07)
[2017-11-01] MEDS: METOCLOPRAMIDE 5 MG TAB PO ×3 (05:08→20:57)
[2017-11-01 06:22] LABS: ADD MAN DIFF? NO
[2017-11-01 06:31] LABS: ABNORMAL IP MESSAGE 1; BASOPHILS % 0.2 % (0.0-2.0); EOSINOPHILS # 0.1 10^3/ul (0.0-0.5); EOSINOPHILS % 2.7 % (0.0-7.0); HEMATOCRIT 27.5 % (42.0-52.0); HEMOGLOBIN 8.4 g/dl (14.0-18.0); LYMPHOCYTES # 0.5 10^3/ul (0.8-2.9); LYMPHOCYTES % 10.1 % (15.0-51.0); MEAN CORPUSCULAR HEMOGLOBIN 30.3 pg (29.0-33.0); MEAN CORPUSCULAR HGB CONC 30.5 g/dl (32.0-37.0); MEAN CORPUSCULAR VOLUME 99.3 fl (82.0-101.0); MONOCYTE # 0.3 10^3/ul (0.3-0.9); MONOCYTES % 6.8 % (0.0-11.0); NEUTROPHIL # 3.9 10^3/ul (1.6-7.5); NEUTROPHILS % 79.4 % (39.0-77.0); PLATELET COUNT 161 10^3/UL (140-415); POSITIVE DIFF @See below; RED BLOOD COUNT 2.77 10^6/ul (4.70-6.10); RED CELL DISTRIBUTION WIDTH 16.6 % (11.5-14.5)
[2017-11-01 06:31] LABS: WHITE BLOOD COUNT 4.9 10^3/ul (4.8-10.8)
[2017-11-01 06:47] LABS: PT RATIO 2.5
[2017-11-01 06:58] LABS: PHOSPHORUS 2.8 mg/dl (2.5-4.9)
[2017-11-01] MEDS: SEVELAMER CARBONATE 2.4 GM PKT PO ×3 (08:15→17:52)
[2017-11-01] MEDS: LISINOPRIL 10 MG TAB PO ×2 (08:29→20:57)
[2017-11-01] MEDS: AMIODARONE 200 MG TAB PO (08:29)
[2017-11-01] MEDS: OCTREOTIDE 50 MCG INJ SC ×3 (08:30→21:00)
[2017-11-01] MEDS: PRAMOXINE/HC 10 GM RECT FOAM PR ×4 (09:00→21:00)
[2017-11-01] MEDS: POLYETHYLENE GLYCOL 17 GM PACKET PO (09:00)
[2017-11-01] MEDS: NYSTATIN 30 GM POWDER BTL TOP ×2 (09:11→21:08)
[2017-11-01] MEDS: DOCUSATE SODIUM 100 MG CAP PO ×2 (09:12→20:56)
[2017-11-01] MEDS: LACTOBACILLUS RHAMNOSUS CAP PO ×2 (09:12→20:58)
[2017-11-01] MEDS: MULTIVIT/CA CARB/B CMPLX/FA TAB PO (09:12)
[2017-11-01] MEDS: FAMOTIDINE 20 MG TAB PO (09:12)
[2017-11-01] MEDS: SODIUM HYPOCHLORITE (1/40) 1 APPLIC BTL IRR ×2 (09:12→19:37)
[2017-11-01] MEDS: FERROUS SULFATE (EC) 325 MG TAB PO ×2 (09:12→20:56)
[2017-11-01] MEDS: morphine LIQ (10 MG/5 ML) CUP PO ×3 (09:15→21:08)
[2017-11-01] MEDS: AMIKACIN IVPB (15:38)
[2017-11-01] MEDS: SOD CHLORIDE 0.9% IVPB (15:38)
[2017-11-01] MEDS: LIDOCAINE 5% 35 GM OINT TOP (16:33)
[2017-11-01] MEDS: morphine 2 MG INJ IV (16:40)
[2017-11-01] MEDS: WARFARIN 1 MG TAB PO (17:51)
[2017-11-01] MEDS: EPOETIN 10000 UNITS/1 ML INJ (ESRD) SC (17:54)
[2017-11-01] MEDS: ACETAMINOPHEN 325 MG TAB PO (20:57)
[2017-11-01] MEDS: ATORVASTATIN 10 MG TAB PO (20:58)
[2017-11-01] MEDS: CINACALCET 30 MG TAB PO (20:58)
[2017-11-01] MEDS: IBUPROFEN 400 MG TAB PO (23:43)
[2017-11-02] MEDS: CALCIUM CARBONATE 500 MG CHEW TAB PO ×9 (01:00→21:00)
[2017-11-02] MEDS: [UNRECOGNIZED DRUG - REMARK] XX ×3 (01:24→17:33)
[2017-11-02] MEDS: morphine LIQ (10 MG/5 ML) CUP PO ×4 (02:41→21:24)
[2017-11-02] MEDS: ACCU-CHEK XX ×4 (03:00→21:00)
[2017-11-02] MEDS: METOCLOPRAMIDE 5 MG TAB PO ×3 (05:13→21:24)
[2017-11-02] MEDS: OCTREOTIDE 50 MCG INJ SC ×2 (09:00→12:38)
[2017-11-02] MEDS: SODIUM HYPOCHLORITE (1/40) 1 APPLIC BTL IRR ×2 (09:00→21:00)
[2017-11-02] MEDS: PRAMOXINE/HC 10 GM RECT FOAM PR ×3 (09:00→21:26)
[2017-11-02] MEDS: NYSTATIN 30 GM POWDER BTL TOP ×3 (09:00→21:00)
[2017-11-02] MEDS: LEVOTHYROXINE 125 MCG TAB PO (09:00)
[2017-11-02] MEDS: SEVELAMER CARBONATE 2.4 GM PKT PO ×3 (09:00→17:33)
[2017-11-02] MEDS: MINERAL OIL 133 ML ENEMA PR (09:00)
[2017-11-02] MEDS: DOCUSATE SODIUM 100 MG CAP PO ×2 (09:01→21:23)
[2017-11-02] MEDS: AMIODARONE 200 MG TAB PO (09:02)
[2017-11-02] MEDS: MULTIVIT/CA CARB/B CMPLX/FA TAB PO (09:03)
[2017-11-02] MEDS: FAMOTIDINE 20 MG TAB PO (09:03)
[2017-11-02] MEDS: POLYETHYLENE GLYCOL 17 GM PACKET PO (09:03)
[2017-11-02] MEDS: FERROUS SULFATE (EC) 325 MG TAB PO ×2 (09:03→21:00)
[2017-11-02] MEDS: LACTOBACILLUS RHAMNOSUS CAP PO ×2 (09:03→21:24)
[2017-11-02] MEDS: LISINOPRIL 10 MG TAB PO ×2 (09:04→21:25)
[2017-11-02 09:14] LABS: INR 3.14; PROTIME 33.2 Sec (11.9-14.9); PT RATIO 2.6
[2017-11-02] MEDS: LIDOCAINE 1% (MPF) 5 ML VIAL SC (12:01)
[2017-11-02] MEDS: WARFARIN 1 MG TAB PO (17:32)
[2017-11-02] MEDS: ACARBOSE 50 MG TAB PO (17:34)
[2017-11-02] MEDS: ERTAPENEM SODIUM 0.5 GM in SOD CHLORIDE 0.9% 100 ML IVPB (19:53)
[2017-11-02] MEDS: CINACALCET 30 MG TAB PO (21:23)
[2017-11-02] MEDS: ONDANSETRON 4 MG INJ IV (21:24)
[2017-11-02] MEDS: ATORVASTATIN 10 MG TAB PO (21:24)
[2017-11-02] MEDS: METOCLOPRAMIDE 10 MG INJ IV (22:20)
[2017-11-03] MEDS: CALCIUM CARBONATE 500 MG CHEW TAB PO ×10 (00:45→21:00)
[2017-11-03] MEDS: [UNRECOGNIZED DRUG - REMARK] XX ×3 (02:00→17:47)
[2017-11-03] MEDS: ACCU-CHEK XX ×4 (03:00→21:00)
[2017-11-03] MEDS: METOCLOPRAMIDE 5 MG TAB PO ×3 (05:47→21:37)
[2017-11-03 06:08] LABS: ADD MAN DIFF? NO
[2017-11-03 06:10] LABS: WHITE BLOOD COUNT 5.8 10^3/ul (4.8-10.8)
[2017-11-03 06:10] LABS: ABNORMAL IP MESSAGE 1; BASOPHILS % 0.5 % (0.0-2.0); EOSINOPHILS # 0.1 10^3/ul (0.0-0.5); EOSINOPHILS % 1.5 % (0.0-7.0); HEMATOCRIT 26.7 % (42.0-52.0); LYMPHOCYTES # 0.4 10^3/ul (0.8-2.9); LYMPHOCYTES % 6.5 % (15.0-51.0); MEAN CORPUSCULAR HEMOGLOBIN 30.3 pg (29.0-33.0); MEAN CORPUSCULAR VOLUME 101.1 fl (82.0-101.0); MEAN PLATELET VOLUME 10.2 fl (7.4-10.4); MONOCYTE # 0.4 10^3/ul (0.3-0.9); MONOCYTES % 7.2 % (0.0-11.0); NEUTROPHIL # 4.9 10^3/ul (1.6-7.5); PLATELET COUNT 128 10^3/UL (140-415); POSITIVE DIFF @See below; RED BLOOD COUNT 2.64 10^6/ul (4.70-6.10); RED CELL DISTRIBUTION WIDTH 16.8 % (11.5-14.5)
[2017-11-03 06:35] LABS: INR 2.94; PROTIME 31.5 Sec (11.9-14.9); PT RATIO 2.5
[2017-11-03] MEDS: LEVOTHYROXINE 125 MCG TAB PO (06:47)
[2017-11-03] MEDS: PRAMOXINE/HC 10 GM RECT FOAM PR ×3 (08:03→21:39)
[2017-11-03] MEDS: SEVELAMER CARBONATE 2.4 GM PKT PO ×4 (08:03→17:19)
[2017-11-03] MEDS: NYSTATIN 30 GM POWDER BTL TOP ×2 (08:05→21:00)
[2017-11-03] MEDS: POLYETHYLENE GLYCOL 17 GM PACKET PO (08:06)
[2017-11-03] MEDS: ACARBOSE 50 MG TAB PO ×3 (08:15→17:27)
[2017-11-03] MEDS: AMIODARONE 200 MG TAB PO (08:40)
[2017-11-03] MEDS: LISINOPRIL 10 MG TAB PO ×2 (08:41→21:33)
[2017-11-03] MEDS: SODIUM HYPOCHLORITE (1/40) 1 APPLIC BTL IRR ×2 (09:00→21:00)
[2017-11-03] MEDS: MULTIVIT/CA CARB/B CMPLX/FA TAB PO (09:01)
[2017-11-03] MEDS: LACTOBACILLUS RHAMNOSUS CAP PO ×2 (09:01→21:31)
[2017-11-03] MEDS: FAMOTIDINE 20 MG TAB PO (09:02)
[2017-11-03] MEDS: FERROUS SULFATE (EC) 325 MG TAB PO ×2 (09:02→21:00)
[2017-11-03] MEDS: DOCUSATE SODIUM 100 MG CAP PO ×2 (09:03→21:33)
[2017-11-03] MEDS: morphine LIQ (10 MG/5 ML) CUP PO ×3 (09:03→18:49)
[2017-11-03] MEDS: WARFARIN 1 MG TAB PO (17:23)
[2017-11-03] MEDS: ERTAPENEM SODIUM 0.5 GM in SOD CHLORIDE 0.9% 100 ML IVPB (17:24)
[2017-11-03] MEDS: ONDANSETRON 4 MG INJ IV (20:02)
[2017-11-03] MEDS: CINACALCET 30 MG TAB PO (21:31)
[2017-11-03] MEDS: ATORVASTATIN 10 MG TAB PO (21:37)
[2017-11-04] MEDS: morphine LIQ (10 MG/5 ML) CUP PO ×2 (00:03→14:10)
[2017-11-04] MEDS: CALCIUM CARBONATE 500 MG CHEW TAB PO ×7 (01:00→16:17)
[2017-11-04] MEDS: [UNRECOGNIZED DRUG - REMARK] XX ×2 (02:00→10:00)
[2017-11-04] MEDS: ONDANSETRON 4 MG INJ IV (02:49)
[2017-11-04] MEDS: ACCU-CHEK XX ×3 (03:00→14:24)
[2017-11-04] MEDS: METOCLOPRAMIDE 5 MG TAB PO ×2 (05:36→14:22)
[2017-11-04] MEDS: LEVOTHYROXINE 125 MCG TAB PO (06:30)
[2017-11-04 06:39] LABS: PROTIME 29.4 Sec (11.9-14.9); PT RATIO 2.3
[2017-11-04 07:09] LABS: FREE T4 (FREE THYROXINE) 1.68 ng/dl (0.78-2.44)
[2017-11-04] MEDS: MULTIVIT/CA CARB/B CMPLX/FA TAB PO (08:35)
[2017-11-04] MEDS: DOCUSATE SODIUM 100 MG CAP PO (08:35)
[2017-11-04] MEDS: SEVELAMER CARBONATE 2.4 GM PKT PO ×2 (08:35→12:25)
[2017-11-04] MEDS: LACTOBACILLUS RHAMNOSUS CAP PO (08:38)
[2017-11-04] MEDS: FERROUS SULFATE (EC) 325 MG TAB PO ×2 (08:38→08:45)
[2017-11-04] MEDS: FAMOTIDINE 20 MG TAB PO (08:38)
[2017-11-04] MEDS: ACARBOSE 50 MG TAB PO ×2 (08:38→12:25)
[2017-11-04] MEDS: LISINOPRIL 10 MG TAB PO (08:39)
[2017-11-04] MEDS: AMIODARONE 200 MG TAB PO (08:39)
[2017-11-04] MEDS: MINERAL OIL 133 ML ENEMA PR (08:40)
[2017-11-04] MEDS: PRAMOXINE/HC 10 GM RECT FOAM PR ×2 (08:40→12:26)
[2017-11-04] MEDS: NYSTATIN 30 GM POWDER BTL TOP (08:41)
[2017-11-04] MEDS: SODIUM HYPOCHLORITE (1/40) 1 APPLIC BTL IRR (08:41)
[2017-11-04] MEDS: WARFARIN 1 MG TAB PO (16:16)
[2017-11-04] MEDS: ERTAPENEM SODIUM 0.5 GM in SOD CHLORIDE 0.9% 100 ML IVPB (17:00)
== END 2017-11-04 17:45 | disposition home health service (06) | DRG 982 ==
LOC: MS2 10-13 06:53 → E/R 16:04 → MS2 17:15
PROC: 0KBV0ZZ Excision of Right Foot Muscle, Open Approach (ICD-10-PCS; principal; 2017-09-30 18:30)
PROC: 0L9 Tendons, Drainage (ICD-10-PCS; 2017-09-30 18:30)
PROC: 0HRMXK3 Replacement of Right Foot Skin with Nonautologous Tissue Substitute, Full Thickness, External Approach (ICD-10-PCS; 2017-09-30 18:30)
PROC: 0LBV0ZZ Excision of Right Foot Tendon, Open Approach (ICD-10-PCS; 2017-09-30 20:09)
PROC: 5A1D70Z Performance of Urinary Filtration, Intermittent, Less than 6 Hours Per Day (ICD-10-PCS; 2017-09-30 20:09)
DX: E11.621 Type 2 diabetes mellitus with foot ulcer (principal); L02.415 Cutaneous abscess of right lower limb; I96 Gangrene, not elsewhere classified; L03.115 Cellulitis of right lower limb; I12.0 Hypertensive chronic kidney disease with stage 5 chronic kidney disease or end stage renal disease; M86.8X7 Other osteomyelitis, ankle and foot; I50.22 Chronic systolic (congestive) heart failure; N18.6 End stage renal disease; E11.69 Type 2 diabetes mellitus with other specified complication; E11.628 Type 2 diabetes mellitus with other skin complications; E03.9 Hypothyroidism, unspecified; D63.1 Anemia in chronic kidney disease; M66.871 Spontaneous rupture of other tendons, right ankle and foot; Z95.2 Presence of prosthetic heart valve; Z99.2 Dependence on renal dialysis; B96.20 Unspecified Escherichia coli [E. coli] as the cause of diseases classified elsewhere; Z16.12 Extended spectrum beta lactamase (ESBL) resistance; Z95.1 Presence of aortocoronary bypass graft; E11.51 Type 2 diabetes mellitus with diabetic peripheral angiopathy without gangrene; Z89.421 Acquired absence of other right toe(s); Z79.02 Long term (current) use of antithrombotics/antiplatelets; I11.0 Hypertensive heart disease with heart failure
CPT/HCPCS: 36415; 36430; 71045; 73630; 73718; 74178; 74181; 80048; 80053; 80202; 82533; 82728; 82962; 83036; 83525; 83540; 83605; 83735; 84100; 84439; 84443; 84484; 84681; 85025; 85610; 85730; 86850; 86860; 86870; 86880; 86900; 86901; 86902; 86920; 86970; 86971; 87040; 87070; 87075; 87081; 87102; 87116; 87340; 90935; 93005; 96365; 96366; 96375; 97110; 97162; 97530; 99285-25

== ENCOUNTER 2017-11-25 13:53 | Inpatient (IN) | payer MEDICARE, OTHER ==
[2017-11-25] MEDS: ACETAMINOPHEN 325 MG TAB PO (14:30)
[2017-11-25] MEDS: CEFEPIME 2GM/50 ML (PMX) 50 ML IVPB (14:49)
[2017-11-25 14:54] LABS: ADD MAN DIFF? NO
[2017-11-25 14:58] LABS: ABNORMAL IP MESSAGE 1; BASOPHILS % 0.2 % (0.0-2.0); EOSINOPHILS # 0.1 10^3/ul (0.0-0.5); EOSINOPHILS % 1.7 % (0.0-7.0); HEMATOCRIT 29.3 % (42.0-52.0); HEMOGLOBIN 9.1 g/dl (14.0-18.0); LYMPHOCYTES # 0.3 10^3/ul (0.8-2.9); LYMPHOCYTES % 5.1 % (15.0-51.0); MEAN CORPUSCULAR HEMOGLOBIN 31.4 pg (29.0-33.0); MEAN CORPUSCULAR HGB CONC 31.1 g/dl (32.0-37.0); MEAN PLATELET VOLUME 10.8 fl (7.4-10.4); MONOCYTE # 0.3 10^3/ul (0.3-0.9); NEUTROPHIL # 5.7 10^3/ul (1.6-7.5); NEUTROPHILS % 87.5 % (39.0-77.0); PLATELET COUNT 111 10^3/UL (140-415); POSITIVE DIFF @See below; RED CELL DISTRIBUTION WIDTH 15.6 % (11.5-14.5)
[2017-11-25 14:58] LABS: WHITE BLOOD COUNT 6.5 10^3/ul (4.8-10.8)
[2017-11-25 15:16] LABS: ALANINE AMINOTRANSFERASE 23 IU/L (13-69); ALBUMIN 3.4 g/dl (3.3-4.9); ALBUMIN/GLOBULIN RATIO 0.85; ALKALINE PHOSPHATASE 147 IU/L (42-121); ANION GAP 12 (8-16); ASPARTATE AMINO TRANSFERASE 49 IU/L (15-46); BILIRUBIN,INDIRECT 0.2 mg/dl (0-1.1); BILIRUBIN,TOTAL 0.2 mg/dl (0.2-1.3); BLOOD UREA NITROGEN 46 mg/dl (7-20); CALCIUM 9.6 mg/dl (8.4-10.2); CARBON DIOXIDE 28 mmol/L (21-31); CHLORIDE 104 mmol/L (97-110); CREATININE 5.24 mg/dl (0.61-1.24); GLUCOSE 88 mg/dl (70-220); POTASSIUM 4.4 mmol/L (3.5-5.1); SODIUM 140 mmol/L (135-144); TOTAL PROTEIN 7.4 g/dl (6.1-8.1)
[2017-11-25 15:16] LABS: LACTIC ACID 1.2 mmol/L (0.5-2.0)
[2017-11-25 15:17] LABS: INR 2.05; PROTIME 23.6 Sec (11.9-14.9); PT RATIO 1.8
[2017-11-25] MEDS: VANCOMYCIN 1 GM (PMX) 250 ML IVPB (15:17)
[2017-11-25 15:18] LABS: PARTIAL THROMBOPLASTIN TIME 43.1 Sec (25.0-35.0)
[2017-11-25 15:27] LABS: TROPONIN-I 0.073 ng/ml (0.000-0.120)
[2017-11-25] MEDS: ONDANSETRON 4 MG INJ IV (15:35)
[2017-11-25] MEDS: FENTAnyl 50 MCG/ML VIAL IV (15:46)
[2017-11-25] MEDS ORDERED: ONDANSETRON 4 MG INJ IV (16:30)
[2017-11-25] MEDS ORDERED: ACETAMINOPHEN 325 MG TAB PO (16:30)
[2017-11-25 17:00] LABS: LACTIC ACID 0.7 mmol/L (0.5-2.0)
[2017-11-25] MEDS ORDERED: NON-FORMULARY/PATIENT OWN MED (Hydrocodone/Acetaminophen (Norco 5-325 Tablet) 1 EACH) PO (17:00)
[2017-11-25] MEDS ORDERED: ONDANSETRON 4 MG TAB PO (17:00)
[2017-11-25] MEDS ORDERED: NACL 0.9% 3 ML SYG IV (17:00)
[2017-11-25] MEDS ORDERED: ERTAPENEM SODIUM 1 GM in SOD CHLORIDE 0.9% 100 ML IVPB (17:00)
[2017-11-25] MEDS ORDERED: VANCOMYCIN IV PER PHARMACY XX (17:00)
[2017-11-25] MEDS ORDERED: DEXTROSE 50% 50 ML SYRINGE IV ×2 (17:30)
[2017-11-25] MEDS ORDERED: GLUCOSE GEL 15 GRAM TUBE PO (17:30)
[2017-11-25] MEDS ORDERED: GLUCOSE GEL 15 GRAM TUBE BUCCAL (17:30)
[2017-11-25] MEDS ORDERED: GLUCAGON 1 MG INJ IM (17:30)
[2017-11-25] MEDS: MEROPENEM 500MG/50 ML (PMX) 50 ML IVPB (17:49)
[2017-11-25] MEDS: INSULIN ASPART [NOVOLOG] 3 ML PEN SC ×2 (18:00→21:00)
[2017-11-25] MEDS: SEVELAMER 800 MG TAB PO (18:00)
[2017-11-25] MEDS: WARFARIN 1 MG TAB PO (18:14)
[2017-11-25] MEDS: ATORVASTATIN 10 MG TAB PO (20:58)
[2017-11-25] MEDS: DOCUSATE SODIUM 100 MG CAP PO (20:58)
[2017-11-25] MEDS: CINACALCET 30 MG TAB PO (20:58)
[2017-11-25] MEDS: LISINOPRIL 20 MG TAB PO (21:06)
[2017-11-25] MEDS: ISOSORBIDE DINITRATE 20 MG TAB PO (21:06)
[2017-11-25] MEDS ORDERED: MEROPENEM 1 GM/50ML(PMX) 50 ML IVPB (22:00)
[2017-11-25] MEDS: HYDROCODONE/APAP (5/325) TAB PO (22:21)
[2017-11-25 23:26] LABS: TROPONIN-I 0.101 ng/ml (0.000-0.120)
[2017-11-26] MEDS: ACCU-CHEK XX (02:00)
[2017-11-26] MEDS: ALTEPLASE (CATHFLO) 2 MG INJ CATHETER (06:00)
[2017-11-26 06:10] LABS: ADD MAN DIFF? NO
[2017-11-26 06:14] LABS: ABNORMAL IP MESSAGE 1; BASOPHILS % 0.2 % (0.0-2.0); EOSINOPHILS # 0.1 10^3/ul (0.0-0.5); EOSINOPHILS % 1.7 % (0.0-7.0); HEMATOCRIT 24.7 % (42.0-52.0); HEMOGLOBIN 7.7 g/dl (14.0-18.0); LYMPHOCYTES # 0.5 10^3/ul (0.8-2.9); LYMPHOCYTES % 10.1 % (15.0-51.0); MEAN CORPUSCULAR HEMOGLOBIN 31.6 pg (29.0-33.0); MEAN CORPUSCULAR HGB CONC 31.2 g/dl (32.0-37.0); MEAN CORPUSCULAR VOLUME 101.2 fl (82.0-101.0); MEAN PLATELET VOLUME 10.9 fl (7.4-10.4); MONOCYTE # 0.4 10^3/ul (0.3-0.9); NEUTROPHIL # 3.8 10^3/ul (1.6-7.5); NEUTROPHILS % 79.6 % (39.0-77.0); PLATELET COUNT 87 10^3/UL (140-415); POSITIVE DIFF @See below; RED BLOOD COUNT 2.44 10^6/ul (4.70-6.10); RED CELL DISTRIBUTION WIDTH 15.8 % (11.5-14.5)
[2017-11-26 06:14] LABS: WHITE BLOOD COUNT 4.8 10^3/ul (4.8-10.8)
[2017-11-26 06:35] LABS: INR 2.04; PROTIME 23.5 Sec (11.9-14.9); PT RATIO 1.8
[2017-11-26 06:56] LABS: ANION GAP 12 (8-16); BLOOD UREA NITROGEN 49 mg/dl (7-20); CALCIUM 9.5 mg/dl (8.4-10.2); CARBON DIOXIDE 28 mmol/L (21-31); CHLORIDE 103 mmol/L (97-110); CREATININE 5.93 mg/dl (0.61-1.24); GLUCOSE 72 mg/dl (70-220); MAGNESIUM 1.9 mg/dl (1.7-2.5); PHOSPHORUS 3.6 mg/dl (2.5-4.9); POTASSIUM 4.2 mmol/L (3.5-5.1); SODIUM 139 mmol/L (135-144)
[2017-11-26 07:40] LABS: TROPONIN-I 0.115 ng/ml (0.000-0.120)
[2017-11-26] MEDS: SEVELAMER CARBONATE 800 MG TABLET PO ×3 (07:49→18:05)
[2017-11-26] MEDS: LEVOTHYROXINE 100 MCG TAB PO (07:49)
[2017-11-26] MEDS: INSULIN ASPART [NOVOLOG] 3 ML PEN SC ×4 (07:49→21:00)
[2017-11-26] MEDS: PANTOPRAZOLE (EC) 40 MG TAB PO (08:39)
[2017-11-26] MEDS: FISH OIL 1,000 MG CAP PO (08:39)
[2017-11-26] MEDS: CALCIUM/VITAMIN D (500/200) TAB PO (08:39)
[2017-11-26] MEDS: FOLIC ACID 1 MG TAB PO (08:39)
[2017-11-26] MEDS: MULTIVIT/CA CARB/B CMPLX/FA TAB PO (08:39)
[2017-11-26] MEDS: ISOSORBIDE DINITRATE 20 MG TAB PO ×3 (08:40→21:00)
[2017-11-26] MEDS: LISINOPRIL 20 MG TAB PO ×2 (08:40→21:44)
[2017-11-26] MEDS ORDERED: ENOXAPARIN 30 MG/0.3 ML SYG SC (09:00)
[2017-11-26] MEDS: MEROPENEM 500MG/50 ML (PMX) 50 ML IVPB (18:05)
[2017-11-26] MEDS: EPOETIN 10000 UNITS/1 ML INJ (ESRD) SC (18:06)
[2017-11-26] MEDS: WARFARIN 1 MG TAB PO (18:06)
[2017-11-26] MEDS: ATORVASTATIN 10 MG TAB PO (21:35)
[2017-11-26] MEDS: HYDROCODONE/APAP (5/325) TAB PO (21:35)
[2017-11-26] MEDS: DOCUSATE SODIUM 100 MG CAP PO (21:35)
[2017-11-26] MEDS: CINACALCET 30 MG TAB PO (21:35)
[2017-11-27] MEDS: DIPHENHYDRAMINE 25 MG CAP PO (01:51)
[2017-11-27] MEDS: ACCU-CHEK XX (02:00)
[2017-11-27] MEDS: HYDROCODONE/APAP (5/325) TAB PO (05:16)
[2017-11-27 05:49] LABS: ADD MAN DIFF? NO
[2017-11-27 05:51] LABS: ABNORMAL IP MESSAGE 1; BASOPHILS % 0.5 % (0.0-2.0); EOSINOPHILS # 0.1 10^3/ul (0.0-0.5); EOSINOPHILS % 3.3 % (0.0-7.0); HEMATOCRIT 25.8 % (42.0-52.0); HEMOGLOBIN 7.9 g/dl (14.0-18.0); LYMPHOCYTES # 0.4 10^3/ul (0.8-2.9); LYMPHOCYTES % 11.1 % (15.0-51.0); MEAN CORPUSCULAR HEMOGLOBIN 30.7 pg (29.0-33.0); MEAN CORPUSCULAR HGB CONC 30.6 g/dl (32.0-37.0); MEAN CORPUSCULAR VOLUME 100.4 fl (82.0-101.0); MEAN PLATELET VOLUME 11.1 fl (7.4-10.4); MONOCYTE # 0.3 10^3/ul (0.3-0.9); NEUTROPHIL # 3.1 10^3/ul (1.6-7.5); NEUTROPHILS % 77.6 % (39.0-77.0); PLATELET COUNT 92 10^3/UL (140-415); POSITIVE DIFF @See below; RED BLOOD COUNT 2.57 10^6/ul (4.70-6.10); RED CELL DISTRIBUTION WIDTH 15.7 % (11.5-14.5)
[2017-11-27] MEDS: LEVOTHYROXINE 100 MCG TAB PO (06:02)
[2017-11-27 06:12] LABS: INR 1.75; PROTIME 20.8 Sec (11.9-14.9); PT RATIO 1.6
[2017-11-27 06:14] LABS: CHOL/HDL RATIO 3.8 RATIO; HDL CHOLESTEROL 26 mg/dl (30-78); LDL CHOLESTEROL,CALCULATED 52 mg/dl; TRIGLYCERIDES 103 mg/dl (0-149)
[2017-11-27 06:14] LABS: CHOLESTEROL 99 mg/dl (100-200)
[2017-11-27 06:37] LABS: VANCOMYCIN,RANDOM 9.4 ug/ml
[2017-11-27] MEDS: INSULIN ASPART [NOVOLOG] 3 ML PEN SC ×4 (07:49→20:27)
[2017-11-27] MEDS: FOLIC ACID 1 MG TAB PO (08:06)
[2017-11-27] MEDS: PANTOPRAZOLE (EC) 40 MG TAB PO (08:06)
[2017-11-27] MEDS: MULTIVIT/CA CARB/B CMPLX/FA TAB PO (08:06)
[2017-11-27] MEDS: CALCIUM/VITAMIN D (500/200) TAB PO (08:06)
[2017-11-27] MEDS: SEVELAMER CARBONATE 800 MG TABLET PO ×3 (08:06→17:27)
[2017-11-27] MEDS: FISH OIL 1,000 MG CAP PO (08:07)
[2017-11-27] MEDS: ISOSORBIDE DINITRATE 20 MG TAB PO ×3 (08:07→20:21)
[2017-11-27] MEDS: LISINOPRIL 20 MG TAB PO ×2 (08:08→20:21)
[2017-11-27] MEDS: VANCOMYCIN 1 GM 250 ML IVPB (11:38)
[2017-11-27] MEDS: WARFARIN 1 MG TAB PO (17:27)
[2017-11-27] MEDS: MEROPENEM 500MG/50 ML (PMX) 50 ML IVPB (17:27)
[2017-11-27] MEDS: ATORVASTATIN 10 MG TAB PO (20:19)
[2017-11-27] MEDS: CINACALCET 30 MG TAB PO (20:19)
[2017-11-27] MEDS: DOCUSATE SODIUM 100 MG CAP PO (20:19)
[2017-11-27] MEDS: ACETAMINOPHEN 500 MG TAB PO (20:22)
[2017-11-28] MEDS: ACCU-CHEK XX (02:00)
[2017-11-28] MEDS: POLYETHYLENE GLYCOL 17 GM PACKET PO ×3 (02:24→20:36)
[2017-11-28 05:48] LABS: ADD MAN DIFF? NO
[2017-11-28 05:49] LABS: ABNORMAL IP MESSAGE 1; BASOPHILS % 0.3 % (0.0-2.0); EOSINOPHILS # 0.2 10^3/ul (0.0-0.5); EOSINOPHILS % 4.8 % (0.0-7.0); HEMATOCRIT 26.2 % (42.0-52.0); HEMOGLOBIN 8.1 g/dl (14.0-18.0); LYMPHOCYTES # 0.4 10^3/ul (0.8-2.9); LYMPHOCYTES % 11.8 % (15.0-51.0); MEAN CORPUSCULAR HEMOGLOBIN 30.9 pg (29.0-33.0); MEAN CORPUSCULAR HGB CONC 30.9 g/dl (32.0-37.0); MEAN PLATELET VOLUME 10.6 fl (7.4-10.4); MONOCYTE # 0.3 10^3/ul (0.3-0.9); NEUTROPHIL # 2.7 10^3/ul (1.6-7.5); NEUTROPHILS % 75.8 % (39.0-77.0); PLATELET COUNT 99 10^3/UL (140-415); POSITIVE DIFF @See below; RED BLOOD COUNT 2.62 10^6/ul (4.70-6.10); RED CELL DISTRIBUTION WIDTH 15.3 % (11.5-14.5)
[2017-11-28 05:49] LABS: WHITE BLOOD COUNT 3.6 10^3/ul (4.8-10.8)
[2017-11-28 06:07] LABS: PROTIME 19.4 Sec (11.9-14.9); PT RATIO 1.5
[2017-11-28] MEDS: LEVOTHYROXINE 100 MCG TAB PO (06:28)
[2017-11-28 06:29] LABS: ALANINE AMINOTRANSFERASE 23 IU/L (13-69); ALBUMIN/GLOBULIN RATIO 0.88; ALKALINE PHOSPHATASE 111 IU/L (42-121); ANION GAP 11 (8-16); ASPARTATE AMINO TRANSFERASE 25 IU/L (15-46); BILIRUBIN,INDIRECT 0.1 mg/dl (0-1.1); BILIRUBIN,TOTAL 0.1 mg/dl (0.2-1.3); BLOOD UREA NITROGEN 37 mg/dl (7-20); CALCIUM 9.3 mg/dl (8.4-10.2); CARBON DIOXIDE 28 mmol/L (21-31); CHLORIDE 97 mmol/L (97-110); CREATININE 5.47 mg/dl (0.61-1.24); GLUCOSE 75 mg/dl (70-220); POTASSIUM 4.2 mmol/L (3.5-5.1); SODIUM 132 mmol/L (135-144); TOTAL PROTEIN 6.4 g/dl (6.1-8.1)
[2017-11-28] MEDS: INSULIN ASPART [NOVOLOG] 3 ML PEN SC ×4 (07:36→20:42)
[2017-11-28] MEDS: FOLIC ACID 1 MG TAB PO (07:50)
[2017-11-28] MEDS: CALCIUM/VITAMIN D (500/200) TAB PO (07:51)
[2017-11-28] MEDS: LISINOPRIL 20 MG TAB PO ×2 (07:51→20:36)
[2017-11-28] MEDS: SEVELAMER CARBONATE 800 MG TABLET PO ×3 (07:51→17:05)
[2017-11-28] MEDS: ISOSORBIDE DINITRATE 20 MG TAB PO ×3 (07:51→20:36)
[2017-11-28] MEDS: MULTIVIT/CA CARB/B CMPLX/FA TAB PO (07:51)
[2017-11-28] MEDS: FISH OIL 1,000 MG CAP PO (07:52)
[2017-11-28] MEDS: PANTOPRAZOLE (EC) 40 MG TAB PO (07:52)
[2017-11-28] MEDS: HYDROCODONE/APAP (5/325) TAB PO (07:56)
[2017-11-28] MEDS: WARFARIN 2 MG TAB GTB (17:05)
[2017-11-28] MEDS: MEROPENEM 500MG/50 ML (PMX) 50 ML IVPB (17:05)
[2017-11-28] MEDS: DOCUSATE SODIUM 100 MG CAP PO (20:34)
[2017-11-28] MEDS: ATORVASTATIN 10 MG TAB PO (20:34)
[2017-11-28] MEDS: CINACALCET 30 MG TAB PO (20:34)
[2017-11-29] MEDS: DIPHENHYDRAMINE 25 MG CAP PO (01:32)
[2017-11-29] MEDS: ACCU-CHEK XX (02:00)
[2017-11-29 05:37] LABS: ADD MAN DIFF? NO
[2017-11-29 05:48] LABS: WHITE BLOOD COUNT 3.5 10^3/ul (4.8-10.8)
[2017-11-29 05:48] LABS: ABNORMAL IP MESSAGE 1; BASOPHILS % 0.3 % (0.0-2.0); EOSINOPHILS # 0.2 10^3/ul (0.0-0.5); EOSINOPHILS % 4.6 % (0.0-7.0); HEMATOCRIT 24.4 % (42.0-52.0); HEMOGLOBIN 7.6 g/dl (14.0-18.0); LYMPHOCYTES # 0.5 10^3/ul (0.8-2.9); LYMPHOCYTES % 13.2 % (15.0-51.0); MEAN CORPUSCULAR HGB CONC 31.1 g/dl (32.0-37.0); MEAN CORPUSCULAR VOLUME 99.6 fl (82.0-101.0); MEAN PLATELET VOLUME 10.8 fl (7.4-10.4); MONOCYTE # 0.3 10^3/ul (0.3-0.9); MONOCYTES % 7.2 % (0.0-11.0); NEUTROPHIL # 2.6 10^3/ul (1.6-7.5); NEUTROPHILS % 74.4 % (39.0-77.0); PLATELET COUNT 92 10^3/UL (140-415); POSITIVE DIFF @See below; RED BLOOD COUNT 2.45 10^6/ul (4.70-6.10)
[2017-11-29 05:55] LABS: INR 1.67; PT RATIO 1.6
[2017-11-29 06:20] LABS: ANION GAP 12 (8-16); BLOOD UREA NITROGEN 49 mg/dl (7-20); CARBON DIOXIDE 27 mmol/L (21-31); CHLORIDE 97 mmol/L (97-110); CREATININE 6.37 mg/dl (0.61-1.24); GLUCOSE 72 mg/dl (70-220); POTASSIUM 4.8 mmol/L (3.5-5.1); SODIUM 131 mmol/L (135-144)
[2017-11-29] MEDS: LEVOTHYROXINE 100 MCG TAB PO (07:01)
[2017-11-29] MEDS: FISH OIL 1,000 MG CAP PO (07:53)
[2017-11-29] MEDS: SEVELAMER CARBONATE 800 MG TABLET PO ×3 (07:53→18:47)
[2017-11-29] MEDS: MULTIVIT/CA CARB/B CMPLX/FA TAB PO (07:53)
[2017-11-29] MEDS: PANTOPRAZOLE (EC) 40 MG TAB PO (07:54)
[2017-11-29] MEDS: CALCIUM/VITAMIN D (500/200) TAB PO (07:54)
[2017-11-29] MEDS: FOLIC ACID 1 MG TAB PO (07:54)
[2017-11-29] MEDS: ISOSORBIDE DINITRATE 20 MG TAB PO ×3 (07:59→20:59)
[2017-11-29] MEDS: INSULIN ASPART [NOVOLOG] 3 ML PEN SC ×4 (08:00→21:00)
[2017-11-29] MEDS: LISINOPRIL 20 MG TAB PO ×2 (09:03→20:59)
[2017-11-29] MEDS: ACETAMINOPHEN 500 MG TAB PO (12:18)
[2017-11-29] MEDS: DEXTROSE 5%-0.45% NACL 1,000 ML IV (12:45)
[2017-11-29 14:51] LABS: HEPATITIS B SURFACE ANTIGEN NEGATIVE (NEGATIVE)
[2017-11-29] MEDS: WARFARIN 2 MG TAB NGT (17:00)
[2017-11-29] MEDS: EPOETIN 10000 UNITS/1 ML INJ (ESRD) SC (17:00)
[2017-11-29] MEDS: MEROPENEM 500MG/50 ML (PMX) 50 ML IVPB (18:47)
[2017-11-29] MEDS: ATORVASTATIN 10 MG TAB PO (20:58)
[2017-11-29] MEDS: DOCUSATE SODIUM 100 MG CAP PO (20:58)
[2017-11-29] MEDS: CINACALCET 30 MG TAB PO (21:00)
[2017-11-29] MEDS: HYDROCODONE/APAP (5/325) TAB PO (22:17)
[2017-11-30] MEDS: ACCU-CHEK XX (02:00)
[2017-11-30] MEDS: DEXTROSE 5%-0.45% NACL 1,000 ML IV (02:17)
[2017-11-30] MEDS: ACETAMINOPHEN 500 MG TAB PO (05:20)
[2017-11-30 05:43] LABS: ADD MAN DIFF? NO
[2017-11-30 05:58] LABS: ABNORMAL IP MESSAGE 1; BASOPHILS % 0.5 % (0.0-2.0); EOSINOPHILS # 0.1 10^3/ul (0.0-0.5); EOSINOPHILS % 3.5 % (0.0-7.0); HEMATOCRIT 25.1 % (42.0-52.0); HEMOGLOBIN 7.9 g/dl (14.0-18.0); LYMPHOCYTES # 0.5 10^3/ul (0.8-2.9); LYMPHOCYTES % 12.9 % (15.0-51.0); MEAN CORPUSCULAR HGB CONC 31.5 g/dl (32.0-37.0); MEAN CORPUSCULAR VOLUME 98.4 fl (82.0-101.0); MEAN PLATELET VOLUME 10.9 fl (7.4-10.4); MONOCYTE # 0.3 10^3/ul (0.3-0.9); MONOCYTES % 8.3 % (0.0-11.0); NEUTROPHIL # 2.9 10^3/ul (1.6-7.5); NEUTROPHILS % 74.3 % (39.0-77.0); PLATELET COUNT 108 10^3/UL (140-415); POSITIVE DIFF @See below; RED BLOOD COUNT 2.55 10^6/ul (4.70-6.10); RED CELL DISTRIBUTION WIDTH 15.1 % (11.5-14.5)
[2017-11-30 06:25] LABS: ANION GAP 10 (8-16); BLOOD UREA NITROGEN 26 mg/dl (7-20); CALCIUM 8.6 mg/dl (8.4-10.2); CARBON DIOXIDE 31 mmol/L (21-31); CHLORIDE 94 mmol/L (97-110); CREATININE 4.17 mg/dl (0.61-1.24); GLUCOSE 78 mg/dl (70-220); POTASSIUM 4.4 mmol/L (3.5-5.1); SODIUM 131 mmol/L (135-144)
[2017-11-30] MEDS: LEVOTHYROXINE 100 MCG TAB PO (06:28)
[2017-11-30 06:29] LABS: INR 1.68; PROTIME 20.1 Sec (11.9-14.9); PT RATIO 1.6
[2017-11-30 06:53] LABS: VANCOMYCIN,RANDOM 12.5 ug/ml
[2017-11-30] MEDS ORDERED: LIDOCAINE 2% (SDV) 5 ML INJ (07:00)
[2017-11-30] MEDS: SEVELAMER CARBONATE 800 MG TABLET PO ×3 (07:49→18:00)
[2017-11-30] MEDS: CALCIUM/VITAMIN D (500/200) TAB PO (07:49)
[2017-11-30] MEDS: FISH OIL 1,000 MG CAP PO (07:49)
[2017-11-30] MEDS: MULTIVIT/CA CARB/B CMPLX/FA TAB PO (07:50)
[2017-11-30] MEDS: FOLIC ACID 1 MG TAB PO (07:50)
[2017-11-30] MEDS: LISINOPRIL 20 MG TAB PO ×2 (07:51→21:55)
[2017-11-30] MEDS: PANTOPRAZOLE (EC) 40 MG TAB PO (07:51)
[2017-11-30] MEDS: ISOSORBIDE DINITRATE 20 MG TAB PO ×3 (07:51→21:54)
[2017-11-30] MEDS: INSULIN ASPART [NOVOLOG] 3 ML PEN SC ×5 (07:51→21:00)
[2017-11-30] MEDS: REGADENOSON 0.4 MG/5 ML SYG (09:40)
[2017-11-30] MEDS: VANCOMYCIN 1 GM 250 ML IVPB (12:58)
[2017-11-30] MEDS ORDERED: PROPOFOL 20 ML (16:20)
[2017-11-30] MEDS ORDERED: FENTAnyl 50 MCG/ML VIAL (16:21)
[2017-11-30] MEDS: BUPIVACAINE 0.5% (SDV) 30 ML INJ (16:47)
[2017-11-30] MEDS: LIDOCAINE 1%/EPI 30 ML INJ ×2 (16:50→17:13)
[2017-11-30] MEDS: MINERAL OIL LIGHT 10 ML VIAL ×2 (17:13→17:14)
[2017-11-30] MEDS: POLYMYXIN/BACITRACIN 1L IRRIG (17:14)
[2017-11-30] MEDS ORDERED: HYDROmorphONE 1 MG/5 ML IV SYRINGE IV ×2 (18:00)
[2017-11-30] MEDS ORDERED: EPHEDrine SULFATE 50 MG/5 ML SYG IV (18:00)
[2017-11-30] MEDS ORDERED: ONDANSETRON 4 MG INJ IV (18:00)
[2017-11-30] MEDS ORDERED: DIPHENHYDRAMINE 50 MG INJ IV (18:00)
[2017-11-30] MEDS ORDERED: ALBUTEROL 0.083% (NEB) 2.5 MG/3 ML AMP HHN (18:00)
[2017-11-30] MEDS ORDERED: hydrALAzine 20 MG INJ IV (18:00)
[2017-11-30] MEDS ORDERED: METOCLOPRAMIDE 10 MG INJ IV (18:00)
[2017-11-30] MEDS: MEROPENEM 500MG/50 ML (PMX) 50 ML IVPB ×2 (18:00→21:33)
[2017-11-30] MEDS ORDERED: OXYCODONE/ACETAMINOPHEN (5/325) TAB PO (18:00)
[2017-11-30] MEDS ORDERED: LABETALOL HCL 20MG INJ IV (18:00)
[2017-11-30] MEDS ORDERED: MEPERIDINE 25 MG INJ IV (18:00)
[2017-11-30] MEDS: WARFARIN 2 MG TAB PO (18:04)
[2017-11-30] MEDS: HYDROmorphONE 1 MG/5 ML IV SYRINGE IV (18:07)
[2017-11-30] MEDS: GLUCOSE GEL 15 GRAM TUBE PO (21:22)
[2017-11-30] MEDS: HYDROCODONE/APAP (5/325) TAB PO (21:31)
[2017-11-30] MEDS: DOCUSATE SODIUM 100 MG CAP PO (21:55)
[2017-11-30] MEDS: ATORVASTATIN 10 MG TAB PO (21:55)
[2017-11-30] MEDS: CINACALCET 30 MG TAB PO (21:56)
[2017-12-01] MEDS: morphine 2 MG INJ IV ×2 (01:34→13:11)
[2017-12-01] MEDS: ACCU-CHEK XX (02:00)
[2017-12-01] MEDS: HYDROCODONE/APAP (5/325) TAB PO ×3 (05:53→23:05)
[2017-12-01 06:32] LABS: ADD MAN DIFF? NO
[2017-12-01 06:36] LABS: BASOPHILS % 0.7 % (0.0-2.0); EOSINOPHILS # 0.2 10^3/ul (0.0-0.5); EOSINOPHILS % 3.3 % (0.0-7.0); HEMATOCRIT 24.8 % (42.0-52.0); HEMOGLOBIN 7.8 g/dl (14.0-18.0); LYMPHOCYTES # 0.6 10^3/ul (0.8-2.9); LYMPHOCYTES % 13.2 % (15.0-51.0); MEAN CORPUSCULAR HEMOGLOBIN 31.1 pg (29.0-33.0); MEAN CORPUSCULAR HGB CONC 31.5 g/dl (32.0-37.0); MEAN CORPUSCULAR VOLUME 98.8 fl (82.0-101.0); MEAN PLATELET VOLUME 10.1 fl (7.4-10.4); MONOCYTE # 0.4 10^3/ul (0.3-0.9); NEUTROPHIL # 3.3 10^3/ul (1.6-7.5); NEUTROPHILS % 73.4 % (39.0-77.0); PLATELET COUNT 108 10^3/UL (140-415); RED BLOOD COUNT 2.51 10^6/ul (4.70-6.10); RED CELL DISTRIBUTION WIDTH 14.9 % (11.5-14.5)
[2017-12-01 06:36] LABS: WHITE BLOOD COUNT 4.6 10^3/ul (4.8-10.8)
[2017-12-01 06:56] LABS: INR 1.92; PROTIME 22.4 Sec (11.9-14.9); PT RATIO 1.8
[2017-12-01 07:02] LABS: ANION GAP 12 (8-16); BLOOD UREA NITROGEN 32 mg/dl (7-20); CALCIUM 8.6 mg/dl (8.4-10.2); CARBON DIOXIDE 29 mmol/L (21-31); CHLORIDE 94 mmol/L (97-110); CREATININE 4.89 mg/dl (0.61-1.24); GLUCOSE 61 mg/dl (70-220); POTASSIUM 4.8 mmol/L (3.5-5.1); SODIUM 130 mmol/L (135-144)
[2017-12-01] MEDS: LEVOTHYROXINE 100 MCG TAB PO (07:04)
[2017-12-01] MEDS: INSULIN ASPART [NOVOLOG] 3 ML PEN SC ×4 (08:00→20:26)
[2017-12-01] MEDS: FISH OIL 1,000 MG CAP PO (08:11)
[2017-12-01] MEDS: PANTOPRAZOLE (EC) 40 MG TAB PO (08:12)
[2017-12-01] MEDS: FOLIC ACID 1 MG TAB PO (08:12)
[2017-12-01] MEDS: ISOSORBIDE DINITRATE 20 MG TAB PO ×3 (08:12→20:24)
[2017-12-01] MEDS: SEVELAMER CARBONATE 800 MG TABLET PO ×3 (08:12→17:48)
[2017-12-01] MEDS: MULTIVIT/CA CARB/B CMPLX/FA TAB PO (08:12)
[2017-12-01] MEDS: CALCIUM/VITAMIN D (500/200) TAB PO (08:12)
[2017-12-01] MEDS: LISINOPRIL 20 MG TAB PO ×2 (08:12→20:24)
[2017-12-01] MEDS: CEPASTAT LOZENGE MT ×2 (12:01→19:25)
[2017-12-01] MEDS ORDERED: WARFARIN 3 MG TAB GTB (17:00)
[2017-12-01] MEDS: MEROPENEM 500MG/50 ML (PMX) 50 ML IVPB (17:49)
[2017-12-01] MEDS: EPOETIN 10000 UNITS/1 ML INJ (ESRD) SC (17:50)
[2017-12-01] MEDS: morphine LIQ (10 MG/5 ML) CUP PO ×2 (17:52→22:19)
[2017-12-01] MEDS: CINACALCET 30 MG TAB PO (20:24)
[2017-12-01] MEDS: ATORVASTATIN 10 MG TAB PO (20:24)
[2017-12-01] MEDS: DOCUSATE SODIUM 100 MG CAP PO (20:25)
[2017-12-02] MEDS: ACCU-CHEK XX (02:00)
[2017-12-02] MEDS: morphine LIQ (10 MG/5 ML) CUP PO ×3 (02:31→11:22)
[2017-12-02 06:02] LABS: ADD MAN DIFF? NO
[2017-12-02 06:09] LABS: WHITE BLOOD COUNT 3.6 10^3/ul (4.8-10.8)
[2017-12-02 06:09] LABS: ABNORMAL IP MESSAGE 1; BASOPHILS % 0.6 % (0.0-2.0); EOSINOPHILS # 0.1 10^3/ul (0.0-0.5); EOSINOPHILS % 3.9 % (0.0-7.0); HEMATOCRIT 26.7 % (42.0-52.0); HEMOGLOBIN 8.2 g/dl (14.0-18.0); LYMPHOCYTES # 0.5 10^3/ul (0.8-2.9); LYMPHOCYTES % 13.1 % (15.0-51.0); MEAN CORPUSCULAR HEMOGLOBIN 30.6 pg (29.0-33.0); MEAN CORPUSCULAR HGB CONC 30.7 g/dl (32.0-37.0); MEAN CORPUSCULAR VOLUME 99.6 fl (82.0-101.0); MEAN PLATELET VOLUME 9.8 fl (7.4-10.4); MONOCYTE # 0.3 10^3/ul (0.3-0.9); MONOCYTES % 8.3 % (0.0-11.0); NEUTROPHIL # 2.7 10^3/ul (1.6-7.5); NEUTROPHILS % 73.8 % (39.0-77.0); PLATELET COUNT 152 10^3/UL (140-415); POSITIVE DIFF @See below; RED BLOOD COUNT 2.68 10^6/ul (4.70-6.10); RED CELL DISTRIBUTION WIDTH 15.1 % (11.5-14.5)
[2017-12-02 06:26] LABS: INR 1.88; PT RATIO 1.7
[2017-12-02] MEDS: LEVOTHYROXINE 100 MCG TAB PO (06:29)
[2017-12-02 06:50] LABS: ANION GAP 10 (8-16); BLOOD UREA NITROGEN 23 mg/dl (7-20); CALCIUM 8.7 mg/dl (8.4-10.2); CARBON DIOXIDE 30 mmol/L (21-31); CHLORIDE 96 mmol/L (97-110); GLUCOSE 70 mg/dl (70-220); POTASSIUM 4.2 mmol/L (3.5-5.1); SODIUM 132 mmol/L (135-144)
[2017-12-02] MEDS: INSULIN ASPART [NOVOLOG] 3 ML PEN SC ×4 (08:00→21:00)
[2017-12-02] MEDS: LISINOPRIL 20 MG TAB PO ×2 (09:27→21:00)
[2017-12-02] MEDS: PANTOPRAZOLE (EC) 40 MG TAB PO (09:27)
[2017-12-02] MEDS: SEVELAMER CARBONATE 800 MG TABLET PO ×4 (09:27→18:08)
[2017-12-02] MEDS: CALCIUM/VITAMIN D (500/200) TAB PO (09:28)
[2017-12-02] MEDS: ISOSORBIDE DINITRATE 20 MG TAB PO ×3 (09:28→20:57)
[2017-12-02] MEDS: FOLIC ACID 1 MG TAB PO (09:28)
[2017-12-02] MEDS: MULTIVIT/CA CARB/B CMPLX/FA TAB PO (09:28)
[2017-12-02] MEDS: FISH OIL 1,000 MG CAP PO (10:42)
[2017-12-02] MEDS: CALCIUM CARBONATE 500 MG CHEW TAB PO (11:35)
[2017-12-02] MEDS: HYDROCODONE/APAP (5/325) TAB PO ×3 (12:44→23:21)
[2017-12-02] MEDS: MEROPENEM 500MG/50 ML (PMX) 50 ML IVPB (18:08)
[2017-12-02] MEDS: WARFARIN 3 MG TAB PO (18:09)
[2017-12-02] MEDS: CINACALCET 30 MG TAB PO (20:55)
[2017-12-02] MEDS: ATORVASTATIN 10 MG TAB PO (20:56)
[2017-12-02] MEDS: DOCUSATE SODIUM 100 MG CAP PO (20:59)
[2017-12-03] MEDS: ACCU-CHEK XX (02:00)
[2017-12-03] MEDS: HYDROCODONE/APAP (5/325) TAB PO ×3 (05:03→18:15)
[2017-12-03] MEDS: morphine LIQ (10 MG/5 ML) CUP PO ×2 (06:41→20:57)
[2017-12-03] MEDS: LEVOTHYROXINE 100 MCG TAB PO (06:44)
[2017-12-03 07:58] LABS: INR 1.63; PROTIME 19.7 Sec (11.9-14.9); PT RATIO 1.5
[2017-12-03] MEDS: INSULIN ASPART [NOVOLOG] 3 ML PEN SC ×4 (08:00→20:58)
[2017-12-03] MEDS: FISH OIL 1,000 MG CAP PO (08:44)
[2017-12-03] MEDS: MULTIVIT/CA CARB/B CMPLX/FA TAB PO (08:44)
[2017-12-03] MEDS: CALCIUM/VITAMIN D (500/200) TAB PO (08:44)
[2017-12-03] MEDS: PANTOPRAZOLE (EC) 40 MG TAB PO (08:44)
[2017-12-03] MEDS: ISOSORBIDE DINITRATE 20 MG TAB PO ×3 (08:47→20:34)
[2017-12-03] MEDS: LISINOPRIL 20 MG TAB PO ×2 (08:48→20:35)
[2017-12-03] MEDS: FOLIC ACID 1 MG TAB PO (09:48)
[2017-12-03] MEDS: SEVELAMER CARBONATE 800 MG TABLET PO ×3 (09:48→17:48)
[2017-12-03] MEDS: CEPASTAT LOZENGE MT (11:26)
[2017-12-03] MEDS: VANCOMYCIN 1 GM 250 ML IVPB (16:00)
[2017-12-03] MEDS: WARFARIN 2 MG TAB GTB (17:49)
[2017-12-03] MEDS: MEROPENEM 500MG/50 ML (PMX) 50 ML IVPB (17:51)
[2017-12-03] MEDS: EPOETIN 10000 UNITS/1 ML INJ (ESRD) SC (17:52)
[2017-12-03] MEDS: CINACALCET 30 MG TAB PO (20:32)
[2017-12-03] MEDS: POLYETHYLENE GLYCOL 17 GM PACKET PO (20:32)
[2017-12-03] MEDS: DOCUSATE SODIUM 100 MG CAP PO (20:34)
[2017-12-03] MEDS: ATORVASTATIN 10 MG TAB PO (20:34)
[2017-12-04] MEDS: HYDROCODONE/APAP (5/325) TAB PO ×4 (00:35→20:53)
[2017-12-04] MEDS: ACCU-CHEK XX (02:00)
[2017-12-04] MEDS: LEVOTHYROXINE 100 MCG TAB PO (06:15)
[2017-12-04 06:16] LABS: INR 1.81; PROTIME 21.4 Sec (11.9-14.9); PT RATIO 1.7
[2017-12-04] MEDS: morphine LIQ (10 MG/5 ML) CUP PO ×2 (06:29→14:27)
[2017-12-04] MEDS: INSULIN ASPART [NOVOLOG] 3 ML PEN SC ×4 (08:00→21:00)
[2017-12-04] MEDS: MULTIVIT/CA CARB/B CMPLX/FA TAB PO (09:05)
[2017-12-04] MEDS: LISINOPRIL 20 MG TAB PO ×2 (09:05→20:54)
[2017-12-04] MEDS: PANTOPRAZOLE (EC) 40 MG TAB PO (09:06)
[2017-12-04] MEDS: CALCIUM/VITAMIN D (500/200) TAB PO (09:06)
[2017-12-04] MEDS: FOLIC ACID 1 MG TAB PO (09:06)
[2017-12-04] MEDS: ISOSORBIDE DINITRATE 20 MG TAB PO ×3 (09:06→20:52)
[2017-12-04] MEDS: FISH OIL 1,000 MG CAP PO (09:06)
[2017-12-04] MEDS: SEVELAMER CARBONATE 800 MG TABLET PO ×3 (09:15→18:56)
[2017-12-04] MEDS: POLYETHYLENE GLYCOL 17 GM PACKET PO (09:15)
[2017-12-04] MEDS: MEROPENEM 500MG/50 ML (PMX) 50 ML IVPB (18:55)
[2017-12-04] MEDS: WARFARIN 3 MG TAB PO (18:56)
[2017-12-04] MEDS: DOCUSATE SODIUM 100 MG CAP PO (20:52)
[2017-12-04] MEDS: CINACALCET 30 MG TAB PO (20:52)
[2017-12-04] MEDS: ATORVASTATIN 10 MG TAB PO (20:52)
[2017-12-05] MEDS: HYDROCODONE/APAP (5/325) TAB PO ×4 (01:57→20:28)
[2017-12-05] MEDS: ACCU-CHEK XX ×2 (02:00→20:32)
[2017-12-05 06:11] LABS: ADD MAN DIFF? NO
[2017-12-05] MEDS: LEVOTHYROXINE 100 MCG TAB PO (06:15)
[2017-12-05 06:21] LABS: WHITE BLOOD COUNT 4.5 10^3/ul (4.8-10.8)
[2017-12-05 06:21] LABS: BASOPHILS % 0.4 % (0.0-2.0); EOSINOPHILS # 0.2 10^3/ul (0.0-0.5); EOSINOPHILS % 3.3 % (0.0-7.0); HEMATOCRIT 25.3 % (42.0-52.0); HEMOGLOBIN 7.7 g/dl (14.0-18.0); LYMPHOCYTES # 0.6 10^3/ul (0.8-2.9); LYMPHOCYTES % 13.7 % (15.0-51.0); MEAN CORPUSCULAR HEMOGLOBIN 31.7 pg (29.0-33.0); MEAN CORPUSCULAR HGB CONC 30.4 g/dl (32.0-37.0); MEAN CORPUSCULAR VOLUME 104.1 fl (82.0-101.0); MEAN PLATELET VOLUME 10.4 fl (7.4-10.4); MONOCYTE # 0.4 10^3/ul (0.3-0.9); MONOCYTES % 9.5 % (0.0-11.0); NEUTROPHIL # 3.3 10^3/ul (1.6-7.5); NEUTROPHILS % 72.9 % (39.0-77.0); PLATELET COUNT 106 10^3/UL (140-415); RED BLOOD COUNT 2.43 10^6/ul (4.70-6.10); RED CELL DISTRIBUTION WIDTH 15.1 % (11.5-14.5)
[2017-12-05 06:36] LABS: INR 2.15; PROTIME 24.5 Sec (11.9-14.9); PT RATIO 1.9
[2017-12-05 06:48] LABS: ALANINE AMINOTRANSFERASE 15 IU/L (13-69); ALBUMIN 2.9 g/dl (3.3-4.9); ALKALINE PHOSPHATASE 116 IU/L (42-121); ANION GAP 12 (8-16); ASPARTATE AMINO TRANSFERASE 18 IU/L (15-46); BILIRUBIN,INDIRECT 0.1 mg/dl (0-1.1); BILIRUBIN,TOTAL 0.1 mg/dl (0.2-1.3); BLOOD UREA NITROGEN 27 mg/dl (7-20); CALCIUM 8.8 mg/dl (8.4-10.2); CARBON DIOXIDE 30 mmol/L (21-31); CHLORIDE 99 mmol/L (97-110); CREATININE 5.58 mg/dl (0.61-1.24); GLUCOSE 71 mg/dl (70-220); POTASSIUM 4.5 mmol/L (3.5-5.1); SODIUM 136 mmol/L (135-144); TOTAL PROTEIN 6.5 g/dl (6.1-8.1)
[2017-12-05] MEDS: INSULIN ASPART [NOVOLOG] 3 ML PEN SC ×4 (08:00→20:31)
[2017-12-05] MEDS: FISH OIL 1,000 MG CAP PO (08:50)
[2017-12-05] MEDS: PANTOPRAZOLE (EC) 40 MG TAB PO (08:50)
[2017-12-05] MEDS: SEVELAMER CARBONATE 800 MG TABLET PO ×3 (08:50→17:41)
[2017-12-05] MEDS: CALCIUM/VITAMIN D (500/200) TAB PO (08:50)
[2017-12-05] MEDS: FOLIC ACID 1 MG TAB PO (08:50)
[2017-12-05] MEDS: MULTIVIT/CA CARB/B CMPLX/FA TAB PO (08:50)
[2017-12-05] MEDS: LISINOPRIL 20 MG TAB PO ×2 (08:52→20:28)
[2017-12-05] MEDS: ISOSORBIDE DINITRATE 20 MG TAB PO ×3 (08:52→20:27)
[2017-12-05] MEDS: POLYETHYLENE GLYCOL 17 GM PACKET PO (10:21)
[2017-12-05 15:19] LABS: IRON 24 ug/dl (35-150)
[2017-12-05 15:24] LABS: HEMATOCRIT 25.3 % (42.0-52.0); HEMOGLOBIN 7.6 g/dl (14.0-18.0)
[2017-12-05 15:29] LABS: % IRON SATURATION 13 % SAT (22-52); TOTAL IRON BINDING CAPACITY 190 ug/dl (241-421)
[2017-12-05] MEDS: MEROPENEM 500MG/50 ML (PMX) 50 ML IVPB (17:41)
[2017-12-05] MEDS: DOCUSATE SODIUM 100 MG CAP PO ×2 (17:41→20:27)
[2017-12-05] MEDS: WARFARIN 1 MG TAB PO (17:42)
[2017-12-05] MEDS: ATORVASTATIN 10 MG TAB PO (20:27)
[2017-12-05] MEDS: CINACALCET 30 MG TAB PO (20:32)
[2017-12-05] MEDS: morphine LIQ (10 MG/5 ML) CUP PO (23:01)
[2017-12-06] MEDS: HYDROCODONE/APAP (5/325) TAB PO ×2 (01:19→14:46)
[2017-12-06] MEDS: SENNA TAB PO ×2 (01:19→22:52)
[2017-12-06] MEDS: CINACALCET 30 MG TAB PO (01:24)
[2017-12-06 06:09] LABS: INR 2.48; PROTIME 27.5 Sec (11.9-14.9); PT RATIO 2.1
[2017-12-06] MEDS: morphine LIQ (10 MG/5 ML) CUP PO ×2 (06:36→22:52)
[2017-12-06] MEDS: INSULIN ASPART [NOVOLOG] 3 ML PEN SC ×4 (08:00→22:54)
[2017-12-06] MEDS: SEVELAMER CARBONATE 800 MG TABLET PO ×3 (08:29→18:00)
[2017-12-06] MEDS: FISH OIL 1,000 MG CAP PO (08:29)
[2017-12-06] MEDS: PANTOPRAZOLE (EC) 40 MG TAB PO (08:29)
[2017-12-06] MEDS: CALCIUM/VITAMIN D (500/200) TAB PO (08:29)
[2017-12-06] MEDS: FOLIC ACID 1 MG TAB PO (08:29)
[2017-12-06] MEDS: LEVOTHYROXINE 100 MCG TAB PO (08:30)
[2017-12-06] MEDS: MULTIVIT/CA CARB/B CMPLX/FA TAB PO (08:30)
[2017-12-06] MEDS: LISINOPRIL 20 MG TAB PO ×2 (09:00→22:52)
[2017-12-06] MEDS: ISOSORBIDE DINITRATE 20 MG TAB PO ×3 (09:00→22:53)
[2017-12-06] MEDS: GLUCOSE GEL 15 GRAM TUBE PO (09:24)
[2017-12-06] MEDS: POLYETHYLENE GLYCOL 17 GM PACKET PO (10:28)
[2017-12-06] MEDS: BISACODYL 10 MG SUPP PR (12:37)
[2017-12-06 15:39] LABS: VANCOMYCIN,TROUGH 15.7 ug/ml (10.0-20.0)
[2017-12-06] MEDS ORDERED: ACARBOSE 50 MG TAB PO (18:00)
[2017-12-06] MEDS: ACARBOSE 50 MG TAB PO (18:29)
[2017-12-06] MEDS: MEROPENEM 500MG/50 ML (PMX) 50 ML IVPB (18:30)
[2017-12-06] MEDS: EPOETIN 10000 UNITS/1 ML INJ (ESRD) SC (18:33)
[2017-12-06] MEDS: VANCOMYCIN 1 GM 250 ML IVPB (19:07)
[2017-12-06] MEDS: DOCUSATE SODIUM 100 MG CAP PO (22:52)
[2017-12-06] MEDS: ATORVASTATIN 10 MG TAB PO (22:53)
[2017-12-06] MEDS: ACCU-CHEK XX (22:59)
[2017-12-07] MEDS: CINACALCET 30 MG TAB PO ×2 (00:32→20:33)
[2017-12-07] MEDS: LEVOTHYROXINE 100 MCG TAB PO (07:05)
[2017-12-07] MEDS: INSULIN ASPART [NOVOLOG] 3 ML PEN SC ×4 (08:00→20:33)
[2017-12-07 08:10] LABS: PROTIME 25.9 Sec (11.9-14.9)
[2017-12-07] MEDS: SEVELAMER CARBONATE 800 MG TABLET PO ×3 (09:37→17:41)
[2017-12-07] MEDS: morphine LIQ (10 MG/5 ML) CUP PO (09:37)
[2017-12-07] MEDS: CALCIUM/VITAMIN D (500/200) TAB PO (09:39)
[2017-12-07] MEDS: PANTOPRAZOLE (EC) 40 MG TAB PO (09:41)
[2017-12-07] MEDS: MULTIVIT/CA CARB/B CMPLX/FA TAB PO (09:41)
[2017-12-07] MEDS: FOLIC ACID 1 MG TAB PO (09:41)
[2017-12-07] MEDS: FISH OIL 1,000 MG CAP PO (09:41)
[2017-12-07] MEDS: LISINOPRIL 20 MG TAB PO ×2 (09:42→20:28)
[2017-12-07] MEDS: ISOSORBIDE DINITRATE 20 MG TAB PO ×3 (09:42→20:28)
[2017-12-07] MEDS: ACARBOSE 50 MG TAB PO ×3 (09:46→17:47)
[2017-12-07] MEDS: HYDROCODONE/APAP (5/325) TAB PO ×2 (11:12→19:55)
[2017-12-07] MEDS ORDERED: WARFARIN 3 MG TAB PO (17:00)
[2017-12-07] MEDS: MEROPENEM 500MG/50 ML (PMX) 50 ML IVPB (17:41)
[2017-12-07] MEDS: CALCIUM CARBONATE 500 MG CHEW TAB PO (20:28)
[2017-12-07] MEDS: ATORVASTATIN 10 MG TAB PO (20:28)
[2017-12-07] MEDS: WARFARIN 1 MG TAB PO (20:29)
[2017-12-07] MEDS: DOCUSATE SODIUM 100 MG CAP PO (20:29)
[2017-12-07] MEDS: POLYETHYLENE GLYCOL 17 GM PACKET PO (21:44)
[2017-12-08] MEDS: ACCU-CHEK XX ×2 (01:10→20:20)
[2017-12-08 05:37] LABS: PROTIME 25.9 Sec (11.9-14.9)
[2017-12-08] MEDS: LEVOTHYROXINE 100 MCG TAB PO (06:01)
[2017-12-08] MEDS: INSULIN ASPART [NOVOLOG] 3 ML PEN SC ×4 (08:00→20:20)
[2017-12-08] MEDS: PANTOPRAZOLE (EC) 40 MG TAB PO (08:28)
[2017-12-08] MEDS: SEVELAMER CARBONATE 800 MG TABLET PO ×3 (08:28→17:34)
[2017-12-08] MEDS: FOLIC ACID 1 MG TAB PO (08:29)
[2017-12-08] MEDS: MULTIVIT/CA CARB/B CMPLX/FA TAB PO (08:29)
[2017-12-08] MEDS: ACARBOSE 50 MG TAB PO ×3 (08:29→18:01)
[2017-12-08] MEDS: CALCIUM/VITAMIN D (500/200) TAB PO (08:29)
[2017-12-08] MEDS: morphine LIQ (10 MG/5 ML) CUP PO ×3 (08:30→20:15)
[2017-12-08] MEDS: LISINOPRIL 20 MG TAB PO ×2 (09:00→20:18)
[2017-12-08] MEDS: ISOSORBIDE DINITRATE 20 MG TAB PO ×3 (09:00→20:19)
[2017-12-08 09:44] LABS: ADD MAN DIFF? NO
[2017-12-08 09:49] LABS: ABNORMAL IP MESSAGE 1; BASOPHILS % 0.5 % (0.0-2.0); EOSINOPHILS # 0.2 10^3/ul (0.0-0.5); EOSINOPHILS % 4.5 % (0.0-7.0); HEMATOCRIT 27.2 % (42.0-52.0); HEMOGLOBIN 8.2 g/dl (14.0-18.0); LYMPHOCYTES # 0.5 10^3/ul (0.8-2.9); LYMPHOCYTES % 14.4 % (15.0-51.0); MEAN CORPUSCULAR HEMOGLOBIN 30.8 pg (29.0-33.0); MEAN CORPUSCULAR HGB CONC 30.1 g/dl (32.0-37.0); MEAN CORPUSCULAR VOLUME 102.3 fl (82.0-101.0); MEAN PLATELET VOLUME 10.9 fl (7.4-10.4); MONOCYTE # 0.3 10^3/ul (0.3-0.9); NEUTROPHIL # 2.7 10^3/ul (1.6-7.5); NEUTROPHILS % 72.3 % (39.0-77.0); PLATELET COUNT 140 10^3/UL (140-415); POSITIVE DIFF @See below; RED BLOOD COUNT 2.66 10^6/ul (4.70-6.10); RED CELL DISTRIBUTION WIDTH 15.2 % (11.5-14.5)
[2017-12-08 09:49] LABS: WHITE BLOOD COUNT 3.8 10^3/ul (4.8-10.8)
[2017-12-08] MEDS: FISH OIL 1,000 MG CAP PO (10:06)
[2017-12-08] MEDS: HYDROCODONE/APAP (5/325) TAB PO ×2 (13:20→22:41)
[2017-12-08] MEDS: WARFARIN 1 MG TAB PO (17:25)
[2017-12-08] MEDS: MEROPENEM 500MG/50 ML (PMX) 50 ML IVPB (17:26)
[2017-12-08] MEDS: EPOETIN 10000 UNITS/1 ML INJ (ESRD) SC (17:35)
[2017-12-08] MEDS: SENNA TAB PO (20:15)
[2017-12-08] MEDS: ATORVASTATIN 10 MG TAB PO (20:16)
[2017-12-08] MEDS: DOCUSATE SODIUM 100 MG CAP PO (20:19)
[2017-12-08] MEDS: ONDANSETRON 4 MG INJ IV (21:15)
[2017-12-08] MEDS: CINACALCET 30 MG TAB PO (22:36)
[2017-12-09] MEDS: LEVOTHYROXINE 100 MCG TAB PO (06:12)
[2017-12-09] MEDS: HYDROCODONE/APAP (5/325) TAB PO ×3 (06:12→18:14)
[2017-12-09 07:26] LABS: INR 2.11; PROTIME 24.2 Sec (11.9-14.9); PT RATIO 1.9
[2017-12-09] MEDS: SEVELAMER CARBONATE 800 MG TABLET PO ×3 (08:00→18:00)
[2017-12-09] MEDS: INSULIN ASPART [NOVOLOG] 3 ML PEN SC ×3 (08:00→17:13)
[2017-12-09] MEDS: LISINOPRIL 20 MG TAB PO (09:00)
[2017-12-09] MEDS: ISOSORBIDE DINITRATE 20 MG TAB PO ×2 (09:00→12:50)
[2017-12-09] MEDS: PANTOPRAZOLE (EC) 40 MG TAB PO (09:39)
[2017-12-09] MEDS: FOLIC ACID 1 MG TAB PO (09:39)
[2017-12-09] MEDS: MULTIVIT/CA CARB/B CMPLX/FA TAB PO (09:39)
[2017-12-09] MEDS: CALCIUM/VITAMIN D (500/200) TAB PO (09:40)
[2017-12-09] MEDS: FISH OIL 1,000 MG CAP PO (09:41)
[2017-12-09] MEDS: ACARBOSE 50 MG TAB PO ×3 (09:42→17:16)
[2017-12-09] MEDS: POLYETHYLENE GLYCOL 17 GM PACKET PO (10:22)
[2017-12-09] MEDS: GLUCOSE GEL 15 GRAM TUBE PO (13:34)
[2017-12-09] MEDS: MEROPENEM 500MG/50 ML (PMX) 50 ML IVPB (17:11)
[2017-12-09] MEDS: WARFARIN 1 MG TAB PO (17:16)
[2017-12-09] MEDS: CALCIUM CARBONATE 500 MG CHEW TAB PO (18:17)
[2017-12-09] MEDS ORDERED: LISINOPRIL 20 MG TAB PO (21:00)
[2017-12-09] MEDS ORDERED: VANCOMYCIN 1 GM 250 ML IVPB (21:00)
== END 2017-12-09 18:20 | DRG 853 ==
LOC: 2NE 11-30 11:13 → E/R 13:53 → MS2 16:09
PROVIDERS: Internal Medicine
PROC: 0JBR0ZZ Excision of Left Foot Subcutaneous Tissue and Fascia, Open Approach (ICD-10-PCS; principal; 2017-11-30 16:00)
PROC: 0JBQ0ZZ Excision of Right Foot Subcutaneous Tissue and Fascia, Open Approach (ICD-10-PCS; 2017-11-30 16:00)
PROC: 0HRNX74 Replacement of Left Foot Skin with Autologous Tissue Substitute, Partial Thickness, External Approach (ICD-10-PCS; 2017-11-30 16:00)
PROC: 0HBJXZZ Excision of Left Upper Leg Skin, External Approach (ICD-10-PCS; 2017-11-30 16:00)
PROC: 5A1D70Z Performance of Urinary Filtration, Intermittent, Less than 6 Hours Per Day (ICD-10-PCS; 2017-11-30 16:21)
DX: A41.9 Sepsis, unspecified organism (principal); N18.6 End stage renal disease; I12.0 Hypertensive chronic kidney disease with stage 5 chronic kidney disease or end stage renal disease; L97.518 Non-pressure chronic ulcer of other part of right foot with other specified severity; M86.9 Osteomyelitis, unspecified; E11.22 Type 2 diabetes mellitus with diabetic chronic kidney disease; Z99.2 Dependence on renal dialysis; E11.621 Type 2 diabetes mellitus with foot ulcer; R07.9 Chest pain, unspecified; Z95.2 Presence of prosthetic heart valve; Z79.02 Long term (current) use of antithrombotics/antiplatelets; E78.5 Hyperlipidemia, unspecified; Z95.1 Presence of aortocoronary bypass graft; E02 Subclinical iodine-deficiency hypothyroidism; D63.1 Anemia in chronic kidney disease; M81.0 Age-related osteoporosis without current pathological fracture; E11.69 Type 2 diabetes mellitus with other specified complication
CPT/HCPCS: 71045; 73630; 73630-LT; 78452; 80048; 80053; 80061; 80202; 82728; 82962; 83540; 83605; 83735; 84100; 84484; 85014; 85018; 85025; 85610; 85730; 87040; 87081; 87340; 90935; 93005; 93017; 93306; 93970; 96374; 96375; 97110; 97162; 97164; 99291-25

== ENCOUNTER 2018-03-12 09:50 | Inpatient (IN) | payer MEDICARE, OTHER ==
[2018-03-12] MEDS ORDERED: ONDANSETRON 4 MG INJ IV ×2 (10:30→16:30)
[2018-03-12] MEDS ORDERED: ACETAMINOPHEN 325 MG TAB PO ×2 (10:30→16:30)
[2018-03-12] MEDS ORDERED: DOCUSATE SODIUM 100 MG CAP PO (16:30)
[2018-03-12] MEDS ORDERED: BISACODYL 10 MG SUPP PR (16:30)
[2018-03-12] MEDS ORDERED: AL HYDROX/MG HYDROX/SIMETH 30 ML CUP PO (16:30)
[2018-03-12] MEDS ORDERED: MAGNESIUM HYDROXIDE 30ML CUP PO (16:30)
[2018-03-12] MEDS ORDERED: ZOLPIDEM 5 MG TAB PO (16:30)
[2018-03-12] MEDS ORDERED: NACL 0.9% 3 ML SYG IV (16:30)
[2018-03-12 16:56] LABS: INR 2.97; PROTIME 31.8 Sec (11.9-14.9); PT RATIO 2.5
[2018-03-12 16:57] LABS: PARTIAL THROMBOPLASTIN TIME 56.5 Sec (23.0-35.0)
[2018-03-12] MEDS: SEVELAMER CARBONATE 800 MG TABLET PO (17:55)
[2018-03-12] MEDS ORDERED: HEPARIN 1000 UNITS/ML 10 ML INJ IV (18:00)
[2018-03-12] MEDS: SUCRALFATE 1 GM TAB PO (18:12)
[2018-03-12] MEDS: PANTOPRAZOLE (EC) 40 MG TAB PO (18:12)
[2018-03-12] MEDS: HEPARIN 25000 UNITS/250 ML 250 ML IV (18:23)
[2018-03-12] MEDS: CEPASTAT LOZENGE MT (21:20)
[2018-03-12] MEDS: LISINOPRIL 10 MG TAB PO (21:27)
[2018-03-12] MEDS: ISOSORBIDE MONONITRATE 20 MG TAB PO (21:28)
[2018-03-12] MEDS: CINACALCET 30 MG TAB PO (21:28)
[2018-03-12] MEDS: ATORVASTATIN 10 MG TAB PO (21:28)
[2018-03-12] MEDS: DOCUSATE SODIUM 100 MG CAP PO (21:29)
[2018-03-12 22:56] LABS: PARTIAL THROMBOPLASTIN TIME 99.5 Sec (23.0-35.0)
[2018-03-13] MEDS: CEPASTAT LOZENGE MT ×2 (02:00→11:24)
[2018-03-13 05:34] LABS: ADD MAN DIFF? NO
[2018-03-13 05:45] LABS: HEMOGLOBIN A1C 4.2 % (0-5.9)
[2018-03-13 05:47] LABS: WHITE BLOOD COUNT 3.2 10^3/ul (4.8-10.8)
[2018-03-13 05:47] LABS: BASOPHILS % 0.6 % (0.0-2.0); EOSINOPHILS # 0.1 10^3/ul (0.0-0.5); EOSINOPHILS % 3.5 % (0.0-7.0); HEMATOCRIT 28.7 % (42.0-52.0); HEMOGLOBIN 9.4 g/dl (14.0-18.0); LYMPHOCYTES # 0.7 10^3/ul (0.8-2.9); MEAN CORPUSCULAR HEMOGLOBIN 32.6 pg (29.0-33.0); MEAN CORPUSCULAR HGB CONC 32.8 g/dl (32.0-37.0); MEAN CORPUSCULAR VOLUME 99.7 fl (82.0-101.0); MEAN PLATELET VOLUME 10.8 fl (7.4-10.4); MONOCYTE # 0.3 10^3/ul (0.3-0.9); MONOCYTES % 9.1 % (0.0-11.0); NEUTROPHILS % 63.5 % (39.0-77.0); PLATELET COUNT 126 10^3/UL (140-415); RED BLOOD COUNT 2.88 10^6/ul (4.70-6.10)
[2018-03-13 06:15] LABS: ANION GAP 12 (5-13); BLOOD UREA NITROGEN 48 mg/dl (7-20); CALCIUM 9.4 mg/dl (8.4-10.2); CARBON DIOXIDE 24 mmol/L (21-31); CHLORIDE 100 mmol/L (97-110); CREATININE 6.02 mg/dl (0.61-1.24); Estimated GFR 9 mL/min (>60); GLUCOSE 74 mg/dl (70-220); PHOSPHORUS 5.7 mg/dl (2.5-4.9); POTASSIUM 4.1 mmol/L (3.5-5.1); SODIUM 136 mmol/L (135-144)
[2018-03-13] MEDS: PANTOPRAZOLE (EC) 40 MG TAB PO ×2 (06:20→17:53)
[2018-03-13] MEDS: LEVOTHYROXINE 100 MCG TAB PO (06:20)
[2018-03-13] MEDS: SUCRALFATE 1 GM TAB PO ×4 (06:21→17:53)
[2018-03-13] MEDS: LISINOPRIL 10 MG TAB PO ×2 (08:43→20:50)
[2018-03-13] MEDS: SEVELAMER CARBONATE 800 MG TABLET PO ×3 (08:43→17:53)
[2018-03-13] MEDS: FOLIC ACID 1 MG TAB PO (08:43)
[2018-03-13] MEDS: ISOSORBIDE MONONITRATE 20 MG TAB PO ×2 (09:00→22:37)
[2018-03-13 14:37] LABS: PARTIAL THROMBOPLASTIN TIME 66.1 Sec (23.0-35.0)
[2018-03-13] MEDS ORDERED: VITAMIN A & D 5 GM OINT PACKET TOP (17:57)
[2018-03-13 20:12] LABS: PARTIAL THROMBOPLASTIN TIME 69.8 Sec (23.0-35.0)
[2018-03-13] MEDS: ATORVASTATIN 10 MG TAB PO (20:49)
[2018-03-13] MEDS: CINACALCET 30 MG TAB PO (20:49)
[2018-03-13] MEDS: DOCUSATE SODIUM 100 MG CAP PO (20:50)
[2018-03-13] MEDS: HYDROCODONE/APAP (5/325) TAB PO (20:50)
[2018-03-14] MEDS: SUCRALFATE 1 GM TAB PO ×4 (00:20→21:33)
[2018-03-14] MEDS: LEVOTHYROXINE 100 MCG TAB PO (00:20)
[2018-03-14] MEDS: PANTOPRAZOLE (EC) 40 MG TAB PO ×2 (00:20→21:44)
[2018-03-14] MEDS: HEPARIN 25000 UNITS/250 ML 250 ML IV ×2 (02:59→13:50)
[2018-03-14 03:37] LABS: ADD MAN DIFF? NO
[2018-03-14 03:41] LABS: BASOPHILS % 0.7 % (0.0-2.0); EOSINOPHILS # 0.1 10^3/ul (0.0-0.5); EOSINOPHILS % 3.3 % (0.0-7.0); HEMATOCRIT 28.7 % (42.0-52.0); HEMOGLOBIN 9.3 g/dl (14.0-18.0); LYMPHOCYTES # 0.7 10^3/ul (0.8-2.9); LYMPHOCYTES % 23.7 % (15.0-51.0); MEAN CORPUSCULAR HEMOGLOBIN 32.2 pg (29.0-33.0); MEAN CORPUSCULAR HGB CONC 32.4 g/dl (32.0-37.0); MEAN CORPUSCULAR VOLUME 99.3 fl (82.0-101.0); MEAN PLATELET VOLUME 11.2 fl (7.4-10.4); MONOCYTE # 0.3 10^3/ul (0.3-0.9); MONOCYTES % 8.2 % (0.0-11.0); NEUTROPHIL # 1.9 10^3/ul (1.6-7.5); NEUTROPHILS % 63.8 % (39.0-77.0); PLATELET COUNT 108 10^3/UL (140-415); POSITIVE DIFF @See below; RED BLOOD COUNT 2.89 10^6/ul (4.70-6.10); RED CELL DISTRIBUTION WIDTH 14.2 % (11.5-14.5)
[2018-03-14 04:00] LABS: ANION GAP 14 (5-13); BLOOD UREA NITROGEN 64 mg/dl (7-20); CALCIUM 9.6 mg/dl (8.4-10.2); CARBON DIOXIDE 24 mmol/L (21-31); CHLORIDE 96 mmol/L (97-110); CREATININE 7.77 mg/dl (0.61-1.24); Estimated GFR 7 mL/min (>60); GLUCOSE 73 mg/dl (70-220); POTASSIUM 4.5 mmol/L (3.5-5.1); SODIUM 134 mmol/L (135-144)
[2018-03-14 04:03] LABS: PARTIAL THROMBOPLASTIN TIME 54.7 Sec (23.0-35.0)
[2018-03-14 04:29] LABS: THYROID STIMULATING HORMONE 0.958 MIU/L (0.465-4.680)
[2018-03-14] MEDS: CEPASTAT LOZENGE MT (05:45)
[2018-03-14] MEDS ORDERED: THROMBIN 5000 UNIT VIAL (07:03)
[2018-03-14] MEDS ORDERED: HEPARIN 1000 UNITS/ML 10 ML INJ ×2 (07:03→08:02)
[2018-03-14] MEDS ORDERED: LIDOCAINE 1% (STERILE-PAK) 30 ML INJ (07:03)
[2018-03-14] MEDS ORDERED: GELATIN SIZE 100 SPONGE (07:03)
[2018-03-14] MEDS ORDERED: MIDAZOLAM 1 MG/ML 2 ML INJ (07:26)
[2018-03-14] MEDS ORDERED: ETOMIDATE 20 MG INJ (07:26)
[2018-03-14] MEDS ORDERED: CEFAZOLIN 1 GM INJ (07:26)
[2018-03-14] MEDS ORDERED: FENTAnyl 50 MCG/ML VIAL (07:26)
[2018-03-14] MEDS ORDERED: DIPHENHYDRAMINE 50 MG INJ IV (07:30)
[2018-03-14] MEDS ORDERED: HYDROmorphONE 1 MG/5 ML IV SYRINGE IV ×3 (07:30)
[2018-03-14] MEDS ORDERED: LABETALOL HCL 20MG INJ IV (07:30)
[2018-03-14] MEDS ORDERED: ONDANSETRON 4 MG INJ IV (07:30)
[2018-03-14] MEDS ORDERED: hydrALAzine 20 MG INJ IV (07:30)
[2018-03-14] MEDS ORDERED: OXYCODONE/ACETAMINOPHEN (5/325) TAB PO ×2 (07:30)
[2018-03-14] MEDS ORDERED: MEPERIDINE 25 MG INJ IV (07:30)
[2018-03-14] MEDS ORDERED: EPHEDrine SULFATE 50 MG/5 ML SYG IV (07:30)
[2018-03-14] MEDS: SEVELAMER CARBONATE 800 MG TABLET PO ×3 (07:35→21:34)
[2018-03-14] MEDS ORDERED: ROPIVACAINE 0.2% 20 ML VIAL (07:38)
[2018-03-14] MEDS ORDERED: PROPOFOL 20 ML ×2 (08:02→08:49)
[2018-03-14] MEDS ORDERED: EPHEDrine SULFATE 50 MG/5 ML SYG (08:04)
[2018-03-14 08:06] LABS: HEPATITIS B SURFACE ANTIGEN NEGATIVE (NEGATIVE)
[2018-03-14] MEDS: FOLIC ACID 1 MG TAB PO (09:00)
[2018-03-14] MEDS: LISINOPRIL 10 MG TAB PO ×2 (09:00→21:00)
[2018-03-14] MEDS: ISOSORBIDE MONONITRATE 20 MG TAB PO ×2 (09:00→21:00)
[2018-03-14] MEDS ORDERED: LIDOCAINE 2% (SDV) 5 ML INJ (09:08)
[2018-03-14] MEDS: morphine 2 MG INJ IV (10:30)
[2018-03-14 11:36] LABS: PARTIAL THROMBOPLASTIN TIME 43.4 Sec (23.0-35.0)
[2018-03-14 11:42] LABS: INR 1.53; PROTIME 18.7 Sec (11.9-14.9); PT RATIO 1.5
[2018-03-14] MEDS: DEXTROSE 5% 1,000 ML IV (12:16)
[2018-03-14] MEDS: HYDROCODONE/APAP (5/325) TAB PO (13:21)
[2018-03-14] MEDS: HEPARIN 1000 UNITS/ML 10 ML INJ IV (13:46)
[2018-03-14] MEDS: ARTIFICIAL TEARS 15 ML OPH BOTH EYES (14:10)
[2018-03-14 17:23] LABS: PARTIAL THROMBOPLASTIN TIME 72.2 Sec (23.0-35.0)
[2018-03-14] MEDS: HEPARIN 1000 UNITS/ML 10 ML INJ CATHETER (20:00)
[2018-03-14] MEDS: HYDROCODONE/APAP (10/325) TAB PO (21:31)
[2018-03-14] MEDS: CINACALCET 30 MG TAB PO (21:33)
[2018-03-14] MEDS: ATORVASTATIN 10 MG TAB PO (21:34)
[2018-03-14] MEDS: DOCUSATE SODIUM 100 MG CAP PO (21:34)
[2018-03-14] MEDS: WARFARIN 2 MG TAB PO (23:14)
[2018-03-14 23:56] LABS: PARTIAL THROMBOPLASTIN TIME 51.1 Sec (23.0-35.0)
[2018-03-15] MEDS: DEXTROSE 5% 1,000 ML IV (03:30)
[2018-03-15] MEDS: HYDROCODONE/APAP (10/325) TAB PO ×2 (03:56→20:32)
[2018-03-15 05:34] LABS: ADD MAN DIFF? NO
[2018-03-15 05:37] LABS: WHITE BLOOD COUNT 2.9 10^3/ul (4.8-10.8)
[2018-03-15 05:37] LABS: ABNORMAL IP MESSAGE 1; BASOPHILS % 0.3 % (0.0-2.0); EOSINOPHILS # 0.1 10^3/ul (0.0-0.5); EOSINOPHILS % 2.4 % (0.0-7.0); HEMATOCRIT 29.5 % (42.0-52.0); HEMOGLOBIN 9.4 g/dl (14.0-18.0); LYMPHOCYTES # 0.4 10^3/ul (0.8-2.9); LYMPHOCYTES % 14.3 % (15.0-51.0); MEAN CORPUSCULAR HEMOGLOBIN 31.9 pg (29.0-33.0); MEAN CORPUSCULAR HGB CONC 31.9 g/dl (32.0-37.0); MEAN PLATELET VOLUME 11.3 fl (7.4-10.4); MONOCYTE # 0.3 10^3/ul (0.3-0.9); MONOCYTES % 10.1 % (0.0-11.0); NEUTROPHIL # 2.1 10^3/ul (1.6-7.5); NEUTROPHILS % 72.6 % (39.0-77.0); PLATELET COUNT 96 10^3/UL (140-415); POSITIVE DIFF @See below; RED BLOOD COUNT 2.95 10^6/ul (4.70-6.10); RED CELL DISTRIBUTION WIDTH 14.1 % (11.5-14.5)
[2018-03-15 05:58] LABS: PARTIAL THROMBOPLASTIN TIME 56.2 Sec (23.0-35.0)
[2018-03-15 06:06] LABS: ANION GAP 8 (5-13); BLOOD UREA NITROGEN 31 mg/dl (7-20); CALCIUM 9.2 mg/dl (8.4-10.2); CARBON DIOXIDE 29 mmol/L (21-31); CHLORIDE 100 mmol/L (97-110); CREATININE 4.54 mg/dl (0.61-1.24); Estimated GFR 13 mL/min (>60); GLUCOSE 78 mg/dl (70-220); PHOSPHORUS 4.8 mg/dl (2.5-4.9); SODIUM 137 mmol/L (135-144)
[2018-03-15] MEDS: LEVOTHYROXINE 100 MCG TAB PO (06:34)
[2018-03-15] MEDS: PANTOPRAZOLE (EC) 40 MG TAB PO ×2 (06:34→18:28)
[2018-03-15] MEDS: SUCRALFATE 1 GM TAB PO ×5 (06:34→23:53)
[2018-03-15] MEDS: ISOSORBIDE MONONITRATE 20 MG TAB PO ×3 (09:00→20:33)
[2018-03-15] MEDS: FOLIC ACID 1 MG TAB PO (09:09)
[2018-03-15] MEDS: SEVELAMER CARBONATE 800 MG TABLET PO ×4 (09:09→18:29)
[2018-03-15] MEDS: LISINOPRIL 10 MG TAB PO ×2 (09:09→20:33)
[2018-03-15 11:32] LABS: INR 1.51; PROTIME 18.5 Sec (11.9-14.9); PT RATIO 1.4
[2018-03-15] MEDS: HEPARIN 25000 UNITS/250 ML 250 ML IV (18:00)
[2018-03-15] MEDS: WARFARIN 2 MG TAB PO (18:28)
[2018-03-15 18:35] LABS: PARTIAL THROMBOPLASTIN TIME 84.2 Sec (23.0-35.0)
[2018-03-15] MEDS: DOCUSATE SODIUM 100 MG CAP PO (20:33)
[2018-03-15] MEDS: VITAMIN A & D 5 GM OINT PACKET TOP (20:33)
[2018-03-15] MEDS: ATORVASTATIN 10 MG TAB PO (20:33)
[2018-03-15] MEDS: CINACALCET 30 MG TAB PO (20:33)
[2018-03-15] MEDS: POLYETHYLENE GLYCOL 17 GM PACKET PO (20:34)
[2018-03-15] MEDS: morphine 2 MG INJ IV (23:50)
[2018-03-16 00:47] LABS: PARTIAL THROMBOPLASTIN TIME 81.8 Sec (23.0-35.0)
[2018-03-16] MEDS: HYDROCODONE/APAP (10/325) TAB PO ×2 (03:58→14:23)
[2018-03-16] MEDS: LEVOTHYROXINE 100 MCG TAB PO (06:12)
[2018-03-16] MEDS: PANTOPRAZOLE (EC) 40 MG TAB PO ×2 (06:12→17:48)
[2018-03-16] MEDS: SUCRALFATE 1 GM TAB PO ×3 (06:13→17:46)
[2018-03-16] MEDS: SEVELAMER CARBONATE 800 MG TABLET PO ×3 (07:59→17:46)
[2018-03-16] MEDS: FOLIC ACID 1 MG TAB PO (08:02)
[2018-03-16] MEDS: LISINOPRIL 10 MG TAB PO (08:03)
[2018-03-16] MEDS: ISOSORBIDE MONONITRATE 20 MG TAB PO (08:03)
[2018-03-16] MEDS: VITAMIN A & D 5 GM OINT PACKET TOP (08:03)
[2018-03-16 08:27] LABS: ABNORMAL IP MESSAGE 1; HEMATOCRIT 30.4 % (42.0-52.0); HEMOGLOBIN 9.5 g/dl (14.0-18.0); MEAN CORPUSCULAR HEMOGLOBIN 31.7 pg (29.0-33.0); MEAN CORPUSCULAR HGB CONC 31.3 g/dl (32.0-37.0); MEAN CORPUSCULAR VOLUME 101.3 fl (82.0-101.0); MEAN PLATELET VOLUME 11.1 fl (7.4-10.4); PLATELET COUNT 81 10^3/UL (140-415); POSITIVE DIFF @See below; RED CELL DISTRIBUTION WIDTH 13.9 % (11.5-14.5)
[2018-03-16 08:27] LABS: WHITE BLOOD COUNT 2.4 10^3/ul (4.8-10.8)
[2018-03-16 08:28] LABS: ADD MAN DIFF? YES
[2018-03-16 08:58] LABS: ANION GAP 13 (5-13); BLOOD UREA NITROGEN 48 mg/dl (7-20); CALCIUM 9.3 mg/dl (8.4-10.2); CARBON DIOXIDE 26 mmol/L (21-31); CHLORIDE 97 mmol/L (97-110); CREATININE 5.89 mg/dl (0.61-1.24); Estimated GFR 10 mL/min (>60); GLUCOSE 71 mg/dl (70-220); PHOSPHORUS 5.8 mg/dl (2.5-4.9); POTASSIUM 4.7 mmol/L (3.5-5.1); SODIUM 136 mmol/L (135-144)
[2018-03-16 09:04] LABS: INR 1.82; PROTIME 21.5 Sec (11.9-14.9); PT RATIO 1.7
[2018-03-16 09:24] LABS: PARTIAL THROMBOPLASTIN TIME 82.2 Sec (23.0-35.0)
[2018-03-16 10:08] LABS: ANISOCYTOSIS 1+ (0-0); BAND NEUTROPHILS % (M) 4 % (0-4); EOSINOPHILS % (M) 3 % (0-7); LYMPHOCYTES #M 0.5 10^3/ul (0.8-2.9); LYMPHOCYTES % (M) 21 % (15-51); MONOCYTES % (M) 3 % (0-11); PLATELET ESTIMATE DECREASED; POIKILOCYTOSIS 1+ (0-0); POLYCHROMASIA 2+ (0-0); REACTIVE LYMPHOCYTES% (M) 1 % (0-0); SEG NEUT #M 1.6 10^3/ul (1.6-7.5); SEGMENTED NEUTROPHILS (M) % 68 % (39-77); SMUDGE%M 2 % (0-0)
[2018-03-16] MEDS: HEPARIN 1000 UNITS/ML 10 ML INJ CATHETER (13:06)
[2018-03-16 15:06] LABS: PARTIAL THROMBOPLASTIN TIME 143.4 Sec (23.0-35.0)
[2018-03-16] MEDS: WARFARIN 2 MG TAB PO (17:46)
[2018-03-16] MEDS: HYDROCODONE/APAP (5/325) TAB PO (17:46)
== END 2018-03-16 20:40 | disposition home or self-care (01) | DRG 981 ==
LOC: E/R 09:50 → TEL 10:12 → PP2 20:23
PROC: 03150JD Bypass Right Axillary Artery to Upper Arm Vein with Synthetic Substitute, Open Approach (ICD-10-PCS; principal; 2018-03-14 07:29)
PROC: 5A1D70Z Performance of Urinary Filtration, Intermittent, Less than 6 Hours Per Day (ICD-10-PCS; 2018-03-14 07:29)
PROC: 5A1D70Z Performance of Urinary Filtration, Intermittent, Less than 6 Hours Per Day (ICD-10-PCS; 2018-03-14 07:29)
DX: I12.0 Hypertensive chronic kidney disease with stage 5 chronic kidney disease or end stage renal disease (principal); N18.6 End stage renal disease; I73.9 Peripheral vascular disease, unspecified; Z79.01 Long term (current) use of anticoagulants; Z95.2 Presence of prosthetic heart valve; D64.9 Anemia, unspecified
CPT/HCPCS: 71045; 80048; 82962; 83036; 83735; 84100; 84443; 85025; 85610; 85730; 87081; 87340; 90935; 93005; 99217; 99285-25

== ENCOUNTER 2018-04-21 16:57 | Inpatient (IN) | payer MEDICARE, OTHER ==
[2018-04-21 17:45] LABS: ADD MAN DIFF? NO
[2018-04-21 17:50] LABS: ABNORMAL IP MESSAGE 1; BASOPHILS % 0.4 % (0.0-2.0); EOSINOPHILS # 0.1 10^3/ul (0.0-0.5); EOSINOPHILS % 1.7 % (0.0-7.0); HEMATOCRIT 32.5 % (42.0-52.0); HEMOGLOBIN 10.6 g/dl (14.0-18.0); LYMPHOCYTES # 0.6 10^3/ul (0.8-2.9); LYMPHOCYTES % 11.4 % (15.0-51.0); MEAN CORPUSCULAR HEMOGLOBIN 32.4 pg (29.0-33.0); MEAN CORPUSCULAR HGB CONC 32.6 g/dl (32.0-37.0); MEAN CORPUSCULAR VOLUME 99.4 fl (82.0-101.0); MEAN PLATELET VOLUME 11.1 fl (7.4-10.4); MONOCYTE # 0.5 10^3/ul (0.3-0.9); NEUTROPHILS % 76.1 % (39.0-77.0); PLATELET COUNT 131 10^3/UL (140-415); POSITIVE DIFF @See below; RED BLOOD COUNT 3.27 10^6/ul (4.70-6.10); RED CELL DISTRIBUTION WIDTH 14.2 % (11.5-14.5)
[2018-04-21 17:50] LABS: WHITE BLOOD COUNT 5.2 10^3/ul (4.8-10.8)
[2018-04-21 18:08] LABS: INR 4.07; PROTIME 40.9 Sec (11.9-14.9); PT RATIO 3.2
[2018-04-21 18:09] LABS: PARTIAL THROMBOPLASTIN TIME 61.3 Sec (23.0-35.0)
[2018-04-21] MEDS: ONDANSETRON 4 MG INJ IV (18:11)
[2018-04-21] MEDS: morphine 4 MG/ML VIAL IV (18:11)
[2018-04-21] MEDS: PIPER-TAZO 3.375 GM IV (PMX) 100 ML IVPB (18:11)
[2018-04-21 18:18] LABS: ANION GAP 16 (5-13); BLOOD UREA NITROGEN 48 mg/dl (7-20); CALCIUM 9.3 mg/dl (8.4-10.2); CARBON DIOXIDE 24 mmol/L (21-31); CHLORIDE 93 mmol/L (97-110); Estimated GFR 10 mL/min (>60); GLUCOSE 92 mg/dl (70-220); POTASSIUM 5.3 mmol/L (3.5-5.1); SODIUM 133 mmol/L (135-144)
[2018-04-21 18:32] LABS: TROPONIN-I 0.214 ng/ml (0.000-0.120)
[2018-04-21] MEDS ORDERED: DOCUSATE SODIUM 100 MG CAP PO (19:00)
[2018-04-21] MEDS ORDERED: HYDROCODONE/APAP (5/325) TAB PO (19:00)
[2018-04-21] MEDS ORDERED: ONDANSETRON 4 MG INJ IV ×2 (19:00)
[2018-04-21] MEDS ORDERED: LORAZEPAM 2 MG INJ IV (19:00)
[2018-04-21] MEDS: ASPIRIN 81 MG TAB PO (19:00)
[2018-04-21] MEDS ORDERED: ACETAMINOPHEN 325 MG TAB PO (19:00)
[2018-04-21] MEDS ORDERED: NACL 0.9% 3 ML SYG IV (19:00)
[2018-04-21] MEDS: VANCOMYCIN 1 GM (PMX) 250 ML IVPB (19:01)
[2018-04-21 19:33] LABS: FREE T4 (FREE THYROXINE) 1.13 ng/dl (0.78-2.44)
[2018-04-21 20:51] LABS: LACTIC ACID 0.7 mmol/L (0.5-2.0)
[2018-04-21] MEDS: morphine 2 MG INJ IV (21:41)
[2018-04-22] MEDS ORDERED: CEPASTAT LOZENGE MT (01:00)
[2018-04-22] MEDS ORDERED: PHENOL 1.4% SOLN 180 ML BTL MT (01:00)
[2018-04-22] MEDS: morphine 2 MG INJ IV ×2 (05:44→12:49)
[2018-04-22 05:52] LABS: INR 3.87; PROTIME 39.3 Sec (11.9-14.9); PT RATIO 3.1
[2018-04-22 06:07] LABS: CHOL/HDL RATIO 3.3 RATIO; HDL CHOLESTEROL 28 mg/dl (30-78); LDL CHOLESTEROL,CALCULATED 45 mg/dl; TRIGLYCERIDES 100 mg/dl (0-149)
[2018-04-22 06:07] LABS: CHOLESTEROL 93 mg/dl (100-200)
[2018-04-22 06:14] LABS: HEMOGLOBIN A1C 4.2 % (0-5.9)
[2018-04-22] MEDS ORDERED: BISACODYL 10 MG SUPP PR (08:30)
[2018-04-22 08:40] LABS: CREATINE KINASE 29 IU/L (23-200)
[2018-04-22 08:49] LABS: CK INDEX 18.2
[2018-04-22 08:51] LABS: CK-MB 5.27 ng/ml (0.0-2.4)
[2018-04-22] MEDS: LISINOPRIL 10 MG TAB PO ×2 (09:00→22:09)
[2018-04-22] MEDS: MULTIVIT/CA CARB/B CMPLX/FA TAB PO (09:00)
[2018-04-22 09:02] LABS: ADD MAN DIFF? NO
[2018-04-22 09:09] LABS: BASOPHILS % 0.3 % (0.0-2.0); EOSINOPHILS # 0.1 10^3/ul (0.0-0.5); EOSINOPHILS % 2.1 % (0.0-7.0); HEMATOCRIT 34.3 % (42.0-52.0); LYMPHOCYTES # 0.7 10^3/ul (0.8-2.9); LYMPHOCYTES % 10.9 % (15.0-51.0); MEAN CORPUSCULAR HEMOGLOBIN 32.2 pg (29.0-33.0); MEAN CORPUSCULAR HGB CONC 32.1 g/dl (32.0-37.0); MEAN CORPUSCULAR VOLUME 100.3 fl (82.0-101.0); MEAN PLATELET VOLUME 10.8 fl (7.4-10.4); MONOCYTE # 0.3 10^3/ul (0.3-0.9); MONOCYTES % 5.4 % (0.0-11.0); PLATELET COUNT 141 10^3/UL (140-415); RED BLOOD COUNT 3.42 10^6/ul (4.70-6.10); RED CELL DISTRIBUTION WIDTH 14.2 % (11.5-14.5)
[2018-04-22 09:09] LABS: WHITE BLOOD COUNT 6.1 10^3/ul (4.8-10.8)
[2018-04-22 09:10] LABS: TROPONIN-I 0.132 ng/ml (0.000-0.120)
[2018-04-22 09:46] LABS: TROPONIN-I 0.163 ng/ml (0.000-0.120)
[2018-04-22] MEDS: VITAMIN A & D 5 GM OINT PACKET TOP (09:50)
[2018-04-22] MEDS: PANTOPRAZOLE (EC) 40 MG TAB PO ×2 (09:51→22:09)
[2018-04-22] MEDS: FOLIC ACID 1 MG TAB PO (09:51)
[2018-04-22] MEDS: SUCRALFATE 1 GM TAB PO ×3 (09:51→22:08)
[2018-04-22] MEDS: CINACALCET 30 MG TAB PO (09:51)
[2018-04-22] MEDS: GABAPENTIN 100 MG CAP PO ×3 (09:51→22:09)
[2018-04-22] MEDS: ISOSORBIDE MONONITRATE 20 MG TAB PO (09:53)
[2018-04-22] MEDS: LEVOTHYROXINE 100 MCG TAB PO (11:13)
[2018-04-22] MEDS: SEVELAMER 800 MG TAB PO ×2 (11:18→17:31)
[2018-04-22 12:04] LABS: CREATINE KINASE 32 IU/L (23-200)
[2018-04-22 12:17] LABS: CK INDEX 18.7
[2018-04-22 12:18] LABS: CK-MB 5.99 ng/ml (0.0-2.4)
[2018-04-22 12:35] LABS: ANION GAP 17 (5-13); BLOOD UREA NITROGEN 60 mg/dl (7-20); CALCIUM 9.1 mg/dl (8.4-10.2); CARBON DIOXIDE 22 mmol/L (21-31); CHLORIDE 95 mmol/L (97-110); CREATININE 6.73 mg/dl (0.61-1.24); Estimated GFR 8 mL/min (>60); GLUCOSE 55 mg/dl (70-220); PHOSPHORUS 5.2 mg/dl (2.5-4.9); POTASSIUM 5.8 mmol/L (3.5-5.1); SODIUM 134 mmol/L (135-144)
[2018-04-22 13:21] LABS: HEPATITIS B SURFACE ANTIGEN NEGATIVE (NEGATIVE)
[2018-04-22] MEDS: ISOSORBIDE DINITRATE 20 MG TAB PO ×2 (13:30→22:10)
[2018-04-22] MEDS: HYDROmorphONE 2 MG/ML SYG IV (18:39)
[2018-04-22] MEDS ORDERED: ATORVASTATIN 10 MG TAB PO (21:00)
[2018-04-22] MEDS: ATORVASTATIN 20 MG TAB PO (22:08)
[2018-04-22] MEDS: DOCUSATE SODIUM 100 MG CAP PO (22:08)
[2018-04-22] MEDS: morphine (ER) 15 MG TAB PO (22:15)
[2018-04-23] MEDS: HYDROmorphONE 2 MG/ML SYG IV (00:42)
[2018-04-23] MEDS ORDERED: NALOXONE (0.4 MG/ML) INJ (00:47)
[2018-04-23] MEDS: SUCRALFATE 1 GM TAB PO ×4 (02:19→21:19)
[2018-04-23] MEDS: SOD CHLORIDE 0.9% 1,000 ML IV (02:19)
[2018-04-23] MEDS: NORepinephrine 8MG/250 ML (PMX 250 ML IV (02:35)
[2018-04-23 02:45] LABS: AADO2 Arterial 108.9 mmHg (7.0-24.0); Allen Test ACCEPTAB; Arterial Base Excess -1.1 mmol/L (-3.0-3); Arterial Blood Gas Oxygen Sat 99.4 mmHG (95.0-98.0); Arterial COHb 1.1 % (0.0-3.0); Arterial Fraction of Oxyhgb 98.1 % (93.0-99.0); Arterial HCO3 23.9 mmol/L (22.0-26.0); Arterial MetHb 0.2 % (0.0-1.5); Arterial pCO2 41.5 mmhg (35-45); MODE VENT - AC
[2018-04-23 05:18] LABS: WHITE BLOOD COUNT 10.4 10^3/ul (4.8-10.8)
[2018-04-23 05:18] LABS: ADD MAN DIFF? NO; BASOPHILS % 0.3 % (0.0-2.0); EOSINOPHILS # 0.1 10^3/ul (0.0-0.5); EOSINOPHILS % 0.6 % (0.0-7.0); HEMATOCRIT 35.5 % (42.0-52.0); LYMPHOCYTES # 1.1 10^3/ul (0.8-2.9); LYMPHOCYTES % 10.7 % (15.0-51.0); MEAN CORPUSCULAR HEMOGLOBIN 31.6 pg (29.0-33.0); MEAN PLATELET VOLUME 11.4 fl (7.4-10.4); MONOCYTE # 0.6 10^3/ul (0.3-0.9); MONOCYTES % 5.6 % (0.0-11.0); NEUTROPHIL # 8.5 10^3/ul (1.6-7.5); NEUTROPHILS % 82.2 % (39.0-77.0); PLATELET COUNT 150 10^3/UL (140-415); RED BLOOD COUNT 3.48 10^6/ul (4.70-6.10); RED CELL DISTRIBUTION WIDTH 14.5 % (11.5-14.5)
[2018-04-23 05:39] LABS: CREATINE KINASE 125 IU/L (23-200)
[2018-04-23 05:43] LABS: INR 2.67; PROTIME 29.2 Sec (11.9-14.9); PT RATIO 2.3
[2018-04-23 05:50] LABS: ANION GAP 14 (5-13); BLOOD UREA NITROGEN 32 mg/dl (7-20); CALCIUM 9.2 mg/dl (8.4-10.2); CARBON DIOXIDE 25 mmol/L (21-31); CHLORIDE 98 mmol/L (97-110); CREATININE 4.32 mg/dl (0.61-1.24); Estimated GFR 14 mL/min (>60); GLUCOSE 83 mg/dl (70-220); MAGNESIUM 1.9 mg/dl (1.7-2.5); POTASSIUM 5.2 mmol/L (3.5-5.1); SODIUM 137 mmol/L (135-144)
[2018-04-23 05:53] LABS: CK INDEX 5.5
[2018-04-23 05:56] LABS: CK-MB 6.89 ng/ml (0.0-2.4)
[2018-04-23 06:04] LABS: AADO2 Arterial 9.1 mmHg (7.0-24.0); Allen Test ACCEPTAB; Arterial Base Excess -1.5 mmol/L (-3.0-3); Arterial Blood Gas Oxygen Sat 98.2 mmHG (95.0-98.0); Arterial Fraction of Oxyhgb 96.9 % (93.0-99.0); Arterial HCO3 25.2 mmol/L (22.0-26.0); Arterial MetHb 0.3 % (0.0-1.5); Arterial pCO2 51.3 mmhg (35-45); MODE NASAL CANNULA; Site Left Radial
[2018-04-23] MEDS: LEVOTHYROXINE 100 MCG TAB PO (07:00)
[2018-04-23] MEDS: SEVELAMER 800 MG TAB PO ×3 (07:35→17:45)
[2018-04-23] MEDS: ISOSORBIDE DINITRATE 20 MG TAB PO ×3 (09:00→21:00)
[2018-04-23] MEDS: morphine (ER) 15 MG TAB PO ×2 (09:00→21:19)
[2018-04-23] MEDS: LISINOPRIL 10 MG TAB PO ×2 (09:00→21:00)
[2018-04-23 09:33] LABS: PHOSPHORUS 3.9 mg/dl (2.5-4.9)
[2018-04-23] MEDS: GABAPENTIN 100 MG CAP PO ×3 (10:23→21:18)
[2018-04-23] MEDS: PANTOPRAZOLE (EC) 40 MG TAB PO ×2 (10:23→21:18)
[2018-04-23] MEDS: FOLIC ACID 1 MG TAB PO (10:24)
[2018-04-23] MEDS: MULTIVIT/CA CARB/B CMPLX/FA TAB PO (10:24)
[2018-04-23] MEDS: VITAMIN A & D 5 GM OINT PACKET TOP (10:24)
[2018-04-23] MEDS: ACETAMINOPHEN 325 MG TAB PO (12:40)
[2018-04-23] MEDS: CINACALCET 30 MG TAB PO (12:48)
[2018-04-23] MEDS: DOCUSATE SODIUM 100 MG CAP PO (21:19)
[2018-04-23] MEDS: ATORVASTATIN 20 MG TAB PO (21:19)
[2018-04-24] MEDS: SUCRALFATE 1 GM TAB PO ×4 (03:42→21:04)
[2018-04-24 05:06] LABS: ADD MAN DIFF? NO
[2018-04-24 05:15] LABS: WHITE BLOOD COUNT 8.9 10^3/ul (4.8-10.8)
[2018-04-24 05:15] LABS: BASOPHILS % 0.3 % (0.0-2.0); EOSINOPHILS # 0.2 10^3/ul (0.0-0.5); HEMATOCRIT 32.7 % (42.0-52.0); HEMOGLOBIN 10.1 g/dl (14.0-18.0); LYMPHOCYTES # 0.7 10^3/ul (0.8-2.9); LYMPHOCYTES % 7.6 % (15.0-51.0); MEAN CORPUSCULAR HEMOGLOBIN 31.8 pg (29.0-33.0); MEAN CORPUSCULAR HGB CONC 30.9 g/dl (32.0-37.0); MEAN CORPUSCULAR VOLUME 102.8 fl (82.0-101.0); MEAN PLATELET VOLUME 10.9 fl (7.4-10.4); MONOCYTE # 0.7 10^3/ul (0.3-0.9); MONOCYTES % 7.8 % (0.0-11.0); NEUTROPHIL # 7.3 10^3/ul (1.6-7.5); NEUTROPHILS % 81.7 % (39.0-77.0); PLATELET COUNT 164 10^3/UL (140-415); RED BLOOD COUNT 3.18 10^6/ul (4.70-6.10); RED CELL DISTRIBUTION WIDTH 13.9 % (11.5-14.5)
[2018-04-24 05:33] LABS: INR 2.31
[2018-04-24 05:44] LABS: ANION GAP 10 (5-13); BLOOD UREA NITROGEN 44 mg/dl (7-20); CALCIUM 9.2 mg/dl (8.4-10.2); CARBON DIOXIDE 28 mmol/L (21-31); CHLORIDE 98 mmol/L (97-110); CREATININE 6.39 mg/dl (0.61-1.24); Estimated GFR 9 mL/min (>60); GLUCOSE 98 mg/dl (70-220); PHOSPHORUS 4.8 mg/dl (2.5-4.9); SODIUM 136 mmol/L (135-144)
[2018-04-24] MEDS: LEVOTHYROXINE 100 MCG TAB PO (06:30)
[2018-04-24] MEDS ORDERED: EPINEPHrine 0.1 MG/ML SYG (07:00)
[2018-04-24] MEDS: SEVELAMER 800 MG TAB PO ×3 (07:35→17:39)
[2018-04-24] MEDS: CINACALCET 30 MG TAB PO (09:00)
[2018-04-24] MEDS: ISOSORBIDE DINITRATE 20 MG TAB PO ×3 (09:00→21:05)
[2018-04-24] MEDS: VITAMIN A & D 5 GM OINT PACKET TOP (09:00)
[2018-04-24] MEDS: LISINOPRIL 10 MG TAB PO ×2 (09:00→21:05)
[2018-04-24] MEDS: MULTIVIT/CA CARB/B CMPLX/FA TAB PO (10:30)
[2018-04-24] MEDS: morphine (ER) 15 MG TAB PO ×2 (10:31→21:06)
[2018-04-24] MEDS: GABAPENTIN 100 MG CAP PO ×3 (10:32→21:04)
[2018-04-24] MEDS: FOLIC ACID 1 MG TAB PO (10:32)
[2018-04-24] MEDS: PANTOPRAZOLE (EC) 40 MG TAB PO ×2 (10:32→21:05)
[2018-04-24] MEDS: HYDROmorphONE 2 MG/ML SYG IV (13:56)
[2018-04-24] MEDS: ATORVASTATIN 20 MG TAB PO (21:04)
[2018-04-24] MEDS: DOCUSATE SODIUM 100 MG CAP PO (21:06)
[2018-04-24] MEDS: ACETAMINOPHEN 325 MG TAB PO (22:09)
[2018-04-25] MEDS: SUCRALFATE 1 GM TAB PO ×4 (03:02→21:18)
[2018-04-25] MEDS: NORepinephrine 8MG/250 ML (PMX 250 ML IV (03:03)
[2018-04-25 05:40] LABS: ADD MAN DIFF? NO
[2018-04-25 05:48] LABS: WHITE BLOOD COUNT 8.2 10^3/ul (4.8-10.8)
[2018-04-25 05:48] LABS: BASOPHILS % 0.4 % (0.0-2.0); EOSINOPHILS # 0.2 10^3/ul (0.0-0.5); EOSINOPHILS % 2.4 % (0.0-7.0); HEMATOCRIT 29.6 % (42.0-52.0); HEMOGLOBIN 9.1 g/dl (14.0-18.0); LYMPHOCYTES # 0.7 10^3/ul (0.8-2.9); MEAN CORPUSCULAR HEMOGLOBIN 31.5 pg (29.0-33.0); MEAN CORPUSCULAR HGB CONC 30.7 g/dl (32.0-37.0); MEAN CORPUSCULAR VOLUME 102.4 fl (82.0-101.0); MEAN PLATELET VOLUME 10.7 fl (7.4-10.4); MONOCYTE # 0.7 10^3/ul (0.3-0.9); MONOCYTES % 8.1 % (0.0-11.0); NEUTROPHIL # 6.5 10^3/ul (1.6-7.5); NEUTROPHILS % 79.7 % (39.0-77.0); PLATELET COUNT 180 10^3/UL (140-415); RED BLOOD COUNT 2.89 10^6/ul (4.70-6.10); RED CELL DISTRIBUTION WIDTH 13.9 % (11.5-14.5)
[2018-04-25 06:16] LABS: ANION GAP 14 (5-13); BLOOD UREA NITROGEN 56 mg/dl (7-20); CARBON DIOXIDE 25 mmol/L (21-31); CHLORIDE 97 mmol/L (97-110); CREATININE 7.73 mg/dl (0.61-1.24); Estimated GFR 7 mL/min (>60); GLUCOSE 69 mg/dl (70-220); POTASSIUM 5.7 mmol/L (3.5-5.1); SODIUM 136 mmol/L (135-144)
[2018-04-25 06:17] LABS: CALCIUM 8.9 mg/dl (8.4-10.2); PHOSPHORUS 5.5 mg/dl (2.5-4.9)
[2018-04-25] MEDS: SEVELAMER 800 MG TAB PO ×3 (06:59→17:35)
[2018-04-25] MEDS: LEVOTHYROXINE 100 MCG TAB PO (06:59)
[2018-04-25] MEDS: GABAPENTIN 100 MG CAP PO ×3 (08:17→21:18)
[2018-04-25] MEDS: MULTIVIT/CA CARB/B CMPLX/FA TAB PO (08:17)
[2018-04-25] MEDS: FOLIC ACID 1 MG TAB PO (08:17)
[2018-04-25] MEDS: PANTOPRAZOLE (EC) 40 MG TAB PO ×2 (08:17→21:18)
[2018-04-25] MEDS: CINACALCET 30 MG TAB PO (08:18)
[2018-04-25] MEDS: VITAMIN A & D 5 GM OINT PACKET TOP (08:19)
[2018-04-25] MEDS: ISOSORBIDE DINITRATE 20 MG TAB PO ×3 (08:57→21:00)
[2018-04-25] MEDS: LISINOPRIL 10 MG TAB PO ×2 (08:58→21:00)
[2018-04-25] MEDS: morphine (ER) 15 MG TAB PO (09:00)
[2018-04-25] MEDS: MIDODRINE 5 MG TAB PO ×3 (09:27→16:02)
[2018-04-25] MEDS: WARFARIN 5 MG TAB PO (16:03)
[2018-04-25] MEDS ORDERED: WARFARIN 5 MG TAB PO (21:00)
[2018-04-25] MEDS: DOCUSATE SODIUM 100 MG CAP PO (21:18)
[2018-04-25] MEDS: ATORVASTATIN 20 MG TAB PO (21:18)
[2018-04-26] MEDS: SUCRALFATE 1 GM TAB PO ×4 (02:37→21:19)
[2018-04-26] MEDS: HYDROCODONE/APAP (5/325) TAB PO (03:24)
[2018-04-26] MEDS: LORAZEPAM 4 MG/ML VIAL IV (04:22)
[2018-04-26 05:15] LABS: ADD MAN DIFF? NO
[2018-04-26 05:16] LABS: WHITE BLOOD COUNT 6.1 10^3/ul (4.8-10.8)
[2018-04-26 05:16] LABS: BASOPHILS % 0.3 % (0.0-2.0); EOSINOPHILS # 0.1 10^3/ul (0.0-0.5); EOSINOPHILS % 1.8 % (0.0-7.0); HEMATOCRIT 27.4 % (42.0-52.0); HEMOGLOBIN 8.3 g/dl (14.0-18.0); LYMPHOCYTES # 0.7 10^3/ul (0.8-2.9); LYMPHOCYTES % 11.7 % (15.0-51.0); MEAN CORPUSCULAR HEMOGLOBIN 31.2 pg (29.0-33.0); MEAN CORPUSCULAR HGB CONC 30.3 g/dl (32.0-37.0); MEAN PLATELET VOLUME 10.9 fl (7.4-10.4); MONOCYTE # 0.4 10^3/ul (0.3-0.9); MONOCYTES % 6.6 % (0.0-11.0); NEUTROPHIL # 4.8 10^3/ul (1.6-7.5); NEUTROPHILS % 79.1 % (39.0-77.0); PLATELET COUNT 156 10^3/UL (140-415); RED BLOOD COUNT 2.66 10^6/ul (4.70-6.10); RED CELL DISTRIBUTION WIDTH 13.7 % (11.5-14.5)
[2018-04-26 05:40] LABS: INR 2.02; PROTIME 23.3 Sec (11.9-14.9); PT RATIO 1.8
[2018-04-26 05:42] LABS: ANION GAP 10 (5-13); BLOOD UREA NITROGEN 35 mg/dl (7-20); CALCIUM 8.7 mg/dl (8.4-10.2); CARBON DIOXIDE 30 mmol/L (21-31); CHLORIDE 96 mmol/L (97-110); Estimated GFR 11 mL/min (>60); GLUCOSE 66 mg/dl (70-220); PHOSPHORUS 4.7 mg/dl (2.5-4.9); POTASSIUM 4.7 mmol/L (3.5-5.1); SODIUM 136 mmol/L (135-144)
[2018-04-26] MEDS: SEVELAMER 800 MG TAB PO ×3 (06:29→17:35)
[2018-04-26] MEDS: LEVOTHYROXINE 100 MCG TAB PO (06:29)
[2018-04-26] MEDS: NORepinephrine 8MG/250 ML (PMX 250 ML IV (08:10)
[2018-04-26] MEDS ORDERED: DEXTROSE 50% 50 ML SYRINGE (08:22)
[2018-04-26] MEDS: DEXTROSE 50% 50 ML SYRINGE IV (08:30)
[2018-04-26] MEDS: FOLIC ACID 1 MG TAB PO (08:54)
[2018-04-26] MEDS: GABAPENTIN 100 MG CAP PO ×3 (08:54→21:19)
[2018-04-26] MEDS: ISOSORBIDE DINITRATE 20 MG TAB PO ×3 (08:54→21:00)
[2018-04-26] MEDS: CINACALCET 30 MG TAB PO (08:55)
[2018-04-26] MEDS: MIDODRINE 5 MG TAB PO ×3 (08:55→18:08)
[2018-04-26] MEDS: LISINOPRIL 10 MG TAB PO ×2 (08:55→21:00)
[2018-04-26] MEDS: MULTIVIT/CA CARB/B CMPLX/FA TAB PO (08:55)
[2018-04-26] MEDS: PANTOPRAZOLE (EC) 40 MG TAB PO ×2 (08:55→21:19)
[2018-04-26] MEDS: VITAMIN A & D 5 GM OINT PACKET TOP (08:56)
[2018-04-26] MEDS ORDERED: POVIDONE IODINE 10% 28.4 GM OINT TOP (09:00)
[2018-04-26] MEDS ORDERED: LORAZEPAM 4 MG/ML VIAL IV (11:00)
[2018-04-26] MEDS: SOD CHLORIDE 0.9% 250 ML IV (11:02)
[2018-04-26] MEDS: DEXTROSE 5% 1,000 ML IV (11:09)
[2018-04-26] MEDS ORDERED: NALOXONE (0.4 MG/ML) INJ (11:50)
[2018-04-26] MEDS: NALOXONE (0.4 MG/ML) INJ IV ×2 (12:03→12:06)
[2018-04-26] MEDS ORDERED: VANCOMYCIN IV PER PHARMACY XX (13:00)
[2018-04-26] MEDS ORDERED: GENTAMICIN IV PER PHARMACY XX (13:00)
[2018-04-26] MEDS: VANCOMYCIN 1 GM 250 ML IVPB (13:38)
[2018-04-26] MEDS: GENTAMICIN 120 MG/NS (PMX) 100 ML IVPB (15:55)
[2018-04-26] MEDS: EPOETIN 10000 UNITS/1 ML INJ (ESRD) SC (18:11)
[2018-04-26] MEDS: WARFARIN 5 MG TAB PO (18:39)
[2018-04-26] MEDS: ATORVASTATIN 20 MG TAB PO (21:19)
[2018-04-26] MEDS: DOCUSATE SODIUM 100 MG CAP PO (21:19)
[2018-04-27] MEDS: NORepinephrine 8MG/250 ML (PMX 250 ML IV ×3 (00:57→23:54)
[2018-04-27] MEDS: ACETAMINOPHEN 1000MG/100ML IV 100 ML IVPB ×2 (01:38→03:41)
[2018-04-27] MEDS: SUCRALFATE 1 GM TAB PO ×4 (03:00→20:28)
[2018-04-27 04:11] LABS: AADO2 Arterial 22.2 mmHg (7.0-24.0); Allen Test ACCEPTAB; Arterial Base Excess 0.2 mmol/L (-3.0-3); Arterial Blood Gas Oxygen Sat 93.3 mmHG (95.0-98.0); Arterial Fraction of Oxyhgb 92.2 % (93.0-99.0); Arterial HCO3 27.9 mmol/L (22.0-26.0); Arterial MetHb 0.2 % (0.0-1.5); Arterial pCO2 61.4 mmhg (35-45); MODE NASAL CANNULA; Site Right Radial
[2018-04-27 04:57] LABS: ADD MAN DIFF? NO
[2018-04-27 05:07] LABS: WHITE BLOOD COUNT 10.3 10^3/ul (4.8-10.8)
[2018-04-27 05:07] LABS: ABNORMAL IP MESSAGE 1; BASOPHILS % 0.2 % (0.0-2.0); EOSINOPHILS # 0.1 10^3/ul (0.0-0.5); EOSINOPHILS % 0.5 % (0.0-7.0); HEMATOCRIT 29.8 % (42.0-52.0); HEMOGLOBIN 9.2 g/dl (14.0-18.0); LYMPHOCYTES # 0.6 10^3/ul (0.8-2.9); LYMPHOCYTES % 5.3 % (15.0-51.0); MEAN CORPUSCULAR HEMOGLOBIN 31.3 pg (29.0-33.0); MEAN CORPUSCULAR HGB CONC 30.9 g/dl (32.0-37.0); MEAN CORPUSCULAR VOLUME 101.4 fl (82.0-101.0); MEAN PLATELET VOLUME 10.7 fl (7.4-10.4); MONOCYTE # 0.6 10^3/ul (0.3-0.9); MONOCYTES % 5.7 % (0.0-11.0); NEUTROPHILS % 87.7 % (39.0-77.0); PLATELET COUNT 190 10^3/UL (140-415); POSITIVE DIFF @See below; RED BLOOD COUNT 2.94 10^6/ul (4.70-6.10); RED CELL DISTRIBUTION WIDTH 13.5 % (11.5-14.5)
[2018-04-27 05:26] LABS: ANION GAP 12 (5-13); BLOOD UREA NITROGEN 46 mg/dl (7-20); CALCIUM 8.9 mg/dl (8.4-10.2); CARBON DIOXIDE 29 mmol/L (21-31); CHLORIDE 93 mmol/L (97-110); CREATININE 6.45 mg/dl (0.61-1.24); Estimated GFR 9 mL/min (>60); GLUCOSE 63 mg/dl (70-220); IRON 28 ug/dl (35-150); PHOSPHORUS 4.8 mg/dl (2.5-4.9); POTASSIUM 4.7 mmol/L (3.5-5.1); SODIUM 134 mmol/L (135-144)
[2018-04-27 05:27] LABS: INR 3.71
[2018-04-27 05:30] LABS: LACTIC ACID 0.9 mmol/L (0.5-2.0)
[2018-04-27 05:36] LABS: % IRON SATURATION 17 % SAT (22-52); TOTAL IRON BINDING CAPACITY 168 ug/dl (241-421)
[2018-04-27] MEDS: DEXTROSE 5% 1,000 ML IV ×2 (05:48→23:52)
[2018-04-27] MEDS ORDERED: DEXTROSE 50% 50 ML SYRINGE IV (06:00)
[2018-04-27] MEDS ORDERED: GLUCOSE GEL 15 GRAM TUBE BUCCAL (06:00)
[2018-04-27] MEDS ORDERED: GLUCAGON 1 MG INJ IM (06:00)
[2018-04-27] MEDS ORDERED: GLUCOSE GEL 15 GRAM TUBE PO ×2 (06:00)
[2018-04-27] MEDS: DEXTROSE 50% 50 ML SYRINGE IV (06:31)
[2018-04-27] MEDS ORDERED: ETOMIDATE 20 MG INJ (07:00)
[2018-04-27] MEDS: LEVOTHYROXINE 100 MCG TAB PO (07:00)
[2018-04-27] MEDS ORDERED: VECURONIUM 10 MG VIAL (07:00)
[2018-04-27] MEDS ORDERED: SUCCINYLCHOLINE CHLORIDE 100 MG/5 ML SYG IV (07:00)
[2018-04-27 07:18] LABS: AADO2 Arterial 74.3 mmHg (7.0-24.0); Allen Test ACCEPTAB; Arterial Base Excess -1.4 mmol/L (-3.0-3); Arterial Blood Gas Oxygen Sat 92.7 mmHG (95.0-98.0); Arterial Fraction of Oxyhgb 91.5 % (93.0-99.0); Arterial MetHb 0.3 % (0.0-1.5); Arterial pCO2 56.9 mmhg (35-45); Blood Gas PS 15; MODE MASK - BIPAP; Site Left Radial
[2018-04-27] MEDS: SEVELAMER 800 MG TAB PO ×3 (07:35→17:17)
[2018-04-27] MEDS: MIDODRINE 5 MG TAB PO ×3 (08:21→17:17)
[2018-04-27] MEDS: GABAPENTIN 100 MG CAP PO ×3 (08:21→20:29)
[2018-04-27] MEDS: FOLIC ACID 1 MG TAB PO (08:21)
[2018-04-27] MEDS: ISOSORBIDE DINITRATE 20 MG TAB PO ×3 (08:21→20:29)
[2018-04-27] MEDS: MULTIVIT/CA CARB/B CMPLX/FA TAB PO (08:22)
[2018-04-27] MEDS: LISINOPRIL 10 MG TAB PO ×2 (08:22→20:30)
[2018-04-27] MEDS: CINACALCET 30 MG TAB PO (08:22)
[2018-04-27] MEDS ORDERED: PROPOFOL 100 ML IV (09:00)
[2018-04-27] MEDS ORDERED: CEFEPIME 1GM/50 ML (PMX) 50 ML IVPB (09:00)
[2018-04-27] MEDS: ALBUTEROL/IPRATROPIUM (NEB) 3 ML AMP HHN ×3 (10:17→20:00)
[2018-04-27 10:22] LABS: AADO2 Arterial 209.8 mmHg (7.0-24.0); Allen Test ACCEPTAB; Arterial Base Excess -1.8 mmol/L (-3.0-3); Arterial Blood Gas Oxygen Sat 97.5 mmHG (95.0-98.0); Arterial COHb 0.8 % (0.0-3.0); Arterial Fraction of Oxyhgb 96.5 % (93.0-99.0); Arterial HCO3 23.6 mmol/L (22.0-26.0); Arterial MetHb 0.2 % (0.0-1.5); Arterial pCO2 42.8 mmhg (35-45); MODE VENT - AC; Site Left Radial
[2018-04-27] MEDS: MIDAZOLAM (DRIP) 50 mg/50 mL 50 ML IV ×2 (10:28→20:33)
[2018-04-27] MEDS: FENTAnyl (DRIP) 1000 mcg/100mL 100 ML IV (10:29)
[2018-04-27] MEDS: CEFEPIME 2GM/50 ML IVPB (10:49)
[2018-04-27] MEDS: WARFARIN 3 MG TAB PO (17:18)
[2018-04-27] MEDS: PANTOPRAZOLE 40 MG INJ IV (17:31)
[2018-04-27] MEDS: DOCUSATE SODIUM 100 MG CAP PO (20:28)
[2018-04-27] MEDS: ATORVASTATIN 20 MG TAB PO (20:28)
[2018-04-27] MEDS: ACETAMINOPHEN 325 MG TAB PO (20:29)
[2018-04-27] MEDS: GENTAMICIN 80 MG/NS (PMX) 50 ML IVPB (23:52)
[2018-04-28] MEDS: IPRATROPIUM (HFA) 12.9 GM INHALER INH ×4 (01:35→21:06)
[2018-04-28] MEDS: ALBUTEROL HFA 8 GM INHALER INH ×4 (01:35→21:06)
[2018-04-28] MEDS: MIDAZOLAM (DRIP) 50 mg/50 mL 50 ML IV (03:42)
[2018-04-28] MEDS: SUCRALFATE 1 GM TAB PO ×4 (03:42→20:44)
[2018-04-28 05:09] LABS: ADD MAN DIFF? NO
[2018-04-28 05:10] LABS: BASOPHILS % 0.3 % (0.0-2.0); EOSINOPHILS # 0.1 10^3/ul (0.0-0.5); EOSINOPHILS % 0.8 % (0.0-7.0); HEMATOCRIT 27.8 % (42.0-52.0); LYMPHOCYTES # 0.7 10^3/ul (0.8-2.9); LYMPHOCYTES % 6.4 % (15.0-51.0); MEAN CORPUSCULAR HEMOGLOBIN 31.5 pg (29.0-33.0); MEAN CORPUSCULAR HGB CONC 32.4 g/dl (32.0-37.0); MEAN CORPUSCULAR VOLUME 97.2 fl (82.0-101.0); MEAN PLATELET VOLUME 10.6 fl (7.4-10.4); MONOCYTE # 0.5 10^3/ul (0.3-0.9); MONOCYTES % 4.8 % (0.0-11.0); NEUTROPHIL # 9.2 10^3/ul (1.6-7.5); NEUTROPHILS % 86.9 % (39.0-77.0); PLATELET COUNT 166 10^3/UL (140-415); POSITIVE DIFF @See below; RED BLOOD COUNT 2.86 10^6/ul (4.70-6.10); RED CELL DISTRIBUTION WIDTH 13.5 % (11.5-14.5)
[2018-04-28 05:10] LABS: WHITE BLOOD COUNT 10.6 10^3/ul (4.8-10.8)
[2018-04-28 05:32] LABS: PROTIME 74.5 Sec (11.9-14.9); PT RATIO 5.8
[2018-04-28 05:49] LABS: INR 8.62
[2018-04-28] MEDS: NORepinephrine 8MG/250 ML (PMX 250 ML IV ×3 (06:08→20:47)
[2018-04-28] MEDS: PANTOPRAZOLE 40 MG INJ IV ×2 (06:08→17:38)
[2018-04-28] MEDS: LEVOTHYROXINE 100 MCG TAB PO (06:09)
[2018-04-28 06:26] LABS: ANION GAP 8 (5-13); BLOOD UREA NITROGEN 28 mg/dl (7-20); CARBON DIOXIDE 27 mmol/L (21-31); CHLORIDE 102 mmol/L (97-110); CREATININE 4.21 mg/dl (0.61-1.24); Estimated GFR 14 mL/min (>60); GLUCOSE 68 mg/dl (70-220); PHOSPHORUS 2.6 mg/dl (2.5-4.9); POTASSIUM 4.1 mmol/L (3.5-5.1); SODIUM 137 mmol/L (135-144)
[2018-04-28 06:30] LABS: VANCOMYCIN,RANDOM 11.1 ug/ml
[2018-04-28] MEDS: SEVELAMER 800 MG TAB PO (06:43)
[2018-04-28] MEDS: FOLIC ACID 1 MG TAB PO (08:15)
[2018-04-28] MEDS: CEFEPIME 2GM/50 ML IVPB (08:15)
[2018-04-28] MEDS: GABAPENTIN 100 MG CAP PO (08:15)
[2018-04-28] MEDS: MULTIVIT/CA CARB/B CMPLX/FA TAB PO (08:15)
[2018-04-28] MEDS: MIDODRINE 5 MG TAB PO ×3 (08:16→17:33)
[2018-04-28] MEDS: CINACALCET 30 MG TAB PO (08:16)
[2018-04-28] MEDS: ISOSORBIDE DINITRATE 20 MG TAB PO (08:27)
[2018-04-28] MEDS: LISINOPRIL 10 MG TAB PO (08:27)
[2018-04-28] MEDS: SEVELAMER CARBONATE 0.8 GM PKT NGT (09:00)
[2018-04-28] MEDS: PHYTONADIONE 10 MG/ML INJ SC (09:54)
[2018-04-28] MEDS: ACETAMINOPHEN 650MG/20.3ML CUP NGT (09:55)
[2018-04-28 12:36] LABS: CREATINE KINASE 189 IU/L (23-200)
[2018-04-28 12:47] LABS: CK INDEX 0.5
[2018-04-28] MEDS: VANCOMYCIN 1 GM 250 ML IVPB (14:58)
[2018-04-28] MEDS: MEROPENEM 500MG/50 ML (PMX) 50 ML IVPB (15:11)
[2018-04-28] MEDS: CASPOFUNGIN 70 MG in SOD CHLORIDE 0.9% 250 ML IVPB (17:33)
[2018-04-28] MEDS: EPOETIN 10000 UNITS/1 ML INJ (ESRD) SC (17:38)
[2018-04-28 18:20] LABS: CREATINE KINASE 249 IU/L (23-200)
[2018-04-28 18:30] LABS: CK INDEX 0.5; CK-MB 1.15 ng/ml (0.0-2.4)
[2018-04-28] MEDS: ATORVASTATIN 20 MG TAB PO (20:45)
[2018-04-28] MEDS: DOCUSATE SODIUM 100 MG CAP PO (20:45)
[2018-04-28] MEDS: DEXTROSE 5% 1,000 ML IV (22:56)
[2018-04-29] MEDS: IPRATROPIUM (HFA) 12.9 GM INHALER INH ×4 (01:11→19:41)
[2018-04-29] MEDS: ALBUTEROL HFA 8 GM INHALER INH ×4 (01:12→19:41)
[2018-04-29] MEDS: SUCRALFATE 1 GM TAB PO ×5 (03:09→20:35)
[2018-04-29 05:22] LABS: ADD MAN DIFF? NO
[2018-04-29 05:36] LABS: ABNORMAL IP MESSAGE 1; BASOPHILS % 0.3 % (0.0-2.0); EOSINOPHILS # 0.2 10^3/ul (0.0-0.5); EOSINOPHILS % 1.6 % (0.0-7.0); HEMATOCRIT 26.4 % (42.0-52.0); HEMOGLOBIN 8.3 g/dl (14.0-18.0); LYMPHOCYTES # 0.6 10^3/ul (0.8-2.9); LYMPHOCYTES % 6.1 % (15.0-51.0); MEAN CORPUSCULAR HEMOGLOBIN 31.3 pg (29.0-33.0); MEAN CORPUSCULAR HGB CONC 31.4 g/dl (32.0-37.0); MEAN CORPUSCULAR VOLUME 99.6 fl (82.0-101.0); MEAN PLATELET VOLUME 11.3 fl (7.4-10.4); MONOCYTE # 0.5 10^3/ul (0.3-0.9); MONOCYTES % 4.8 % (0.0-11.0); NEUTROPHIL # 8.1 10^3/ul (1.6-7.5); NEUTROPHILS % 85.9 % (39.0-77.0); PLATELET COUNT 164 10^3/UL (140-415); POSITIVE DIFF @See below; RED BLOOD COUNT 2.65 10^6/ul (4.70-6.10); RED CELL DISTRIBUTION WIDTH 13.6 % (11.5-14.5)
[2018-04-29 05:36] LABS: WHITE BLOOD COUNT 9.5 10^3/ul (4.8-10.8)
[2018-04-29 05:50] LABS: PT RATIO 5.6
[2018-04-29] MEDS: PANTOPRAZOLE 40 MG INJ IV ×2 (06:00→17:08)
[2018-04-29] MEDS: LEVOTHYROXINE 100 MCG TAB PO (06:00)
[2018-04-29 06:09] LABS: INR 8.26
[2018-04-29] MEDS: NORepinephrine 8MG/250 ML (PMX 250 ML IV ×2 (06:10→17:13)
[2018-04-29 06:59] LABS: ANION GAP 10 (5-13); BLOOD UREA NITROGEN 42 mg/dl (7-20); CALCIUM 9.2 mg/dl (8.4-10.2); CARBON DIOXIDE 27 mmol/L (21-31); CHLORIDE 96 mmol/L (97-110); CREATININE 5.26 mg/dl (0.61-1.24); Estimated GFR 11 mL/min (>60); GLUCOSE 151 mg/dl (70-220); PHOSPHORUS 2.9 mg/dl (2.5-4.9); POTASSIUM 4.1 mmol/L (3.5-5.1); SODIUM 133 mmol/L (135-144)
[2018-04-29] MEDS: PHYTONADIONE 10 MG/ML INJ SC ×2 (07:00→11:35)
[2018-04-29] MEDS: ALBUMIN HUMAN 25% 50 ML IV ×2 (07:59→08:52)
[2018-04-29] MEDS ORDERED: ALBUMIN HUMAN 25% 50 ML IV (09:00)
[2018-04-29 10:51] LABS: ALANINE AMINOTRANSFERASE 42 IU/L (13-69); ALKALINE PHOSPHATASE 217 IU/L (42-121); ASPARTATE AMINO TRANSFERASE 76 IU/L (15-46); BILIRUBIN,INDIRECT 0.1 mg/dl (0-1.1); BILIRUBIN,TOTAL 0.5 mg/dl (0.2-1.3); TOTAL PROTEIN 5.9 g/dl (6.1-8.1)
[2018-04-29 10:59] LABS: PROTIME 60.5 Sec (11.9-14.9); PT RATIO 4.7
[2018-04-29] MEDS ORDERED: PHYTONADIONE 5 MG in DEXTROSE 5% 50 ML IVPB (11:00)
[2018-04-29 11:02] LABS: INR 6.64
[2018-04-29] MEDS: CINACALCET 30 MG TAB PO (11:28)
[2018-04-29] MEDS: MULTIVIT/CA CARB/B CMPLX/FA TAB PO (11:28)
[2018-04-29] MEDS: FOLIC ACID 1 MG TAB PO (11:29)
[2018-04-29] MEDS: MIDODRINE 5 MG TAB PO ×3 (11:31→17:07)
[2018-04-29 15:00] LABS: INR 5.34; PROTIME 50.8 Sec (11.9-14.9)
[2018-04-29] MEDS: MEROPENEM 500MG/50 ML (PMX) 50 ML IVPB (15:18)
[2018-04-29 15:52] LABS: AADO2 Arterial 78.9 mmHg (7.0-24.0); Arterial Base Excess 5.6 mmol/L (-3.0-3); Arterial Blood Gas Oxygen Sat 95.4 mmHG (95.0-98.0); Arterial COHb 0.9 % (0.0-3.0); Arterial Fraction of Oxyhgb 94.4 % (93.0-99.0); Arterial HCO3 30.8 mmol/L (22.0-26.0); Arterial MetHb 0.2 % (0.0-1.5); Arterial pCO2 48.3 mmhg (35-45); Blood Gas PS 10; MODE VENT - CPAP; Site Left Radial
[2018-04-29] MEDS: CASPOFUNGIN 50 MG in SOD CHLORIDE 0.9% 250 ML IVPB (17:08)
[2018-04-29] MEDS: ATORVASTATIN 20 MG TAB PO (20:35)
[2018-04-29] MEDS: DOCUSATE SODIUM 100 MG CAP PO (20:35)
[2018-04-30] MEDS: ALBUTEROL HFA 8 GM INHALER INH ×4 (01:38→19:45)
[2018-04-30] MEDS: IPRATROPIUM (HFA) 12.9 GM INHALER INH ×4 (01:38→19:45)
[2018-04-30] MEDS: SUCRALFATE 1 GM TAB PO ×4 (03:44→20:55)
[2018-04-30] MEDS: PANTOPRAZOLE 40 MG INJ IV ×2 (05:19→17:35)
[2018-04-30] MEDS: LEVOTHYROXINE 100 MCG TAB PO (05:19)
[2018-04-30 07:20] LABS: ADD MAN DIFF? NO
[2018-04-30 07:22] LABS: WHITE BLOOD COUNT 8.4 10^3/ul (4.8-10.8)
[2018-04-30 07:22] LABS: ABNORMAL IP MESSAGE 1; BASOPHILS % 0.2 % (0.0-2.0); EOSINOPHILS # 0.3 10^3/ul (0.0-0.5); EOSINOPHILS % 3.1 % (0.0-7.0); HEMATOCRIT 26.8 % (42.0-52.0); HEMOGLOBIN 8.3 g/dl (14.0-18.0); LYMPHOCYTES # 0.5 10^3/ul (0.8-2.9); LYMPHOCYTES % 5.3 % (15.0-51.0); MEAN CORPUSCULAR HEMOGLOBIN 31.2 pg (29.0-33.0); MEAN CORPUSCULAR VOLUME 100.8 fl (82.0-101.0); MEAN PLATELET VOLUME 10.7 fl (7.4-10.4); MONOCYTE # 0.3 10^3/ul (0.3-0.9); NEUTROPHIL # 7.3 10^3/ul (1.6-7.5); NEUTROPHILS % 86.6 % (39.0-77.0); PLATELET COUNT 165 10^3/UL (140-415); POSITIVE DIFF @See below; RED BLOOD COUNT 2.66 10^6/ul (4.70-6.10); RED CELL DISTRIBUTION WIDTH 13.6 % (11.5-14.5)
[2018-04-30 07:27] LABS: ALANINE AMINOTRANSFERASE 95 IU/L (13-69); ALBUMIN 2.6 g/dl (3.3-4.9); ALBUMIN/GLOBULIN RATIO 0.83; ALKALINE PHOSPHATASE 407 IU/L (42-121); ANION GAP 7 (5-13); ASPARTATE AMINO TRANSFERASE 280 IU/L (15-46); BILIRUBIN,INDIRECT 0.1 mg/dl (0-1.1); BILIRUBIN,TOTAL 0.7 mg/dl (0.2-1.3); BLOOD UREA NITROGEN 39 mg/dl (7-20); CALCIUM 9.6 mg/dl (8.4-10.2); CARBON DIOXIDE 30 mmol/L (21-31); CHLORIDE 97 mmol/L (97-110); CREATININE 3.96 mg/dl (0.61-1.24); Estimated GFR 15 mL/min (>60); GLUCOSE 138 mg/dl (70-220); POTASSIUM 3.9 mmol/L (3.5-5.1); SODIUM 134 mmol/L (135-144); TOTAL PROTEIN 5.7 g/dl (6.1-8.1)
[2018-04-30 07:34] LABS: INR 2.87; PROTIME 30.9 Sec (11.9-14.9); PT RATIO 2.4
[2018-04-30 09:07] LABS: PHOSPHORUS 2.1 mg/dl (2.5-4.9)
[2018-04-30] MEDS: CINACALCET 30 MG TAB PO (09:33)
[2018-04-30] MEDS: MULTIVIT/CA CARB/B CMPLX/FA TAB PO (09:33)
[2018-04-30] MEDS: FOLIC ACID 1 MG TAB PO (09:33)
[2018-04-30] MEDS: PHYTONADIONE 10 MG in DEXTROSE 5% 50 ML IVPB (09:34)
[2018-04-30] MEDS: MIDODRINE 5 MG TAB PO ×3 (09:35→17:36)
[2018-04-30] MEDS: HYDROCODONE/APAP (5/325) TAB PO (12:27)
[2018-04-30] MEDS: MEROPENEM 500MG/50 ML (PMX) 50 ML IVPB (16:00)
[2018-04-30] MEDS: CASPOFUNGIN 50 MG in SOD CHLORIDE 0.9% 250 ML IVPB (17:36)
[2018-04-30] MEDS: EPOETIN 10000 UNITS/1 ML INJ (ESRD) SC (17:43)
[2018-04-30] MEDS: DOCUSATE SODIUM 100 MG CAP PO (20:55)
[2018-04-30] MEDS: ATORVASTATIN 20 MG TAB PO (20:55)
[2018-04-30] MEDS: PROPOFOL 100 ML IV (23:13)
[2018-05-01] MEDS: ALBUTEROL HFA 8 GM INHALER INH ×4 (01:29→19:26)
[2018-05-01] MEDS: IPRATROPIUM (HFA) 12.9 GM INHALER INH ×4 (01:29→19:26)
[2018-05-01] MEDS: SUCRALFATE 1 GM TAB PO ×4 (05:44→21:04)
[2018-05-01] MEDS: PANTOPRAZOLE 40 MG INJ IV ×2 (05:45→17:22)
[2018-05-01 06:02] LABS: ADD MAN DIFF? NO
[2018-05-01 06:13] LABS: WHITE BLOOD COUNT 8.3 10^3/ul (4.8-10.8)
[2018-05-01 06:13] LABS: ABNORMAL IP MESSAGE 1; BASOPHILS % 0.4 % (0.0-2.0); EOSINOPHILS # 0.2 10^3/ul (0.0-0.5); EOSINOPHILS % 2.3 % (0.0-7.0); HEMOGLOBIN 8.6 g/dl (14.0-18.0); LYMPHOCYTES # 0.4 10^3/ul (0.8-2.9); LYMPHOCYTES % 5.3 % (15.0-51.0); MEAN CORPUSCULAR HEMOGLOBIN 31.7 pg (29.0-33.0); MEAN CORPUSCULAR HGB CONC 31.9 g/dl (32.0-37.0); MEAN CORPUSCULAR VOLUME 99.6 fl (82.0-101.0); MEAN PLATELET VOLUME 11.2 fl (7.4-10.4); MONOCYTE # 0.5 10^3/ul (0.3-0.9); MONOCYTES % 5.6 % (0.0-11.0); NEUTROPHIL # 7.1 10^3/ul (1.6-7.5); NEUTROPHILS % 85.6 % (39.0-77.0); PLATELET COUNT 174 10^3/UL (140-415); POSITIVE DIFF @See below; RED BLOOD COUNT 2.71 10^6/ul (4.70-6.10); RED CELL DISTRIBUTION WIDTH 13.5 % (11.5-14.5)
[2018-05-01 06:26] LABS: LACTIC ACID 1.3 mmol/L (0.5-2.0)
[2018-05-01] MEDS: LEVOTHYROXINE 100 MCG TAB PO (06:28)
[2018-05-01 06:30] LABS: INR 1.29; PROTIME 16.3 Sec (11.9-14.9); PT RATIO 1.3
[2018-05-01 06:58] LABS: VANCOMYCIN,RANDOM 13.8 ug/ml
[2018-05-01 07:02] LABS: ALANINE AMINOTRANSFERASE 129 IU/L (13-69); ALBUMIN 2.6 g/dl (3.3-4.9); ALBUMIN/GLOBULIN RATIO 0.83; ALKALINE PHOSPHATASE 415 IU/L (42-121); ANION GAP 9 (5-13); ASPARTATE AMINO TRANSFERASE 270 IU/L (15-46); BLOOD UREA NITROGEN 55 mg/dl (7-20); CALCIUM 9.6 mg/dl (8.4-10.2); CARBON DIOXIDE 27 mmol/L (21-31); CHLORIDE 97 mmol/L (97-110); CREATININE 4.84 mg/dl (0.61-1.24); Estimated GFR 12 mL/min (>60); GLUCOSE 127 mg/dl (70-220); POTASSIUM 4.2 mmol/L (3.5-5.1); SODIUM 133 mmol/L (135-144); TOTAL PROTEIN 5.7 g/dl (6.1-8.1)
[2018-05-01 08:47] LABS: TROPONIN-I 0.304 ng/ml (0.000-0.120)
[2018-05-01] MEDS: FOLIC ACID 1 MG TAB PO (09:00)
[2018-05-01] MEDS: MIDODRINE 5 MG TAB PO ×3 (09:01→17:22)
[2018-05-01] MEDS: CINACALCET 30 MG TAB PO (09:01)
[2018-05-01] MEDS: MULTIVIT/CA CARB/B CMPLX/FA TAB PO (09:01)
[2018-05-01] MEDS: PHYTONADIONE 10 MG in DEXTROSE 5% 50 ML IVPB (09:12)
[2018-05-01] MEDS: PROPOFOL 100 ML IV (11:30)
[2018-05-01 12:24] LABS: ADD MAN DIFF? NO
[2018-05-01 12:27] LABS: WHITE BLOOD COUNT 9.9 10^3/ul (4.8-10.8)
[2018-05-01 12:27] LABS: BASOPHILS % 0.3 % (0.0-2.0); EOSINOPHILS # 0.2 10^3/ul (0.0-0.5); EOSINOPHILS % 2.1 % (0.0-7.0); HEMATOCRIT 28.5 % (42.0-52.0); HEMOGLOBIN 9.1 g/dl (14.0-18.0); LYMPHOCYTES # 0.7 10^3/ul (0.8-2.9); LYMPHOCYTES % 6.7 % (15.0-51.0); MEAN CORPUSCULAR HEMOGLOBIN 31.4 pg (29.0-33.0); MEAN CORPUSCULAR HGB CONC 31.9 g/dl (32.0-37.0); MEAN CORPUSCULAR VOLUME 98.3 fl (82.0-101.0); MEAN PLATELET VOLUME 11.4 fl (7.4-10.4); MONOCYTE # 0.4 10^3/ul (0.3-0.9); MONOCYTES % 4.4 % (0.0-11.0); NEUTROPHIL # 8.5 10^3/ul (1.6-7.5); NEUTROPHILS % 85.7 % (39.0-77.0); PLATELET COUNT 126 10^3/UL (140-415); RED CELL DISTRIBUTION WIDTH 13.4 % (11.5-14.5)
[2018-05-01] MEDS: HYDROCODONE/APAP (5/325) TAB PO ×2 (12:32→18:30)
[2018-05-01 12:49] LABS: INR 1.21; PROTIME 15.5 Sec (11.9-14.9); PT RATIO 1.2
[2018-05-01 12:50] LABS: PARTIAL THROMBOPLASTIN TIME 35.2 Sec (23.0-35.0)
[2018-05-01] MEDS: MAGNESIUM HYDROXIDE 30ML CUP PO (14:50)
[2018-05-01] MEDS: HEPARIN 1000 UNITS/ML 10 ML INJ IV (16:01)
[2018-05-01] MEDS: HEPARIN 25000 UNITS/250 ML 250 ML IV (16:02)
[2018-05-01] MEDS: ACETAMINOPHEN 650MG/20.3ML CUP NGT (17:22)
[2018-05-01] MEDS: MEROPENEM 500MG/50 ML (PMX) 50 ML IVPB (17:22)
[2018-05-01] MEDS: CASPOFUNGIN 50 MG in SOD CHLORIDE 0.9% 250 ML IVPB (18:22)
[2018-05-01] MEDS: DOCUSATE SODIUM 100 MG CAP PO (21:04)
[2018-05-01] MEDS: ATORVASTATIN 20 MG TAB PO (21:04)
[2018-05-01] MEDS: VANCOMYCIN 1 GM 250 ML IVPB (21:51)
[2018-05-01 22:40] LABS: PARTIAL THROMBOPLASTIN TIME 61.5 Sec (23.0-35.0)
[2018-05-02] MEDS: ALBUTEROL HFA 8 GM INHALER INH ×2 (01:18→08:00)
[2018-05-02] MEDS: IPRATROPIUM (HFA) 12.9 GM INHALER INH ×2 (01:18→08:00)
[2018-05-02] MEDS: SUCRALFATE 1 GM TAB PO ×4 (03:00→21:34)
[2018-05-02 04:49] LABS: ADD MAN DIFF? NO
[2018-05-02 04:53] LABS: WHITE BLOOD COUNT 6.5 10^3/ul (4.8-10.8)
[2018-05-02 04:53] LABS: ABNORMAL IP MESSAGE 1; BASOPHILS % 0.3 % (0.0-2.0); EOSINOPHILS # 0.2 10^3/ul (0.0-0.5); EOSINOPHILS % 3.1 % (0.0-7.0); HEMATOCRIT 25.8 % (42.0-52.0); LYMPHOCYTES # 0.5 10^3/ul (0.8-2.9); MEAN CORPUSCULAR HEMOGLOBIN 30.4 pg (29.0-33.0); MEAN CORPUSCULAR VOLUME 98.1 fl (82.0-101.0); MEAN PLATELET VOLUME 12.6 fl (7.4-10.4); MONOCYTE # 0.5 10^3/ul (0.3-0.9); MONOCYTES % 6.9 % (0.0-11.0); NEUTROPHIL # 5.3 10^3/ul (1.6-7.5); NEUTROPHILS % 81.1 % (39.0-77.0); PLATELET COUNT 127 10^3/UL (140-415); POSITIVE DIFF @See below; RED BLOOD COUNT 2.63 10^6/ul (4.70-6.10); RED CELL DISTRIBUTION WIDTH 13.3 % (11.5-14.5)
[2018-05-02 05:03] LABS: AADO2 Arterial 118.5 mmHg (7.0-24.0); Allen Test ACCEPTAB; Arterial Blood Gas Oxygen Sat 86.6 mmHG (95.0-98.0); Arterial COHb 0.8 % (0.0-3.0); Arterial Fraction of Oxyhgb 85.7 % (93.0-99.0); Arterial MetHb 0.2 % (0.0-1.5); Arterial pCO2 54.3 mmhg (35-45); MODE NASAL CANNULA; Site Left Radial
[2018-05-02 05:17] LABS: INR 1.23; PROTIME 15.7 Sec (11.9-14.9); PT RATIO 1.2
[2018-05-02 05:19] LABS: ALANINE AMINOTRANSFERASE 105 IU/L (13-69); ALBUMIN 2.6 g/dl (3.3-4.9); ALBUMIN/GLOBULIN RATIO 0.86; ALKALINE PHOSPHATASE 470 IU/L (42-121); ANION GAP 7 (5-13); ASPARTATE AMINO TRANSFERASE 181 IU/L (15-46); BLOOD UREA NITROGEN 41 mg/dl (7-20); CALCIUM 9.4 mg/dl (8.4-10.2); CARBON DIOXIDE 32 mmol/L (21-31); CHLORIDE 93 mmol/L (97-110); Estimated GFR 17 mL/min (>60); GLUCOSE 111 mg/dl (70-220); POTASSIUM 3.4 mmol/L (3.5-5.1); SODIUM 132 mmol/L (135-144); TOTAL PROTEIN 5.6 g/dl (6.1-8.1)
[2018-05-02] MEDS: PANTOPRAZOLE 40 MG INJ IV ×2 (05:20→17:18)
[2018-05-02] MEDS: LEVOTHYROXINE 100 MCG TAB PO (07:00)
[2018-05-02 07:51] LABS: LACTIC ACID 1.3 mmol/L (0.5-2.0)
[2018-05-02] MEDS: MIDODRINE 5 MG TAB PO ×3 (08:41→17:18)
[2018-05-02] MEDS: FOLIC ACID 1 MG TAB PO (08:41)
[2018-05-02] MEDS: ASPIRIN 81 MG TAB PO (08:41)
[2018-05-02] MEDS: PROPOFOL 100 ML IV ×3 (08:42→23:30)
[2018-05-02] MEDS: MULTIVIT/CA CARB/B CMPLX/FA TAB PO (08:42)
[2018-05-02] MEDS: CINACALCET 30 MG TAB PO (08:42)
[2018-05-02] MEDS: ALBUTEROL 0.083% (NEB) 2.5 MG/3 ML AMP HHN ×4 (09:00→21:00)
[2018-05-02 15:43] LABS: PARTIAL THROMBOPLASTIN TIME 55.5 Sec (23.0-35.0)
[2018-05-02] MEDS: MEROPENEM 500MG/50 ML (PMX) 50 ML IVPB (16:03)
[2018-05-02] MEDS: HEPARIN 25000 UNITS/250 ML 250 ML IV (16:34)
[2018-05-02] MEDS: CASPOFUNGIN 50 MG in SOD CHLORIDE 0.9% 250 ML IVPB (17:34)
[2018-05-02] MEDS: ATORVASTATIN 20 MG TAB PO (21:34)
[2018-05-02] MEDS: DOCUSATE SODIUM 100 MG CAP PO (21:34)
[2018-05-02 21:46] LABS: PARTIAL THROMBOPLASTIN TIME 57.5 Sec (23.0-35.0)
[2018-05-03] MEDS: HYDROmorphONE 0.5 MG/0.5 ML SYG IV ×2 (00:28→07:54)
[2018-05-03] MEDS: ALBUTEROL 0.083% (NEB) 2.5 MG/3 ML AMP HHN ×6 (01:00→20:10)
[2018-05-03 02:54] LABS: ADD MAN DIFF? NO
[2018-05-03 02:55] LABS: WHITE BLOOD COUNT 5.5 10^3/ul (4.8-10.8)
[2018-05-03 02:55] LABS: ABNORMAL IP MESSAGE 1; BASOPHILS % 0.2 % (0.0-2.0); EOSINOPHILS # 0.2 10^3/ul (0.0-0.5); EOSINOPHILS % 2.7 % (0.0-7.0); HEMATOCRIT 26.5 % (42.0-52.0); HEMOGLOBIN 8.3 g/dl (14.0-18.0); LYMPHOCYTES # 0.4 10^3/ul (0.8-2.9); LYMPHOCYTES % 7.5 % (15.0-51.0); MEAN CORPUSCULAR HEMOGLOBIN 31.3 pg (29.0-33.0); MEAN CORPUSCULAR HGB CONC 31.3 g/dl (32.0-37.0); MEAN PLATELET VOLUME 11.5 fl (7.4-10.4); MONOCYTE # 0.6 10^3/ul (0.3-0.9); NEUTROPHIL # 4.3 10^3/ul (1.6-7.5); NEUTROPHILS % 78.5 % (39.0-77.0); PLATELET COUNT 116 10^3/UL (140-415); POSITIVE DIFF @See below; RED BLOOD COUNT 2.65 10^6/ul (4.70-6.10); RED CELL DISTRIBUTION WIDTH 13.6 % (11.5-14.5)
[2018-05-03 03:23] LABS: ANION GAP 7 (5-13); BLOOD UREA NITROGEN 26 mg/dl (7-20); CALCIUM 9.9 mg/dl (8.4-10.2); CARBON DIOXIDE 32 mmol/L (21-31); CHLORIDE 95 mmol/L (97-110); CREATININE 2.59 mg/dl (0.61-1.24); Estimated GFR 25 mL/min (>60); GLUCOSE 89 mg/dl (70-220); MAGNESIUM 2.1 mg/dl (1.7-2.5); PHOSPHORUS 3.2 mg/dl (2.5-4.9); POTASSIUM 3.8 mmol/L (3.5-5.1); SODIUM 134 mmol/L (135-144)
[2018-05-03] MEDS: SUCRALFATE 1 GM TAB PO ×4 (05:30→22:58)
[2018-05-03] MEDS: PANTOPRAZOLE 40 MG INJ IV ×2 (05:59→17:21)
[2018-05-03] MEDS: LEVOTHYROXINE 100 MCG TAB PO (06:24)
[2018-05-03 07:06] LABS: INR 1.13; PROTIME 14.6 Sec (11.9-14.9); PT RATIO 1.1
[2018-05-03] MEDS: MIDODRINE 5 MG TAB PO ×3 (07:59→17:23)
[2018-05-03] MEDS: ASPIRIN 81 MG TAB PO (07:59)
[2018-05-03] MEDS: FOLIC ACID 1 MG TAB PO (07:59)
[2018-05-03] MEDS: MULTIVIT/CA CARB/B CMPLX/FA TAB PO (07:59)
[2018-05-03] MEDS: CINACALCET 30 MG TAB PO (08:00)
[2018-05-03 09:44] LABS: PARTIAL THROMBOPLASTIN TIME 71.3 Sec (23.0-35.0)
[2018-05-03] MEDS: PROPOFOL 100 ML IV (11:25)
[2018-05-03] MEDS: HEPARIN 25000 UNITS/250 ML 250 ML IV ×2 (12:11→23:07)
[2018-05-03 15:46] LABS: ADD MAN DIFF? NO
[2018-05-03 15:48] LABS: WHITE BLOOD COUNT 5.1 10^3/ul (4.8-10.8)
[2018-05-03 15:48] LABS: ABNORMAL IP MESSAGE 1; BASOPHILS % 0.2 % (0.0-2.0); EOSINOPHILS # 0.2 10^3/ul (0.0-0.5); EOSINOPHILS % 3.6 % (0.0-7.0); HEMATOCRIT 26.3 % (42.0-52.0); HEMOGLOBIN 8.1 g/dl (14.0-18.0); LYMPHOCYTES # 0.5 10^3/ul (0.8-2.9); LYMPHOCYTES % 8.9 % (15.0-51.0); MEAN CORPUSCULAR HEMOGLOBIN 30.8 pg (29.0-33.0); MEAN CORPUSCULAR HGB CONC 30.8 g/dl (32.0-37.0); MEAN PLATELET VOLUME 11.9 fl (7.4-10.4); MONOCYTE # 0.5 10^3/ul (0.3-0.9); MONOCYTES % 10.5 % (0.0-11.0); NEUTROPHIL # 3.8 10^3/ul (1.6-7.5); NEUTROPHILS % 75.6 % (39.0-77.0); PLATELET COUNT 135 10^3/UL (140-415); POSITIVE DIFF @See below; RED BLOOD COUNT 2.63 10^6/ul (4.70-6.10); RED CELL DISTRIBUTION WIDTH 13.7 % (11.5-14.5)
[2018-05-03] MEDS: MEROPENEM 500MG/50 ML (PMX) 50 ML IVPB (16:13)
[2018-05-03 16:15] LABS: PARTIAL THROMBOPLASTIN TIME 64.9 Sec (23.0-35.0)
[2018-05-03] MEDS: CASPOFUNGIN 50 MG in SOD CHLORIDE 0.9% 250 ML IVPB (17:23)
[2018-05-03] MEDS: EPOETIN 10000 UNITS/1 ML INJ (ESRD) SC (17:24)
[2018-05-03 22:54] LABS: PARTIAL THROMBOPLASTIN TIME 72.3 Sec (23.0-35.0)
[2018-05-03] MEDS: DOCUSATE SODIUM 100 MG CAP PO (22:57)
[2018-05-03] MEDS: ATORVASTATIN 20 MG TAB PO (22:58)
[2018-05-04] MEDS: SUCRALFATE 1 GM TAB PO ×4 (03:50→20:32)
[2018-05-04 05:06] LABS: ADD MAN DIFF? NO
[2018-05-04 05:11] LABS: ABNORMAL IP MESSAGE 1; BASOPHILS % 0.7 % (0.0-2.0); EOSINOPHILS # 0.2 10^3/ul (0.0-0.5); EOSINOPHILS % 3.6 % (0.0-7.0); HEMATOCRIT 25.2 % (42.0-52.0); HEMOGLOBIN 7.8 g/dl (14.0-18.0); LYMPHOCYTES # 0.5 10^3/ul (0.8-2.9); MEAN CORPUSCULAR HEMOGLOBIN 30.6 pg (29.0-33.0); MEAN CORPUSCULAR VOLUME 98.8 fl (82.0-101.0); MEAN PLATELET VOLUME 12.4 fl (7.4-10.4); MONOCYTE # 0.5 10^3/ul (0.3-0.9); MONOCYTES % 10.9 % (0.0-11.0); NEUTROPHIL # 3.3 10^3/ul (1.6-7.5); PLATELET COUNT 153 10^3/UL (140-415); POSITIVE DIFF @See below; RED BLOOD COUNT 2.55 10^6/ul (4.70-6.10); RED CELL DISTRIBUTION WIDTH 13.7 % (11.5-14.5)
[2018-05-04 05:11] LABS: WHITE BLOOD COUNT 4.5 10^3/ul (4.8-10.8)
[2018-05-04 05:47] LABS: INR 1.09; PROTIME 14.2 Sec (11.9-14.9); PT RATIO 1.1
[2018-05-04 05:56] LABS: ALANINE AMINOTRANSFERASE 56 IU/L (13-69); ALBUMIN/GLOBULIN RATIO 0.96; ALKALINE PHOSPHATASE 281 IU/L (42-121); ANION GAP 12 (5-13); ASPARTATE AMINO TRANSFERASE 67 IU/L (15-46); BLOOD UREA NITROGEN 38 mg/dl (7-20); CALCIUM 10.1 mg/dl (8.4-10.2); CARBON DIOXIDE 30 mmol/L (21-31); CHLORIDE 95 mmol/L (97-110); CREATININE 3.87 mg/dl (0.61-1.24); Estimated GFR 16 mL/min (>60); GLUCOSE 72 mg/dl (70-220); PHOSPHORUS 4.3 mg/dl (2.5-4.9); SODIUM 137 mmol/L (135-144); TOTAL PROTEIN 6.1 g/dl (6.1-8.1)
[2018-05-04] MEDS: ALBUTEROL 0.083% (NEB) 2.5 MG/3 ML AMP HHN ×5 (06:33→21:57)
[2018-05-04] MEDS: LEVOTHYROXINE 100 MCG TAB PO (06:50)
[2018-05-04] MEDS: PANTOPRAZOLE 40 MG INJ IV (06:50)
[2018-05-04] MEDS: HYDROmorphONE 0.5 MG/0.5 ML SYG IV ×2 (07:36→14:16)
[2018-05-04] MEDS: MULTIVIT/CA CARB/B CMPLX/FA TAB PO (09:41)
[2018-05-04] MEDS: ASPIRIN 81 MG TAB PO (09:41)
[2018-05-04] MEDS: traMADol 50 MG TAB PO ×3 (09:42→18:24)
[2018-05-04] MEDS: FOLIC ACID 1 MG TAB PO (09:42)
[2018-05-04] MEDS: CINACALCET 30 MG TAB PO (09:42)
[2018-05-04] MEDS: MIDODRINE 5 MG TAB PO ×3 (09:42→18:23)
[2018-05-04 10:05] LABS: PARTIAL THROMBOPLASTIN TIME 55.5 Sec (23.0-35.0)
[2018-05-04] MEDS: HEPARIN 25000 UNITS/250 ML 250 ML IV ×2 (10:43→17:17)
[2018-05-04] MEDS ORDERED: AMIKACIN IV PER PHARMACY XX (15:00)
[2018-05-04] MEDS: PANTOPRAZOLE (EC) 40 MG TAB PO (18:23)
[2018-05-04] MEDS: AMIKACIN IVPB (18:23)
[2018-05-04] MEDS: SOD CHLORIDE 0.9% IVPB (18:23)
[2018-05-04] MEDS: BALSAM PERU/CASTOR OIL 60 GM TUBE TOP (20:32)
[2018-05-04] MEDS: ATORVASTATIN 20 MG TAB PO (20:32)
[2018-05-04] MEDS: DOCUSATE SODIUM 100 MG CAP PO (20:32)
[2018-05-04 22:30] LABS: PARTIAL THROMBOPLASTIN TIME 70.9 Sec (23.0-35.0)
[2018-05-05] MEDS: ALBUTEROL 0.083% (NEB) 2.5 MG/3 ML AMP HHN ×6 (01:16→22:05)
[2018-05-05] MEDS: SUCRALFATE 1 GM TAB PO ×4 (03:00→20:35)
[2018-05-05] MEDS: traMADol 50 MG TAB PO ×4 (05:12→17:25)
[2018-05-05] MEDS: HYDROmorphONE 0.5 MG/0.5 ML SYG IV ×2 (05:42→12:47)
[2018-05-05 06:04] LABS: PARTIAL THROMBOPLASTIN TIME 38.7 Sec (23.0-35.0)
[2018-05-05 06:41] LABS: INR 1.09; PROTIME 14.2 Sec (11.9-14.9); PT RATIO 1.1
[2018-05-05] MEDS: PANTOPRAZOLE (EC) 40 MG TAB PO ×2 (06:54→17:25)
[2018-05-05] MEDS: LEVOTHYROXINE 100 MCG TAB PO ×2 (06:55→07:25)
[2018-05-05] MEDS ORDERED: AMIKACIN 300 MG in SOD CHLORIDE 0.9% 100 ML IVPB (07:00)
[2018-05-05] MEDS: HEPARIN 1000 UNITS/ML 10 ML INJ IV (07:31)
[2018-05-05] MEDS: ASPIRIN 81 MG TAB PO (08:30)
[2018-05-05] MEDS: FOLIC ACID 1 MG TAB PO (08:30)
[2018-05-05] MEDS: CINACALCET 30 MG TAB PO (08:30)
[2018-05-05] MEDS: BALSAM PERU/CASTOR OIL 60 GM TUBE TOP ×2 (08:30→20:35)
[2018-05-05] MEDS: MULTIVIT/CA CARB/B CMPLX/FA TAB PO (08:31)
[2018-05-05] MEDS: MIDODRINE 5 MG TAB PO ×3 (08:33→17:25)
[2018-05-05] MEDS: MUPIROCIN 2% 22 GM OINT TOP (13:53)
[2018-05-05] MEDS: EPOETIN 10000 UNITS/1 ML INJ (ESRD) SC (17:26)
[2018-05-05 17:42] LABS: PARTIAL THROMBOPLASTIN TIME 71.7 Sec (23.0-35.0)
[2018-05-05] MEDS: HEPARIN 25000 UNITS/250 ML 250 ML IV (17:50)
[2018-05-05] MEDS: DOCUSATE SODIUM 100 MG CAP PO (20:35)
[2018-05-05] MEDS: ATORVASTATIN 20 MG TAB PO (20:35)
[2018-05-06] MEDS: ALBUTEROL 0.083% (NEB) 2.5 MG/3 ML AMP HHN ×6 (01:41→21:00)
[2018-05-06] MEDS: traMADol 50 MG TAB PO ×4 (01:57→18:45)
[2018-05-06 02:13] LABS: PARTIAL THROMBOPLASTIN TIME 43.2 Sec (23.0-35.0)
[2018-05-06] MEDS: SUCRALFATE 1 GM TAB PO ×4 (03:00→21:23)
[2018-05-06] MEDS: HYDROmorphONE 0.5 MG/0.5 ML SYG IV ×3 (04:22→21:23)
[2018-05-06] MEDS: HEPARIN 25000 UNITS/250 ML 250 ML IV ×2 (04:28→12:56)
[2018-05-06] MEDS: HEPARIN 1000 UNITS/ML 10 ML INJ IV (05:17)
[2018-05-06 05:44] LABS: ABNORMAL IP MESSAGE 1; HEMATOCRIT 24.4 % (42.0-52.0); HEMOGLOBIN 7.4 g/dl (14.0-18.0); MEAN CORPUSCULAR HGB CONC 30.3 g/dl (32.0-37.0); MEAN CORPUSCULAR VOLUME 102.1 fl (82.0-101.0); MEAN PLATELET VOLUME 12.3 fl (7.4-10.4); PLATELET COUNT 186 10^3/UL (140-415); POSITIVE DIFF @See below; RED BLOOD COUNT 2.39 10^6/ul (4.70-6.10); RED CELL DISTRIBUTION WIDTH 14.2 % (11.5-14.5)
[2018-05-06 05:46] LABS: ADD MAN DIFF? YES
[2018-05-06 06:00] LABS: ANION GAP 10 (5-13); BLOOD UREA NITROGEN 32 mg/dl (7-20); CALCIUM 9.5 mg/dl (8.4-10.2); CARBON DIOXIDE 32 mmol/L (21-31); CHLORIDE 95 mmol/L (97-110); CREATININE 4.49 mg/dl (0.61-1.24); Estimated GFR 13 mL/min (>60); GLUCOSE 87 mg/dl (70-220); PHOSPHORUS 4.7 mg/dl (2.5-4.9); POTASSIUM 3.6 mmol/L (3.5-5.1); SODIUM 137 mmol/L (135-144)
[2018-05-06] MEDS: PANTOPRAZOLE (EC) 40 MG TAB PO ×2 (06:18→18:45)
[2018-05-06 07:05] LABS: ANISOCYTOSIS 1+ (0-0); BAND NEUTROPHILS % (M) 1 % (0-4); EOSINOPHILS % (M) 5 % (0-7); GIANT THROMBO% (M) 2 % (0-0); LYMPHOCYTES #M 0.3 10^3/ul (0.8-2.9); LYMPHOCYTES % (M) 6 % (15-51); METAMYELOCYTES %M 1 % (0-0); MONOCYTE #M 0.1 10^3/ul (0.3-0.9); MONOCYTES % (M) 2 % (0-11); MYELOCYTES #M 0.1 10^3/ul (0.0-0.0); MYELOCYTES % (M) 3 % (0-0); OVALOCYTES 1+ (0-0); PLATELET ESTIMATE NORMAL; POIKILOCYTOSIS 1+ (0-0); POLYCHROMASIA 1+ (0-0); REACTIVE LYMPHOCYTES #M 0.1 10^3/ul (0.0-0.0); REACTIVE LYMPHOCYTES% (M) 2 % (0-0); SEGMENTED NEUTROPHILS (M) % 80 % (39-77); SMUDGE%M 2 % (0-0); TEAR DROP CELLS 1+ (0-0)
[2018-05-06] MEDS: MULTIVIT/CA CARB/B CMPLX/FA TAB PO (08:13)
[2018-05-06] MEDS: MIDODRINE 5 MG TAB PO ×3 (08:13→18:46)
[2018-05-06] MEDS: CINACALCET 30 MG TAB PO (08:13)
[2018-05-06] MEDS: ASPIRIN 81 MG TAB PO (08:13)
[2018-05-06] MEDS: FOLIC ACID 1 MG TAB PO (08:13)
[2018-05-06] MEDS: BALSAM PERU/CASTOR OIL 60 GM TUBE TOP ×2 (08:15→21:24)
[2018-05-06] MEDS: MUPIROCIN 2% 22 GM OINT TOP (08:15)
[2018-05-06] MEDS ORDERED: BACITRACIN 0.9 GM OINT TOP (09:00)
[2018-05-06 12:38] LABS: PARTIAL THROMBOPLASTIN TIME > 180.0 Sec (23.0-35.0)
[2018-05-06 17:28] LABS: PARTIAL THROMBOPLASTIN TIME 40.5 Sec (23.0-35.0)
[2018-05-06 19:00] LABS: PARTIAL THROMBOPLASTIN TIME 37.9 Sec (23.0-35.0)
[2018-05-06] MEDS: ATORVASTATIN 20 MG TAB PO (21:23)
[2018-05-06] MEDS: DOCUSATE SODIUM 100 MG CAP PO (21:23)
[2018-05-07] MEDS: ALBUTEROL 0.083% (NEB) 2.5 MG/3 ML AMP HHN ×4 (02:34→14:23)
[2018-05-07] MEDS: HYDROmorphONE 0.5 MG/0.5 ML SYG IV ×2 (02:55→13:58)
[2018-05-07] MEDS: SUCRALFATE 1 GM TAB PO ×2 (02:55→09:24)
[2018-05-07] MEDS: traMADol 50 MG TAB PO ×3 (02:55→13:44)
[2018-05-07] MEDS: LEVOTHYROXINE 100 MCG TAB PO (05:48)
[2018-05-07] MEDS: PANTOPRAZOLE (EC) 40 MG TAB PO (05:48)
[2018-05-07 06:24] LABS: WHITE BLOOD COUNT 5.6 10^3/ul (4.8-10.8)
[2018-05-07 06:24] LABS: ABNORMAL IP MESSAGE 1; HEMATOCRIT 24.3 % (42.0-52.0); HEMOGLOBIN 7.3 g/dl (14.0-18.0); MEAN CORPUSCULAR HEMOGLOBIN 31.3 pg (29.0-33.0); MEAN CORPUSCULAR VOLUME 104.3 fl (82.0-101.0); MEAN PLATELET VOLUME 11.2 fl (7.4-10.4); PLATELET COUNT 243 10^3/UL (140-415); POSITIVE DIFF @See below; RED BLOOD COUNT 2.33 10^6/ul (4.70-6.10); RED CELL DISTRIBUTION WIDTH 14.4 % (11.5-14.5)
[2018-05-07 06:31] LABS: ADD MAN DIFF? YES
[2018-05-07 06:34] LABS: INR 1.09; PROTIME 14.2 Sec (11.9-14.9); PT RATIO 1.1
[2018-05-07 06:56] LABS: ANION GAP 7 (5-13); BLOOD UREA NITROGEN 22 mg/dl (7-20); CALCIUM 9.4 mg/dl (8.4-10.2); CARBON DIOXIDE 33 mmol/L (21-31); CHLORIDE 99 mmol/L (97-110); CREATININE 2.99 mg/dl (0.61-1.24); Estimated GFR 21 mL/min (>60); GLUCOSE 71 mg/dl (70-220); PHOSPHORUS 3.6 mg/dl (2.5-4.9); POTASSIUM 3.5 mmol/L (3.5-5.1); SODIUM 139 mmol/L (135-144)
[2018-05-07] MEDS: ASPIRIN 81 MG TAB PO (09:24)
[2018-05-07] MEDS: FOLIC ACID 1 MG TAB PO (09:24)
[2018-05-07] MEDS: MIDODRINE 5 MG TAB PO ×2 (09:25→13:44)
[2018-05-07] MEDS: MULTIVIT/CA CARB/B CMPLX/FA TAB PO (09:25)
[2018-05-07] MEDS: CINACALCET 30 MG TAB PO (09:25)
[2018-05-07] MEDS: BALSAM PERU/CASTOR OIL 60 GM TUBE TOP (09:26)
[2018-05-07] MEDS: MUPIROCIN 2% 22 GM OINT TOP (09:26)
[2018-05-07 09:31] LABS: ANISOCYTOSIS 1+ (0-0); BAND NEUTROPHILS #M 0.2 10^3/ul (0.0-0.6); BAND NEUTROPHILS % (M) 4 % (0-4); BASOPHILS % (M) 1 % (0-2); EOSINOPHILS % (M) 4 % (0-7); LYMPHOCYTES #M 0.1 10^3/ul (0.8-2.9); LYMPHOCYTES % (M) 3 % (15-51); MONOCYTE #M 0.2 10^3/ul (0.3-0.9); MONOCYTES % (M) 5 % (0-11); PLATELET ESTIMATE NORMAL; POIKILOCYTOSIS 1+ (0-0); POLYCHROMASIA 2+ (0-0); SEG NEUT #M 4.7 10^3/ul (1.6-7.5); SEGMENTED NEUTROPHILS (M) % 83 % (39-77); STOMATOCYTES 1+ (0-0)
[2018-05-07] MEDS: DOCUSATE SODIUM 100 MG CAP PO (09:38)
[2018-05-07] MEDS: MAGNESIUM HYDROXIDE 30ML CUP PO (09:38)
== END 2018-05-07 15:19 | DRG 870 ==
LOC: ICU 04-23 01:09 → TEL 05-03 18:33 → E/R 16:57 → ICU 05-03 18:57 → 6WM 05-03 20:27
PROC: 5A1D70Z Performance of Urinary Filtration, Intermittent, Less than 6 Hours Per Day (ICD-10-PCS; 2018-04-22)
PROC: 5A12012 Performance of Cardiac Output, Single, Manual (ICD-10-PCS; 2018-04-23)
PROC: 0BH18EZ Insertion of Endotracheal Airway into Trachea, Via Natural or Artificial Opening Endoscopic (ICD-10-PCS; 2018-04-23)
PROC: 5A1935Z Respiratory Ventilation, Less than 24 Consecutive Hours (ICD-10-PCS; 2018-04-23)
PROC: 06HY33Z Insertion of Infusion Device into Lower Vein, Percutaneous Approach (ICD-10-PCS; principal; 2018-04-24)
PROC: 5A1955Z Respiratory Ventilation, Greater than 96 Consecutive Hours (ICD-10-PCS; 2018-04-27)
PROC: 0BH17EZ Insertion of Endotracheal Airway into Trachea, Via Natural or Artificial Opening (ICD-10-PCS; 2018-04-27)
DX: A41.9 Sepsis, unspecified organism (principal); N18.6 End stage renal disease; I46.9 Cardiac arrest, cause unspecified; J69.0 Pneumonitis due to inhalation of food and vomit; J96.02 Acute respiratory failure with hypercapnia; J96.01 Acute respiratory failure with hypoxia; K72.00 Acute and subacute hepatic failure without coma; G92 Toxic encephalopathy; R65.21 Severe sepsis with septic shock; E11.52 Type 2 diabetes mellitus with diabetic peripheral angiopathy with gangrene; I96 Gangrene, not elsewhere classified; I12.0 Hypertensive chronic kidney disease with stage 5 chronic kidney disease or end stage renal disease; I42.9 Cardiomyopathy, unspecified; E11.22 Type 2 diabetes mellitus with diabetic chronic kidney disease; E87.5 Hyperkalemia; E11.42 Type 2 diabetes mellitus with diabetic polyneuropathy; E03.9 Hypothyroidism, unspecified; B36.9 Superficial mycosis, unspecified; E78.5 Hyperlipidemia, unspecified; T40.2X1A Poisoning by other opioids, accidental (unintentional), initial encounter; Z99.2 Dependence on renal dialysis; Y92.230 Patient room in hospital as the place of occurrence of the external cause; R53.81 Other malaise; Z89.431 Acquired absence of right foot; Z95.2 Presence of prosthetic heart valve; Z79.01 Long term (current) use of anticoagulants
CPT/HCPCS: 31500; 36600; 71045; 73630-LT; 76705; 78226; 80048; 80053; 80061; 80076; 80202; 82550; 82553; 82728; 82803; 82962; 83036; 83540; 83605; 83735; 84100; 84439; 84443; 84484; 85025; 85610; 85730; 87040; 87070; 87081; 87340; 89220; 90686; 90935; 92526; 92610; 93005; 93306; 93922; 93971; 94002; 94003; 94640; 94660; 94770; 96365; 96375; 97162; 97165; 99285-25

== ENCOUNTER 2018-10-08 08:54 | Inpatient (IN) | payer MEDICARE, OTHER ==
[2018-10-08] MEDS: SOD CHLORIDE 0.9% 500 ML IV (09:49)
[2018-10-08] MEDS: LACTULOSE 30ML CUP PO (09:49)
[2018-10-08 10:12] LABS: ADD MAN DIFF? NO
[2018-10-08 10:19] LABS: WHITE BLOOD COUNT 3.1 10^3/ul (4.8-10.8)
[2018-10-08 10:19] LABS: ABNORMAL IP MESSAGE 1; EOSINOPHILS % 0.6 % (0.0-7.0); HEMATOCRIT 20.4 % (42.0-52.0); LYMPHOCYTES # 0.2 10^3/ul (0.8-2.9); LYMPHOCYTES % 6.1 % (15.0-51.0); MEAN CORPUSCULAR HEMOGLOBIN 29.4 pg (29.0-33.0); MEAN CORPUSCULAR HGB CONC 29.4 g/dl (32.0-37.0); MEAN PLATELET VOLUME 12.1 fl (7.4-10.4); MONOCYTE # 0.2 10^3/ul (0.3-0.9); MONOCYTES % 6.8 % (0.0-11.0); NEUTROPHIL # 2.7 10^3/ul (1.6-7.5); NEUTROPHILS % 85.9 % (39.0-77.0); PLATELET COUNT 76 10^3/UL (140-415); POSITIVE DIFF @See below; RED BLOOD COUNT 2.04 10^6/ul (4.70-6.10); RED CELL DISTRIBUTION WIDTH 14.6 % (11.5-14.5)
[2018-10-08 10:23] LABS: PATH REVIEW? YES
[2018-10-08] MEDS: SOD CHLORIDE 0.9% 0 ML IV (10:30)
[2018-10-08 10:59] LABS: ANION GAP 8 (5-13); BLOOD UREA NITROGEN 60 mg/dl (7-20); CARBON DIOXIDE 14 mmol/L (21-31); CHLORIDE 118 mmol/L (97-110); CREATININE 4.54 mg/dl (0.61-1.24); Estimated GFR 13 mL/min (>60); POTASSIUM 3.7 mmol/L (3.5-5.1); SODIUM 140 mmol/L (135-144)
[2018-10-08 11:01] LABS: CALCIUM 5.3 mg/dl (8.4-10.2); GLUCOSE 40 mg/dl (70-220)
[2018-10-08] MEDS: DEXTROSE 50% 50 ML SYRINGE IV (11:34)
[2018-10-08] MEDS: HYDROmorphONE 0.5 MG/0.5 ML SYG IV (11:40)
[2018-10-08] MEDS ORDERED: ACETAMINOPHEN 325 MG TAB PO (12:00)
[2018-10-08] MEDS ORDERED: ONDANSETRON 4 MG INJ IV (12:00)
[2018-10-08] MEDS ORDERED: NACL 0.9% 3 ML SYG IV (12:30)
[2018-10-08 12:59] LABS: ANISOCYTOSIS 1+ (0-0); BAND NEUTROPHILS % (M) 1 % (0-4); BURR CELLS 1+ (0-0); GIANT THROMBO% (M) 3 % (0-0); LYMPHOCYTES #M 0.3 10^3/ul (0.8-2.9); LYMPHOCYTES % (M) 10 % (15-51); MICROCYTOSIS 1+ (0-0); MONOCYTE #M 0.1 10^3/ul (0.3-0.9); MONOCYTES % (M) 6 % (0-11); OVALOCYTES 1+ (0-0); PLATELET ESTIMATE SIG DECREASED; PLATELET MORPHOLOGY COMMENT @See below; POIKILOCYTOSIS 2+ (0-0); POLYCHROMASIA 3+ (0-0); SEG NEUT #M 2.6 10^3/ul (1.6-7.5); SEGMENTED NEUTROPHILS (M) % 83 % (39-77); SMUDGE%M 5 % (0-0)
[2018-10-08] MEDS ORDERED: VANCOMYCIN IV PER PHARMACY XX (13:30)
[2018-10-08] MEDS ORDERED: PIPER-TAZO 3.375 GM IV (PMX) 100 ML IVPB (13:30)
[2018-10-08] MEDS ORDERED: CALCIUM GLUCONATE 10% 2 GM in DEXTROSE 5% 100 ML IVPB (13:30)
[2018-10-08] MEDS: SOD CHLORIDE 0.9% 250 ML IV (13:38)
[2018-10-08 14:19] LABS: IRON 23 ug/dl (35-150)
[2018-10-08 14:29] LABS: % IRON SATURATION 15 % SAT (22-52); TOTAL IRON BINDING CAPACITY 150 ug/dl (241-421)
[2018-10-08] MEDS: VANCOMYCIN HCL 1.25 GM in SOD CHLORIDE 0.9% 250 ML IVPB (15:09)
[2018-10-08] MEDS: SOD CHLORIDE 0.9% 1,000 ML IV (15:09)
[2018-10-08] MEDS: PIPER-TAZO 2.25 GM/NS 50 ML IVPB ×2 (15:09→21:07)
[2018-10-08] MEDS: SENNA/DOCUSATE NA (8.6MG/50MG) TAB PO (15:10)
[2018-10-08] MEDS: EPOETIN ALFA-EPBX (ESRD) 10,000 UNIT/ML VIAL SC (18:18)
[2018-10-08] MEDS: PANTOPRAZOLE (EC) 40 MG TAB PO (18:39)
[2018-10-08] MEDS: SUCRALFATE 1 GM TAB PO ×2 (18:39→23:18)
[2018-10-08] MEDS: CALCITRIOL 1 MCG INJ IV (18:39)
[2018-10-08] MEDS: CALCIUM GLUCONATE 10% 2 GM in DEXTROSE 5% 100 ML IVPB (20:00)
[2018-10-08] MEDS: DOCUSATE SODIUM 100 MG CAP PO (21:00)
[2018-10-08] MEDS: ATORVASTATIN 10 MG TAB PO (21:07)
[2018-10-08] MEDS: ALBUMIN HUMAN 25% 100 ML IV (21:24)
[2018-10-08 22:15] LABS: AHG CROSSMATCH 1 2
[2018-10-08 22:34] LABS: HEPATITIS B SURFACE ANTIGEN NEGATIVE (NEGATIVE)
[2018-10-09 00:22] LABS: PLATELET COUNT 99 10^3/UL (140-415)
[2018-10-09 00:23] LABS: RETICULOCYTE RBC 3.44
[2018-10-09 00:23] LABS: RETICULOCYTE COUNT # 0.041 X10^6 (0.020-0.110); RETICULOCYTE COUNT % 1.2 % (0.5-1.5)
[2018-10-09 00:39] LABS: CALCIUM 10.5 mg/dl (8.4-10.2); LACTIC ACID 0.8 mmol/L (0.5-2.0)
[2018-10-09 00:41] LABS: INR 5.89; INR 5.91; PT RATIO 4.1
[2018-10-09 00:42] LABS: PARTIAL THROMBOPLASTIN TIME 64.5 Sec (23.0-35.0); THROMBIN TIME 15.5 SEC (13.8-19.1)
[2018-10-09 01:46] LABS: IONIZED CALCIUM 1.4 mmol/L (1.1-1.4)
[2018-10-09] MEDS: ACETAMINOPHEN 325 MG TAB PO ×2 (02:40→20:04)
[2018-10-09] MEDS ORDERED: PENDING SANTYL ORDER FOR WOUND CARE XX (04:30)
[2018-10-09] MEDS: PIPER-TAZO 2.25 GM/NS 50 ML IVPB ×2 (05:27→15:16)
[2018-10-09] MEDS: SUCRALFATE 1 GM TAB PO ×2 (05:27→12:11)
[2018-10-09] MEDS: PANTOPRAZOLE (EC) 40 MG TAB PO ×2 (05:28→18:05)
[2018-10-09] MEDS: LEVOTHYROXINE 100 MCG TAB PO (05:28)
[2018-10-09 06:10] LABS: ADD MAN DIFF? NO
[2018-10-09 06:35] LABS: ABNORMAL IP MESSAGE 1; BASOPHILS % 0.2 % (0.0-2.0); EOSINOPHILS # 0.1 10^3/ul (0.0-0.5); EOSINOPHILS % 1.6 % (0.0-7.0); HEMATOCRIT 33.9 % (42.0-52.0); HEMOGLOBIN 10.6 g/dl (14.0-18.0); LYMPHOCYTES # 0.2 10^3/ul (0.8-2.9); LYMPHOCYTES % 4.6 % (15.0-51.0); MEAN CORPUSCULAR HEMOGLOBIN 30.2 pg (29.0-33.0); MEAN CORPUSCULAR HGB CONC 31.3 g/dl (32.0-37.0); MEAN CORPUSCULAR VOLUME 96.6 fl (82.0-101.0); MEAN PLATELET VOLUME 12.1 fl (7.4-10.4); MONOCYTE # 0.4 10^3/ul (0.3-0.9); MONOCYTES % 9.7 % (0.0-11.0); NEUTROPHIL # 3.6 10^3/ul (1.6-7.5); NEUTROPHILS % 83.4 % (39.0-77.0); PLATELET COUNT 109 10^3/UL (140-415); POSITIVE DIFF @See below; RED BLOOD COUNT 3.51 10^6/ul (4.70-6.10); RED CELL DISTRIBUTION WIDTH 15.7 % (11.5-14.5)
[2018-10-09 06:35] LABS: WHITE BLOOD COUNT 4.3 10^3/ul (4.8-10.8)
[2018-10-09 07:35] LABS: ALANINE AMINOTRANSFERASE 19 IU/L (13-69); ALBUMIN 3.7 g/dl (3.3-4.9); ALBUMIN/GLOBULIN RATIO 1.15; ALKALINE PHOSPHATASE 101 IU/L (42-121); ANION GAP 11 (5-13); ASPARTATE AMINO TRANSFERASE 37 IU/L (15-46); BILIRUBIN,INDIRECT 0.8 mg/dl (0-1.1); BILIRUBIN,TOTAL 0.8 mg/dl (0.2-1.3); BLOOD UREA NITROGEN 52 mg/dl (7-20); CALCIUM 10.4 mg/dl (8.4-10.2); CARBON DIOXIDE 27 mmol/L (21-31); CHLORIDE 100 mmol/L (97-110); CREATININE 5.07 mg/dl (0.61-1.24); Estimated GFR 12 mL/min (>60); GLUCOSE 61 mg/dl (70-220); MAGNESIUM 2.2 mg/dl (1.7-2.5); SODIUM 138 mmol/L (135-144); TOTAL PROTEIN 6.9 g/dl (6.1-8.1)
[2018-10-09] MEDS: SENNA/DOCUSATE NA (8.6MG/50MG) TAB PO (08:33)
[2018-10-09] MEDS: ASCORBIC ACID 500 MG TAB PO (08:33)
[2018-10-09] MEDS: CHOLECALCIFEROL 1,000 UNIT TAB PO (08:34)
[2018-10-09] MEDS: ISOSORBIDE MONONITRATE 20 MG TAB PO ×2 (08:34→20:03)
[2018-10-09] MEDS: DOCUSATE SODIUM 100 MG CAP PO ×2 (08:34→20:04)
[2018-10-09] MEDS: FOLIC ACID 1 MG TAB PO (08:34)
[2018-10-09 08:40] LABS: HEMOGLOBIN A1C 4.5 % (0-5.9)
[2018-10-09] MEDS ORDERED: WARFARIN 2 MG TAB PO (09:00)
[2018-10-09 09:05] LABS: PROTIME 52.7 Sec (11.9-14.9)
[2018-10-09 09:06] LABS: PROTIME 52.6 Sec (11.9-14.9)
[2018-10-09] MEDS: PHYTONADIONE 10 MG/ML INJ SC (12:11)
[2018-10-09] MEDS: HYDROCODONE/APAP (5/325) TAB PO (12:18)
[2018-10-09] MEDS: SOD CHLORIDE 0.9% 1,000 ML IV (13:30)
[2018-10-09] MEDS: SUCRALFATE (100 MG/ML) 10ML CUP PO (18:05)
[2018-10-09] MEDS: SOD FERRIC GLUC COMPLX 125 MG in SOD CHLORIDE 0.9% 100 ML IVPB (18:05)
[2018-10-09] MEDS: ATORVASTATIN 10 MG TAB PO (20:04)
[2018-10-09] MEDS: MEROPENEM 500MG/50 ML (PMX) 50 ML IVPB (20:08)
[2018-10-10] MEDS: SUCRALFATE (100 MG/ML) 10ML CUP PO ×4 (00:07→17:52)
[2018-10-10] MEDS: traMADol 50 MG TAB PO (00:23)
[2018-10-10] MEDS: CEPASTAT LOZENGE MT (04:11)
[2018-10-10] MEDS: LEVOTHYROXINE 100 MCG TAB PO (05:23)
[2018-10-10] MEDS: PANTOPRAZOLE (EC) 40 MG TAB PO ×2 (05:23→18:00)
[2018-10-10 06:07] LABS: ADD MAN DIFF? NO
[2018-10-10 06:22] LABS: WHITE BLOOD COUNT 5.7 10^3/ul (4.8-10.8)
[2018-10-10 06:22] LABS: ABNORMAL IP MESSAGE 1; BASOPHILS % 0.4 % (0.0-2.0); EOSINOPHILS # 0.1 10^3/ul (0.0-0.5); EOSINOPHILS % 2.1 % (0.0-7.0); HEMATOCRIT 34.4 % (42.0-52.0); HEMOGLOBIN 10.4 g/dl (14.0-18.0); LYMPHOCYTES # 0.4 10^3/ul (0.8-2.9); LYMPHOCYTES % 6.3 % (15.0-51.0); MEAN CORPUSCULAR HEMOGLOBIN 29.4 pg (29.0-33.0); MEAN CORPUSCULAR HGB CONC 30.2 g/dl (32.0-37.0); MEAN CORPUSCULAR VOLUME 97.2 fl (82.0-101.0); MONOCYTE # 0.4 10^3/ul (0.3-0.9); MONOCYTES % 6.2 % (0.0-11.0); NEUTROPHIL # 4.8 10^3/ul (1.6-7.5); NEUTROPHILS % 84.3 % (39.0-77.0); PLATELET COUNT 99 10^3/UL (140-415); POSITIVE DIFF @See below; RED BLOOD COUNT 3.54 10^6/ul (4.70-6.10); RED CELL DISTRIBUTION WIDTH 15.9 % (11.5-14.5)
[2018-10-10 06:42] LABS: INR 5.42; PROTIME 49.3 Sec (11.9-14.9); PT RATIO 3.9
[2018-10-10 07:02] LABS: ANION GAP 11 (5-13); BLOOD UREA NITROGEN 66 mg/dl (7-20); CALCIUM 9.7 mg/dl (8.4-10.2); CARBON DIOXIDE 26 mmol/L (21-31); CHLORIDE 101 mmol/L (97-110); CREATININE 6.28 mg/dl (0.61-1.24); Estimated GFR 9 mL/min (>60); MAGNESIUM 2.2 mg/dl (1.7-2.5); PHOSPHORUS 5.1 mg/dl (2.5-4.9); SODIUM 138 mmol/L (135-144)
[2018-10-10 07:45] LABS: GLUCOSE 44 mg/dl (70-220)
[2018-10-10 07:50] LABS: VANCOMYCIN,RANDOM 14.1 ug/ml
[2018-10-10] MEDS ORDERED: GLUCOSE GEL 15 GRAM TUBE PO ×2 (08:00)
[2018-10-10] MEDS ORDERED: GLUCAGON 1 MG INJ IM (08:00)
[2018-10-10] MEDS ORDERED: GLUCOSE GEL 15 GRAM TUBE BUCCAL (08:00)
[2018-10-10] MEDS ORDERED: DEXTROSE 50% 50 ML SYRINGE IV ×2 (08:00)
[2018-10-10] MEDS: ISOSORBIDE MONONITRATE 20 MG TAB PO ×2 (08:18→20:27)
[2018-10-10] MEDS: MEROPENEM 500MG/50 ML (PMX) 50 ML IVPB ×2 (08:20→20:27)
[2018-10-10] MEDS: POVIDONE IODINE 10% 28.4 GM OINT TOP ×2 (08:21→20:29)
[2018-10-10] MEDS: SENNA/DOCUSATE NA (8.6MG/50MG) TAB PO (08:21)
[2018-10-10] MEDS: ASCORBIC ACID 500 MG TAB PO (08:21)
[2018-10-10] MEDS: CHOLECALCIFEROL 1,000 UNIT TAB PO (08:21)
[2018-10-10] MEDS: FOLIC ACID 1 MG TAB PO (08:21)
[2018-10-10] MEDS: DOCUSATE SODIUM 100 MG CAP PO ×2 (08:21→20:28)
[2018-10-10] MEDS: ONDANSETRON 4 MG INJ IV ×2 (10:49→17:52)
[2018-10-10] MEDS: SOD FERRIC GLUC COMPLX 125 MG in SOD CHLORIDE 0.9% 100 ML IVPB (13:25)
[2018-10-10] MEDS: HYDROCODONE/APAP (5/325) TAB PO (17:53)
[2018-10-10] MEDS: INSULIN ASPART [NOVOLOG] 3 ML PEN SC (20:28)
[2018-10-10] MEDS: ATORVASTATIN 10 MG TAB PO (20:28)
[2018-10-10] MEDS: VANCOMYCIN 1 GM 250 ML IVPB (22:18)
[2018-10-11] MEDS: POLYETHYLENE GLYCOL 17 GM PACKET PO (00:12)
[2018-10-11] MEDS: SUCRALFATE (100 MG/ML) 10ML CUP PO ×4 (00:12→18:44)
[2018-10-11] MEDS: HYDROCODONE/APAP (5/325) TAB PO ×3 (00:13→23:35)
[2018-10-11] MEDS: INSULIN ASPART [NOVOLOG] 3 ML PEN SC ×6 (01:00→20:39)
[2018-10-11] MEDS: ACCU-CHEK XX (02:00)
[2018-10-11] MEDS: LEVOTHYROXINE 100 MCG TAB PO (05:22)
[2018-10-11] MEDS: PANTOPRAZOLE (EC) 40 MG TAB PO ×2 (05:22→18:44)
[2018-10-11] MEDS: DOCUSATE SODIUM 100 MG CAP PO ×2 (05:22→20:37)
[2018-10-11] MEDS: SENNA/DOCUSATE NA (8.6MG/50MG) TAB PO (05:22)
[2018-10-11 06:30] LABS: ADD MAN DIFF? NO
[2018-10-11 06:45] LABS: ABNORMAL IP MESSAGE 1; BASOPHILS % 0.3 % (0.0-2.0); EOSINOPHILS # 0.1 10^3/ul (0.0-0.5); EOSINOPHILS % 2.2 % (0.0-7.0); HEMATOCRIT 36.4 % (42.0-52.0); HEMOGLOBIN 11.1 g/dl (14.0-18.0); LYMPHOCYTES # 0.3 10^3/ul (0.8-2.9); LYMPHOCYTES % 5.6 % (15.0-51.0); MEAN CORPUSCULAR HEMOGLOBIN 29.7 pg (29.0-33.0); MEAN CORPUSCULAR HGB CONC 30.5 g/dl (32.0-37.0); MEAN CORPUSCULAR VOLUME 97.3 fl (82.0-101.0); MEAN PLATELET VOLUME 12.9 fl (7.4-10.4); MONOCYTE # 0.3 10^3/ul (0.3-0.9); MONOCYTES % 4.9 % (0.0-11.0); NEUTROPHIL # 5.1 10^3/ul (1.6-7.5); NEUTROPHILS % 86.3 % (39.0-77.0); PLATELET COUNT 111 10^3/UL (140-415); POSITIVE DIFF @See below; RED BLOOD COUNT 3.74 10^6/ul (4.70-6.10); RED CELL DISTRIBUTION WIDTH 15.7 % (11.5-14.5)
[2018-10-11 06:45] LABS: WHITE BLOOD COUNT 5.9 10^3/ul (4.8-10.8)
[2018-10-11 07:02] LABS: INR 2.89; PROTIME 30.3 Sec (11.9-14.9); PT RATIO 2.4
[2018-10-11 07:03] LABS: ALANINE AMINOTRANSFERASE 13 IU/L (13-69); ALBUMIN 3.5 g/dl (3.3-4.9); ALBUMIN/GLOBULIN RATIO 0.92; ALKALINE PHOSPHATASE 129 IU/L (42-121); ANION GAP 14 (5-13); ASPARTATE AMINO TRANSFERASE 21 IU/L (15-46); BILIRUBIN,INDIRECT 0.3 mg/dl (0-1.1); BILIRUBIN,TOTAL 0.3 mg/dl (0.2-1.3); BLOOD UREA NITROGEN 73 mg/dl (7-20); CALCIUM 9.9 mg/dl (8.4-10.2); CARBON DIOXIDE 23 mmol/L (21-31); CHLORIDE 100 mmol/L (97-110); CREATININE 7.02 mg/dl (0.61-1.24); Estimated GFR 8 mL/min (>60); GLUCOSE 84 mg/dl (70-220); POTASSIUM 5.1 mmol/L (3.5-5.1); SODIUM 137 mmol/L (135-144); TOTAL PROTEIN 7.3 g/dl (6.1-8.1)
[2018-10-11] MEDS: ISOSORBIDE MONONITRATE 20 MG TAB PO ×2 (09:00→20:38)
[2018-10-11] MEDS: MEROPENEM 500MG/50 ML (PMX) 50 ML IVPB ×2 (09:19→23:26)
[2018-10-11] MEDS: ASCORBIC ACID 500 MG TAB PO (09:19)
[2018-10-11] MEDS: CHOLECALCIFEROL 1,000 UNIT TAB PO (09:19)
[2018-10-11] MEDS: POVIDONE IODINE 10% 28.4 GM OINT TOP ×2 (09:20→21:02)
[2018-10-11] MEDS: FOLIC ACID 1 MG TAB PO (09:20)
[2018-10-11] MEDS: MIDODRINE 5 MG TAB PO ×2 (18:44→23:29)
[2018-10-11] MEDS: SOD FERRIC GLUC COMPLX 125 MG in SOD CHLORIDE 0.9% 100 ML IVPB (18:45)
[2018-10-11] MEDS: traMADol 50 MG TAB PO (18:53)
[2018-10-11] MEDS: ATORVASTATIN 10 MG TAB PO (20:37)
[2018-10-11] MEDS: CEPASTAT LOZENGE MT (20:55)
[2018-10-12] MEDS: INSULIN ASPART [NOVOLOG] 3 ML PEN SC ×6 (01:00→21:00)
[2018-10-12] MEDS: SUCRALFATE (100 MG/ML) 10ML CUP PO ×4 (01:23→17:09)
[2018-10-12] MEDS: ACCU-CHEK XX (02:00)
[2018-10-12 03:38] LABS: OCCULT BLOOD STOOL POSITIVE (NEGATIVE)
[2018-10-12] MEDS: PANTOPRAZOLE (EC) 40 MG TAB PO ×2 (06:13→17:09)
[2018-10-12] MEDS: LEVOTHYROXINE 100 MCG TAB PO (06:13)
[2018-10-12] MEDS: MIDODRINE 5 MG TAB PO ×3 (06:15→21:25)
[2018-10-12] MEDS: HYDROmorphONE 2 MG TAB PO ×2 (07:53→14:42)
[2018-10-12] MEDS: MEROPENEM 500MG/50 ML (PMX) 50 ML IVPB ×2 (08:25→21:32)
[2018-10-12] MEDS: CHOLECALCIFEROL 1,000 UNIT TAB PO (08:32)
[2018-10-12] MEDS: FOLIC ACID 1 MG TAB PO (08:32)
[2018-10-12] MEDS: SENNA/DOCUSATE NA (8.6MG/50MG) TAB PO (08:32)
[2018-10-12] MEDS: ASCORBIC ACID 500 MG TAB PO (08:32)
[2018-10-12] MEDS: DOCUSATE SODIUM 100 MG CAP PO ×2 (08:32→21:00)
[2018-10-12] MEDS: ISOSORBIDE MONONITRATE 20 MG TAB PO ×2 (08:36→21:00)
[2018-10-12] MEDS: POVIDONE IODINE 10% 28.4 GM OINT TOP ×2 (10:54→21:25)
[2018-10-12] MEDS: SOD FERRIC GLUC COMPLX 125 MG in SOD CHLORIDE 0.9% 100 ML IVPB (13:01)
[2018-10-12] MEDS: CEPASTAT LOZENGE MT ×2 (14:41→21:18)
[2018-10-12] MEDS: HYDROCODONE/APAP (5/325) TAB PO ×2 (14:44→21:18)
[2018-10-12 15:03] LABS: INR 1.82; PROTIME 21.2 Sec (11.9-14.9); PT RATIO 1.7
[2018-10-12] MEDS: WARFARIN 3 MG TAB PO (17:10)
[2018-10-12] MEDS: ATORVASTATIN 10 MG TAB PO (21:17)
[2018-10-13] MEDS: INSULIN ASPART [NOVOLOG] 3 ML PEN SC ×3 (01:00→09:00)
[2018-10-13] MEDS: SUCRALFATE (100 MG/ML) 10ML CUP PO ×5 (01:33→22:11)
[2018-10-13] MEDS: ACCU-CHEK XX (02:00)
[2018-10-13] MEDS: HYDROCODONE/APAP (5/325) TAB PO ×4 (05:20→23:18)
[2018-10-13] MEDS: MIDODRINE 5 MG TAB PO ×3 (05:20→22:16)
[2018-10-13] MEDS: LEVOTHYROXINE 100 MCG TAB PO (05:20)
[2018-10-13] MEDS: PANTOPRAZOLE (EC) 40 MG TAB PO ×2 (05:26→20:28)
[2018-10-13] MEDS: ISOSORBIDE MONONITRATE 20 MG TAB PO ×2 (09:00→20:29)
[2018-10-13] MEDS ORDERED: HEPARIN 25000 UNITS/250 ML 250 ML IV (09:30)
[2018-10-13] MEDS ORDERED: HEPARIN 1000 UNITS/ML 10 ML INJ IV (09:30)
[2018-10-13] MEDS: HEPARIN 1000 UNITS/ML 10 ML INJ IV (09:30)
[2018-10-13] MEDS: SENNA/DOCUSATE NA (8.6MG/50MG) TAB PO (09:45)
[2018-10-13] MEDS: DOCUSATE SODIUM 100 MG CAP PO ×2 (09:45→20:28)
[2018-10-13] MEDS: ASCORBIC ACID 500 MG TAB PO (09:45)
[2018-10-13] MEDS: CHOLECALCIFEROL 1,000 UNIT TAB PO (09:45)
[2018-10-13] MEDS: FOLIC ACID 1 MG TAB PO (09:45)
[2018-10-13] MEDS: POVIDONE IODINE 10% 28.4 GM OINT TOP ×2 (09:46→20:30)
[2018-10-13 10:00] LABS: ADD MAN DIFF? NO
[2018-10-13 10:02] LABS: ABNORMAL IP MESSAGE 1; BASOPHILS % 0.4 % (0.0-2.0); EOSINOPHILS # 0.2 10^3/ul (0.0-0.5); EOSINOPHILS % 3.3 % (0.0-7.0); HEMATOCRIT 36.7 % (42.0-52.0); HEMOGLOBIN 11.1 g/dl (14.0-18.0); LYMPHOCYTES # 0.5 10^3/ul (0.8-2.9); LYMPHOCYTES % 9.8 % (15.0-51.0); MEAN CORPUSCULAR HGB CONC 30.2 g/dl (32.0-37.0); MEAN CORPUSCULAR VOLUME 99.2 fl (82.0-101.0); MEAN PLATELET VOLUME 11.7 fl (7.4-10.4); MONOCYTE # 0.4 10^3/ul (0.3-0.9); MONOCYTES % 7.3 % (0.0-11.0); NEUTROPHIL # 4.3 10^3/ul (1.6-7.5); NEUTROPHILS % 78.7 % (39.0-77.0); PLATELET COUNT 114 10^3/UL (140-415); POSITIVE DIFF @See below; RED CELL DISTRIBUTION WIDTH 15.9 % (11.5-14.5)
[2018-10-13 10:02] LABS: WHITE BLOOD COUNT 5.5 10^3/ul (4.8-10.8)
[2018-10-13 10:21] LABS: INR 1.75; PROTIME 20.5 Sec (11.9-14.9); PT RATIO 1.6
[2018-10-13 10:22] LABS: PARTIAL THROMBOPLASTIN TIME 50.8 Sec (23.0-35.0)
[2018-10-13 10:27] LABS: ANION GAP 12 (5-13); BLOOD UREA NITROGEN 51 mg/dl (7-20); CARBON DIOXIDE 26 mmol/L (21-31); CHLORIDE 101 mmol/L (97-110); CREATININE 6.14 mg/dl (0.61-1.24); Estimated GFR 9 mL/min (>60); GLUCOSE 89 mg/dl (70-220); PHOSPHORUS 4.3 mg/dl (2.5-4.9); POTASSIUM 4.7 mmol/L (3.5-5.1); SODIUM 139 mmol/L (135-144)
[2018-10-13 10:37] LABS: VANCOMYCIN,RANDOM 15.8 ug/ml
[2018-10-13] MEDS: MEROPENEM 500MG/50 ML (PMX) 50 ML IVPB ×2 (11:34→22:17)
[2018-10-13] MEDS: CEPASTAT LOZENGE MT (11:38)
[2018-10-13] MEDS: SUCRALFATE 1 GM TAB PO ×2 (13:54→20:36)
[2018-10-13] MEDS: SOD FERRIC GLUC COMPLX 125 MG in SOD CHLORIDE 0.9% 100 ML IVPB (13:56)
[2018-10-13] MEDS: ACETAMINOPHEN 325 MG TAB PO (15:28)
[2018-10-13] MEDS ORDERED: WARFARIN 7.5 MG TAB PO (17:00)
[2018-10-13] MEDS: ALBUMIN HUMAN 25% 100 ML IV (17:19)
[2018-10-13] MEDS: VANCOMYCIN 1 GM 250 ML IVPB (20:13)
[2018-10-13] MEDS: morphine 2 MG INJ IV (20:24)
[2018-10-13] MEDS: EPOETIN ALFA-EPBX (ESRD) 10,000 UNIT/ML VIAL SC (20:27)
[2018-10-13] MEDS: ATORVASTATIN 10 MG TAB PO (20:29)
[2018-10-13] MEDS: WARFARIN 10 MG TAB PO (20:29)
[2018-10-13] MEDS ORDERED: NITROGLYCERIN (SL) 0.4 MG TAB SL (22:00)
[2018-10-13] MEDS: BALSAM PERU/CASTOR OIL 60 GM TUBE TOP (22:10)
[2018-10-14] MEDS: morphine 2 MG INJ IV ×5 (00:41→20:42)
[2018-10-14 01:15] LABS: CREATINE KINASE 37 IU/L (23-200)
[2018-10-14 01:29] LABS: CK INDEX 18.3; CK-MB 6.77 ng/ml (0.0-2.4)
[2018-10-14] MEDS ORDERED: ASPIRIN 325 MG TAB (01:47)
[2018-10-14] MEDS: ASPIRIN 325 MG TAB PO (01:50)
[2018-10-14] MEDS: CEPASTAT LOZENGE MT ×3 (05:14→19:53)
[2018-10-14] MEDS: SUCRALFATE 1 GM TAB PO ×4 (05:36→18:00)
[2018-10-14 05:37] LABS: ADD MAN DIFF? NO
[2018-10-14] MEDS: SUCRALFATE (100 MG/ML) 10ML CUP PO ×4 (05:37→18:00)
[2018-10-14] MEDS: LEVOTHYROXINE 100 MCG TAB PO (05:37)
[2018-10-14] MEDS: PANTOPRAZOLE (EC) 40 MG TAB PO ×2 (05:37→18:00)
[2018-10-14 05:40] LABS: ABNORMAL IP MESSAGE 1; BASOPHILS % 0.3 % (0.0-2.0); EOSINOPHILS # 0.2 10^3/ul (0.0-0.5); EOSINOPHILS % 2.7 % (0.0-7.0); HEMATOCRIT 35.1 % (42.0-52.0); HEMOGLOBIN 10.4 g/dl (14.0-18.0); LYMPHOCYTES # 0.3 10^3/ul (0.8-2.9); LYMPHOCYTES % 5.8 % (15.0-51.0); MEAN CORPUSCULAR HEMOGLOBIN 29.5 pg (29.0-33.0); MEAN CORPUSCULAR HGB CONC 29.6 g/dl (32.0-37.0); MEAN CORPUSCULAR VOLUME 99.4 fl (82.0-101.0); MONOCYTE # 0.5 10^3/ul (0.3-0.9); NEUTROPHIL # 4.8 10^3/ul (1.6-7.5); NEUTROPHILS % 82.7 % (39.0-77.0); PLATELET COUNT 102 10^3/UL (140-415); POSITIVE DIFF @See below; RED BLOOD COUNT 3.53 10^6/ul (4.70-6.10); RED CELL DISTRIBUTION WIDTH 15.9 % (11.5-14.5)
[2018-10-14 05:40] LABS: WHITE BLOOD COUNT 5.8 10^3/ul (4.8-10.8)
[2018-10-14] MEDS: MIDODRINE 5 MG TAB PO ×3 (05:41→22:42)
[2018-10-14 06:02] LABS: PROTIME 24.5 Sec (11.9-14.9); PT RATIO 1.9
[2018-10-14 06:04] LABS: CREATINE KINASE 50 IU/L (23-200)
[2018-10-14 06:11] LABS: CK-MB 7.51 ng/ml (0.0-2.4)
[2018-10-14] MEDS: HYDROCODONE/APAP (5/325) TAB PO (06:52)
[2018-10-14 07:01] LABS: ANION GAP 13 (5-13); BLOOD UREA NITROGEN 32 mg/dl (7-20); CARBON DIOXIDE 25 mmol/L (21-31); CHLORIDE 101 mmol/L (97-110); CREATININE 4.46 mg/dl (0.61-1.24); Estimated GFR 13 mL/min (>60); GLUCOSE 83 mg/dl (70-220); POTASSIUM 4.1 mmol/L (3.5-5.1); SODIUM 139 mmol/L (135-144)
[2018-10-14] MEDS: ISOSORBIDE DINITRATE 10 MG TAB PO ×3 (08:25→20:40)
[2018-10-14] MEDS: MEROPENEM 500MG/50 ML (PMX) 50 ML IVPB ×2 (08:37→20:41)
[2018-10-14] MEDS: FOLIC ACID 1 MG TAB PO (08:42)
[2018-10-14] MEDS: SENNA/DOCUSATE NA (8.6MG/50MG) TAB PO (08:43)
[2018-10-14] MEDS: CHOLECALCIFEROL 1,000 UNIT TAB PO (08:43)
[2018-10-14] MEDS: DOCUSATE SODIUM 100 MG CAP PO ×2 (08:43→20:48)
[2018-10-14] MEDS: ASCORBIC ACID 500 MG TAB PO (08:43)
[2018-10-14] MEDS: BALSAM PERU/CASTOR OIL 60 GM TUBE TOP ×2 (08:45→20:41)
[2018-10-14] MEDS: POVIDONE IODINE 10% 28.4 GM OINT TOP ×2 (08:45→20:41)
[2018-10-14] MEDS: RANOLAZINE (SR) 500 MG TAB PO ×2 (11:00→20:40)
[2018-10-14 12:44] LABS: CREATINE KINASE 48 IU/L (23-200)
[2018-10-14 12:56] LABS: CK INDEX 18.6
[2018-10-14 12:59] LABS: CK-MB 8.93 ng/ml (0.0-2.4)
[2018-10-14] MEDS: ATORVASTATIN 10 MG TAB PO (20:40)
[2018-10-14] MEDS: traMADol 50 MG TAB PO (23:23)
[2018-10-15] MEDS: MIDODRINE 5 MG TAB PO ×6 (00:07→20:31)
[2018-10-15] MEDS: SUCRALFATE 1 GM TAB PO ×3 (00:09→12:00)
[2018-10-15] MEDS: SUCRALFATE (100 MG/ML) 10ML CUP PO ×5 (00:10→23:09)
[2018-10-15] MEDS: LEVOTHYROXINE 100 MCG TAB PO (05:11)
[2018-10-15] MEDS: PANTOPRAZOLE (EC) 40 MG TAB PO ×2 (05:12→18:26)
[2018-10-15 05:56] LABS: ADD MAN DIFF? NO
[2018-10-15 05:58] LABS: ABNORMAL IP MESSAGE 1; BASOPHILS % 0.4 % (0.0-2.0); EOSINOPHILS # 0.1 10^3/ul (0.0-0.5); EOSINOPHILS % 1.6 % (0.0-7.0); HEMATOCRIT 32.7 % (42.0-52.0); HEMOGLOBIN 9.7 g/dl (14.0-18.0); LYMPHOCYTES # 0.6 10^3/ul (0.8-2.9); MEAN CORPUSCULAR HEMOGLOBIN 29.5 pg (29.0-33.0); MEAN CORPUSCULAR HGB CONC 29.7 g/dl (32.0-37.0); MEAN CORPUSCULAR VOLUME 99.4 fl (82.0-101.0); MEAN PLATELET VOLUME 11.7 fl (7.4-10.4); MONOCYTE # 0.4 10^3/ul (0.3-0.9); MONOCYTES % 7.4 % (0.0-11.0); NEUTROPHIL # 4.4 10^3/ul (1.6-7.5); NEUTROPHILS % 79.9 % (39.0-77.0); PLATELET COUNT 109 10^3/UL (140-415); POSITIVE DIFF @See below; RED BLOOD COUNT 3.29 10^6/ul (4.70-6.10); RED CELL DISTRIBUTION WIDTH 15.8 % (11.5-14.5)
[2018-10-15 05:58] LABS: WHITE BLOOD COUNT 5.5 10^3/ul (4.8-10.8)
[2018-10-15 06:21] LABS: INR 4.76; PROTIME 44.6 Sec (11.9-14.9); PT RATIO 3.5
[2018-10-15 06:38] LABS: ANION GAP 12 (5-13); BLOOD UREA NITROGEN 41 mg/dl (7-20); CALCIUM 10.2 mg/dl (8.4-10.2); CARBON DIOXIDE 27 mmol/L (21-31); CHLORIDE 100 mmol/L (97-110); CREATININE 5.57 mg/dl (0.61-1.24); Estimated GFR 10 mL/min (>60); GLUCOSE 71 mg/dl (70-220); POTASSIUM 4.4 mmol/L (3.5-5.1); SODIUM 139 mmol/L (135-144)
[2018-10-15 06:55] LABS: PHOSPHORUS 3.8 mg/dl (2.5-4.9)
[2018-10-15] MEDS: MEROPENEM 500MG/50 ML (PMX) 50 ML IVPB ×2 (08:31→20:32)
[2018-10-15] MEDS: CHOLECALCIFEROL 1,000 UNIT TAB PO (08:33)
[2018-10-15] MEDS: ASPIRIN 325 MG TAB PO (08:33)
[2018-10-15] MEDS: ASCORBIC ACID 500 MG TAB PO (08:33)
[2018-10-15] MEDS: FOLIC ACID 1 MG TAB PO (08:33)
[2018-10-15] MEDS: DOCUSATE SODIUM 100 MG CAP PO ×2 (08:33→20:31)
[2018-10-15] MEDS: BALSAM PERU/CASTOR OIL 60 GM TUBE TOP ×2 (08:34→20:44)
[2018-10-15] MEDS: POVIDONE IODINE 10% 28.4 GM OINT TOP ×2 (08:34→20:44)
[2018-10-15] MEDS: ISOSORBIDE DINITRATE 10 MG TAB PO ×3 (08:35→20:32)
[2018-10-15] MEDS: SENNA/DOCUSATE NA (8.6MG/50MG) TAB PO (08:35)
[2018-10-15] MEDS: RANOLAZINE (SR) 500 MG TAB PO ×2 (08:35→20:31)
[2018-10-15] MEDS: traMADol 50 MG TAB PO ×2 (10:01→22:38)
[2018-10-15] MEDS: CEPASTAT LOZENGE MT ×3 (10:59→23:09)
[2018-10-15] MEDS: KETOROLAC 15 MG INJ IV (12:06)
[2018-10-15] MEDS: ACETAMINOPHEN 325 MG TAB PO (15:14)
[2018-10-15] MEDS: SOD CHLORIDE 0.9% 250 ML IV (16:08)
[2018-10-15] MEDS: ALBUMIN HUMAN 25% 100 ML IV ×2 (16:34→18:25)
[2018-10-15] MEDS: EPOETIN ALFA-EPBX (ESRD) 10,000 UNIT/ML VIAL SC (18:26)
[2018-10-15] MEDS: ATORVASTATIN 10 MG TAB PO (20:31)
[2018-10-16] MEDS: ACETAMINOPHEN 325 MG TAB PO (03:33)
[2018-10-16] MEDS: KETOROLAC 15 MG INJ IV ×2 (04:33→13:00)
[2018-10-16 05:29] LABS: ADD MAN DIFF? NO
[2018-10-16 05:37] LABS: ABNORMAL IP MESSAGE 1; BASOPHILS % 0.3 % (0.0-2.0); EOSINOPHILS # 0.2 10^3/ul (0.0-0.5); EOSINOPHILS % 2.3 % (0.0-7.0); HEMATOCRIT 32.4 % (42.0-52.0); HEMOGLOBIN 9.5 g/dl (14.0-18.0); LYMPHOCYTES # 0.5 10^3/ul (0.8-2.9); LYMPHOCYTES % 6.8 % (15.0-51.0); MEAN CORPUSCULAR HEMOGLOBIN 29.9 pg (29.0-33.0); MEAN CORPUSCULAR HGB CONC 29.3 g/dl (32.0-37.0); MEAN CORPUSCULAR VOLUME 101.9 fl (82.0-101.0); MEAN PLATELET VOLUME 12.4 fl (7.4-10.4); MONOCYTE # 0.6 10^3/ul (0.3-0.9); MONOCYTES % 8.5 % (0.0-11.0); NEUTROPHILS % 81.3 % (39.0-77.0); PLATELET COUNT 112 10^3/UL (140-415); POSITIVE DIFF @See below; RED BLOOD COUNT 3.18 10^6/ul (4.70-6.10)
[2018-10-16 05:37] LABS: WHITE BLOOD COUNT 7.4 10^3/ul (4.8-10.8)
[2018-10-16] MEDS: PANTOPRAZOLE (EC) 40 MG TAB PO (05:57)
[2018-10-16] MEDS: SUCRALFATE (100 MG/ML) 10ML CUP PO ×2 (05:57→12:16)
[2018-10-16] MEDS: LEVOTHYROXINE 100 MCG TAB PO (05:58)
[2018-10-16] MEDS: MIDODRINE 5 MG TAB PO ×4 (05:58→13:55)
[2018-10-16 05:59] LABS: PROTIME 66.2 Sec (11.9-14.9); PT RATIO 5.2
[2018-10-16 06:05] LABS: INR 7.93
[2018-10-16 06:11] LABS: ANION GAP 13 (5-13); BLOOD UREA NITROGEN 48 mg/dl (7-20); CALCIUM 10.2 mg/dl (8.4-10.2); CARBON DIOXIDE 25 mmol/L (21-31); CHLORIDE 101 mmol/L (97-110); Estimated GFR 9 mL/min (>60); GLUCOSE 70 mg/dl (70-220); POTASSIUM 4.7 mmol/L (3.5-5.1); SODIUM 139 mmol/L (135-144)
[2018-10-16] MEDS ORDERED: PHYTONADIONE 10 MG/ML INJ IV (07:00)
[2018-10-16 08:41] LABS: VANCOMYCIN,RANDOM 18.9 ug/ml
[2018-10-16] MEDS: ISOSORBIDE DINITRATE 10 MG TAB PO ×2 (09:00→12:06)
[2018-10-16] MEDS: ALBUMIN HUMAN 25% 100 ML IV ×2 (09:22→09:24)
[2018-10-16] MEDS: ASCORBIC ACID 500 MG TAB PO (09:26)
[2018-10-16] MEDS: FOLIC ACID 1 MG TAB PO (09:26)
[2018-10-16] MEDS: RANOLAZINE (SR) 500 MG TAB PO (09:27)
[2018-10-16] MEDS: ASPIRIN 325 MG TAB PO (09:27)
[2018-10-16] MEDS: SENNA/DOCUSATE NA (8.6MG/50MG) TAB PO (09:27)
[2018-10-16] MEDS: CHOLECALCIFEROL 1,000 UNIT TAB PO (09:27)
[2018-10-16] MEDS: MEROPENEM 500MG/50 ML (PMX) 50 ML IVPB (09:28)
[2018-10-16] MEDS: DOCUSATE SODIUM 100 MG CAP PO (09:37)
[2018-10-16] MEDS: POVIDONE IODINE 10% 28.4 GM OINT TOP (09:38)
[2018-10-16] MEDS: BALSAM PERU/CASTOR OIL 60 GM TUBE TOP (09:38)
[2018-10-16] MEDS: PHYTONADIONE 10 MG in DEXTROSE 5% 50 ML IV (10:07)
[2018-10-16] MEDS: CEPASTAT LOZENGE MT (10:17)
[2018-10-16] MEDS: ONDANSETRON 4 MG INJ IV (14:22)
[2018-10-16] MEDS ORDERED: HEPARIN 1000 UNITS/ML 10 ML INJ IV ×2 (14:30)
[2018-10-16] MEDS ORDERED: HEPARIN 25000 UNITS/D5W 250 ML IV (14:30)
[2018-10-16] MEDS ORDERED: LIDOCAINE 1% (MPF) 5 ML VIAL SC (15:30)
[2018-10-16] MEDS ORDERED: VANCOMYCIN 750 MG (PMX) 250 ML IVPB (18:00)
== END 2018-10-16 17:00 | disposition expired | DRG 871 ==
LOC: PP2 10-11 12:09 → ICU 10-14 07:00 → E/R 08:54 → PP2 10-11 15:00 → 6WM 10-14 14:36
PROC: 30233N1 Transfusion of Nonautologous Red Blood Cells into Peripheral Vein, Percutaneous Approach (ICD-10-PCS; principal; 2018-10-08)
PROC: 5A1D70Z Performance of Urinary Filtration, Intermittent, Less than 6 Hours Per Day (ICD-10-PCS; 2018-10-08)
DX: A41.9 Sepsis, unspecified organism (principal); N18.6 End stage renal disease; I21.4 Non-ST elevation (NSTEMI) myocardial infarction; I12.0 Hypertensive chronic kidney disease with stage 5 chronic kidney disease or end stage renal disease; D61.818 Other pancytopenia; E11.52 Type 2 diabetes mellitus with diabetic peripheral angiopathy with gangrene; I96 Gangrene, not elsewhere classified; I42.9 Cardiomyopathy, unspecified; F11.20 Opioid dependence, uncomplicated; M86.9 Osteomyelitis, unspecified; I24.9 Acute ischemic heart disease, unspecified; R65.20 Severe sepsis without septic shock; E11.69 Type 2 diabetes mellitus with other specified complication; E11.621 Type 2 diabetes mellitus with foot ulcer; D63.1 Anemia in chronic kidney disease; D50.9 Iron deficiency anemia, unspecified; E11.22 Type 2 diabetes mellitus with diabetic chronic kidney disease; E83.51 Hypocalcemia; E03.9 Hypothyroidism, unspecified; E87.70 Fluid overload, unspecified; E66.9 Obesity, unspecified; E11.42 Type 2 diabetes mellitus with diabetic polyneuropathy; L97.529 Non-pressure chronic ulcer of other part of left foot with unspecified severity; L98.499 Non-pressure chronic ulcer of skin of other sites with unspecified severity; G89.29 Other chronic pain; R79.1 Abnormal coagulation profile; R53.81 Other malaise; S72.92XD Unspecified fracture of left femur, subsequent encounter for closed fracture with routine healing; W05.0XXD Fall from non-moving wheelchair, subsequent encounter; Z66 Do not resuscitate; Z86.74 Personal history of sudden cardiac arrest; Z89.431 Acquired absence of right foot; Z95.2 Presence of prosthetic heart valve; Z99.2 Dependence on renal dialysis; Z68.33 Body mass index [BMI] 33.0-33.9, adult; Z79.01 Long term (current) use of anticoagulants
CPT/HCPCS: 36430; 71045; 73620; 80048; 80053; 80202; 82270; 82310; 82330; 82550; 82553; 82728; 82962; 83036; 83540; 83605; 83735; 84100; 84484; 85025; 85045; 85049; 85610; 85670; 85730; 86850; 86870; 86880; 86900; 86901; 86902; 86920; 87040-91; 87340; 90935; 93005; 93306; 96374; 96375; 99285-25